=== PATIENT | male | born 1940 | race Caucasian/White ===

== ENCOUNTER 2020-12-04 07:39 | Outpatient (CLI) | payer MEDICARE, OTHER, SELFPAY ==
--- NOTE | 2020-12-04 08:00 | USCV_ITS ---
Penny Jose Age: 80 Gender: M : 1940 Exam Date: 12/04/2020 08:01 Ordering Phys: Abdullahi Saldana MD ([email or web address]) Technologist: Sixto Sky Exam Location: [facility] [place] Indication: MURMUR BP: 120 / 70 HR: 57 Rhythm: Sinus Technical Quality: Fair MEASUREMENTS (Male / Female) Normal Values 2D ECHO LV Diastolic Diameter PLAX 3.9 cm 4.2 - 5.9 / 3.9 - 5.3 cm LV Systolic Diameter PLAX 3.0 cm IVS Diastolic Thickness 1.5 cm 0.6 - 1.0 / 0.6 - 0.9 cm IVS Systolic Thickness 1.6 cm LVPW Diastolic Thickness 1.4 cm 0.6 - 1.0 / 0.6 - 0.9 cm LVPW Systolic Thickness 1.8 cm LVOT Diameter 2.2 cm LV Ejection Fraction 2D Teich 33.8 % LV Ejection Fraction MOD 2C 67.6 % LV Ejection Fraction 2C AL 67.3 % LA Diameter 4.0 cm LA Width 4.8 cm LA Height 4.8 cm RA Width 3.9 cm RA Height 5.9 cm Aorta at Sinotubular Diameter 4.0 cm M-MODE LV Diastolic Diameter MM 6.4 cm 4.2 - 5.9 / 3.9 - 5.3 cm LV Systolic Diameter MM 3.6 cm LV Ejection Fraction MM Teich 74.1 % IVS Diastolic Thickness MM 1.4 cm 0.6 - 1.0 / 0.6 - 0.9 cm IVS Systolic Thickness MM 2.0 cm LVPW Diastolic Thickness MM 1.4 cm 0.6 - 1.0 / 0.6 - 0.9 cm LVPW Systolic Thickness MM 2.4 cm RV Diastolic Diameter MM 1.8 cm MV E Point Septal Separation 0.8 cm DOPPLER AV Peak Velocity 124.0 cm/s LVOT Peak Velocity 95.7 cm/s AV Area Cont Eq vti 2.7 cm squared AV Area Cont Eq pk 3.0 cm squared MV Area PHT 5.0 cm squared Mitral E to A Ratio 1.6 MV E' Velocity 59.0 cm/s Mitral E to MV E' Ratio 11.7 Mitral E to LV E' Lateral Ratio 15.0 Mitral E to LV E' Septal Ratio 9.5 TR Peak Velocity 299.7 cm/s TR Peak Gradient 35.9 mmHg TV Peak E Velocity 113.0 cm/s Right Atrial Pressure 3.0 mmHg Pulmonary Artery Systolic Pressu 38.9 mmHg PV Peak Velocity 73.0 cm/s FINDINGS Left Ventricle Normal left ventricular size and systolic function, EF 55 %. Mild to moderate concentric left ventricular hypertrophy.no regional wall motion abnormalities. Grade III/IV diastolic dysfunction (restrictive filling pattern), severely elevated filling pressures. Right Ventricle The right ventricle is normal in size and function. Right Atrium The right atrium is normal in size. Left Atrium Mildly increased left atrial size. Mitral Valve Thickened mitral valve. Moderate mitral annular calcification. Mild mitral valve regurgitation. Aortic Valve Thickened aortic valve. Mild to moderate aortic valve regurgitation. Tricuspid Valve Mild tricuspid valve regurgitation. Pulmonic Valve Mild pulmonary valve regurgitation. Pericardium Normal pericardium without effusion. Aorta Normal ascending aorta dimension. CONCLUSIONS Normal left ventricular size and systolic function, EF 55 % (visual). Mild to moderate concentric left ventricular hypertrophy.no regional wall motion abnormalities. Grade III/IV diastolic dysfunction (restrictive filling pattern), severely elevated filling pressures. Thickened mitral valve. Moderate mitral annular calcification. Mild mitral valve regurgitation. Thickened aortic valve. Mild to moderate aortic valve regurgitation. Mildly increased left atrial size. Mild tricuspid valve regurgitation. Estimated pulmonary artery peak systolic pressure of 39 mmHg There is no pericardial effusion. There are no intracardiac masses. Compared to the study from 09/21/2018, there is improvement in the LV ejection fraction from 40 - 45% to 55%. Dr Abdullahi Saldana MD FAC (Electronically Signed) Final Date: 05 December 2020 06:40 S
== END 2020-12-04 07:40 | disposition home or self-care (01) ==
LOC: US 07:41
PROVIDERS: PCP Family Medicine; Visit Provider Internal Medicine Cardiovascular Disease
DX: R07.89 Other chest pain (principal); I08.3 Combined rheumatic disorders of mitral, aortic and tricuspid valves
CPT/HCPCS: 93306

== ENCOUNTER → 2021-10-07 11:24 | Outpatient (BNVA) | payer MEDICARE, BC, SELFPAY | PROVIDERS: PCP Family Medicine; Visit Provider Internal Medicine Cardiovascular Disease | DX: I48.0 Paroxysmal atrial fibrillation (principal); Z79.01 Long term (current) use of anticoagulants; Z95.0 Presence of cardiac pacemaker; I10 Essential (primary) hypertension; I05.1 Rheumatic mitral insufficiency; G47.33 Obstructive sleep apnea (adult) (pediatric); Z99.89 Dependence on other enabling machines and devices; R42 Dizziness and giddiness; Z87.891 Personal history of nicotine dependence | CPT/HCPCS: 99214 ==

== ENCOUNTER → 2022-01-23 09:50 | Outpatient (BNVA) | payer MEDICARE, BC, SELFPAY | PROVIDERS: PCP Family Medicine; Visit Provider Internal Medicine Cardiovascular Disease | DX: Z45.010 Encounter for checking and testing of cardiac pacemaker pulse generator [battery] (principal) | CPT/HCPCS: 93280 ==

== ENCOUNTER → 2022-04-07 11:08 | Outpatient (BNVA) | payer MEDICARE, BC, SELFPAY | PROVIDERS: PCP Family Medicine; Visit Provider Internal Medicine Cardiovascular Disease | DX: R06.02 Shortness of breath (principal); I48.0 Paroxysmal atrial fibrillation; I05.1 Rheumatic mitral insufficiency; G47.33 Obstructive sleep apnea (adult) (pediatric); I10 Essential (primary) hypertension; Z95.0 Presence of cardiac pacemaker; Z87.891 Personal history of nicotine dependence; Z79.01 Long term (current) use of anticoagulants | CPT/HCPCS: 36415; 80048; 83880; 99214 ==

== ENCOUNTER 2022-04-22 09:12 | Outpatient (CLI) | payer MEDICARE, BC, SELFPAY ==
[2022-04-22 10:01] LABS: Anion Gap 12.4 (5-19); Blood Urea Nitrogen 15 mg/dL (8-23); Calcium 9.1 mg/dL (8.5-10.5); Carbon Dioxide 25 mmol/L (22-29); Chloride 105 mmol/L (98-107); Glucose 94 mg/dL (65-115); NT Pro B Type Natriuretic Pept 594 pg/mL (0-450); Osmolality Calculated 287 mOsm/kg (285-295); Potassium 4.4 mmol/L (3.5-5.1); Sodium 138 mmol/L (136-145)
== END 2022-04-22 09:13 | disposition home or self-care (01) ==
LOC: LAB 09:17
PROVIDERS: PCP Family Medicine; Visit Provider Internal Medicine Cardiovascular Disease
DX: R06.02 Shortness of breath (principal); R79.89 Other specified abnormal findings of blood chemistry; R73.03 Prediabetes
CPT/HCPCS: 80048; 83880

== ENCOUNTER → 2022-11-02 13:51 | Outpatient (BNVA) | payer MEDICARE, BC, SELFPAY | PROVIDERS: PCP Family Medicine; Visit Provider Nurse Practitioner Family | DX: I48.0 Paroxysmal atrial fibrillation (principal); R06.02 Shortness of breath; I34.0 Nonrheumatic mitral (valve) insufficiency; Z95.0 Presence of cardiac pacemaker; I10 Essential (primary) hypertension; Z79.01 Long term (current) use of anticoagulants; Z87.891 Personal history of nicotine dependence | CPT/HCPCS: 99214 ==

== ENCOUNTER 2022-11-18 07:21 | Outpatient (CLI) | payer MEDICARE, BC, SELFPAY ==
--- NOTE | 2022-11-18 07:15 | USCV_ITS ---
Jose Francis Age: 82 Gender: M : 1940 Exam Date: 11/18/2022 07:43 Ordering Phys: Radha Osei Technologist: Yash Oliva Exam Location: [facility] [place] Indication: dyspnea with very little exertion BP: 128 / 64 HR: Rhythm: Sinus Technical Quality: Adequate MEASUREMENTS (Male / Female) Normal Values 2D ECHO LVOT Diameter 2.1 cm LV Ejection Fraction MOD 2C 55.6 % LV Ejection Fraction 2C AL 56.5 % LA Diameter 4.6 cm LA Width 3.6 cm LA Height 5.0 cm RA Width 3.4 cm RA Height 5.0 cm Aorta at Sinotubular Diameter 3.4 cm IVC Diameter 1.9 cm M-MODE Aortic Annulus Diameter 3.8 cm LA Ao Ratio MM 1.2 MV E Point Septal Separation 0.7 cm DOPPLER AV Peak Velocity 244.0 cm/s LVOT Peak Velocity 111.0 cm/s AV Area Cont Eq vti 1.5 cm squared AV Area Cont Eq pk 1.7 cm squared MV Peak Velocity 173.0 cm/s MV Area PHT 4.9 cm squared Mitral E to A Ratio 2.6 MV E' Velocity 62.0 cm/s Mitral E to MV E' Ratio 12.8 Mitral E to LV E' Lateral Ratio 11.5 Mitral E to LV E' Septal Ratio 14.6 TR Peak Velocity 305.5 cm/s TR Peak Gradient 37.3 mmHg TR Mean Velocity 225.4 cm/s TR Mean Gradient 22.0 mmHg TR Velocity Time Integral 93.5 cm Right Atrial Pressure 3.0 mmHg Pulmonary Artery Systolic Pressu 40.3 mmHg PV Peak Velocity 85.7 cm/s RV Acceleration Time 0.1 s RV Ejection Time 0.3 s RV AcT/ET 0.2 FINDINGS Left Ventricle Left ventricle is normal in size. LV systolic function is normal with EF of 55 to 60%. No regional wall motion abnormalities are seen. Right Ventricle Normal in size and function Right Atrium Normal in size Left Atrium Normal in size Mitral Valve Structurally normal mitral valve.Mild to moderate mitral regurgitation Aortic Valve Aortic valve is thickened. Mild aortic stenosis with aortic valve area 1.46 cm squared and mean gradient across aortic valve of 14 mmHg. Mild aortic regurgitation. Tricuspid Valve Mild tricuspid regurgitation. RVSP is 40 to 45 mmHg. This is consistent with mild pulmonary hypertension. Pulmonic Valve Not well visualized. Mild pulmonic regurgitation. 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 IVC Appears to be normal CONCLUSIONS LV systolic function is normal with EF 55 to 60%. 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 Compared to prior echocardiogram from 2020, ascending aortic size has increased significantly. Ramírez Fournier MD (Electronically Signed) Final Date: 20 November 2022 17:49 S
== END 2022-11-18 07:22 | disposition home or self-care (01) ==
LOC: RAD 07:26
PROVIDERS: PCP Family Medicine; Visit Provider Nurse Practitioner Family
DX: I34.0 Nonrheumatic mitral (valve) insufficiency (principal); I07.1 Rheumatic tricuspid insufficiency; I37.1 Nonrheumatic pulmonary valve insufficiency; I35.0 Nonrheumatic aortic (valve) stenosis
CPT/HCPCS: 93306

== ENCOUNTER → 2022-12-09 16:50 | Outpatient (BNVA) | payer OTHER, SELFPAY | PROVIDERS: PCP Family Medicine; Visit Provider Internal Medicine Pulmonary Disease | DX: Z95.0 Presence of cardiac pacemaker (principal); R06.02 Shortness of breath | CPT/HCPCS: 80053; 82785; 85025; 86003; 99204 ==

== ENCOUNTER 2022-12-24 08:50 | Outpatient (CLI) | payer MEDICARE, BC, SELFPAY ==
--- NOTE | 2022-12-24 10:30 | CT_ITS ---
WS: [id number] CTA THORACIC TECHNIQUE: Contrast enhanced CTA of the thoracic aorta with coronal and sagittal reformatted images a nd maximum intensity projection (MIP) images. CLINICAL INFORMATION: aortic dialation increase COMPARISON: None. DLP: 966.[address] scans at [facility] use at least one of these dose optimization techniques: automated e xposure control; mA and/or kV adjustment per patient size (includes targeted exams where dose is matc hed to clinical indication); or iterative reconstruction. FINDINGS: Ascending thoracic aortic aneurysm measuring 4.6 cm at the level of the pulmonary trunk. Maximum dime nsion at the sinuses of Valsalva measures 4.1 cm. Maximum dimension at the sinotubular junction measu res 3.4 cm. Normal caliber descending thoracic aorta. Coronary calcification. Small pericardial effusion. Proxima l main pulmonary arteries are normal. No mediastinal or hilar lymphadenopathy. Lungs are well aerated. No acute pulmonary infiltrates. Slig ht bibasilar atelectasis. Mild thoracic kyphosis. Schmorl's nodes in the thoracic spine. Chronic biconcave compression of the T 12 vertebral body. Small esophageal hiatal hernia. Celiac and SMA are patent in the upper abdomen. Pancreatic calcificat ions likely due to chronic pancreatitis. IMPRESSION: 1. Ascending thoracic aortic aneurysm measuring 4.6 cm at the level of the pulmonary trunk. 2. Maximum dimension at the sinuses of Valsalva measures 4.1 cm. 3. Maximum dimension at the sinotubular junction measures 3.4 cm. 4. Aortic and coronary calcification. 5. Slightly prominent lymph node in the left axilla measuring 10 mm nonspecific. Recommend clinical correlation. This can be followed up with ultrasound if indicated.
[2022-12-24] MEDS: iohexol 350 mg/mL 500 mL Btl (per mL) IV (10:49)
== END 2022-12-24 08:51 | disposition home or self-care (01) ==
PROVIDERS: PCP Family Medicine; Visit Provider Internal Medicine Cardiovascular Disease
DX: I71.21 Aneurysm of the ascending aorta, without rupture (principal); I70.0 Atherosclerosis of aorta; I25.10 Atherosclerotic heart disease of native coronary artery without angina pectoris
CPT/HCPCS: 71275; 94010; 94726; 94729

== ENCOUNTER 2023-01-11 17:24 | Inpatient (IN) | payer OTHER, SELFPAY ==
[2023-01-11] VITALS (10 sets, daily range): BP systolic 106–131; BP diastolic 60–78; PULSE 67–74; RESP 18–20; TEMP 36.4–37; O2SAT 95–100; BMI 31.8
--- NOTE | 2023-01-11 18:39 | ED_ITS ---
HPI - GI Bleed General: Chief complaint: GI Bleed Stated complaint: [facility] sent, [facility] Time Seen by Provider: 01/11/23 18:21 Source: patient Mode of arrival: ambulatory Limitations: no limitations History of Present Illness: 82-year-old male states he has been having some blood in his stool over the last 5 to 6 days. He states that he has had some darker stools he denies any pain he states he had some slight weakness. He is on Eliquis for A-fib he [facility] and [facility] 7[facility]2 his blood pressure here is normal. He denies any vomiting. He had no diarrhea. Associated symptoms: Denies abdominal pain, chills, fever(s), headache(s), claudette sea, rash or vomiting Review of Systems Const: Denies: fever(s), chills, body aches or change in appetite ENMT: Denies: throat pain or dental pain Card: Denies: chest pain Resp: Denies: dyspnea GI: Reports: hematochezia; Denies: abdominal pain, nausea, vomiting or diarrhea : Denies: dysuria Musc: Denies: neck pain or back pain Skin/Breast: Denies: rash Neuro: Denies: headache(s) PFSH ED PFSH: Medical History Anxiety Atrial fibrillation History of pacemaker Hypertension Mitral regurgitation ABRAM (obstructive sleep apnea) Osteoporosis Surgical History H/O hemorrhoidectomy History of hernia surgery Hx of tonsillectomy Family History Brother CAD (coronary artery disease) CHF (congestive heart failure) Cancer Sister Lung disease Denies family history of Diabetes Clotting disorder Dementia Hyperlipidemia Chronic kidney disease (CKD) Suicide Anesthesia complication Bleeding disorder Hypertension Stroke Social History Smoking and tobacco status: former smoker Alcohol intake: never Substance/Drug Use: never Household members: none Marital status: Physical Exam Const: COMMON NORMALS: patient oriented x3 HENMT: COMMON NORMALS: normocephalic and atraumatic HEAD & SCALP: normocephalic and atraumatic Eye: COMMON NORMALS: Equal, round and reactive pupils present and EOMs intact bilaterally PUPIL: Yes Equal, round and reactive pupils present Neck/C-Spine: COMMON NORMALS: full ROM and supple Chest: COMMONS NORMALS: normal inspection of the chest and normal palpation of entire chest wall Resp: COMMON NORMALS: normal respiratory effort, No retractions, No use of accessory muscles and clear to auscultation bilaterally AUSCULTATION: clear to auscultation bilaterally Cardio: COMMON NORMALS: regular rate, regular rhythm and No murmurs present (Cardio) RATE: regular rate RHYTHM: regular rhythm GI: COMMON NORMALS: Normal to inspection, nondistended, normoactive bowel tam nds present, Soft to palpation, non-tender and no masses PALPATION: Yes Soft to palpation OTHER: maroon blood on rectal exam Extremity: COMMON NORMALS: normal to inspection and full ROM Neuro: COMMON NORMALS: patient oriented x3, moves all extremities and no focal motor deficits Psych: COMMON NORMALS: mental status grossly normal, Normal thought process present and cooperative THOUGHT PROCESS: Normal thought process present Skin: COMMON NORMALS: no rashes or lesions noted and no wounds GENERAL SKIN EXAM: no rashes or lesions noted Course Vital Signs: Vital signs: Vital Signs Temperature 97.5 F L 01/11/23 17:54 Pulse Rate 71 01/11/23 18:40 Respiratory Rate 18 01/11/23 18:40 Blood Pressure 131/78 01/11/23 18:40 Pulse Oximetry 98 01/11/23 18:40 Oxygen Delivery Me thod Room Air 01/11/23 18:40 MDM - GI Bleed Medical Decision Making Patient presents here with GI bleed. His rectal exam here showed maroon blood no signs of black tarry blood no signs of an upper GI bleed here. His vital signs here been stable he is anemic we will transfuse him 2 units we will give him Protonix I spoke to the hospitalist along with his surgeon and will admit at this time. He has been stable while in the ER. Medical Records I reviewed the patient's medical records. Lab Data I reviewed the patient's lab results. 01/11/23 18:41 01/11/23 18:41 Laboratory Results WBC 7.11 10^3/uL (3.29-11.43) 01/11/23 18:41 RBC 2.21 10^6/uL (3.85-5.65) L 01/11/23 18:41 Hgb 7.10 g/dL (11.27-16.99) L 01/11/23 18:41 Hct 22.6 % (37-53) L 01/11/23 18:41 MCV 102.3 fl (82-101) H 01/11/23 18:41 MCH 32.1 pg (27-33) 01/11/23 18:41 MCHC 31.4 g/dL (30-55) 01/11/23 18:41 RDW 16.3 % (12.1-15.1) H 01/11/23 18:41 Plt Count 153 10^3/cmm (157-399) L 01/11/23 18:41 MPV 9.9 fL (7.4-10.4) 01/11/23 18:41 Neut % (Auto) 53.9 % 01/11/23 18:41 Lymph % (Auto) 38.5 % 01/11/23 18:41 Rhea % (Auto) 6.8 % 01/11/23 18:41 Eos % (Auto) 0.1 % 01/11/23 18:41 Baso % (Auto) 0.1 % 01/11/23 18:41 Neut # (Auto) 3.83 10^3/uL (1.8-7.7) 01/11/23 18:41 Lymph # (Auto) 2.7 10^3/uL (0.8-4.8) 01/11/23 18:41 Rhea # (Auto) 0.5 10^3/uL (0.2-0.9) 01/11/23 18:41 Eos # (Auto) 0.0 10^3/uL (0.0-0.8) 01/11/23 18:41 Baso # (Auto) 0.0 10^3/uL (0.0-0.1) 01/11/23 18: Nucleated RBC % (auto) 0.3 % 01/11/23 18: Nucleated RBCs # 0.0 /100WBC 01/11/23 18:41 PT 16.70 SECONDS (12.1-14.9) H 01/11/23 18:41 INR 1.31 (0.8-1.2) H 01/11/23 18:41 Sodium 138 mmol/L (136-145) 01/11/23 18:41 Potassium 4.5 mmol/L (3.5-5.1) 01/11/23 18:41 Chloride 103 mmol/L (98-107) 01/11/23 18:41 Carbon Dioxide 23 mmol/L (22-29) 01/11/23 18:41 Anion Gap 16.5 (5-19) 01/11/23 18:41 BUN 26 mg/dL (8-23) H 01/11/23 18:41 Creatinine 1.2 mg/dL (0.7-1.2) 01/11/23 18:41 GFR Calculation Not Reportable 01/11/23 18:41 Glucose 111 mg/dL (65-115) 01/11/23 18:41 Calculated Osmolality 291 mOsm/kg (285-295) 01/11/23 18:41 Calcium 8.5 mg/dL (8.5-10.5) 01/11/23 18:41 Total Bilirubin 0.4 mg/dL (0.15-1.2) 01/11/23 18:41 AST 28 U/L (0-40) 01/11/23 18:41 ALT 23 U/L (0-41) 01/11/23 18:41 Alkaline Phosphatase 53 U/L (40-130) 01/11/23 18:41 Total Protein 6.2 g/dL (6.6-8.7) L 01/11/23 18:41 Albumin 3.7 g/dL (3.5-5.2) 01/11/23 18:41 Globulin 2.5 g/dL (1.3-4.6) 01/11/23 18:41 Critical Care Time Critical Care Time: Critical Care Time: Yes Total Critical Care Time: 35 Attestation: The high probability of a clinically significant, sudden or life threatening d eterioration of the patient's gi system(s) required my full and direct attention, intervention and personal management. The critical care time is as shown. This time is in addition to time spent performing any reported procedures but includes the following: [x] Data and vital sign review and interpretation [x] Patient assessment, examination and intervention [x] Documentation [x] Medication orders and management Discharge Plan Discharge Patient Disposition: Admitted As Inpatient Clinical Impression: GI bleed, Anemia, Atrial fibrillation Condition: Stable Prescriptions: No Action ascorbate calcium (vitamin C) 500 mg tablet 1 gm PO DAILY cholecalciferol (vitamin D3) 25 mcg (1,000 unit) capsule 25 mcg PO DAILY isosorbide mononitrate 30 mg tablet extended release 24 hr 30 mg PO QAM omega-3 fatty acids [Fish Oil Concentrate] 1,000 mg capsule 1,000 mg PO BID metoprolol succinate [Toprol XL] 50 mg tablet extended release 24 hr 50 mg PO BID Eliquis 5 mg tablet 5 mg PO BID amiodarone 200 mg tablet 100 mg PO BID tamsulosin 0.4 mg capsule 0.4 mg PO DAILY rosuvastatin [Crestor] 40 mg tablet 40 mg PO DAILY Complete Multivitamin Tablet 1 tab PO DAILY levothyroxine [Synthroid] 75 mcg tablet 75 mcg PO DAILY lidocaine HCl 10 mg/mL (1 %) solution 0.2 ml Tendon Sheath Inj. ONCE Qty: 1 0RF bupivacaine HCl 0.5 % (5 mg/mL) solution 0.2 ml Tendon Sheath Inj. ONCE Qty: 1 0RF betamethasone acet,sod phos [Celestone Soluspan] 6 mg/mL suspension 0.6 mg Tendon Sheath Inj. ONCE Qty: 0.1 0RF loratadine 10 mg tablet 10 mg PO DAILY albuterol sulfate [Ventolin HFA] 90 mcg/actuation HFA aerosol inhaler 1 inh inhalation QID PRN (Reason: shortness of breath or wheezing) Qty: 8.5 4RF furosemide 20 mg tablet 20 mg PO DAILY Qty: 90 1RF potassium chloride 8 mEq tablet extended release 8 meq PO DAILY Qty: 90 1RF Rx Instructions: Take with Furosemide daily Referrals: Richardson Pineda MD [Primary Care Provider] - Patient Instructions: Opioid Safety, Pain Management Coding Level of Care Code ED Quality Facilitator for Rom Posada
[2023-01-11 18:53] LABS: Basophils % 0.1 %; Eosinophils % 0.1 %; Hematocrit 22.6 % (37-53); Lymphocytes # 2.7 10^3/uL (0.8-4.8); Lymphocytes % 38.5 %; Mean Corpuscular HGB Conc 31.4 g/dL (30-55); Mean Corpuscular Hemoglobin 32.1 pg (27-33); Mean Corpuscular Volume 102.3 fl (82-101); Mean Platelet Volume 9.9 fL (7.4-10.4); Monocytes # 0.5 10^3/uL (0.2-0.9); Monocytes % 6.8 %; Neutrophils # 3.83 10^3/uL (1.8-7.7); Neutrophils % 53.9 %; Nucleated Red Blood Cells % 0.3 %; Platelet Count 153 10^3/cmm (157-399); Red Blood Count 2.21 10^6/uL (3.85-5.65); Red Cell Distribution Width 16.3 % (12.1-15.1); White Blood Count 7.11 10^3/uL (3.29-11.43)
[2023-01-11 19:15] LABS: INR 1.31 (0.8-1.2)
[2023-01-11 19:20] LABS: Alanine Aminotransferase 23 U/L (0-41); Albumin Level 3.7 g/dL (3.5-5.2); Alkaline Phosphatase 53 U/L (40-130); Anion Gap 16.5 (5-19); Aspartate Amino Transferase 28 U/L (0-40); Blood Urea Nitrogen 26 mg/dL (8-23); Calcium 8.5 mg/dL (8.5-10.5); Carbon Dioxide 23 mmol/L (22-29); Chloride 103 mmol/L (98-107); Creatinine Clr Calc Pharmacy 56.0957; Globulin 2.5 g/dL (1.3-4.6); Glucose 111 mg/dL (65-115); Osmolality Calculated 291 mOsm/kg (285-295); Potassium 4.5 mmol/L (3.5-5.1); Sodium 138 mmol/L (136-145); Total Bilirubin 0.4 mg/dL (0.15-1.2); Total Protein 6.2 g/dL (6.6-8.7)
[2023-01-11] MEDS: pantoprazole 40 mg SDV 80 MG IVP (20:07)
--- NOTE | 2023-01-11 20:49 | PM.HP ---
Providers/Chief Complaint Admitting Physician: Hilton Aaron DO Primary Care Provider: Richardson Pineda MD Chief Complaint: va sent, cbc History of Present Illness Jose Francis is a 82 year old male states that he has been feeling short of breath over the last couple weeks. He noticed black stool in the past week. He went to the [facility]. He had lot lab work drawn and he was notified today that his hemoglobin was 7 and asked to go to the emergency room. Patient also describes losing 12 pounds in the past couple weeks. He states he has no appetite, which is new for him. Of note the patient will report that he has been short of breath and has not been feeling well ever since he had COVID and the vaccinations approximately a year and a half ago. Patient denies chest pain fevers or chills. Denies syncope, headaches. Review of Systems Const: Denies: fever(s) or chills Eyes: Denies: change in vision ENMT: Denies: throat pain or nasal congestion Card: Denies: chest pain or palpitations Resp: Reports: dyspnea; Denies: productive cough GI: Reports: melena; Denies: abdominal pain, nausea, vomiting or change in stool character : Denies: difficulty urinating or dysuria Musc: Denies: back pain or extremity pain Skin/Breast: Denies: rash or lesions Neuro: Denies: headache(s) or dizziness Psych: Denies: anxiety or depression Anurag/Lymph: Denies: easy bruising or easy bleeding Medications/Allergies Home Medications Medication Instructions Recorded Confirmed Last Taken Type apixaban 5 mg tablet (Eliquis) 5 mg PO BID 05/31/19 12/09/22 Unknown History isosorbide mononitrate 30 mg 30 mg PO QAM 05/31/19 12/09/22 Unknown History tablet,extended release 24 hr metoprolol succinate 50 mg 50 mg PO BID 05/31/19 12/09/22 Unknown History tablet,extended release 24 hr (Toprol XL) omega-3 fatty acids 1,000 mg 1,000 mg PO BID 05/31/19 12/09/22 Unknown History capsule (Fish Oil Concentrate) amiodarone 200 mg tablet 100 mg PO BID 11/07/19 12/09/22 Unknown History ascorbate calcium (vitamin C) 500 1 gm PO DAILY 11/07/19 12/09/22 Unknown History mg tablet cholecalciferol (vitamin D3) 25 25 mcg PO DAILY 11/07/19 12/09/22 Unknown History mcg (1,000 unit) capsule levothyroxine 75 mcg tablet 75 mcg PO DAILY 05/02/20 12/09/22 Unknown History (Synthroid) multivitamin,[id number] 1 tab PO DAILY 05/02/20 12/09/22 Unknown History (Complete Multivitamin tablet) rosuvastatin 40 mg tablet (Crestor) 40 mg PO DAILY 05/02/20 12/09/22 Unknown History tamsulosin 0.4 mg capsule 0.4 mg PO DAILY 05/02/20 12/09/22 Unknown History loratadine 10 mg tablet 10 mg PO DAILY 10/07/21 12/09/22 Unknown History furosemide 20 mg tablet 20 mg PO DAILY #90 tabs 05/12/22 12/09/22 Unknown Rx potassium chloride 8 mEq 8 meq PO DAILY #90 tabs 05/12/22 12/09/22 Unknown Rx tablet,extended release albuterol sulfate 90 mcg/actuation 1 inh inhalation QID PRN shortness 12/09/22 12/09/22 Unknown Rx aerosol inhaler (Ventolin HFA) of breath or wheezing #8.5 grams Allergies Allergy/AdvReac Type Severity Reaction Status Date / Time metformin AdvReac Severe nausea Verified 01/11/23 17:59 PFSH Acute PFSH: Medical History Anxiety Atrial fibrillation History of pacemaker Hypertension Mitral regurgitation ABRAM (obstructive sleep apnea) Osteoporosis Surgical History H/O hemorrhoidectomy History of hernia surgery Hx of tonsillectomy Family History Brother CAD (coronary artery disease) CHF (congestive heart failure) Cancer Sister Lung disease Denies family history of Diabetes Clotting disorder Dementia Hyperlipidemia Chronic kidney disease (CKD) Suicide Anesthesia complication Bleeding disorder Hypertension Stroke Social History Smoking and tobacco status: former smoker Alcohol intake: never Substance/Drug Use: never Household members: none Marital status: Vitals/I&O/Wt Last Vital Signs Temp 97.5 F L 01/11/23 17:54 Pulse 74 01/11/23 20:47 Resp 18 01/11/23 20:47 BP 114/67 01/11/23 20:47 Pulse Ox 98 01/11/23 20:47 O2 Del Method Room Air 01/11/23 18:40 Weight last 48 hrs Weight 103.419 kg Physical Exam Narrative: Patient is a 82-year-old white male, appears pale, no acute distress at time of examination Neuro: Alert and oriented to person place time and situation. He is nonfocal HEENT: Head is normocephalic atraumatic pupils equal round and reactive to light and accommodation extraocular muscles are intact there is no scleral icterus mucous membranes are moist and pink neck is supple no JVD carotid bruits or lymphadenopathy Chest: Rises symmetrically with inspiration. No tenderness to palpation. Cardiac: Regular rate and rhythm without loud murmur Respiratory: Normal respirations good aeration no wheezes rales or rhonchi . Abdomen is obese ventral hernia is present. Nontender nondistended normal active bowel sounds Back: No scoliosis or kyphosis. No CVA tenderness Extremities for present no clubbing cyanosis or edema. Skin. Warm and dry. There are scattered bruises on arms and legs. Data 01/11/23 18:41 01/11/23 18:41 A&P Assessment and plan (1) GI bleed: Hold apixaban. PPI twice daily. ER physician consulted surgery for endoscopy. (2) Anemia: Patient was ordered 2 units packed red blood cells by ED physician. (3) SOB (shortness of breath): Likely secondary to anemia (4) Atrial fibrillation: Will need to hold anticoagulation at this time. (5) ABRAM (obstructive sleep apnea): CPAP at night Attestations Medical Necessity Statement*: Patient is admitted due to severe anemia with GI bleed. He requires transfusion and consultation with surgeon for panendoscopy. Coding Level of Care Code Acute Code for [facility] Diagnoses GI bleed K92.2 Anemia D64.9 SOB (shortness of breath) R06.02 Atrial fibrillation I48.91 ABRAM (obstructive sleep apnea) G47.33
[2023-01-11] MEDS: pantoprazole 40 mg SDV IVP (22:06)
[2023-01-12] VITALS (17 sets, daily range): BP systolic 94–132; BP diastolic 48–80; PULSE 64–72; RESP 16–73; TEMP 36.4–37; O2SAT 97–100
[2023-01-12 05:35] LABS: Hematocrit 24.9 % (37-53)
--- NOTE | 2023-01-12 07:09 | PM.CONSULT ---
Providers/Reason For Consult Consulting Physician/Specialty*: General surgery Reason for Consult*: GI bleeding Attending Physician: Hilton Aaron DO Primary Care Provider: Richardson Pineda MD History of Present Illness History of Present Illness Jose Francis is a 82 year old male who was referred to our emergency department after anemia was noted on labs done [place]. Per patient report about 1 week ago he noted his subsequent episodes of black tarry stools, he decided to seek care for these and went to the [place] yesterday. Hemoglobin was noted to be 7.1, which is decreased from his baseline of 11. He denies bright red blood per rectum, he denies any abdominal pain or other symptoms. Of note patient takes apixaban for atrial fibrillation. Review of Systems Narrative: A 10 point review of system was done and is negative otherwise noted in HPI. Also reports hearing loss requiring hearing aid. Medications/Allergies Home Medications Medication Instructions Recorded Confirmed Last Taken Type apixaban 5 mg tablet (Eliquis) 5 mg PO BID 05/31/19 12/09/22 Unknown History isosorbide mononitrate 30 mg 30 mg PO QAM 05/31/19 12/09/22 Unknown History tablet,extended release 24 hr metoprolol succinate 50 mg 50 mg PO BID 05/31/19 12/09/22 Unknown History tablet,extended release 24 hr (Toprol XL) omega-3 fatty acids 1,000 mg 1,000 mg PO BID 05/31/19 12/09/22 Unknown History capsule (Fish Oil Concentrate) amiodarone 200 mg tablet 100 mg PO BID 11/07/19 12/09/22 Unknown History ascorbate calcium (vitamin C) 500 1 gm PO DAILY 11/07/19 12/09/22 Unknown History mg tablet cholecalciferol (vitamin D3) 25 25 mcg PO DAILY 11/07/19 12/09/22 Unknown History mcg (1,000 unit) capsule levothyroxine 75 mcg tablet 75 mcg PO DAILY 05/02/20 12/09/22 Unknown History (Synthroid) multivitamin,[id number] 1 tab PO DAILY 05/02/20 12/09/22 Unknown History (Complete Multivitamin tablet) rosuvastatin 40 mg tablet (Crestor) 40 mg PO DAILY 05/02/20 12/09/22 Unknown History tamsulosin 0.4 mg capsule 0.4 mg PO DAILY 05/02/20 12/09/22 Unknown History loratadine 10 mg tablet 10 mg PO DAILY 10/07/21 12/09/22 Unknown History furosemide 20 mg tablet 20 mg PO DAILY #90 tabs 05/12/22 12/09/22 Unknown Rx potassium chloride 8 mEq 8 meq PO DAILY #90 tabs 05/12/22 12/09/22 Unknown Rx tablet,extended release albuterol sulfate 90 mcg/actuation 1 inh inhalation QID PRN shortness 12/09/22 12/09/22 Unknown Rx aerosol inhaler (Ventolin HFA) of breath or wheezing #8.5 grams Allergies Allergy/AdvReac Type Severity Reaction Status Date / Time metformin AdvReac Severe nausea Verified 01/11/23 17:59 Current Medications Generic Name Dose Route Start Last Admin Trade Name Freq PRN Reason Stop Dose Admin Pantoprazole Sodium 40 mg 01/11/23 21:15 01/11/23 22:06 Pantoprazole 40 Mg Sdv IVP 40 mg Q12H IVIS Administration PFSH Acute PFSH: Medical History Anxiety Atrial fibrillation History of pacemaker Hypertension Mitral regurgitation ABRAM (obstructive sleep apnea) Osteoporosis Surgical History H/O hemorrhoidectomy History of hernia surgery Hx of tonsillectomy Family History Brother CAD (coronary artery disease) CHF (congestive heart failure) Cancer Sister Lung disease Denies family history of Diabetes Clotting disorder Dementia Hyperlipidemia Chronic kidney disease (CKD) Suicide Anesthesia complication Bleeding disorder Hypertension Stroke Social History Smoking and tobacco status: former smoker Alcohol intake: never Substance/Drug Use: never Household members: none Marital status: Vitals/I&O/Wt Last Vital Signs Temp 98.6 F 01/12/23 05:00 Pulse 65 01/12/23 05:00 Resp 18 01/12/23 05:00 BP 125/77 01/12/23 05:00 Pulse Ox 100 01/12/23 05:00 O2 Del Method Room Air 01/12/23 01:21 O2 Flow Rate 2 01/12/23 01:21 01/11/23 01/12/23 01/12/23 22:59 06:59 14:59 Intake Total 0 / 0 620 / 620 Balance 0 / 0 620 / 620 Weight last 48 hrs Weight 228 lb Physical Exam Narrative: General : Patient is well developed , no acute distress, oriented x3 Head : Normal cephalic, a-traumatic. Nose : Mucous membranes are without erythema. Lungs : Equal chest rise bilaterally, no use of accessory muscles, trachea is midline. CV : Rate and rhythm are normal. Abdomen : Soft, ND, NT, no g/r/m Rectal exam: There is a small amount of bloody residue in the anal margin, no red blood, no active bleeding noted, no masses palpated normal sphincter tone. Extremities : No edema. Upper extremities are normal bilaterally. Back : non-tender to palpation, no CVA tenderness. Data 01/12/23 05:27 01/11/23 18:41 A&P Assessment and plan (1) GI bleed: (2) Anemia: Plan Is a 82-year-old male who presents to our hospital with symptoms concerning for upper GI bleeding. Patient is currently stable, his response to transfusion was suboptimal, he received 2 units of blood his hemoglobin went from 7.1-7.6. Vital signs at the bedside are pretty unremarkable with a heart rate of 65 patient does not have any symptoms concerning for hemodynamic instability. Patient has been started on high-dose PPI and apixaban has been held. At this point my concern is for anticoagulation source of bleeding rather than lower GI source of bleeding due to her symptomatology. The plan to proceed with upper endoscopy today for diagnosis and possible bleeding control as needed. In case of blood cultures during upper endoscopy, the next step will be to provide proper bowel prep to proceed with lower GI endoscopy either tomorrow or . In the interim patient should continue trending the hemoglobin, and all current management meant as given by hospitalist team. Coding Level of Care Code 39884 Diagnoses GI bleed K92.2 Anemia D64.9
--- NOTE | 2023-01-12 08:15 | PC.PHAR ---
[facility]X SENT TO [facility] AT 7:30 AM FOR MEDICATION LIST
[2023-01-12] MEDS: sodium chloride 0.9% 1,000 ML 30 ML IV ×2 (08:58→12:03)
--- NOTE | 2023-01-12 09:33 | PC.CHAP ---
Pastoral Care Encounter/Spiritual Assessment Type of Contact [] Declined regulatory compliance coordinator visit [] Patient/Family/Request visit [] Outpatient visit [] Follow-up visit [] Physician referral [] Code/Alert [] Routine visit [] Staff referral [] Actively dying [] Patient sleeping [] Family support [] [] Out of room [] Palliative care [] [x] Receiving care in room [] Pre-surgical visit [] Trauma [] Long length of stay [] ICU visit [] Other: Relational/Emotional Strength [] Patient feels connected with others/family/visitors/staff [] Distress [] Loneliness/isolation [] Abandonment Spirituality of Patient [] Person of Leanna [] Attends Sabianist of their Leanna [] Believes in Prayer [] Reads Bible or Orthodoxy materials [] There are Spiritual issues to be addressed [place] [employer] Interventions [] Prayer [] Active listening [] Non-anxious presence [] Spiritual/emotional support [] Crisis/trauma care [] Spiritual counseling [] Bereavement support [] Provided bereavement packet [] Provided Bible/devotional materials [] Provided toy/stuffed animal, coloring book to patient or family member [] Provided Communion [] Anointing/[place] [] Salvation [] Completed spiritual assessment [] Other: Impact on Illness or Injury [] Angry [] Fearful [] Anxious [] Often cries [] Exhaustion [] Unable to work [] Unable to attend latter-day [] Unable to walk/stand [] Unable to read [] Unable to drive [] Unable to eat/drink [] Unable to sleep [] Unable to be with family [] Patient intubated [] Other: Summary Time spent with patient
[2023-01-12] MEDS: pantoprazole 40 mg SDV IVP ×2 (10:08→20:44)
--- NOTE | 2023-01-12 11:55 | PM.PN ---
Subjective Subjective: Patient reports shorntess of breath is about the same. Denies chest pain, abdominal pain, fevers or chills. Denies prior GI bleeding. States he has been on apixaban for around 5 years and was on warfarin prior to this. Denies nausea or emesis. Planning on EGD today. Medications: Reviewed: Yes Vitals/I&O/Wt Last Vital Signs Temp 98.5 F 01/12/23 07:25 Pulse 70 01/12/23 07:25 Resp 18 01/12/23 07:25 BP 128/76 01/12/23 07:25 Pulse Ox 100 01/12/23 07:25 O2 Del Method Nasal Cannula 01/12/23 07:25 O2 Flow Rate 2 01/12/23 08:00 01/11/23 01/12/23 01/12/23 22:59 06:59 14:59 Intake Total 0 / 0 620 / 620 Balance 0 / 0 620 / 620 Weight last 48 hrs Weight 103.419 kg Physical Exam Narrative: General: Patient is awake and alert. Pale mucous membranes. Pleasant. Head: Normocephalic. Atraumatic. EOM intact. Neck: No JVD. Cardiovascular: RRR. No gallops. No murmurs. Lungs: Clear to auscultation, no use of accessory muscles, no crackles or wheezes. Skin: No jaundice. No rashes. Abdomen: Normal bowel sounds, abdomen soft and nontender. Extremities: No cyanosis or clubbing. Musculoskeletal: No swollen or erythematous joints. Neurological: Moves all 4 extremities. No myoclonus. Data 01/12/23 05:27 01/11/23 18:41 A&P Assessment and plan (1) GI bleed: Acute GI bleed associated with melena Hold anticoagulation IV fluids General surgery consulted, appreciate recommendations Telemetry monitoring Continue IV PPI Trend hemoglobin (2) Anemia: Acute blood loss anemia from GI bleed Holding anticoagulation Further management as above (3) SOB (shortness of breath): Shortness of breath secondary to symptomatic anemia Transfusing as above (4) ABRAM (obstructive sleep apnea): CPAP while sleeping (5) Atrial fibrillation: Holding anticoagulation due to acute GI bleed Continue rate control medications Plan DVT prophylaxis: SCD CODE STATUS: Full code Attestations Medical Necessity Statement*: Patient requires ongoing hospitalization for acute GI bleed management including IV fluids, telemetry monitoring, serial labs, transfusions, and endoscopy evaluation. Coding Level of Care Code Acute Code for Chg Fwd Diagnoses GI bleed K92.2 Anemia D64.9 SOB (shortness of breath) R06.02 ABRAM (obstructive sleep apnea) G47.33 Atrial fibrillation I48.91
--- NOTE | 2023-01-12 12:00 | P.ANESASSM_ITS ---
Pre-Anesthetic Assessment Height/Weight: Height 1.8 m Weight 103.419 kg Temp Pulse Resp BP Pulse Ox O2 Del Method O2 Flow Rate 98.5 F 70 18 128/76 100 Nasal Cannula 2 01/12/23 07:25 01/12/23 07:25 01/12/23 07:25 01/12/23 07:25 01/12/23 07:25 01/12/23 07:25 01/12/23 08:00 Preop Diagnosis: UGI bleeding Operation Date: 01/12/23 12:00 Proposed Procedures p EGD(Not Applicable) - Adriano Terrell MD Familial anesthetic complications: none Was Beta Micheal taken within 24 hours: Yes Was Clonidine taken within 24 hours: N/A Last Intake: 23:00 Social No alcohol and No tobacco Exam alert, oriented x 3, clear to auscultation bilaterally and regular rate & rhythm Airway Submandibular: within normal limits Cervical ROM: within normal limits Mallampati: Class II Dentition: full Pulmonary Cough, Exertional Dyspnea and Sleep Apnea (CPAP) CV/HEM Atrial Fibrillation, Anemia and Hypertension GI bleed with 2 units PRBS last night None reported Hepatic None reported GI Gastroesophageal Reflux Disease Metabolic Thyroid Disease [facility] [place] Lower Back Pain and Osteoarthritis/[facility] None reported Anesthetic Plan ASA status: 3 Anesthesia: MAC Risk of > 500 ml blood loss (7ml/kg in children): No Medications/Allergies Home Medications Medication Instructions Recorded Confirmed Last Taken Type apixaban 5 mg tablet (Eliquis) 5 mg PO BID 05/31/19 01/12/23 Unknown History isosorbide mononitrate 30 mg 30 mg PO QAM 05/31/19 01/12/23 Unknown History tablet,extended release 24 hr amiodarone 200 mg tablet 100 mg PO BID 11/07/19 01/12/23 Unknown History ascorbate calcium (vitamin C) 500 1 gm PO DAILY 11/07/19 01/12/23 Unknown History mg tablet cholecalciferol (vitamin D3) 25 25 mcg PO DAILY 11/07/19 01/12/23 Unknown History mcg (1,000 unit) capsule levothyroxine 75 mcg tablet 75 mcg PO DAILY 05/02/20 01/12/23 Unknown History (Synthroid) rosuvastatin 40 mg tablet (Crestor) 40 mg PO DAILY 05/02/20 01/12/23 Unknown History tamsulosin 0.4 mg capsule 0.4 mg PO DAILY 05/02/20 01/12/23 Unknown History loratadine 10 mg tablet 10 mg PO DAILY 10/07/21 01/12/23 Unknown History furosemide 20 mg tablet 20 mg PO DAILY #90 tabs 05/12/22 01/12/23 Unknown Rx albuterol sulfate 90 mcg/actuation 1 inh inhalation QID PRN shortness 12/09/22 01/12/23 Unknown Rx aerosol inhaler (Ventolin HFA) of breath or wheezing #8.5 grams allopurinol 100 mg tablet 100 mg PO DAILY 01/12/23 01/12/23 Unknown History fluticasone propionate 50 1 spray intranasal DAILY 01/12/23 01/12/23 Unknown History mcg/actuation nasal spray,suspension metoprolol tartrate 100 mg tablet 50 mg PO BID 01/12/23 01/12/23 Unknown History qiyhfpgs-hgujpvur-owgzf acid 400 1 tab PO DAILY 01/12/23 01/12/23 Unknown History mcg-vit K 20 mcg-lycop 300 mcg tablet omega 4-cup-xka-fish oil 1,000 mg 1 cap PO DAILY 01/12/23 01/12/23 Unknown History (120 mg-180 mg) capsule (Fish Oil) potassium chloride 20 mEq 10 meq PO DAILY 01/12/23 01/12/23 Unknown History tablet,extended release(part/cryst) tramadol 50 mg tablet 50 mg PO Q6H PRN Pain 01/12/23 01/12/23 Unknown History Allergies Allergy/AdvReac Type Severity Reaction Status Date / Time metformin AdvReac Severe nausea Verified 01/12/23 09:53 Current Medications Generic Name Dose Route Start Last Admin Trade Name Freq PRN Reason Stop Dose Admin Sodium Chloride 1,000 mls @ 30 mls/hr 01/12/23 07:08 01/12/23 08:58 Sodium Chloride 0.9% IV 01/13/23 07:07 30 mls/hr .Q24H ONE Administration Pantoprazole Sodium 40 mg 01/11/23 21:15 01/12/23 10:08 Pantoprazole 40 Mg Sdv IVP 40 mg Q12H IVIS Administration PFSH Anesthesia Medical History Anxiety Atrial fibrillation History of pacemaker Hypertension Mitral regurgitation ABRAM (obstructive sleep apnea) Osteoporosis Surgical History H/O hemorrhoidectomy History of hernia surgery Hx of tonsillectomy Family History Brother CAD (coronary artery disease) CHF (congestive heart failure) Cancer Sister Lung disease Denies family history of Diabetes Clotting disorder Dementia Hyperlipidemia Chronic kidney disease (CKD) Suicide Anesthesia complication Bleeding disorder Hypertension Stroke Social History Smoking and tobacco status: former smoker Alcohol intake: never Substance/Drug Use: never Household members: none Marital status: Data Anesthesia 01/12/23 05:27 01/11/23 18:41 Short CBC 01/11/23 01/12/23 Range/Units 18:41 05:27 WBC 7.11 (3.29-11.43) 10^3/uL Hgb 7.10 L 7.90 L (11.27-16.99) g/dL Hct 22.6 L 24.9 L (37-53) % MCV 102.3 H (82-101) fl Plt Count 153 L (157-399) 10^3/cmm Neut % (Auto) 53.9 % Neut # (Auto) 3.83 (1.8-7.7) 10^3/uL BMP 01/11/23 18:41 Sodium 138 Potassium 4.5 Chloride 103 Carbon Dioxide 23 BUN 26 H Creatinine 1.2 Glucose 111 Calcium 8.5 Liver Function 01/11/23 Range/Units 18:41 Total Bilirubin 0.4 (0.15-1.2) mg/dL AST 28 (0-40) U/L ALT 23 (0-41) U/L Alkaline Phosphatase 53 (40-130) U/L Albumin 3.7 (3.5-5.2) g/dL Blood Bank 01/11/23 20:22 Blood Type A Positive Rho(D) Type Positive Antibody Screen Negative Coags 01/11/23 18:41 PT 16.70 H INR 1.31 H Cardiac Studies: Echocardiogram 11/18/22 Echocardiogram Ultrasound 12/04/20
[2023-01-12] MEDS: EPINEPHrine 1 mg/mL INJ XX (12:35)
--- NOTE | 2023-01-12 12:58 | PM.MISC ---
Miscellaneous Note Purpose of Documentation: Patient update Note: This 82-year-old male who we performed an upper endoscopy for evaluation of GI bleeding. Patient had a small ulceration in the second portion of the duodenum with minimal oozing, epinephrine was injected with good results. Patient may be high risk for rebleed due to history of anticoagulation intake. The following are my recommendations. ? Hold anticoagulation, consider risk versus benefit before restarting therapy ? In case of recurrent bleeding, consider CT of the abdomen and possible IR embolization of bleeding source. ? Patient should be on twice daily PPI and Carafate ? In case of bleeding stopping next step will be to repeat endoscopy in about 4 to 6 weeks to ensure healing of the ulcer. ? Upon discharge patient she will go on twice a day omeprazole and Carafate at home.
--- NOTE | 2023-01-12 13:04 | ANE.PACU2 ---
Inpatient post-anesthesia follow up: Airway intact: Yes Vital signs: Temperature 97.6 F Pulse Rate 68 Respiratory Rate 16 Blood Pressure 103/55 Pulse Oximetry 97 Oxygen Delivery Me thod Nasal Cannula Oxygen Flow Rate 4 Fraction of Inspir ed Oxygen Hydration adequate: Yes Nausea and vomiting: No Pain level: 1 Mental status: Baseline
--- NOTE | 2023-01-12 17:40 | PC.NURSE ---
This nurse withheld 1800 dose of 50mg metoprolol due to a HR of 64. Dr. Burnette notified and approved of non-administration.
[2023-01-12] MEDS: sucralfate 1 gm/10 mL Oral Liq UDC PO ×2 (17:43→20:44)
[2023-01-12] MEDS: amiodarone 200 mg Tablet 100 MG PO (17:43)
[2023-01-13] VITALS (15 sets, daily range): BP systolic 85–133; BP diastolic 52–75; PULSE 62–73; RESP 15–22; TEMP 36.4–37; O2SAT 93–100
[2023-01-13] MEDS: isosorbide mononitrate ER 30 mg Tablet PO (06:26)
[2023-01-13] MEDS: sucralfate 1 gm/10 mL Oral Liq UDC PO ×4 (06:26→20:57)
[2023-01-13 09:24] LABS: Basophils % 0.2 %; Eosinophils % 0.5 %; Hematocrit 22.4 % (37-53); Lymphocytes # 2.3 10^3/uL (0.8-4.8); Lymphocytes % 37.9 %; Mean Corpuscular HGB Conc 31.7 g/dL (30-55); Mean Corpuscular Volume 100.9 fl (82-101); Monocytes # 0.4 10^3/uL (0.2-0.9); Monocytes % 7.3 %; Neutrophils % 53.4 %; Nucleated Red Blood Cells % 0.3 %; Platelet Count 129 10^3/cmm (157-399); Red Blood Count 2.22 10^6/uL (3.85-5.65); Red Cell Distribution Width 17.8 % (12.1-15.1); White Blood Count 5.99 10^3/uL (3.29-11.43)
[2023-01-13 09:52] LABS: Albumin Level 2.9 g/dL (3.5-5.2); Blood Urea Nitrogen 23 mg/dL (8-23); Calcium 7.8 mg/dL (8.5-10.5); Carbon Dioxide 22 mmol/L (22-29); Chloride 109 mmol/L (98-107); Creatinine Clr Calc Pharmacy 67.3148; Glucose 189 mg/dL (65-115); Phosphorus 2.6 mg/dL (2.5-4.5); Sodium 139 mmol/L (136-145)
[2023-01-13] MEDS: levothyroxine 75 mcg Tablet PO (10:00)
[2023-01-13] MEDS: amiodarone 200 mg Tablet 100 MG PO ×2 (10:00→17:39)
[2023-01-13] MEDS: atorvastatin 40 mg Tablet 80 MG PO (10:00)
[2023-01-13] MEDS: metoprolol tartrate 50 mg Tablet PO ×2 (10:00→17:39)
[2023-01-13] MEDS: allopurinol 100 mg Tablet PO (10:01)
[2023-01-13] MEDS: loratadine 10 mg Tablet PO (10:01)
[2023-01-13] MEDS: tamsulosin 0.4 mg Capsule PO (10:01)
[2023-01-13] MEDS: pantoprazole 40 mg SDV IVP ×2 (10:03→20:57)
--- NOTE | 2023-01-13 11:11 | PM.PN ---
Subjective Subjective: Patient denies bowel movement overnight. Endorses significant fatigue and states he seems to be sleeping a lot. Inquires if that is related to current condition. Discussed common symptoms of anemia. He reports appetite is OK. Tolerating CLD, agreeable to advancing to FLD. Denies fevers, nausea, chest pain or abdominal pains. Medications: Reviewed: Yes Vitals/I&O/Wt Last Vital Signs Temp 97.9 F 01/13/23 08:00 Pulse 73 01/13/23 08:57 Resp 18 01/13/23 08:57 BP 101/67 01/13/23 08:00 Pulse Ox 95 01/13/23 08:57 O2 Del Method Room Air 01/13/23 08:57 O2 Flow Rate 2 01/12/23 13:10 01/12/23 01/13/23 01/13/23 22:59 06:59 14:59 Intake Total 720 / 1312.5 480 / 480 Output Total 600 / 600 850 / 1450 Balance 120 / 712.5 -850 / -137.5 480 / 480 Weight last 48 hrs Weight 103.419 kg Physical Exam Narrative: General: Patient is awake and alert. Pale mucous membranes. Pleasant. Lying in bed. Head: Normocephalic. Atraumatic. EOM intact. Neck: No JVD. Cardiovascular: RRR. No gallops. No murmurs. Lungs: Clear to auscultation, no use of accessory muscles, no crackles or wheezes. Skin: No jaundice. No rashes. Abdomen: Normal bowel sounds, abdomen soft and nontender. Extremities: No cyanosis or clubbing. Musculoskeletal: No swollen or erythematous joints. Neurological: Moves all 4 extremities. No myoclonus. Data 01/13/23 09:17 01/13/23 09:17 A&P Assessment and plan (1) GI bleed: Acute GI bleed associated with melena Hold anticoagulation Stop IVF, encourage oral intake General surgery consulted, appreciate recommendations Telemetry monitoring Continue IV PPI Continue Carafate Advance from CLD to FLD Monitor closely for rebleeding (2) Anemia: Acute blood loss anemia from GI bleed Holding anticoagulation Trending hemoglobin AM HGB 7.1, will transfuse additional pRBC (3) SOB (shortness of breath): Shortness of breath secondary to symptomatic anemia Transfusing as above (4) ABRAM (obstructive sleep apnea): CPAP while sleeping (5) Atrial fibrillation: Holding anticoagulation due to acute GI bleed Continue rate control medications if BP and HR permits Plan DVT prophylaxis: SCD CODE STATUS: Full code Attestations Medical Necessity Statement*: Patient requires ongoing hospitalization for transfusion, serial labs, IV PPI, and supportive care Coding Level of Care Code Acute Code for Chg Fwd Diagnoses GI bleed K92.2 Anemia D64.9 SOB (shortness of breath) R06.02 ABRAM (obstructive sleep apnea) G47.33 Atrial fibrillation I48.91
[2023-01-13 19:10] LABS: Hematocrit 25.2 % (37-53)
[2023-01-14] VITALS: BP 103/58; PULSE 64; RESP 18; TEMP 36.4; O2SAT 93
[2023-01-14 04:47] VITALS: BP 96/57; PULSE 71; RESP 18; TEMP 36.4; O2SAT 93
[2023-01-14 05:07] LABS: Basophils % 0.3 %; Eosinophils % 0.3 %; Hematocrit 26.8 % (37-53); Lymphocytes # 2.2 10^3/uL (0.8-4.8); Lymphocytes % 34.3 %; Mean Corpuscular HGB Conc 31.7 g/dL (30-55); Mean Corpuscular Hemoglobin 31.6 pg (27-33); Mean Corpuscular Volume 99.6 fl (82-101); Mean Platelet Volume 9.8 fL (7.4-10.4); Monocytes # 0.4 10^3/uL (0.2-0.9); Monocytes % 6.1 %; Neutrophils % 58.1 %; Nucleated Red Blood Cells % 0.3 %; Platelet Count 140 10^3/cmm (157-399); Red Blood Count 2.69 10^6/uL (3.85-5.65); Red Cell Distribution Width 17.9 % (12.1-15.1); White Blood Count 6.38 10^3/uL (3.29-11.43)
[2023-01-14 05:35] LABS: Albumin Level 3.2 g/dL (3.5-5.2); Anion Gap 13.2 (5-19); Blood Urea Nitrogen 21 mg/dL (8-23); Calcium 8.3 mg/dL (8.5-10.5); Carbon Dioxide 24 mmol/L (22-29); Chloride 107 mmol/L (98-107); Glucose 108 mg/dL (65-115); Phosphorus 2.4 mg/dL (2.5-4.5); Potassium 4.2 mmol/L (3.5-5.1); Sodium 140 mmol/L (136-145)
[2023-01-14] MEDS: sucralfate 1 gm/10 mL Oral Liq UDC PO ×2 (06:03→11:41)
[2023-01-14 08:00] VITALS: BP 115/71; PULSE 80; RESP 18; TEMP 36.5; O2SAT 95
--- NOTE | 2023-01-14 08:53 | PC.SOCIAL ---
IMM Update IMM updated with patient. Copy Pg 2 provided. Verbalized an understanding. Initialled, dated, timed, and placed in chart.
[2023-01-14] MEDS: tamsulosin 0.4 mg Capsule PO (09:37)
[2023-01-14] MEDS: atorvastatin 40 mg Tablet 80 MG PO (09:37)
[2023-01-14] MEDS: amiodarone 200 mg Tablet 100 MG PO (09:37)
[2023-01-14] MEDS: loratadine 10 mg Tablet PO (09:38)
[2023-01-14] MEDS: metoprolol tartrate 50 mg Tablet PO (09:38)
[2023-01-14] MEDS: levothyroxine 75 mcg Tablet PO (09:38)
[2023-01-14] MEDS: allopurinol 100 mg Tablet PO (09:38)
[2023-01-14] MEDS: pantoprazole DR 40 mg Tablet PO (11:41)
[2023-01-14 11:57] VITALS: BP 106/97; PULSE 73; RESP 18; TEMP 36.8; O2SAT 91
--- NOTE | 2023-01-14 14:58 | PM.DCS ---
Discharge Providers Date of Admission: 01/11/23 19:29 Date of Discharge: January 14, 2023 Attending Provider at Admission: Hilton Aaron DO Attending Provider at Discharge: Tre Burnette MD Consults: General Surgery Primary Care Provider: Richardson Pineda MD Diagnoses at Discharge Discharge Diagnosis (1) GI bleed: Status: Acute (2) Anemia: Status: Acute (3) SOB (shortness of breath): Status: Acute (4) ABRAM (obstructive sleep apnea): Status: Chronic (5) Atrial fibrillation: Status: Acute Reason for Visit Reason for Visit: va sent, cbc Hospital Course Hospital Course Jose Francis is an 82-year-old male with a past medical history significant for anxiety, hypertension, obstructive sleep apnea, and chronic atrial fibrillation status post pacemaker on apixaban who presented with shortness of breath, found to have acute blood loss anemia secondary to acute upper GI bleed. Patient was transfused 2 packed red blood cells with minimal improvement in anemia. He was treated with IV PPI. Apixaban was held. General surgery was consulted and followed. He underwent EGD which revealed superficial acute benign-appearing ulcer in the second part of duodenum with active oozing treated with epinephrine injection. Postprocedure, patient was transfused an additional packed red blood cell. Hemoglobin remained stable. He was continue on IV PPI treatment. He was advanced from liquid to soft mechanical diet without evidence of rebleeding. Return precautions were discussed at length. Patient is treated with twice daily dosing of PPI as well as Carafate. Patient instructed to hold his apixaban for 2 weeks which he is on for chronic atrial fibrillation stroke prophylaxis. We discussed the pros and cons of holding it and he is in agreement with proceeding to hold it for 2 weeks. He is to follow-up with general surgery in clinic for consideration of repeat EGD. He is also to follow-up with his primary care provider which patient stated would order repeat labs to monitor hemoglobin and electrolytes. Patient was discharged to home in stable condition. Physical Exam Narrative: General: Patient is awake and alert.? Pleasant. Conversational. Head:? Normocephalic. Atraumatic. EOM intact. Neck: No JVD. Cardiovascular: RRR. No gallops. No murmurs. Lungs: Clear to auscultation, no use of accessory muscles, no crackles or wheezes. Skin: No jaundice. No rashes. Abdomen: Normal bowel sounds, abdomen soft and nontender. Extremities: No cyanosis or clubbing. Musculoskeletal: No swollen or erythematous joints. Neurological: Moves all 4 extremities. No myoclonus. Discharge Data Studies Completed and Pending Laboratory Results WBC 6.38 10^3/uL (3.29-11.43) 01/14/23 04:48 RBC 2.69 10^6/uL (3.85-5.65) L 01/14/23 04:48 Hgb 8.50 g/dL (11.27-16.99) L 01/14/23 04:48 Hct 26.8 % (37-53) L 01/14/23 04:48 MCV 99.6 fl (82-101) 01/14/23 04:48 MCH 31.6 pg (27-33) 01/14/23 04:48 MCHC 31.7 g/dL (30-55) 01/14/23 04:48 RDW 17.9 % (12.1-15.1) H 01/14/23 04:48 Plt Count 140 10^3/cmm (157-399) L 01/14/23 04:48 MPV 9.8 fL (7.4-10.4) 01/14/23 04:48 Neut % (Auto) 58.1 % 01/14/23 04:48 Lymph % (Auto) 34.3 % 01/14/23 04:48 [place] % (Auto) 6.1 % 01/14/23 04:48 Eos % (Auto) 0.3 % 01/14/23 04:48 Baso % (Auto) 0.3 % 01/14/23 04:48 Neut # (Auto) 3.70 10^3/uL (1.8-7.7) 01/14/23 04:48 Lymph # (Auto) 2.2 10^3/uL (0.8-4.8) 01/14/23 04:48 [place] # (Auto) 0.4 10^3/uL (0.2-0.9) 01/14/23 04:48 Eos # (Auto) 0.0 10^3/uL (0.0-0.8) 01/14/23 04:48 Baso # (Auto) 0.0 10^3/uL (0.0-0.1) 01/14/23 04:48 Nucleated RBC % (auto) 0.3 % 01/14/23 04:48 Nucleated RBCs # 0.0 /100WBC 01/14/23 04:48 PT 16.70 SECONDS (12.1-14.9) H 01/11/23 18:41 INR 1.31 (0.8-1.2) H 01/11/23 18:41 Sodium 140 mmol/L (136-145) 01/14/23 04:48 Potassium 4.2 mmol/L (3.5-5.1) 01/14/23 04:48 Chloride 107 mmol/L (98-107) 01/14/23 04:48 Carbon Dioxide 24 mmol/L (22-29) 01/14/23 04:48 Anion Gap 13.2 (5-19) 01/14/23 04:48 BUN 21 mg/dL (8-23) 01/14/23 04:48 Creatinine 1.1 mg/dL (0.7-1.2) 01/14/23 04:48 GFR Calculation Not Reportable 01/14/23 04:48 Glucose 108 mg/dL (65-115) 01/14/23 04:48 Calculated Osmolality 291 mOsm/kg (285-295) 01/11/23 18:41 Calcium 8.3 mg/dL (8.5-10.5) L 01/14/23 04:48 Phosphorus 2.4 mg/dL (2.5-4.5) L 01/14/23 04:48 Total Bilirubin 0.4 mg/dL (0.15-1.2) 01/11/23 18:41 AST 28 U/L (0-40) 01/11/23 18:41 ALT 23 U/L (0-41) 01/11/23 18:41 Alkaline Phosphatase 53 U/L (40-130) 01/11/23 18:41 Total Protein 6.2 g/dL (6.6-8.7) L 01/11/23 18:41 Albumin 3.2 g/dL (3.5-5.2) L 01/14/23 04:48 Globulin 2.5 g/dL (1.3-4.6) 01/11/23 18:41 Blood Type A Positive 01/11/23 20:22 Rho(D) Type Positive 01/11/23 20:22 Antibody Screen Negative 01/11/23 20:22 Crossmatch See Detail 01/11/23 20:22 Vitals Last Vital Signs Temp 98.2 F 01/14/23 11:57 Pulse 73 01/14/23 11:57 Resp 18 01/14/23 11:57 BP 106/97 01/14/23 11:57 Pulse Ox 91 01/14/23 11:57 O2 Del Method Room Air 01/14/23 11:57 O2 Flow Rate 2 01/12/23 13:10 Discharge Plan Discharge Patient Disposition: Home Condition: Stable Prescriptions: New sucralfate 1 gram tablet 1 g PO .ACHS 28 Days Qty: 120 1RF pantoprazole 40 mg tablet,delayed release (DR/EC) 40 mg PO BID 28 Days Qty: 56 1RF Continued ascorbate calcium (vitamin C) 500 mg tablet 1 gm PO DAILY cholecalciferol (vitamin D3) 25 mcg (1,000 unit) capsule 25 mcg PO DAILY isosorbide mononitrate 30 mg tablet extended release 24 hr 30 mg PO QAM amiodarone 200 mg tablet 100 mg PO BID tamsulosin 0.4 mg capsule 0.4 mg PO DAILY rosuvastatin [Crestor] 40 mg tablet 40 mg PO DAILY levothyroxine [Synthroid] 75 mcg tablet 75 mcg PO DAILY loratadine 10 mg tablet 10 mg PO DAILY albuterol sulfate [Ventolin HFA] 90 mcg/actuation HFA aerosol inhaler 1 inh inhalation QID PRN (Reason: shortness of breath or wheezing) Qty: 8.5 4RF furosemide 20 mg tablet 20 mg PO DAILY Qty: 90 1RF metoprolol tartrate 100 mg Tablet 50 mg PO BID allopurinol 100 mg Tablet 100 mg PO DAILY tramadol 50 mg tablet 50 mg PO Q6H PRN (Reason: Pain) potassium chloride 20 mEq Tablet,Er Particles/Crystals 10 meq PO DAILY fluticasone propionate 50 mcg/actuation [place],Suspension 1 spray INTRANASAL DAILY Rx Instructions: administer into each nostril Fish Oil 1,000 mg (120 mg-180 mg) Capsule 1 cap PO DAILY wdgktcey-arv-[id number]-vit K-lycop 400-20-300 mcg Tablet 1 tab PO DAILY Held Eliquis 5 mg tablet 5 mg PO BID Hold Instructions: Resume on 01/26/23. Hold until 01/26/23. Discharge Orders: Discharge Order (Routine); Ordered 01/14/23 Ordered By: Tre Burnette Referrals: Adriano Terrell MD [Physician] - 2 weeks (Ulcer follow, eval for repeat EGD MESSAGE SENT TO CLINIC 01/14 @ 2082 We have notified your physician's clinic of the need for a follow-up appointment to be scheduled. If you have not heard from them within the next 2 business days, please call them directly. You may also reach out to our subcontracts manager at [phone] and she can assist you.) Richardson Pineda MD [Primary Care Provider] - 01/21/23 11:10 am Discharge Diet: Advance as tolerated and GI Soft Discharge Activity: Resume usual activity and Increase activity as tolerated Patient Instructions: Sucralfate (By mouth), Pantoprazole (By mouth), Gastrointestinal Bleeding (GEN), GI Discharge Instructions, Opioid Safety, Pain Management Activity Restrictions/Additional Instructions: 1. Increase activity as tolerated. 2. Continue soft foods for an additional week before transitioning back to usual diet. 3. Monitor bowel movements, note that black and tarry bowel movements can be signs of rebleeding. 4. Follow up with PCP. You will likely benefit from additional iron treatment in the near future. You were not prescribed iron today as it can cause your stools to be black and we want you to monitor for that in the coming days. Discharge Attestations Time Spent in Discharge Care*: greater than 30 min Quality Metrics Clinical Quality Measures [ No reported AMI, CVA or VTE this stay] Coding Level of Care Code Acute Code for Chg Fwd Diagnoses GI bleed K92.2 Anemia D64.9 SOB (shortness of breath) R06.02 ABRAM (obstructive sleep apnea) G47.33 Atrial fibrillation I48.91
[2023-01-14 16:30] VITALS: BP 106/97; PULSE 73; RESP 18; TEMP 36.8; O2SAT 91
== END 2023-01-14 16:30 | disposition home or self-care (01) | DRG 378 ==
LOC: ER 20:04 → MEDSURG 20:07
PROVIDERS: Surgery; Admitting Provider Internal Medicine; Emergency Provider Emergency Medicine; PCP Family Medicine; Visit Provider Internal Medicine
PROC: 0DJ08ZZ Inspection of Upper Intestinal Tract, Via Natural or Artificial Opening Endoscopic (ICD-10-PCS; CPT 43235; principal; 2023-01-12 12:00)
DX: K26.0 Acute duodenal ulcer with hemorrhage (principal); D62 Acute posthemorrhagic anemia; I48.20 Chronic atrial fibrillation, unspecified; G47.33 Obstructive sleep apnea (adult) (pediatric); Z95.0 Presence of cardiac pacemaker; Z79.01 Long term (current) use of anticoagulants; I10 Essential (primary) hypertension; Z87.891 Personal history of nicotine dependence; K29.50 Unspecified chronic gastritis without bleeding
CPT/HCPCS: 36415; 36430; 80053; 80069; 85014; 85018; 85025; 85610; 86850; 86900; 86920; 94660; 96374; 99285; C9113; J0171; J2704; J7030; P9016; P9040

== ENCOUNTER → 2023-01-25 09:05 | Outpatient (BNVA) | payer OTHER, SELFPAY | PROVIDERS: PCP Family Medicine; Visit Provider Internal Medicine Pulmonary Disease | DX: R06.02 Shortness of breath (principal); Z95.0 Presence of cardiac pacemaker; G47.33 Obstructive sleep apnea (adult) (pediatric); Z87.19 Personal history of other diseases of the digestive system; D64.9 Anemia, unspecified; Z87.891 Personal history of nicotine dependence | CPT/HCPCS: 99214 ==

== ENCOUNTER → 2023-02-01 08:05 | Outpatient (BNVA) | payer OTHER, SELFPAY | PROVIDERS: PCP Family Medicine; Visit Provider Surgery | DX: Z87.19 Personal history of other diseases of the digestive system (principal) | CPT/HCPCS: 99214 ==

== ENCOUNTER → 2023-02-04 15:27 | Outpatient (BNVA) | payer MEDICARE, BC, SELFPAY | PROVIDERS: PCP Family Medicine; Visit Provider Internal Medicine Cardiovascular Disease | DX: R06.02 Shortness of breath (principal); R07.9 Chest pain, unspecified; Z95.0 Presence of cardiac pacemaker; I25.118 Atherosclerotic heart disease of native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; I10 Essential (primary) hypertension; I50.1 Left ventricular failure, unspecified; E78.5 Hyperlipidemia, unspecified; G47.33 Obstructive sleep apnea (adult) (pediatric); I48.91 Unspecified atrial fibrillation; I25.10 Atherosclerotic heart disease of native coronary artery without angina pectoris; I05.1 Rheumatic mitral insufficiency; Z87.891 Personal history of nicotine dependence | CPT/HCPCS: 36415; 80048; 83880; 93005; 99214 ==

== ENCOUNTER 2023-04-22 18:44 | Emergency (ER) | payer MEDICARE, BC, SELFPAY ==
[2023-04-22] VITALS (7 sets, daily range): BP systolic 127–149; BP diastolic 77–93; PULSE 74–88; RESP 16–27; TEMP 37.2; O2SAT 92–98; BMI 31.4
--- NOTE | 2023-04-22 18:55 | ECG_ITS ---
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 Measurements Intervals [place] Rate: 82 P: 245 NV: 79 QRS: -58 QRSD: 137 T: 144 QT: 443 QTc: 518 Interpretive Statements A sensed, V paced rhythm ABNORMAL RHYTHM ECG Compared to ECG 02/04/2023 15:34:23 Atrial-paced complex(es) or rhythm no longer present Electronically Signed On 04-23-2023 16:00:20 RN ON SITE by Abdullahi Saldana M.D. [email or web address], [email or web address]/store/[id number]
--- NOTE | 2023-04-22 18:55 | XRR_ITS ---
PROCEDURE INFORMATION: Exam: XR Chest Exam date and time: 04/22/2023 8:16 PM Age: 82 years old Clinical indication: Other: Weakness/fall TECHNIQUE: Imaging protocol: Radiologic exam of the chest. Views: 1 view. COMPARISON: CT angio chest [id number] 12/24/2022 10:41 AM FINDINGS: Tubes, catheters and devices: Left-sided pacemaker. Lungs: Unremarkable. No consolidation. Pleural spaces: Unremarkable. No pleural effusion. No pneumothorax. Heart/Mediastinum: Cardiomegaly. Bones/joints: Unremarkable. XR/XR chest 1V portable [id number] IMPRESSION: 1. Negative for acute abnormality in the chest 2. Cardiomegaly. 3. Left-sided pacemaker.
--- NOTE | 2023-04-22 18:57 | CTR_ITS ---
PROCEDURE INFORMATION: Exam: CT Head Without Contrast Exam date and time: 04/22/2023 8:29 PM Age: 82 years old Clinical indication: Injury or trauma; Fall; Blunt trauma (contusions or hematomas); Additional info: Fall a few days ago, syncope, weakness, on blood thinner TECHNIQUE: Imaging protocol: Computed tomography of the head without contrast. Radiation optimization: All CT scans at this facility use at least one of these dose optimization techniques: automated exposure control; mA and/or kV adjustment per patient size (includes targeted exams where dose is matched to clinical indication); or iterative reconstruction. REPORTING DATA: Count of CT and Cardiac NM exams in prior 12 months: This patient has received [address] and 0 known cardiac nuclear medicine studies in the 12 months prior to the current study. COMPARISON: No relevant prior studies available. RADIATION DOSE METRICS: Total DLP (mGy-cm): 1149.98 FINDINGS: Brain: Moderate diffuse white matter disease likely reflecting chronic microvascular ischemic changes. Bilateral punctate benign basal ganglia calcifications. Cerebral ventricles: Mild prominence of the ventricular system diffusely may reflect a degree of chronic communicating hydrocephalus. Paranasal sinuses: Visualized sinuses are unremarkable. No fluid levels. Mastoid air cells: Visualized mastoid air cells are well aerated. Bones/joints: Unremarkable. No acute fracture. Soft tissues: Unremarkable. CT/CT head wo con* [id number] IMPRESSION: 1. Negative for intracranial hemorrhage or mass effect. 2. Moderate diffuse white matter disease likely reflecting chronic microvascular ischemic changes. 3. Bilateral punctate benign basal ganglia calcifications. 4. Mild prominence of the ventricular system diffusely may reflect a degree of chronic communicating hydrocephalus.
[2023-04-22 19:04] LABS: Basophils % 0.1 %; Hematocrit 36.9 % (37-53); Lymphocytes # 1.6 10^3/uL (0.8-4.8); Lymphocytes % 20.1 %; Mean Corpuscular Hemoglobin 27.3 pg (27-33); Mean Corpuscular Volume 85.4 fl (82-101); Monocytes % 12.1 %; Neutrophils # 5.44 10^3/uL (1.8-7.7); Neutrophils % 67.3 %; Nucleated Red Blood Cells % 0 %; Platelet Count 169 10^3/cmm (157-399); Red Blood Count 4.32 10^6/uL (3.85-5.65); Red Cell Distribution Width 20.9 % (12.1-15.1); White Blood Count 8.09 10^3/uL (3.29-11.43)
[2023-04-22 19:21] LABS: INR 1.06 (0.8-1.2)
[2023-04-22 19:35] LABS: Alanine Aminotransferase 21 U/L (0-41); Albumin Level 3.6 g/dL (3.5-5.2); Alkaline Phosphatase 58 U/L (40-130); Aspartate Amino Transferase 25 U/L (0-40); Blood Urea Nitrogen 12 mg/dL (8-23); Calcium 8.8 mg/dL (8.5-10.5); Carbon Dioxide 21 mmol/L (22-29); Chloride 98 mmol/L (98-107); Globulin 3.3 g/dL (1.3-4.6); Glucose 109 mg/dL (65-115); Magnesium 1.9 mg/dL (1.7-2.3); NT Pro B Type Natriuretic Pept 1915 pg/mL (0-450); Osmolality Calculated 276 mOsm/kg (285-295); Sodium 133 mmol/L (136-145); Thyroid Stimulating Hormone 1.43 uIU/mL (0.27-4.20); Total Bilirubin 0.9 mg/dL (0.15-1.2); Total Protein 6.9 g/dL (6.6-8.7)
[2023-04-22 19:45] LABS: Anion Gap 18.1 (5-19); Potassium 4.1 mmol/L (3.5-5.1)
[2023-04-22 19:48] LABS: Add Urine Microscopic? YES; Bilirubin Urine Neg (Negative); Blood Urine Neg (Negative); Glucose Urine UA Norm (Normal); Ketones Urine 1+ (Negative); Leukocyte Esterase Urine Negative (Negative); Nitrate Urine Negative (Negative); Protein Urine 1+ (Negative); Urine Appearance Clear (CLEAR); Urine Color Yellow (Yellow); Urobilinogen Urine 1 mg/dL (Negative); pH Urine 7 (5-7)
[2023-04-22 19:52] LABS: Add Urine Culture? No
--- NOTE | 2023-04-22 20:06 | ED_ITS ---
HPI - Weakness 2 General: Chief complaint: Weakness Stated complaint: weakness Time Seen by Provider: 04/22/23 18:45 History of Present Illness: Patient presents to the ER by EMS with complaints of multiple falls. Patient has fallen about 5 times in the last week. Patient reports dizziness and generalized weakness over the last week. About a week ago he had a med change with his blood pressure medicine. Initially he did hit his head on Wednesday when he fell. Patient is on Eliquis. Patient was not seen or worked up for the that fall. It is unknown specifically what blood pressure med change was made. Patient does have a history of atrial fibrillation and is on amiodarone and Eliquis. Review of Systems 2 General: Reports: 10 or more systems reviewed and unremarkable except in HPI and below PFSH ED 2 PFSH: Medical History Atherosclerotic heart disease of [place]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 Anemia GI bleed Hypertension Atrial fibrillation Mitral regurgitation ABRAM (obstructive sleep apnea) Osteoporosis Anxiety History of pacemaker Surgical History Hx of tonsillectomy H/O hemorrhoidectomy History of hernia surgery Family History Brother CAD (coronary artery disease) CHF (congestive heart failure) Cancer Sister Lung disease Other Atherosclerotic heart disease of [place]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 Denies family history of Diabetes Clotting disorder Dementia Hyperlipidemia Chronic kidney disease (CKD) Suicide Anesthesia complication Bleeding disorder Hypertension Stroke Social History Smoking and tobacco/nicotine status: former use of tobacco/nicotine Alcohol intake: never Substance/Drug Use: never Household members: none Marital status: Physical Exam 2 Const: COMMON NORMALS: no acute distress, average body habitus, patient oriented x3, no limitations, healthy appearing, alert and well nourished HENMT: COMMON NORMALS: normocephalic, atraumatic, hearing grossly normal bilaterally, external ears normal, Normal external nose present, moist oral mucous membranes and oropharynx normal HEAD & SCALP: normocephalic and atraumatic NOSE: Normal external nose present EXTERNAL EAR: Yes external ears normal Eye: COMMON NORMALS: Equal, round and reactive pupils present, EOMs intact bilaterally, conjunctivae normal and no scleral icterus CONJUNCTIVA: Yes conjunctivae normal PUPIL: Yes Equal, round and reactive pupils present O THER: Healing bruising around bilateral eyes. Neck/C-Spine: COMMON NORMALS: full ROM, no lymphadenopathy, supple, no meningeal signs, no JVD and Thyroid normal THYROID: Thyroid normal Chest: COMMONS NORMALS: normal inspection of the chest and normal palpation of entire chest wall Resp: COMMON NORMALS: normal respiratory effort, No retractions, No use of accessory muscles and clear to auscultation bilaterally AUSCULTATION: clear to auscultation bilaterally Cardio: COMMON NORMALS: no JVD, regular rate, regular rhythm, S1 normal heart sound present, S2 normal heart sound present, No gallops present (Cardio), No clicks present (Cardio), No murmurs present (Cardio) and No rub (Cardio) R ATE: regular rate RHYTHM: regular rhythm HEART SOUNDS: S1 normal heart sound present and S2 normal heart sound present GI: COMMON NORMALS: Normal to inspection, nondistended, normoactive bowel sounds present, Soft to palpation, non-tender, No hepatosplenomegaly present and no masses PALPATION: Yes Soft to palpation and Yes No hepatosplenomegaly present Neuro: COMMON NORMALS: patient oriented x3 SENSORIUM/ORIENTATION: Yes alert MENINGEAL SIGNS: Yes no meningeal signs Course 2 Vital Signs: Vital signs: Vital Signs Temperature 98.9 F 04/22/23 18:47 Pulse Rate 77 04/22/23 22:23 Respiratory Rate 18 04/22/23 22:23 Blood Pressure 127/77 04/22/23 22:23 Pulse Oximetry 97 04/22/23 22:23 Oxygen Delivery Me thod Room Air 04/22/23 22:23 Oxygen Flow Rate 2 04/22/23 21:20 MDM - Weakness Medical Decision Making Patient presents to the ER with complaints of weakness fall multiple times over the last week or so since his blood pressure medicine no change. Lab work was unremarkable as well as chest x-ray and head CT. Patient will be discharged home to follow-up with his PCP to consider adjusting blood pressure medicine once again as this may be the culprit of his weakness and falls. Differential Diagnosis Unlikely acute myocardial infarction, anemia, hypoglycemia, hypothyroidism, rhabdomyolysis, sepsis or dehydration Medical Records I reviewed the patient's medical records. Lab Data I reviewed the patient's lab results. 04/22/23 18:22 04/22/23 18:22 Radiology Impressions Chest X-Ray 04/22/23 18:55 IMPRESSION: 1. Negative for acute abnormality in the chest 2. Cardiomegaly. 3. Left-sided pacemaker. Head CT 04/22/23 18:57 IMPRESSION: 1. Negative for intracranial hemorrhage or mass effect. 2. Moderate diffuse white matter disease likely reflecting chronic microvascular ischemic changes. 3. Bilateral punctate benign basal ganglia calcifications. 4. Mild prominence of the ventricular system diffusely may reflect a degree of chronic communicating hydrocephalus. Laboratory Results WBC 8.09 10^3/uL (3.29-11.43) 04/22/23 18:22 RBC 4.32 10^6/uL (3.85-5.65) 04/22/23 18: Hgb 11.80 g/dL (11.27-16.99) 04/22/23 18: Hct 36.9 % (37-53) L 04/22/23 18: MCV 85.4 fl (82-101) 04/22/23 18:22 MCH 27.3 pg (27-33) 04/22/23 18: MCHC 32.0 g/dL (30-55) 04/22/23 18: RDW 20.9 % (12.1-15.1) H 04/22/23 18:22 Plt Count 169 10^3/cmm (157-399) 04/22/23 18: MPV 10.0 fL (7.4-10.4) 04/22/23 18:22 Neut % (Auto) 67.3 % 04/22/23 18:22 Lymph % (Auto) 20.1 % 04/22/23 18:22 [place] % (Auto) 12.1 % 04/22/23 18:22 Eos % (Auto) 0.0 % 04/22/23 18: Baso % (Auto) 0.1 % 04/22/23 18: Neut # (Auto) 5.44 10^3/uL (1.8-7.7) 04/22/23 18:22 Lymph # (Auto) 1.6 10^3/uL (0.8-4.8) 04/22/23 18:22 [place] # (Auto) 1.0 10^3/uL (0.2-0.9) H 04/22/23 18:22 Eos # (Auto) 0.0 10^3/uL (0.0-0.8) 04/22/23 18:22 Baso # (Auto) 0.0 10^3/uL (0.0-0.1) 04/22/23 18:22 Nucleated RBC % (auto) 0 % 04/22/23 18:22 Nucleated RBCs # 0.0 /100WBC 04/22/23 18:22 PT 14.20 SECONDS (12.1-14.9) 04/22/23 18:22 INR 1.06 (0.8-1.2) 04/22/23 18:22 Sodium 133 mmol/L (136-145) L 04/22/23 18:22 Potassium 4.1 mmol/L (3.5-5.1) 04/22/23 18:22 Chloride 98 mmol/L (98-107) 04/22/23 18:22 Carbon Dioxide 21 mmol/L (22-29) L 04/22/23 18:22 Anion Gap 18.1 (5-19) 04/22/23 18:22 BUN 12 mg/dL (8-23) 04/22/23 18:22 Creatinine 1.1 mg/dL (0.7-1.2) 04/22/23 18:22 GFR Calculation Not Reportable 04/22/23 18:22 Glucose 109 mg/dL (65-115) 04/22/23 18:22 Calculated Osmolality 276 mOsm/kg (285-295) L 04/22/23 18:22 Calcium 8.8 mg/dL (8.5-10.5) 04/22/23 18:22 Magnesium 1.9 mg/dL (1.7-2.3) 04/22/23 18:22 Total Bilirubin 0.9 mg/dL (0.15-1.2) 04/22/23 18:22 AST 25 U/L (0-40) 04/22/23 18:22 ALT 21 U/L (0-41) 04/22/23 18:22 Alkaline Phosphatase 58 U/L (40-130) 04/22/23 18:22 NT-Pro-B Natriuret Pep 1915 pg/mL (0-450) H 04/22/23 18:22 Total Protein 6.9 g/dL (6.6-8.7) 04/22/23 18:22 Albumin 3.6 g/dL (3.5-5.2) 04/22/23 18:22 Globulin 3.3 g/dL (1.3-4.6) 04/22/23 18:22 TSH 1.43 uIU/mL (0.27-4.20) 04/22/23 18:22 Urine Color Yellow (Yellow) 04/22/23 19:10 Urine Appearance Clear (CLEAR) 04/22/23 19:10 Urine pH 7 (5-7) 04/22/23 19:10 Ur Specific [place] 1.010 (1.005-1.030) 04/22/23 19:10 Urine Protein 1+ (Negative) H 04/22/23 19:10 Urine Glucose (UA) Norm (Normal) 04/22/23 19:10 Urine Ketones 1+ (Negative) H 04/22/23 19:10 Urine Blood Neg (Negative) 04/22/23 19:10 Urine Nitrate Negative (Negative) 04/22/23 19:10 Urine Bilirubin Neg (Negative) 04/22/23 19:10 Urine Urobilinogen 1 mg/dL (Negative) H 04/22/23 19:10 Ur Leukocyte Esterase Negative (Negative) 04/22/23 19:10 Urine RBC None /hpf (0-2) 04/22/23 19:10 Urine WBC None /hpf (0-5) 04/22/23 19:10 Ur Squamous Epith Cells None /hpf (0-5) 04/22/23 19:10 Amorphous Sediment Not Reportable 04/22/23 19:10 Urine Bacteria None /hpf (NONE) 04/22/23 19:10 Urine Mucus None /hpf 04/22/23 19:10 All radiology interpretation(s) finalized by discharge EKG Data EKG 1: I personally reviewed and interpreted this EKG as follows: EKG interpretation date: 04/22/23 EKG interpretation time: 19:05 Prior EKG tracings: not available for review Interpretation: EKG showed ventricular rate 82 beats a minute, DE interval 79, QRS duration 137, QTc of 481, electronic ventricular pacemaker Discharge Plan Discharge Patient Disposition: Home Clinical Impression: Generalized weakness, Multiple falls Condition: Stable Prescriptions: No Action ascorbate calcium (vitamin C) 500 mg tablet 1 gm PO DAILY cholecalciferol (vitamin D3) 25 mcg (1,000 unit) capsule 25 mcg PO DAILY isosorbide mononitrate 30 mg tablet extended release 24 hr 30 mg PO QAM Eliquis 5 mg tablet 5 mg PO BID Hold Instructions: Resume on 01/26/23. Hold until 01/26/23. amiodarone 200 mg tablet 100 mg PO BID tamsulosin 0.4 mg capsule 0.4 mg PO DAILY rosuvastatin [Crestor] 40 mg tablet 40 mg PO DAILY levothyroxine [Synthroid] 75 mcg tablet 75 mcg PO DAILY loratadine 10 mg tablet 10 mg PO DAILY albuterol sulfate [Ventolin HFA] 90 mcg/actuation HFA aerosol inhaler 1 inh inhalation QID PRN (Reason: shortness of breath or wheezing) Qty: 8.5 4RF fluticasone propion-salmeterol [Advair Diskus] 250-50 mcg/dose blister with device 1 inh inhalation BID Qty: 60 0RF furosemide 40 mg tablet 40 mg PO DAILY Qty: 90 3RF potassium chloride 20 mEq tablet,ER particles/crystals 20 meq PO DAILY Qty: 90 3RF metoprolol tartrate 100 mg Tablet 50 mg PO BID allopurinol 100 mg Tablet 100 mg PO DAILY tramadol 50 mg tablet 50 mg PO Q6H PRN (Reason: Pain) fluticasone propionate 50 mcg/actuation [place],Suspension 1 spray INTRANASAL DAILY Rx Instructions: administer into each nostril Fish Oil 1,000 mg (120 mg-180 mg) Capsule 1 cap PO DAILY lqavbpqn-nzo-blssh-vit K-lycop 400-20-300 mcg Tablet 1 tab PO DAILY sucralfate 1 gram tablet 1 g PO .ACHS 28 Days Qty: 120 1RF pantoprazole 40 mg tablet,delayed release (DR/EC) 40 mg PO BID 28 Days Qty: 56 1RF Discharge Orders: Discharge ED (Routine); Ordered 04/22/23 Ordered By: Oscar Herrera Referrals: Richardson Pineda MD [Primary Care Provider] - 1 week Patient Instructions: Weakness (Generalized) Activity Restrictions/Additional Instructions: Please follow back up with your family practice physician in the next 7 to 10 days and talk about your blood pressure medicine change that was recently changed as this may be the reason you have been generally weak and fallen multiple times. Coding Level of Care Code ED Die Storage Clerk for Rom Posada
== END 2023-04-22 23:10 | disposition home or self-care (01) ==
PROVIDERS: Emergency Provider Emergency Medicine; PCP Family Medicine
DX: R53.1 Weakness (principal); R29.6 Repeated falls; Z79.01 Long term (current) use of anticoagulants; Z95.0 Presence of cardiac pacemaker; Z87.891 Personal history of nicotine dependence; I25.10 Atherosclerotic heart disease of native coronary artery without angina pectoris; I11.9 Hypertensive heart disease without heart failure
CPT/HCPCS: 70450; 71045; 80053; 81001; 83735; 83880; 84443; 85025; 85610; 93005; 99285

== ENCOUNTER 2023-04-25 08:54 | Inpatient (IN) | payer OTHER, SELFPAY ==
[2023-04-25] VITALS (10 sets, daily range): BP systolic 100–138; BP diastolic 59–83; PULSE 68–86; RESP 16–32; TEMP 36.7–37.1; O2SAT 92–96; BMI 30.7
--- NOTE | 2023-04-25 09:01 | ECG_ITS ---
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 Measurements Intervals [place] Rate: 85 P: 67 CO: 208 QRS: -52 QRSD: 139 T: 137 QT: 426 QTc: 508 Interpretive Statements ELECTRONIC VENTRICULAR PACEMAKER ABNORMAL RHYTHM ECG INTERPRETATION BASED ON A DEFAULT AGE OF 40 YEARS Compared to ECG 04/22/2023 19:05:11 No significant changes Electronically Signed On 04-26-2023 15:52:42 MANAGER RISK by Blane Kong M.D. [email or web address].[email or web address]/store/[id number] f
--- NOTE | 2023-04-25 09:02 | XRR_ITS ---
PROCEDURE INFORMATION: Exam: XR Chest Exam date and time: 04/25/2023 9:14 AM Age: 82 years old Clinical indication: Dyspnea; Prior surgery; Surgery date: 6+ months; Surgery type: Pacemaker; Additional info: Dyspnea/cough TECHNIQUE: Imaging protocol: Radiologic exam of the chest. Views: 1 view. Total images: 342 COMPARISON: CR (CHEST, ) 04/22/2023 8:16 PM FINDINGS: Tubes, catheters and devices: A pacemaker device is present, its leads in appropriate position. Lungs: No acute focal pulmonary opacities are detected. Pleural spaces: Unremarkable. No pleural effusion. No pneumothorax. Heart/Mediastinum: Heart is enlarged but stable when compared to the prior exam. Bones/joints: Osseous structures are unchanged from the prior exam. XR/XR chest 1V portable [id number] IMPRESSION: 1. Heart is enlarged but stable when compared to the prior exam. 2. No acute focal pulmonary opacities are detected.
--- NOTE | 2023-04-25 09:08 | ED_ITS ---
HPI - Weakness 2 General: Chief complaint: Weakness Stated complaint: WEAKNESS Time Seen by Provider: 04/25/23 09:01 Source: patient Mode of arrival: EMS History of Present Illness: 82-year-old male presents emergency room complaining of generalized weakness falls inability to care for himself he fell a couple days ago seen in the emergency room CT and labs are unremarkable he was discharged home he has not been able to get up or get around he gets lightheaded dizzy and feels like he is going to fall again. He denies chest pain or shortness of breath no fever sweats chills. He is on Eliquis and his Eliquis was put on hold after the most recent fall. MD Complaint: generalized weakness Associated symptoms: Reports easy bruising; Denies chest pain, chills, confusion, melena, decreased appetite, diaphoresis, dysuria, fever(s), headache(s), myalgias, nausea, rash, short of breath, syncope or vomiting Review of Systems 2 Const: Denies: fever(s), chills or diaphoresis Card: Denies: chest pain or syncope Resp: Denies: dyspnea GI: Denies: abdominal pain, nausea, vomiting or melena : Denies: dysuria, urinary frequency or urinary urgency Musc: Denies: neck pain or back pain Skin/Breast: Denies: rash Neuro: Denies: headache(s) or confusion Anurag/Lymph: Reports: easy bruising PFSH ED 2 PFSH: Medical History Atherosclerotic heart disease of [place]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 Anemia GI bleed Hypertension Atrial fibrillation Mitral regurgitation ABRAM (obstructive sleep apnea) Osteoporosis Anxiety History of pacemaker Surgical History Hx of tonsillectomy H/O hemorrhoidectomy History of hernia surgery Family History Brother CAD (coronary artery disease) CHF (congestive heart failure) Cancer Sister Lung disease Other Atherosclerotic heart disease of [place]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 Denies family history of Diabetes Clotting disorder Dementia Hyperlipidemia Chronic kidney disease (CKD) Suicide Anesthesia complication Bleeding disorder Hypertension Stroke Social History (Reviewed 04/25/23 @ 09:08 by MANAS Nolen Smoking and tobacco/nicotine status: former use of tobacco/nicotine Alcohol intake: never Substance/Drug Use: never Household members: none Marital status: Physical Exam 2 Const: GENERAL APPEARANCE: cooperative and comfortable O RIENTATION/CONSCIOUSNESS: Yes awake, Yes oriented to person, Yes oriented to place and Yes oriented to time HENMT: COMMON NORMALS: normocephalic, atraumatic and hearing grossly normal bilaterally HEAD & SCALP: normocephalic and atraumatic Resp: COMMON NORMALS: normal respiratory effort, No retractions, No use of accessory muscles and clear to auscultation bilaterally AUSCULTATION: clear to auscultation bilaterally Cardio: COMMON NORMALS: regular rate, regular rhythm and No murmurs present (Cardio) RATE: regular rate RHYTHM: regular rhythm GI: COMMON NORMALS: Soft to palpation and No hepatosplenomegaly present A USCULTATION: Yes normoactive bowel sounds PALPATION: Yes Soft to palpation, No Tenderness to palpation present (GI), No Guarding due to palpation present (GI) and Yes No hepatosplenomegaly present Extremity: COMMON NORMALS: normal to inspection, capillary refill normal, no clubbing, cyanosis or edema, no calf tenderness and no pedal edema Neuro: SENSORIUM/ORIENTATION: Yes oriented to person, Yes oriented to place and Yes oriented to time Skin: COMMON NORMALS: no rashes or lesions noted GENERAL SKIN EXAM: no rashes or lesions noted Course 2 Vital Signs: Vital signs: Vital Signs Temperature 98.4 F 04/25/23 08:57 Pulse Rate 69 04/25/23 11:01 Respiratory Rate 31 H 04/25/23 11:01 Blood Pressure 138/81 04/25/23 11:01 Pulse Oximetry 93 04/25/23 11:01 Oxygen Delivery Me thod Room Air 04/25/23 11:01 MDM - Weakness Medical Decision Making Generalized weakness falls. Patient has orthostasis to the point he could not even stand at the bedside along the first check of blood pressure he became so weak. He was assisted back to bed. He is given fluids still is unable to stand we will admit for orthostasis falls generalized weakness patient is expressing interest in a higher level of care being admitted to the residential. Medical Records I reviewed the patient's medical records. Lab Data I reviewed the patient's lab results. 04/25/23 09:09 04/25/23 09:09 Radiology Impressions Chest X-Ray 04/25/23 09:02 IMPRESSION: 1. Heart is enlarged but stable when compared to the prior exam. 2. No acute focal pulmonary opacities are detected. Cervical Spine X-Ray 04/25/23 09:40 IMPRESSION: First 4 cervical vertebrae are adequately visualized and appear unremarkable. C5 to T1 partially obscured due to shoulders in overlying soft tissues on lateral views. No gross pathology detected. CT would be helpful to further evaluate. Laboratory Results WBC 7.45 10^3/uL (3.29-11.43) 04/25/23 09:09 RBC 4.44 10^6/uL (3.85-5.65) 04/25/23 09:09 Hgb 12.00 g/dL (11.27-16.99) 04/25/23 09:09 Hct 38.4 % (37-53) 04/25/23 09:09 MCV 86.5 fl (82-101) 04/25/23 09:09 MCH 27.0 pg (27-33) 04/25/23 09:09 MCHC 31.3 g/dL (30-55) 04/25/23 09:09 RDW 20.6 % (12.1-15.1) H 04/25/23 09:09 Plt Count 203 10^3/cmm (157-399) 04/25/23 09:09 MPV 9.2 fL (7.4-10.4) 04/25/23 09:09 Neut % (Auto) 72.3 % 04/25/23 09:09 Lymph % (Auto) 17.9 % 04/25/23 09:09 Jerome % (Auto) 9.4 % 04/25/23 09:09 Eos % (Auto) 0.0 % 04/25/23 09:09 Baso % (Auto) 0.1 % 04/25/23 09:09 Neut # (Auto) 5.39 10^3/uL (1.8-7.7) 04/25/23 09:09 Lymph # (Auto) 1.3 10^3/uL (0.8-4.8) 04/25/23 09:09 Jerome # (Auto) 0.7 10^3/uL (0.2-0.9) 04/25/23 09:09 Eos # (Auto) 0.0 10^3/uL (0.0-0.8) 04/25/23 09:09 Baso # (Auto) 0.0 10^3/uL (0.0-0.1) 04/25/23 09:09 Nucleated RBC % (auto) 0 % 04/25/23 09:09 Nucleated RBCs # 0.0 /100WBC 04/25/23 09:09 Sodium 130 mmol/L (136-145) L 04/25/23 09:09 Potassium 3.9 mmol/L (3.5-5.1) 04/25/23 09:09 Chloride 94 mmol/L (98-107) L 04/25/23 09:09 Carbon Dioxide 23 mmol/L (22-29) 04/25/23 09:09 Anion Gap 16.9 (5-19) 04/25/23 09:09 BUN 16 mg/dL (8-23) 04/25/23 09:09 Creatinine 1.1 mg/dL (0.7-1.2) 04/25/23 09:09 GFR Calculation Not Reportable 04/25/23 09:09 Glucose 115 mg/dL (65-115) 04/25/23 09:09 Calculated Osmolality 272 mOsm/kg (285-295) L 04/25/23 09:09 Calcium 8.9 mg/dL (8.5-10.5) 04/25/23 09:09 Total Bilirubin 0.8 mg/dL (0.15-1.2) 04/25/23 09:09 AST 39 U/L (0-40) 04/25/23 09:09 ALT 28 U/L (0-41) 04/25/23 09:09 Alkaline Phosphatase 69 U/L (40-130) 04/25/23 09:09 Troponin T Baseline 31 ng/L (0-15) H 04/25/23 09:09 Total Protein 6.4 g/dL (6.6-8.7) L 04/25/23 09:09 Albumin 3.5 g/dL (3.5-5.2) 04/25/23 09:09 Globulin 2.9 g/dL (1.3-4.6) 04/25/23 09:09 Urine Color Yellow (Yellow) 04/25/23 10:34 Urine Appearance Clear (CLEAR) 04/25/23 10:34 Urine pH 5 (5-7) 04/25/23 10:34 Ur Specific [place] 1.020 (1.005-1.030) 04/25/23 10:34 Urine Protein 1+ (Negative) H 04/25/23 10:34 Urine Glucose (UA) Norm (Normal) 04/25/23 10:34 Urine Ketones 1+ (Negative) H 04/25/23 10:34 Urine Blood Neg (Negative) 04/25/23 10:34 Urine Nitrate Negative (Negative) 04/25/23 10:34 Urine Bilirubin Neg (Negative) 04/25/23 10:34 Urine Urobilinogen 1 mg/dL (Negative) H 04/25/23 10:34 Ur Leukocyte Esterase Negative (Negative) 04/25/23 10:34 Urine RBC None /hpf (0-2) 04/25/23 10:34 Urine WBC Rare /hpf (0-5) 04/25/23 10:34 Ur Squamous Epith Cells None /hpf (0-5) 04/25/23 10:34 Amorphous Sediment 1+ /hpf 04/25/23 10:34 Urine Bacteria None /hpf (NONE) 04/25/23 10:34 All radiology interpretation(s) finalized by discharge Discharge Plan Discharge Patient Disposition: Placed in Observation Clinical Impression: Orthostasis, Generalized weakness, Falls frequently Coding Level of Care Code ED Electronic Tester for Rom Posada
[2023-04-25 09:17] LABS: Basophils % 0.1 %; Hematocrit 38.4 % (37-53); Lymphocytes # 1.3 10^3/uL (0.8-4.8); Lymphocytes % 17.9 %; Mean Corpuscular HGB Conc 31.3 g/dL (30-55); Mean Corpuscular Volume 86.5 fl (82-101); Mean Platelet Volume 9.2 fL (7.4-10.4); Monocytes # 0.7 10^3/uL (0.2-0.9); Monocytes % 9.4 %; Neutrophils # 5.39 10^3/uL (1.8-7.7); Neutrophils % 72.3 %; Nucleated Red Blood Cells % 0 %; Platelet Count 203 10^3/cmm (157-399); Red Blood Count 4.44 10^6/uL (3.85-5.65); Red Cell Distribution Width 20.6 % (12.1-15.1); White Blood Count 7.45 10^3/uL (3.29-11.43)
[2023-04-25 09:35] LABS: Troponin(5th) Baseline 31 ng/L (0-15)
--- NOTE | 2023-04-25 09:40 | XRR_ITS ---
PROCEDURE INFORMATION: Exam: XR Cervical Spine Exam date and time: 04/25/2023 9:55 AM Age: 82 years old Clinical indication: Injury or trauma; Fall; Blunt trauma TECHNIQUE: Imaging protocol: Radiologic exam of the cervical spine. Views: 2 or 3 views. Total images: 1 COMPARISON: CR (CHEST, ) 04/25/2023 9:14 AM FINDINGS: Bones/joints: Facet joint degenerative changes are present. First 4 cervical vertebrae are adequately visualized and appear unremarkable. C5 to T1 partially obscured due to shoulders in overlying soft tissues on lateral views. No gross pathology detected. CT would be helpful to further evaluate. Soft tissues: See Bones/joints finding. Other findings: Hearing aid noted on the right. XR/XR cervical spine 3V* [id number] IMPRESSION: First 4 cervical vertebrae are adequately visualized and appear unremarkable. C5 to T1 partially obscured due to shoulders in overlying soft tissues on lateral views. No gross pathology detected. CT would be helpful to further evaluate.
[2023-04-25 09:47] LABS: Alanine Aminotransferase 28 U/L (0-41); Albumin Level 3.5 g/dL (3.5-5.2); Alkaline Phosphatase 69 U/L (40-130); Anion Gap 16.9 (5-19); Aspartate Amino Transferase 39 U/L (0-40); Blood Urea Nitrogen 16 mg/dL (8-23); Calcium 8.9 mg/dL (8.5-10.5); Carbon Dioxide 23 mmol/L (22-29); Chloride 94 mmol/L (98-107); Globulin 2.9 g/dL (1.3-4.6); Glucose 115 mg/dL (65-115); Osmolality Calculated 272 mOsm/kg (285-295); Potassium 3.9 mmol/L (3.5-5.1); Sodium 130 mmol/L (136-145); Total Bilirubin 0.8 mg/dL (0.15-1.2); Total Protein 6.4 g/dL (6.6-8.7)
--- NOTE | 2023-04-25 10:20 | PC.NURSE ---
this nurse attempted orthostatic vitals on pt, pt unable to tolerate standing position for blood pressure. ED physician notified. verbal orders to bolus 1L of normal saline and to perform straight cath for urine sample.
--- NOTE | 2023-04-25 10:37 | CTR_ITS ---
PROCEDURE INFORMATION: Exam: CT Cervical Spine Without Contrast Exam date and time: 04/25/2023 10:48 AM Age: 82 years old Clinical indication: Injury or trauma; Fall; Blunt trauma TECHNIQUE: Imaging protocol: Computed tomography of the cervical spine without contrast. Total images: 514 Radiation optimization: All CT scans at this facility use at least one of these dose optimization techniques: automated exposure control; mA and/or kV adjustment per patient size (includes targeted exams where dose is matched to clinical indication); or iterative reconstruction. REPORTING DATA: Count of CT and Cardiac NM exams in prior 12 months: This patient has received 2 known CTs and 0 known cardiac nuclear medicine studies in the 12 months prior to the current study. COMPARISON: CR (NECK, ) 04/25/2023 9:55 AM RADIATION DOSE METRICS: Total DLP (mGy-cm): 529.77 FINDINGS: Bones/joints: Prominent atlantodental degenerative changes. Facet joint degenerative changes are present. C5-7 degenerative disc disease with disc space narrowing and osteophyte formation. C3-C4 Degenerative spondylolisthesis (grade 1) is seen with disc space height loss and degenerative changes in the facet joints. C7 spinous process fracture with corticated margin suggesting remote injury. Lungs: Lung apices are normal. Vasculature: Calcified atherosclerotic plaque is noted at the carotid bifurcations bilaterally. Soft tissues: Unremarkable. CT/CT cervical spin wo con* [id number] IMPRESSION: 1. No acute cervical spine pathology. 2. C7 spinous process fracture with corticated margin suggesting remote injury.
[2023-04-25] MEDS: sodium chloride 0.9% 1,000 ML 999 ML IV (10:41)
[2023-04-25 10:58] LABS: Add Urine Microscopic? YES; Amorphous Sediment Urine 1+ /hpf; Bilirubin Urine Neg (Negative); Blood Urine Neg (Negative); Glucose Urine UA Norm (Normal); Ketones Urine 1+ (Negative); Leukocyte Esterase Urine Negative (Negative); Nitrate Urine Negative (Negative); Protein Urine 1+ (Negative); Urine Appearance Clear (CLEAR); Urine Color Yellow (Yellow); Urobilinogen Urine 1 mg/dL (Negative); WBC Urine RARE /hpf (0-5); pH Urine 5 (5-7)
--- NOTE | 2023-04-25 11:08 | ECG_ITS ---
[facility] Test Date: 2023-04-25 Pat Name: Jose Francis Department: Room: Gender: Male Referral Manager: : 1940 Requested By: Shakir Blackmon Order Number: [id number] Jasmyn MD: Blane Kong M.D. Measurements Intervals [place] Rate: 72 P: 129 AR: 213 QRS: -55 QRSD: 143 T: 123 QT: 449 QTc: 495 Interpretive Statements ELECTRONIC ATRIAL PACEMAKER ELECTRONIC VENTRICULAR PACEMAKER ABNORMAL RHYTHM ECG Compared to ECG 04/25/2023 09:05:01 No significant changes Electronically Signed On 04-26-2023 15:57:22 CLINICAL PROJECT LEADER by Blane Kong M.D. [email or web address]
--- NOTE | 2023-04-25 11:29 | PC.PHAR ---
pt states to the best of his knowledge, he is not back on Eliquis 5 mg. pt presented med list via phone and verified otc vitamins and supplements. Unable to verify due to [facility] on weekends.
[2023-04-25 11:33] LABS: Troponin 5 2HR 31.78 ng/L (0-15); Troponin 5 2HR Delta 0.78 ABS# (0-10)
--- NOTE | 2023-04-25 12:38 | XRR_ITS ---
PROCEDURE INFORMATION: Exam: XR Right Foot Exam date and time: 04/25/2023 12:46 PM Age: 82 years old Clinical indication: Right; Patient HX: RT foot pain; Ulcer TECHNIQUE: Imaging protocol: Radiologic exam of the right foot. Views: 1 or 2 views. COMPARISON: No relevant prior studies available. FINDINGS: Bones/joints: Mild hallux valgus. No acute fracture. No visible periosteal reaction or bony erosive change. There are hammertoe deformities. Soft tissues: There appears to be swelling along the plantar surface. Vasculature: There is vascular calcification. XR/XR foot RT 2V [id number] IMPRESSION: No bony erosive changes or findings to suggest. Consider follow-up imaging as clinically appropriate.
--- NOTE | 2023-04-25 12:38 | XRR_ITS ---
PROCEDURE INFORMATION: Exam: XR Right Shoulder Exam date and time: 04/25/2023 12:52 PM Age: 82 years old Clinical indication: Patient HX: Bilateral shoulder pain; No known injury TECHNIQUE: Imaging protocol: Radiologic exam of the right shoulder. Views: 2 or more views. COMPARISON: CT cervical spin wo con* [id number] 04/25/2023 10:48 AM FINDINGS: Bones/joints: There is no evidence of acute fracture. No dislocation. No significant joint space loss glenohumeral joint. Minimal osteophyte formation and joint space loss acromioclavicular joint. Soft tissues: Normal. XR/XR shoulder RT min 2V* [id number] IMPRESSION: No evidence of fracture or dislocation.
--- NOTE | 2023-04-25 12:38 | CTR_ITS ---
PROCEDURE INFORMATION: Exam: CT Thoracic Spine Without Contrast Exam date and time: 04/25/2023 1:14 PM Age: 82 years old Clinical indication: Injury or trauma; Fall; Blunt trauma (contusions or hematomas) TECHNIQUE: Imaging protocol: Computed tomography of the thoracic spine without contrast. Radiation optimization: All CT scans at this facility use at least one of these dose optimization techniques: automated exposure control; mA and/or kV adjustment per patient size (includes targeted exams where dose is matched to clinical indication); or iterative reconstruction. REPORTING DATA: Count of CT and Cardiac NM exams in prior 12 months: This patient has received 2 known CTs and 0 known cardiac nuclear medicine studies in the 12 months prior to the current study. COMPARISON: 1. CT lumbar spine wo con* [id number] 04/25/2023 1:[address] angio chest [id number] 12/24/2022 10:41 AM RADIATION DOSE METRICS: Total DLP (mGy-cm): 1211.4 FINDINGS: Tubes, catheters and devices: There is left-sided pacer present. Bones/joints: Bones are demineralized. There is coarsened trabecular pattern superior and inferior endplate compression with vertebral height loss T12 unchanged from comparison study. There is bony demineralization. There is no acute thoracic spine fracture. There is old nonunited C7 spinous process fracture. Soft tissues: Unremarkable. Vasculature: There is atherosclerotic change. There are coronary artery calcification. Pleural spaces: There is posterior nonspecific pleural thickening. Intraperitoneal space: Abdominal findings are discussed on abdominal CT. CT/CT thoracic spin wo con* [id number] IMPRESSION: No acute fracture. Other findings as discussed.
--- NOTE | 2023-04-25 12:38 | CTR_ITS ---
PROCEDURE INFORMATION: Exam: CT Lumbar Spine Without Contrast Exam date and time: 04/25/2023 1:14 PM Age: 82 years old Clinical indication: Injury or trauma; Fall; Blunt trauma (contusions or hematomas) TECHNIQUE: Imaging protocol: Computed tomography of the lumbar spine without contrast. Total images: 626 Radiation optimization: All CT scans at this facility use at least one of these dose optimization techniques: automated exposure control; mA and/or kV adjustment per patient size (includes targeted exams where dose is matched to clinical indication); or iterative reconstruction. REPORTING DATA: Count of CT and Cardiac NM exams in prior 12 months: This patient has received 2 known CTs and 0 known cardiac nuclear medicine studies in the 12 months prior to the current study. COMPARISON: CT lumbar spine wo con* [id number] 09/11/2016 1:49 PM RADIATION DOSE METRICS: Total DLP (mGy-cm): 785.8 FINDINGS: Bones/joints: Multilevel degenerative disc disease is noted with vacuum phenomenon. Osteophytes are noted extending from the vertebrae. No acute spinal pathology is detected. Right transverse process fractures at L1 and L2. Vertebral body heights are maintained. No evidence of spondylolysis nor spondylolisthesis. T12 demonstrates prominent trabecular pattern as seen with vertebral hemangiomas and is partially visualized but unchanged from prior exam from 2017. L4-L5 Facet joint degenerative changes are present. Pancreas: Calcifications and atrophy of the pancreas are consistent with chronic pancreatitis. No evidence of acute pancreatitis. Vasculature: Moderate atherosclerotic disease is evident. Soft tissues: Unremarkable. CT/CT lumbar spine wo con* [id number] IMPRESSION: Right transverse process fractures at L1 and L2.
--- NOTE | 2023-04-25 12:38 | XRR_ITS ---
PROCEDURE INFORMATION: Exam: XR Left Shoulder Exam date and time: 04/25/2023 1:01 PM Age: 82 years old Clinical indication: Patient HX: Bilateral shoulder pain; No known injury TECHNIQUE: Imaging protocol: Radiologic exam of the left shoulder. Views: 2 or more views. COMPARISON: CT cervical spin wo con* [id number] 04/25/2023 10:48 AM FINDINGS: Tubes, catheters and devices: Pacemaker is present. Bones/joints: There is no evidence of acute fracture. No dislocation. No joint space loss or osteophyte formation. Soft tissues: Normal. XR/XR shoulder LT min 2V* [id number] IMPRESSION: No evidence of fracture or dislocation.
--- NOTE | 2023-04-25 12:52 | P.HP_ITS ---
Providers/Chief Complaint 2 Admitting Physician: Min Ugalde MD Primary Care Provider: Richardson Pineda MD Chief Complaint: WEAKNESS History of Present Illness Jose Francis is a 82 year old male with a past medical history of GI bleed, history of anemia, history of atrial fibrillation remains on Eliquis, history of obstructive sleep apnea, hypothyroidism, who presents to [facility] due to lightheadedness, dizziness, presyncopal, syncopal symptoms, falls, generalized weakness. Currently patient alert to person, to place, to time, his responses are quite delayed at times he looks at his son for answers but can get most of his questions appropriately. Patient tells me that he lives at home with his son, about a year ago he was quite active, playing golf, but when he got COVID unfortunately, since then he has had a gradual decline, he has been increasingly short of breath. He was walking normally with a walker, but about 2 weeks ago, his primary care provision had him on quite a few blood pressure medications and he suffered orthostatic hypotension, felt lightheaded and dizzy, and had falls, about 2 weeks ago. There was titration of his blood pressure medications, but he continued to have episodes of lightheadedness and dizziness, recurrent falls. Since then he has had a decline, such that that he cannot walk anymore, he tells me that he is back hurts throughout, both his shoulders hurt, denies any hip pain, does report pain in his right foot. He does need that that is why he cannot ambulate is his right foot hurts him, his back hurts him. Denies any neck pain although he has a C7 fracture, possibly associate with his fall about 2 weeks ago he denies any neck pain. Denies any paresthesias, no loss of sensation, no urinary continence no bowel incontinence no saddle perianal anesthesia. He is continue to take the blood thinner, he has raccoon sign, he tells me that he has had this for the last 2 weeks since his fall about 2 weeks ago, denies any nasal drainage, no ear drainage. Denies any light headedness currently, no dizziness currently, reports generalized weakness. When asked him if he really passed out he is unsure, he just became really lightheaded dizzy and that is all he can remember. Denies any chest pain no palpitations no cardiovascular history. No history of strokes. No history of carotid artery disease Review of Systems 2 Const: Denies: fever(s) Eyes: Denies: change in vision Card: Denies: chest pain Resp: Denies: dyspnea GI: Denies: abdominal pain : Denies: flank pain Musc: Reports: back pain, extremity pain and muscle weakness; Denies: neck pain Neuro: Reports: weakness in extremities, difficulty walking, frequent falls and dizziness; Denies: headache(s), numbness in extremities, lack of coordination, difficulty communicating thoughts, seizure-like activity or involuntary movements Medications/Allergies Home Medications Medication Instructions Recorded Confirmed Last Taken Type apixaban 5 mg tablet (Eliquis) 5 mg PO BID See pharmacy comments 05/31/19 04/25/23 Unknown History isosorbide mononitrate 30 mg 30 mg PO QAM 05/31/19 04/25/23 04/25/23 History tablet,extended release 24 hr amiodarone 200 mg tablet 100 mg PO BID 11/07/19 04/25/23 04/25/23 History ascorbate calcium (vitamin C) 500 1 gm PO DAILY 11/07/19 04/25/23 04/25/23 History mg tablet cholecalciferol (vitamin D3) 25 25 mcg PO DAILY 11/07/19 04/25/23 04/25/23 History mcg (1,000 unit) capsule levothyroxine 75 mcg tablet 75 mcg PO DAILY 05/02/20 04/25/23 04/25/23 History (Synthroid) rosuvastatin 40 mg tablet (Crestor) 40 mg PO DAILY 05/02/20 04/25/23 04/25/23 History loratadine 10 mg tablet 10 mg PO DAILY 10/07/21 04/25/23 04/25/23 History sdsycljc-cnhvkwun-aurja acid 400 1 tab PO DAILY 01/12/23 04/25/23 04/25/23 History mcg-vit K 20 mcg-lycop 300 mcg tablet omega 1-ehs-ign-fish oil 1,000 mg 1 cap PO DAILY 01/12/23 04/25/23 04/25/23 History (120 mg-180 mg) capsule (Fish Oil) tramadol 50 mg tablet 50 mg PO Q6H PRN Pain 01/12/23 04/25/23 Unknown History fluticasone 250 mcg-salmeterol 50 1 inh inhalation BID #60 ea 01/25/23 04/25/23 04/25/23 Rx mcg/dose blistr powdr for inhalation (Advair Diskus) metoprolol tartrate 25 mg tablet 25 mg PO BID 04/25/23 04/25/23 04/25/23 History sucralfate 1 gram tablet See Rx Instructions .Route .COMPLEX 04/25/23 04/25/23 Unknown History Allergies Allergy/AdvReac Type Severity Reaction Status Date / Time No Known Allergies Allergy Verified 04/22/23 20:03 PFSH Acute 2 PFSH: Medical History Atherosclerotic heart disease of [place]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 Anemia GI bleed Hypertension Atrial fibrillation Mitral regurgitation ABRAM (obstructive sleep apnea) Osteoporosis Anxiety History of pacemaker Surgical History Hx of tonsillectomy H/O hemorrhoidectomy History of hernia surgery Family History Brother CAD (coronary artery disease) CHF (congestive heart failure) Cancer Sister Lung disease Other Atherosclerotic heart disease of [place]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 Denies family history of Diabetes Clotting disorder Dementia Hyperlipidemia Chronic kidney disease (CKD) Suicide Anesthesia complication Bleeding disorder Hypertension Stroke Social History Smoking and tobacco/nicotine status: former use of tobacco/nicotine Alcohol intake: never Substance/Drug Use: never Household members: none Marital status: Vitals/I&O/Wt Last Vital Signs Temp 98.4 F 04/25/23 08:57 Pulse 72 04/25/23 12:13 Resp 25 H 04/25/23 12:13 BP 138/81 04/25/23 11:01 Pulse Ox 93 04/25/23 12:13 O2 Del Method Room Air 04/25/23 12:13 Weight last 48 hrs Weight 99.79 kg Physical Exam 2 Const: COMMON NORMALS: no acute distress and patient oriented x3 Eye: COMMON NORMALS: Equal, round and reactive pupils present and EOMs intact bilaterally Neck/C-Spine: COMMON NORMALS: full ROM CERVICAL SPINE: Yes cervical ROM normal, No pain with cervical ROM, No Cervical spine tenderness, Yes Paracervical muscle tenderness and No Paracervical spasm Lymph: LYMPHATIC: no lymphadenopathy noted Resp: COMMON NORMALS: normal respiratory effort, No retractions, No use of accessory muscles and clear to auscultation bilaterally AUSCULTATION: clear to auscultation bilaterally Cardio: COMMON NORMALS: regular rate, regular rhythm, S1 normal heart sound present and S2 normal heart sound present RATE: regular rate RHYTHM: r egular rhythm HEART SOUNDS: S1 normal heart sound present and S2 normal heart sound present GI: COMMON NORMALS: Normal to inspection, nondistended, normoactive bowel sounds present, Soft to palpation and non-tender Back/Pelvis: COMMON NORMALS: no CVA tenderness Extremity: COMMON NORMALS: no pedal edema Neuro: COMMON NORMALS: patient oriented x3, CN's II-XII intact bilaterally, moves all extremities and no focal motor deficits Psych: COMMON NORMALS: mental status grossly normal Skin: NARRATIVE SKIN EXAM: Diffuse right foot tenderness Data 04/25/23 09:09 04/25/23 09:09 A&P Assessment and plan (1) Falls frequently: (2) Generalized weakness: (3) Orthostasis: (4) Multiple falls: (5) Generalized weakness: (6) Syncope: (7) Atherosclerotic heart disease of [place]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: (8) Dyslipidemia: (9) ABRAM (obstructive sleep apnea): (10) Atrial fibrillation: (11) H/O: GI bleed: (12) Presence of permanent cardiac pacemaker: (13) Hypertension: Qualifiers: Hypertension type: essential hypertension Qualified Code(s): I10 - Essential (primary) hypertension (14) Mitral regurgitation: Qualifiers: Cardiac valve disease etiology: rheumatic Qualified Code(s): 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 Has complaints of diffuse back pain will do CT lumbar spine, thoracic spine, ? Has complaint of bilateral shoulder pain will do x-rays, ? Right foot pain, will do x-ray ? She is on Eliquis, has recurrent falls, will order CT facial bones given his raccoon sign on examination, and will do CT of his head, Orthostatic hypotension -IV fluids, ? Will check orthostats Syncope ? Serial EKGs, serial troponins, telemetry monitoring, -Cardiac echo comprehensive -?carotid artery ultrasound Atrial fibrillation, ? Continue Eliquis, ? Continue amiodarone PT OT Neurochecks, aspiration precautions L close for DVT prophylaxis Attestations 2 Medical Necessity Statement*: Patient requires hospitalization, syncope, falls, fractures, C7 fracture, orthostatic hypotension, inpatient, greater than 2 midnights Diagnoses Falls frequently R29.6 Generalized weakness R53.1 Orthostasis I95.1 Syncope R55 Atherosclerotic heart disease of [place]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 I25.118 Dyslipidemia E78.5 ABRAM (obstructive sleep apnea) G47.33 Paroxysmal atrial fibrillation I48.91 H/O: GI bleed Z87.19 Presence of permanent cardiac pacemaker Z95.0 Essential hypertension I10 Hypertension type: essential hypertension 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
--- NOTE | 2023-04-25 12:56 | CTR_ITS ---
PROCEDURE INFORMATION: Exam: CT Head Without Contrast Exam date and time: 04/25/2023 1:08 PM Age: 82 years old Clinical indication: Injury or trauma; Fall; Blunt trauma (contusions or hematomas) TECHNIQUE: Imaging protocol: Computed tomography of the head without contrast. Radiation optimization: All CT scans at this facility use at least one of these dose optimization techniques: automated exposure control; mA and/or kV adjustment per patient size (includes targeted exams where dose is matched to clinical indication); or iterative reconstruction. REPORTING DATA: Count of CT and Cardiac NM exams in prior 12 months: This patient has received 2 known CTs and 0 known cardiac nuclear medicine studies in the 12 months prior to the current study. COMPARISON: CT head wo con* [id number] 04/22/2023 8:29 PM RADIATION DOSE METRICS: Total DLP (mGy-cm): 997.4 FINDINGS: Brain: There is no acute intracranial hemorrhage. There is lucency in the cerebral white matter, likely microvascular disease although non-specific. No evidence of mass. There is no mass effect or midline shift. Muse white differentiation is intact. There are no extra-axial fluid collections. Cerebral ventricles: The ventricles and sulci are enlarged, consistent with volume loss / atrophy. No hydrocephalus. Paranasal sinuses: There is mild mucosal thickening in paranasal sinuses. Mastoid air cells: No significant mastoid effusion. Orbital cavities: There have been bilateral intraocular lens replacements likely related to cataract surgery. Bones/joints: No acute fracture. Soft tissues: Unremarkable as visualized. Vasculature: There is vascular calcification. CT/CT head wo con* [id number] IMPRESSION: 1. No evidence of acute intracranial abnormality. No evidence of acute infarction, hemorrhage, or mass. 2. Atrophy and microvascular disease.
--- NOTE | 2023-04-25 12:56 | CTR_ITS ---
PROCEDURE INFORMATION: Exam: CT Maxillofacial Without Contrast Exam date and time: 04/25/2023 1:08 PM Age: 82 years old Clinical indication: Injury or trauma; Fall; Blunt trauma (contusions or hematomas); Nose and orbit/periorbital; Bilateral TECHNIQUE: Imaging protocol: Computed tomography of the face without contrast. Radiation optimization: All CT scans at this facility use at least one of these dose optimization techniques: automated exposure control; mA and/or kV adjustment per patient size (includes targeted exams where dose is matched to clinical indication); or iterative reconstruction. REPORTING DATA: Count of CT and Cardiac NM exams in prior 12 months: This patient has received 2 known CTs and 0 known cardiac nuclear medicine studies in the 12 months prior to the current study. COMPARISON: CT head wo con* [id number] 04/25/2023 1:08 PM RADIATION DOSE METRICS: Total DLP (mGy-cm): 676.4 FINDINGS: Orbital cavities: There have been bilateral intraocular lens replacements likely related to cataract surgery. No exophthalmos. No evidence of orbital mass. Bones/joints: No acute fracture. Degenerative changes are noted in cervical spine. Paranasal sinuses: Small right frontal osteoma. Very small retention cyst or polyp in right sphenoid sinus. Mild mucosal thickening paranasal sinuses. Soft tissues: Unremarkable. Vasculature: Mild calcification at carotid bifurcations. CT/CT facial bones wo con* [id number] IMPRESSION: No evidence fracture. Other findings as discussed.
[2023-04-25 13:09] LABS: Lactic Sepsis W/Reflex 1.5 mmol/L (0.5-2.2)
[2023-04-25 13:23] LABS: NT Pro B Type Natriuretic Pept 931 pg/mL (0-450); Procalcitonin 0.17 ng/mL (0-0.5)
--- NOTE | 2023-04-25 13:42 | XRR_ITS ---
PROCEDURE INFORMATION: Exam: XR Bilateral Hips Exam date and time: 04/25/2023 9:18 PM Age: 82 years old Clinical indication: Injury or trauma; Patient HX: Bilateral hip pain post fall TECHNIQUE: Imaging protocol: Radiologic exam of the bilateral hips. Views: 2 views of hips with pelvis when performed. COMPARISON: CT lumbar spine wo con* [id number] 04/25/2023 1:14 PM FINDINGS: Bones/joints: There are degenerative changes across the hip joints including moderate narrowing of the joint spaces, subchondral cystic changes, and marginal osteophyte formations. No visualized acute fracture. Soft tissues: There are benign-appearing soft tissue calcifications. XR/XR hip BI 2V wo/w pel [id number] IMPRESSION: There are degenerative changes across the hip joints. No visualized acute fracture.
--- NOTE | 2023-04-25 13:42 | USR_ITS ---
PROCEDURE INFORMATION: Exam: US Duplex Bilateral Extracranial Arteries; Complete; Carotid Arteries Exam date and time: 04/25/2023 4:31 PM Age: 82 years old Clinical indication: Syncope and collapse TECHNIQUE: Imaging protocol: Real-time duplex ultrasound scan of the bilateral extracranial arteries combining lynn scale, color Doppler and spectral waveform analysis with image documentation. Complete exam. Exam focused on the carotid arteries. COMPARISON: CT head wo con* [id number] 04/25/2023 1:08 PM FINDINGS: Right common carotid artery: Unremarkable. No occlusion or stenosis. Waveforms are normal. Right internal carotid artery: Unremarkable. No occlusion or stenosis. Waveforms are normal. Right ICA/CCA ratio: Within normal limits. Right external carotid artery: No stenosis in the origin. Right vertebral artery: Unremarkable. Antegrade flow. Left common carotid artery: Unremarkable. No occlusion or stenosis. Waveforms are normal. Left internal carotid artery: Unremarkable. No occlusion or stenosis. Waveforms are normal. Left ICA/CCA ratio: Within normal limits. Left external carotid artery: No stenosis in the origin. Left vertebral artery: Unremarkable. Antegrade flow. US/CV carotid duplex BI* [id number] IMPRESSION: No carotid arterial stenosis. REFERENCES: SRU CRITERIA. The degree of internal carotid artery stenosis is based on criteria defined by the Society of Radiologists in Ultrasound (SRU). Normal is no stenosis. Mild is less than 50% stenosis. Moderate is 50-69% stenosis. Severe is greater than 69% stenosis to near occlusion. Near occlusion is a markedly narrowed lumen. Total occlusion is no detectable patent lumen.
[2023-04-25] MEDS: sodium chloride 0.9% 1,000 ML 75 ML IV (14:16)
[2023-04-25 14:17] LABS: Estmated Average Glucose 131; Hemoglobin A1C 6.2 % (4.0-6.0)
[2023-04-25 14:29] LABS: Chol HDL Ratio 2.94 mg/dL (1.0-5.00); Cholesterol 150 mg/dL (0-200); HDL Cholesterol 51 mg/dL (60-100); LDL Cholesterol Calculated 82 mg/dL (50-129); LDL HDL Ratio 1.61 RATIO (0.00-3.22); Thyroid Stimulating Hormone 1.75 uIU/mL (0.27-4.20); Triglycerides 83 mg/dL (0-150); Vitamin B12 790 pg/mL (232-1245)
[2023-04-25 14:54] LABS: Folate Level > 20.0 ng/mL (4.5-32.2)
[2023-04-25] MEDS: pantoprazole 40 mg SDV IVP (15:33)
[2023-04-25 16:22] LABS: Troponin 5 6HR 27.36 ng/L (0-15)
[2023-04-25 16:23] LABS: Troponin 5 6HR Delta -3.64 ng/L (0-12)
[2023-04-25] MEDS: amiodarone 200 mg Tablet 100 MG PO (17:31)
[2023-04-25] MEDS: metoprolol tartrate 25 mg Tablet PO (17:31)
[2023-04-25] MEDS: apixaban 5 mg Tablet PO (17:31)
[2023-04-26] VITALS: BP 137/78; PULSE 65; RESP 18; TEMP 37.1; O2SAT 92
[2023-04-26 03:37] VITALS: BP 147/78; PULSE 66; RESP 18; TEMP 37; O2SAT 93
[2023-04-26 04:54] LABS: Basophils % 0.3 %; Eosinophils % 0.1 %; Hematocrit 33.5 % (37-53); Lymphocytes # 1.7 10^3/uL (0.8-4.8); Lymphocytes % 25.7 %; Mean Corpuscular HGB Conc 31.3 g/dL (30-55); Mean Corpuscular Hemoglobin 26.6 pg (27-33); Mean Corpuscular Volume 84.8 fl (82-101); Mean Platelet Volume 9.1 fL (7.4-10.4); Monocytes # 0.7 10^3/uL (0.2-0.9); Monocytes % 10.6 %; Neutrophils # 4.21 10^3/uL (1.8-7.7); Nucleated Red Blood Cells % 0 %; Platelet Count 185 10^3/cmm (157-399); Red Blood Count 3.95 10^6/uL (3.85-5.65); Red Cell Distribution Width 20.5 % (12.1-15.1); White Blood Count 6.69 10^3/uL (3.29-11.43)
[2023-04-26] MEDS: sodium chloride 0.9% 1,000 ML 75 ML IV ×2 (04:56→18:05)
[2023-04-26] MEDS: isosorbide mononitrate ER 30 mg Tablet PO (05:00)
[2023-04-26 05:14] LABS: Alanine Aminotransferase 44 U/L (0-41); Albumin Level 2.9 g/dL (3.5-5.2); Alkaline Phosphatase 66 U/L (40-130); Anion Gap 15.6 (5-19); Aspartate Amino Transferase 63 U/L (0-40); Blood Urea Nitrogen 17 mg/dL (8-23); Calcium 8.5 mg/dL (8.5-10.5); Carbon Dioxide 21 mmol/L (22-29); Chloride 100 mmol/L (98-107); Creatinine Clr Calc Pharmacy 61.6122; Globulin 3.3 g/dL (1.3-4.6); Glucose 108 mg/dL (65-115); Magnesium 1.9 mg/dL (1.7-2.3); Osmolality Calculated 278 mOsm/kg (285-295); Phosphorus 2.5 mg/dL (2.5-4.5); Potassium 3.6 mmol/L (3.5-5.1); Sodium 133 mmol/L (136-145); Total Bilirubin 0.7 mg/dL (0.15-1.2); Total Protein 6.2 g/dL (6.6-8.7)
[2023-04-26 05:54] VITALS: BMI 31.8
--- NOTE | 2023-04-26 06:00 | USCV_ITS ---
Jose Francis Age: 82 Gender: M : 1940 Exam Date: 04/26/2023 08:38 Ordering Phys: Min Ugalde MD Technologist: Sixto Sky Exam Location: [facility] [place] Indication: chest pain BP: 134 / 72 HR: 85 Rhythm: Sinus Technical Quality: Adequate MEASUREMENTS (Male / Female) Normal Values 2D ECHO LV Diastolic Diameter PLAX 4.4 cm 4.2 - 5.9 / 3.9 - 5.3 cm LV Systolic Diameter PLAX 3.2 cm IVS Diastolic Thickness 1.8 cm 0.6 - 1.0 / 0.6 - 0.9 cm IVS Systolic Thickness 2.1 cm LVPW Diastolic Thickness 1.6 cm 0.6 - 1.0 / 0.6 - 0.9 cm LVPW Systolic Thickness 1.9 cm LVOT Diameter 2.1 cm LV Ejection Fraction 2D Teich 52.4 % LV Ejection Fraction MOD 2C 60.4 % LV Ejection Fraction 2C AL 59.9 % LA Diameter 4.7 cm IVC Diameter 1.5 cm M-MODE Aortic Annulus Diameter 3.9 cm LA Ao Ratio MM 1.2 DOPPLER AV Peak Velocity 242.0 cm/s LVOT Peak Velocity 119.0 cm/s AV Area Cont Eq vti 2.0 cm squared AV Area Cont Eq pk 1.6 cm squared MV Area PHT 3.3 cm squared Mitral E to A Ratio 1.4 MV E' Velocity 117.0 cm/s TR Peak Velocity 145.0 cm/s TR Peak Gradient 8.4 mmHg TV Peak E Velocity 104.0 cm/s Right Atrial Pressure 3.0 mmHg Pulmonary Artery Systolic Pressu 11.4 mmHg RV Acceleration Time 0.1 s FINDINGS Left Ventricle Left ventricle is normal size. LV systolic function is normal with EF 55 to 60%. No significant regional wall motion abnormality seen. Right Ventricle Normal in size and function Right Atrium Normal in size Left Atrium Normal in size Mitral Valve Mild mitral annular calcification. Mild mitral regurgitation. Aortic Valve Aortic valve is thickened. Mild aortic stenosis with aortic valve area 1.7 cm squared and mean gradient of 12 mmHg. Mild aortic regurgitation Tricuspid Valve Mild tricuspid regurgitation. Insufficient TR jet to evaluate RVSP. Pulmonic Valve Mild pulmonic regurgitation. Pericardium Normal Aorta Not well visualized but grossly normal IVC Appears to be normal CONCLUSIONS LV systolic function is normal with EF 55 to 60%. Mild mitral regurgitation Mild aortic stenosis Mild aortic regurgitation Mild tricuspid regurgitation Mild pulmonic regurgitation Compared to prior echocardiogram from 11/2022, no significant changes are noted. Ramírez Fournier MD (Electronically Signed) Final Date: 26 April 2023 09:46 S
[2023-04-26 07:03] VITALS: BP 153/80; PULSE 71; RESP 18; TEMP 36.8; O2SAT 94
[2023-04-26] MEDS: apixaban 5 mg Tablet PO ×2 (08:26→18:06)
[2023-04-26] MEDS: metoprolol tartrate 25 mg Tablet PO ×2 (08:26→18:06)
[2023-04-26] MEDS: cholecalciferol (vitamin D3) 1,000 unit Tablet 1000 UNIT PO (08:26)
[2023-04-26] MEDS: levothyroxine 75 mcg Tablet PO (08:26)
[2023-04-26] MEDS: amiodarone 200 mg Tablet 100 MG PO ×2 (08:26→18:06)
[2023-04-26] MEDS: atorvastatin 40 mg Tablet 80 MG PO (08:26)
[2023-04-26] MEDS: TRAMadol 50 mg Tablet PO (08:32)
[2023-04-26 12:00] VITALS: BP 122/74; PULSE 82; RESP 18; TEMP 36.4; O2SAT 94
[2023-04-26] MEDS: pantoprazole 40 mg SDV IVP (14:14)
[2023-04-26 16:00] VITALS: BP 166/91; PULSE 70; RESP 18; TEMP 36.8; O2SAT 95
[2023-04-26 20:00] VITALS: BP 142/83; PULSE 74; RESP 18; TEMP 36.8; O2SAT 94
--- NOTE | 2023-04-26 22:28 | P.PN_ITS ---
Subjective 2 Subjective: The patient was seen lying flat in bed. His complaints were aches and pains from his falls. He endorses back pain, He denies dizziness, lightheadedness, headaches, CP, palpitations, SOB, nausea, vomiting, abdominal pain, fever, chills. Vitals/I&O/Wt Last Vital Signs Temp 98.2 F 04/26/23 20:00 Pulse 74 04/26/23 20:00 Resp 18 04/26/23 20:00 BP 142/83 04/26/23 20:00 Pulse Ox 94 04/26/23 20:00 O2 Del Method Room Air 04/26/23 20:00 04/26/23 04/26/23 04/26/23 06:59 14:59 22:59 Intake Total 840 / 840 1226.25 / 2066.25 Output Total 300 / 600 200 / 200 350 / 550 Balance -300 / 1640 640 / 640 876.25 / 1516.25 Weight last 48 hrs Weight 103.782 kg Weight 104.893 kg Weight 99.79 kg Physical Exam 2 Const: GENERAL APPEARANCE: cooperative and comfortable O RIENTATION/CONSCIOUSNESS: Yes awake, Yes oriented to person, Yes oriented to place and Yes oriented to time HENMT: COMMON NORMALS: normocephalic and external ears normal HEAD & SCALP: normocephalic and raccoon eyes (Improved) EXTERNAL EAR: Yes external ears normal MOUTH: Normal oral and palatal mucosa present THROAT: posterior oropharynx normal Eye: COMMON NORMALS: Equal, round and reactive pupils present PUPIL: Yes Equal, round and reactive pupils present EOM: No EOM abnormal OTHER: erythematous eyes with dried yellow drainage around both eyes. Neck/C-Spine: COMMON NORMALS: Thyroid normal GENERAL: Yes normal visual inspection and Yes trachea midline THYROID: Thyroid normal CAROTIDS: Yes bruit Lymph: LYMPHATIC: No lymphadenopathy Resp: OTHER: CTAB anteriorly,. No wheezes rales or rhonchi appreciated.. Cardio: COMMON NORMALS: regular rate, regular rhythm, S1 normal heart sound present and S2 normal heart sound present RATE: regular rate RHYTHM: r egular rhythm HEART SOUNDS: S1 normal heart sound present, S2 normal heart sound present, no click, no gallops, no murmurs and no rubs PERIPHERAL PULSES: radial pulses present and popliteal pulses present GI: COMMON NORMALS: Soft to palpation AUSCULTATION: Yes normoactive bowel sounds and Yes Hyperactive bowel sounds present PALPATION: Yes Soft to palpation, No Tenderness to palpation present (GI), No Guarding due to palpation present (GI) and No Rigid due to palpation Extremity: GENERAL: No clubbing, No cyanosis and No edema Neuro: SENSORIUM/ORIENTATION: Yes oriented to person, Yes oriented to place and Yes oriented to time CRANIAL NERVES: Yes CN normal except as noted S ENSORY EXAM: Yes sensory level loss detected MOTOR EXAM: Normal motor muscle tone present throughout Psych: COMMON NORMALS: Normal thought process present and speech normal A PPEARANCE: Yes grossly normal and Yes unkempt ATTITUDE: Yes calm and Yes engaged ACTIVITY/MOTOR BEHAVIOR: Yes appropriate eye contact SPEECH: Yes normal speech MOOD & AFFECT: Yes euthymic mood THOUGHT PROCESS: Normal thought process present THOUGHT CONTENT: Yes Normal thought content present ATTENTION/CONCENTRATION: Yes attention grossly intact Skin: COMMON NORMALS: no rashes or lesions noted GENERAL SKIN EXAM: no rashes or lesions noted Data 04/27/23 04:30 04/27/23 04:30 A&P Assessment and plan (1) Orthostasis: (2) Generalized weakness: (3) Falls frequently: Plan Mr. Francis is an 82yo man, a [facility] , w/ a hx of GI bleed in 12/2022 secondary to chronic gastritis with superficial duodenal ulcer,chronic Afib on Eliquis, ABRMA on CPAP, and Hypothyroidism, who presented to the [facility] ED on 04/25/2023 for dizziness, lightheadedness, falls, [id number], syncope, and generalized weakness. Per Chart review, the patient was seen in the ED 3 days earlier, 04/22/2023 for dizziness and generalized weakness and multiple falls. Per chart review, the patient's health has been in gradual decline since he had COVID in & 06/2021. Per H&P and ED notes, the patient started having these symptoms of dizziness, generalized weakness and falls after his BP meds were titrated by his PCP 1-2 weeks earler. In the ED, his CXR showed Cardiomegaly, but no acute focal pulmonary opacities. His CT C-spine showed a C7 spinous process fracture w/ a corticated margine suggestive of a remote injury. His UA was negative for a UTI and proteins. His TSH was wnl, as was his folic acid and B12. Hi On admission, CT head, CT face, CT C, T&L spine, shoulder Xray and Pelvic XR and foot Xrays were ordered. His shoulder x-ray showed no acute fractures. The CT head was negative for any acute intracranial abnormality. The CT face was negative for any fractures. His CT T-spine show no acute fractures, but CT L- spine shows R. transverse process fractures at L1 and L2. XR of the bilateral hips showed no acute fracture. Carotid Doppler US was done that showed no carotid artery stenosis. Per the admitting hospitalist's discussion w/ Ortho, Ortho recommended medical management. A TTE was done that showed an EF of 55- 60%, mild aortic stenosis mild aortic regurg, mild mitral & tricuspic regurg, as well as mild pulmonic regurg. #Multiple Falls #R. L1 & L2 transverse process fractures: - Conservative management per Ortho. - PT/OT #Orthostatic hypotension: Continue IVF. Check Orthostatics #PPM due to symptomatic bradycardia: Will look into interrogating the patient's PPM #Transaminitis: Unclear reason for elevated transaminases. Monitor #HTN: On Imdur and Metop tartrate BID #HLD: On Atorvastatin 80mg daily po. LDL of 82. #GERD: On PPI IV #chronic intermittent Afib: On his home Amiodarone and Eliquis #Hyponatremia: Likely due to hypovolemia from poor po intake. #Pre-diabetes/ Glucose intolerance: A1c of 6.2. BG monitoring. #ABRAM on CPAP: Resume home CPAP #Hypothyroidism: Resume home meds. DVT ppx: On Eliquis. Attestations 2 Medical Necessity Statement*: Needs continued admission for syncope work up. Coding Level of Care Code 02824 Diagnoses Orthostasis I95.1 Generalized weakness R53.1 Falls frequently R29.6 Time Spent (min) 61 Comment Deep dive chart review and work up on this patient's medical conditions and diagnoses.
[2023-04-27] VITALS (8 sets, daily range): BP systolic 118–164; BP diastolic 80–90; PULSE 65–83; RESP 18–20; TEMP 36.6–36.9; O2SAT 92–96
[2023-04-27 05:13] LABS: Eosinophils % 0.3 %; Hematocrit 36.6 % (37-53); Lymphocytes # 1.6 10^3/uL (0.8-4.8); Lymphocytes % 23.3 %; Mean Corpuscular HGB Conc 31.1 g/dL (30-55); Mean Corpuscular Hemoglobin 26.7 pg (27-33); Mean Corpuscular Volume 85.7 fl (82-101); Mean Platelet Volume 9.5 fL (7.4-10.4); Monocytes # 0.5 10^3/uL (0.2-0.9); Monocytes % 7.9 %; Neutrophils # 4.67 10^3/uL (1.8-7.7); Neutrophils % 67.9 %; Nucleated Red Blood Cells % 0 %; Platelet Count 238 10^3/cmm (157-399); Red Blood Count 4.27 10^6/uL (3.85-5.65); Red Cell Distribution Width 20.7 % (12.1-15.1); White Blood Count 6.87 10^3/uL (3.29-11.43)
[2023-04-27 05:41] LABS: Alanine Aminotransferase 63 U/L (0-41); Albumin Level 3.1 g/dL (3.5-5.2); Alkaline Phosphatase 93 U/L (40-130); Anion Gap 18.3 (5-19); Aspartate Amino Transferase 92 U/L (0-40); Blood Urea Nitrogen 15 mg/dL (8-23); Calcium 9.1 mg/dL (8.5-10.5); Carbon Dioxide 23 mmol/L (22-29); Chloride 104 mmol/L (98-107); Globulin 3.5 g/dL (1.3-4.6); Glucose 106 mg/dL (65-115); Magnesium 2.1 mg/dL (1.7-2.3); Osmolality Calculated 293 mOsm/kg (285-295); Phosphorus 2.7 mg/dL (2.5-4.5); Potassium 4.3 mmol/L (3.5-5.1); Sodium 141 mmol/L (136-145); Total Bilirubin 0.6 mg/dL (0.15-1.2); Total Protein 6.6 g/dL (6.6-8.7)
[2023-04-27] MEDS: isosorbide mononitrate ER 30 mg Tablet PO (05:55)
[2023-04-27] MEDS: sodium chloride 0.9% 1,000 ML 75 ML IV (05:56)
[2023-04-27] MEDS: metoprolol tartrate 25 mg Tablet PO ×2 (08:39→16:39)
[2023-04-27] MEDS: atorvastatin 40 mg Tablet 80 MG PO (08:39)
[2023-04-27] MEDS: citalopram 20 mg Tablet 60 MG PO (08:40)
[2023-04-27] MEDS: amiodarone 200 mg Tablet 100 MG PO ×2 (08:40→16:38)
[2023-04-27] MEDS: levothyroxine 75 mcg Tablet PO (08:40)
[2023-04-27] MEDS: TRAMadol 50 mg Tablet PO (08:40)
[2023-04-27] MEDS: cholecalciferol (vitamin D3) 1,000 unit Tablet 1000 UNIT PO (08:40)
[2023-04-27] MEDS: apixaban 5 mg Tablet PO ×2 (08:40→16:39)
[2023-04-27] MEDS: bisacodyl 5 mg Tablet 10 MG PO (08:55)
[2023-04-27] MEDS: magnesium hydroxide 30 mL UDC PO (08:55)
--- NOTE | 2023-04-27 09:08 | PC.CHAP ---
Pastoral Care Encounter/Spiritual Assessment Type of Contact [] Declined melter assistant visit [] Patient/Family/Request visit [] Outpatient visit [] Follow-up visit [] Physician referral [] Code/Alert [] Routine visit [] Staff referral [] Actively dying [x] Patient sleeping [] Family support [] [] Out of room [] Palliative care [] [] Receiving care in room [] Pre-surgical visit [] Trauma [] Long length of stay [] ICU visit [] Other: Relational/Emotional Strength [] Patient feels connected with others/family/visitors/staff [] Distress [] Loneliness/isolation [] Abandonment Spirituality of Patient [] Person of Leanna [] Attends Zoroastrian of their Leanna [] Believes in Prayer [] Reads Bible or Hindu materials [] There are Spiritual issues to be addressed Emotional Support Teacher Interventions [] Prayer [] Active listening [] Non-anxious presence [] Spiritual/emotional support [] Crisis/trauma care [] Spiritual counseling [] Bereavement support [] Provided bereavement packet [] Provided Bible/devotional materials [] Provided toy/stuffed animal, coloring book to patient or family member [] Provided Communion [] Anointing/[place] [] Salvation [] Completed spiritual assessment [] Other: Impact on Illness or Injury [] Angry [] Fearful [] Anxious [] Often cries [] Exhaustion [] Unable to work [] Unable to attend zoroastrianism [] Unable to walk/stand [] Unable to read [] Unable to drive [] Unable to eat/drink [] Unable to sleep [] Unable to be with family [] Patient intubated [] Other: Summary Time spent with patient
[2023-04-27 14:43] LABS: SARS Covid-2 Antigen Negative (Negative)
[2023-04-27] MEDS: pantoprazole 40 mg SDV IVP (15:27)
--- NOTE | 2023-04-27 21:22 | XRR_ITS ---
PROCEDURE INFORMATION: Exam: XR Chest Exam date and time: 04/27/2023 10:36 PM Age: 82 years old Clinical indication: Wheezing; Prior surgery; Surgery date: 6+ months; Surgery type: Pacer; Additional info: New wheezing TECHNIQUE: Imaging protocol: Radiologic exam of the chest. Views: 1 view. COMPARISON: CR (CHEST, ) 04/25/2023 9:14 AM FINDINGS: Lungs: Unremarkable. No consolidation. Pleural spaces: Unremarkable. No pleural effusion. No pneumothorax. Heart/Mediastinum: Cardiomegaly. Bones/joints: Unremarkable. Soft tissues: Left chest ICD position is unchanged. XR/XR chest 1V portable [id number] IMPRESSION: Negative for acute pulmonary disease.
[2023-04-27] MEDS: methylPREDNISolone sod succ 125 mg/2 mL INJ 60 MG IVP (21:56)
--- NOTE | 2023-04-27 21:59 | PC.NURSE ---
This nurse went to assess patient and administer evening medications. Pt found to be breathing at a rate of 22/min, pursed lip, with accessory muscle use. Wheezes auscultated in all lobes bilaterally. Pt has a wet, unproductive cough intermittently. This nurse notified Dr German of change in patient status and received orders for duoneb treatment, solumedrol 60mg IVP once, and chest xray.
[2023-04-27] MEDS: ipratropium-albuterol 3 mL Neb INHALATION (22:15)
--- NOTE | 2023-04-27 22:29 | W.PM.EVENTAC ---
Event Note Event Note: Patient was short of breath he was experiencing wheezing I gave him DuoNeb x 1, IV Solu-Medrol 60 mg, requested chest x-ray, Self interpretation of chest x-ray, right middle lobe pneumonia. Pneumonia levofloxacin p.o. regimen Currently patient is afebrile
[2023-04-27] MEDS: levoFLOXacin 750 mg Tablet PO (23:14)
--- NOTE | 2023-04-27 23:40 | P.PN_ITS ---
Subjective 2 Subjective: I was informed by the nurse that the patient was dyspneic, and was wheezing. Overnight physician ordered a CXR, DuoNeb x 1, IV Solu-Medrol, which improved his symptoms. Given the [facility] physician's concern for a RML pneumonia, Levofloxacin was initiated. When the patient was seen, he no longer had any concerns. He denies shortness of breath, chest pain, palpitations, dizziness, fever, chills, GI or symptoms. Vitals/I&O/Wt Last Vital Signs Temp 98.3 F 04/27/23 19:57 Pulse 73 04/27/23 22:15 Resp 20 H 04/27/23 22:15 BP 147/85 04/27/23 19:57 Pulse Ox 96 04/27/23 22:15 O2 Del Method Room Air 04/27/23 22:15 04/27/23 04/27/23 04/28/23 14:59 22:59 06:59 Intake Total 480 / 480 480 / 960 Output Total 700 / 700 600 / 1300 Balance -220 / -220 -120 / -340 Weight last 48 hrs Weight 102.54 kg Weight 103.782 kg Physical Exam 2 Const: GENERAL APPEARANCE: cooperative and comfortable O RIENTATION/CONSCIOUSNESS: Yes awake, Yes oriented to person, Yes oriented to place and Yes oriented to time HENMT: COMMON NORMALS: normocephalic and external ears normal HEAD & SCALP: normocephalic and raccoon eyes (Improved) EXTERNAL EAR: Yes external ears normal MOUTH: Normal oral and palatal mucosa present THROAT: posterior oropharynx normal Eye: COMMON NORMALS: Equal, round and reactive pupils present PUPIL: Yes Equal, round and reactive pupils present EOM: No EOM abnormal OTHER: erythematous eyes with dried yellow drainage around both eyes. Neck/C-Spine: COMMON NORMALS: Thyroid normal GENERAL: Yes normal visual inspection and Yes trachea midline THYROID: Thyroid normal CAROTIDS: Yes bruit Lymph: LYMPHATIC: No lymphadenopathy Resp: OTHER: Crackles and expiratory wheezes in the R. lower lung lobe. Cardio: COMMON NORMALS: regular rate, regular rhythm, S1 normal heart sound present and S2 normal heart sound present RATE: regular rate RHYTHM: r egular rhythm HEART SOUNDS: S1 normal heart sound present, S2 normal heart sound present, no click, no gallops, no murmurs and no rubs PERIPHERAL PULSES: radial pulses present and popliteal pulses present GI: COMMON NORMALS: Soft to palpation AUSCULTATION: Yes normoactive bowel sounds and Yes Hyperactive bowel sounds present PALPATION: Yes Soft to palpation, No Tenderness to palpation present (GI), No Guarding due to palpation present (GI) and No Rigid due to palpation Extremity: GENERAL: No clubbing, No cyanosis and No edema Neuro: SENSORIUM/ORIENTATION: Yes oriented to person, Yes oriented to place and Yes oriented to time CRANIAL NERVES: Yes CN normal except as noted S ENSORY EXAM: Yes sensory level loss detected MOTOR EXAM: Normal motor muscle tone present throughout Psych: COMMON NORMALS: Normal thought process present and speech normal A PPEARANCE: Yes grossly normal and Yes unkempt ATTITUDE: Yes calm and Yes engaged ACTIVITY/MOTOR BEHAVIOR: Yes appropriate eye contact SPEECH: Yes normal speech MOOD & AFFECT: Yes euthymic mood THOUGHT PROCESS: Normal thought process present THOUGHT CONTENT: Yes Normal thought content present ATTENTION/CONCENTRATION: Yes attention grossly intact Skin: COMMON NORMALS: no rashes or lesions noted GENERAL SKIN EXAM: no rashes or lesions noted Data 04/28/23 04:00 04/28/23 04:00 A&P Assessment and plan (1) Orthostasis: (2) Generalized weakness: (3) Falls frequently: Plan Mr. Francis is an 82yo man, a [place] , w/ a hx of GI bleed in 12/2022 secondary to chronic gastritis with superficial duodenal ulcer,chronic Afib on Eliquis, ABRAM on CPAP, and Hypothyroidism, who presented to the [facility]'s ED on 04/25/2023 for dizziness, lightheadedness, falls, [id number], syncope, and generalized weakness. Per Chart review, the patient was seen in the ED 3 days earlier, 04/22/2023 for dizziness and generalized weakness and multiple falls. Per chart review, the patient's health has been in gradual decline since he had COVID in & 06/2021. Per H&P and ED notes, the patient started having these symptoms of dizziness, generalized weakness and falls after his BP meds were titrated by his PCP 1-2 weeks earler. In the ED, his CXR showed Cardiomegaly, but no acute focal pulmonary opacities. His CT C-spine showed a C7 spinous process fracture w/ a corticated margine suggestive of a remote injury. His UA was negative for a UTI and proteins. His TSH was wnl, as was his folic acid and B12. Hi On admission, CT head, CT face, CT C, T&L spine, shoulder Xray and Pelvic XR and foot Xrays were ordered. His shoulder x-ray showed no acute fractures. The CT head was negative for any acute intracranial abnormality. The CT face was negative for any fractures. His CT T-spine show no acute fractures, but CT L- spine shows R. transverse process fractures at L1 and L2. XR of the bilateral hips showed no acute fracture. Carotid Doppler US was done that showed no carotid artery stenosis. Per the admitting hospitalist's discussion w/ Ortho, Ortho recommended medical management. A TTE was done that showed an EF of 55- 60%, mild aortic stenosis mild aortic regurg, mild mitral & tricuspic regurg, as well as mild pulmonic regurg. #Multiple Falls #R. L1 & L2 transverse process fractures: - Per previous hospitalist discussion w/ Ortho, conservative management. Will need to discuss with Ortho about the true meaning of conservative management - PT/OT #Orthostatic hypotension: Held continuous IVF. Continue to Check Orthostatics #PPM due to symptomatic bradycardia: Will look into interrogating the patient's PPM #Transaminitis: Unclear reason for elevated transaminases. Monitor #HTN: On Imdur and Metop tartrate BID #HLD: On Atorvastatin 80mg daily po. LDL of 82. #GERD: On PPI IV #chronic intermittent Afib: On his home Amiodarone and Eliquis #Hyponatremia: Likely due to hypovolemia from poor po intake. #Pre-diabetes/ Glucose intolerance: A1c of 6.2. BG monitoring. #ABRAM on CPAP: Resume home CPAP #Hypothyroidism: Resume home meds. DVT ppx: On Eliquis. Attestations 2 Medical Necessity Statement*: Remains hospitalized due to possible new onset right sided pneumonia. Coding Level of Care Code 50235 Diagnoses Orthostasis I95.1 Generalized weakness R53.1 Falls frequently R29.6
[2023-04-28] VITALS (8 sets, daily range): BP systolic 128–165; BP diastolic 72–90; PULSE 64–104; RESP 16–22; TEMP 36.4–36.8; O2SAT 92–97; BMI 31.4
[2023-04-28 01:01] LABS: Glucose Point of Care 114 mg/dL (70-110)
[2023-04-28 04:40] LABS: Basophils % 0.1 %; Hematocrit 36.6 % (37-53); Lymphocytes # 1.2 10^3/uL (0.8-4.8); Lymphocytes % 15.5 %; Mean Corpuscular HGB Conc 31.7 g/dL (30-55); Mean Corpuscular Hemoglobin 26.5 pg (27-33); Mean Corpuscular Volume 83.8 fl (82-101); Mean Platelet Volume 9.6 fL (7.4-10.4); Monocytes # 0.1 10^3/uL (0.2-0.9); Monocytes % 1.4 %; Neutrophils # 6.44 10^3/uL (1.8-7.7); Neutrophils % 82.6 %; Nucleated Red Blood Cells % 0 %; Platelet Count 290 10^3/cmm (157-399); Red Blood Count 4.37 10^6/uL (3.85-5.65); Red Cell Distribution Width 20.6 % (12.1-15.1)
[2023-04-28 05:05] LABS: Alanine Aminotransferase 51 U/L (0-41); Albumin Level 3.1 g/dL (3.5-5.2); Alkaline Phosphatase 87 U/L (40-130); Anion Gap 16.8 (5-19); Aspartate Amino Transferase 57 U/L (0-40); Blood Urea Nitrogen 13 mg/dL (8-23); Calcium 9.3 mg/dL (8.5-10.5); Carbon Dioxide 23 mmol/L (22-29); Chloride 102 mmol/L (98-107); Globulin 3.5 g/dL (1.3-4.6); Glucose 150 mg/dL (65-115); Magnesium 2.1 mg/dL (1.7-2.3); Osmolality Calculated 289 mOsm/kg (285-295); Phosphorus 3.4 mg/dL (2.5-4.5); Potassium 3.8 mmol/L (3.5-5.1); Sodium 138 mmol/L (136-145); Total Bilirubin 0.6 mg/dL (0.15-1.2); Total Protein 6.6 g/dL (6.6-8.7)
[2023-04-28] MEDS: isosorbide mononitrate ER 30 mg Tablet PO (05:57)
[2023-04-28] MEDS: cholecalciferol (vitamin D3) 1,000 unit Tablet 1000 UNIT PO (08:45)
[2023-04-28] MEDS: metoprolol tartrate 25 mg Tablet PO ×2 (08:45→17:26)
[2023-04-28] MEDS: levothyroxine 75 mcg Tablet PO (08:45)
[2023-04-28] MEDS: amiodarone 200 mg Tablet 100 MG PO ×2 (08:45→17:26)
[2023-04-28] MEDS: citalopram 20 mg Tablet 60 MG PO (08:45)
[2023-04-28] MEDS: apixaban 5 mg Tablet PO ×2 (08:45→17:26)
--- NOTE | 2023-04-28 12:51 | PC.OT ---
OT TREATMENT ATTEMPTED THIS A.M. PATIENT IN BED SNORING; WILL ATTEMPT AGAIN AT A LATER TIME.
[2023-04-28] MEDS: pantoprazole 40 mg SDV IVP (13:37)
[2023-04-28] MEDS: albuterol 2.5 mg/3 mL Neb INHALATION (14:29)
--- NOTE | 2023-04-28 16:01 | PC.SOCIAL ---
IMM updated, signed and dated and copy given to patient
--- NOTE | 2023-04-28 16:25 | CTR_ITS ---
PROCEDURE INFORMATION: Exam: CTA Chest With Contrast Exam date and time: 04/28/2023 6:20 PM Age: 82 years old Clinical indication: Dyspnea and shortness of breath; Prior surgery; Surgery date: 6+ months; Surgery type: Pacer; Additional info: Acute dyspnea, wheezing, right lower lung crackles. TECHNIQUE: Imaging protocol: Computed tomographic angiography of the chest with contrast. Exam focused on the arteries. 3D rendering (Not supervised by radiologist): MIP and/or 3D reconstructed images were created by the technologist. Radiation optimization: All CT scans at this facility use at least one of these dose optimization techniques: automated exposure control; mA and/or kV adjustment per patient size (includes targeted exams where dose is matched to clinical indication); or iterative reconstruction. Contrast material: OMNI 350; Contrast volume: 80 ml; Contrast route: INTRAVENOUS (IV); REPORTING DATA: Count of CT and Cardiac NM exams in prior 12 months: This patient has received 7 known CTs and 0 known cardiac nuclear medicine studies in the 12 months prior to the current study. COMPARISON: CT angio chest [id number] 12/24/2022 10:41 AM RADIATION DOSE METRICS: Total DLP (mGy-cm): 522.24 FINDINGS: Tubes, catheters and devices: There is a left subclavian pacemaker lead in position. Pulmonary arteries: No pulmonary emboli. Aorta: There is dilatation of the ascending aorta measuring 46.4 mm. No aortic dissection. Lungs: There is motion artifact noted. No consolidation. No masses. Pleural spaces: No pneumothorax. There are small bilateral pleural effusions. Heart: There is cardiomegaly with evidence of left ventricular hypertrophy. There is a small pericardial effusion. Diffuse atherosclerotic disease. Lymph nodes: No enlarged lymph nodes. Bones/joints: No acute fracture. There is a chronic compression fracture of the lower thoracic vertebrae. There is severe degenerative disease of the spine. Soft tissues: Unremarkable. CT/CT angio chest PE protcl [id number] IMPRESSION: 1. Small pericardial effusion. Cardiomegaly with evidence of right ventricular hypertrophy. 2. Ascending aorta dilatation (46.4 mm) 3. Small bilateral pleural effusions 4. No pulmonary emboli.
--- NOTE | 2023-04-28 16:38 | P.PN_ITS ---
Subjective 2 Subjective: Today, the patient developed acute onset shortness of breath. Review of the CXR w/ the Radiologist suggested that there might be a pathology on the CXR. Given concern for a PE given the acute nature of the patient's dyspnea, a CTA chest was ordered. It showed small bilateral pleural effusions and small bilateral pericardial effusions, but no PE. He tells me that he started having dizzy spells the 1st week of Mar. He states that he would just be walking along and then he would just collapse. The patient tells me that he fell 2 times prior to 04/10/2023 because his BP medication dosage was too high. After the medication dosage was lowered, he felt ok until ~04/10 when he fell while going to bathroom w/o his walker or any walking again. He fell and since then has had b/l purulent drainage out of his eye. TOday he tells me that he is dyspneic, wheezing, and coughing. He denies fever, chiils, dizziness, light headedness, CP, palpitations, abdominal pain, nausea, vomiting. He had a BM 3 times today. He denies sxs. He tells me that he has a CPAP for ABRAM and he uses it everynight and it helps him feel less dyspnea. He also tells me that he has Afib. Vitals/I&O/Wt Last Vital Signs Temp 97.7 F 04/28/23 16:03 Pulse 70 04/28/23 16:03 Resp 17 04/28/23 16:03 BP 128/75 04/28/23 16:03 Pulse Ox 92 04/28/23 16:03 O2 Del Method Room Air 04/28/23 16:03 04/28/23 04/28/23 04/28/23 06:59 14:59 22:59 Intake Total 950 / 1910 1160 / 1160 Output Total 1175 / 2775 600 / 600 Balance -225 / -865 560 / 560 Weight last 48 hrs Weight 102.376 kg Weight 102.54 kg Physical Exam 2 Const: GENERAL APPEARANCE: cooperative and comfortable O RIENTATION/CONSCIOUSNESS: Yes awake, Yes oriented to person, Yes oriented to place and Yes oriented to time HENMT: COMMON NORMALS: normocephalic and external ears normal HEAD & SCALP: normocephalic and raccoon eyes (Improved) EXTERNAL EAR: Yes external ears normal MOUTH: Normal oral and palatal mucosa present THROAT: posterior oropharynx normal Eye: COMMON NORMALS: Equal, round and reactive pupils present PUPIL: Yes Equal, round and reactive pupils present EOM: No EOM abnormal OTHER: erythematous eyes with dried purulent drainage around both eyes. Neck/C-Spine: COMMON NORMALS: Thyroid normal GENERAL: Yes normal visual inspection and Yes trachea midline THYROID: Thyroid normal CAROTIDS: Yes bruit Lymph: LYMPHATIC: No lymphadenopathy Resp: OTHER: Crackles in the b/l lower lung lobes. He also has expiratory wheezes throughout the b/l lung robert. Cardio: HEART SOUNDS: no click, no gallops, no murmurs and no rubs P ERIPHERAL PULSES: radial pulses present and popliteal pulses present GI: COMMON NORMALS: Soft to palpation AUSCULTATION: Yes normoactive bowel sounds and Yes Hyperactive bowel sounds present PALPATION: Yes Soft to palpation, No Tenderness to palpation present (GI), No Guarding due to palpation present (GI) and No Rigid due to palpation Extremity: GENERAL: No clubbing, No cyanosis and No edema Neuro: SENSORIUM/ORIENTATION: Yes oriented to person, Yes oriented to place and Yes oriented to time CRANIAL NERVES: Yes CN normal except as noted S ENSORY EXAM: Yes sensory level loss detected MOTOR EXAM: Normal motor muscle tone present throughout Psych: COMMON NORMALS: Normal thought process present and speech normal A PPEARANCE: Yes grossly normal and Yes unkempt ATTITUDE: Yes calm and Yes engaged ACTIVITY/MOTOR BEHAVIOR: Yes appropriate eye contact SPEECH: Yes normal speech MOOD & AFFECT: Yes euthymic mood THOUGHT PROCESS: Normal thought process present THOUGHT CONTENT: Yes Normal thought content present ATTENTION/CONCENTRATION: Yes attention grossly intact Skin: COMMON NORMALS: no rashes or lesions noted GENERAL SKIN EXAM: no rashes or lesions noted Data 04/28/23 04:00 04/28/23 04:00 A&P Assessment and plan (1) Orthostasis: (2) Generalized weakness: (3) Falls frequently: Plan Mr. Francis is an 82yo man, a [place] , w/ a hx of GI bleed in 12/2022 secondary to chronic gastritis with superficial duodenal ulcer,chronic Afib on Eliquis, ABRAM on CPAP, and Hypothyroidism, who presented to the [facility] ED on 04/25/2023 for dizziness, lightheadedness, falls, [id number], syncope, and generalized weakness. Per Chart review, the patient was seen in the ED 3 days earlier, 04/22/2023 for dizziness and generalized weakness and multiple falls. Per chart review, the patient's health has been in gradual decline since he had COVID in & 06/2021. Per H&P and ED notes, the patient started having these symptoms of dizziness, generalized weakness and falls after his BP meds were titrated by his PCP 1-2 weeks earler. In the ED, his CXR showed Cardiomegaly, but no acute focal pulmonary opacities. His CT C-spine showed a C7 spinous process fracture w/ a corticated margine suggestive of a remote injury. His UA was negative for a UTI and proteins. His TSH was wnl, as was his folic acid and B12. Hi On admission, CT head, CT face, CT C, T&L spine, shoulder Xray and Pelvic XR and foot Xrays were ordered. His shoulder x-ray showed no acute fractures. The CT head was negative for any acute intracranial abnormality. The CT face was negative for any fractures. His CT T-spine show no acute fractures, but CT L- spine shows R. transverse process fractures at L1 and L2. XR of the bilateral hips showed no acute fracture. Carotid Doppler US was done that showed no carotid artery stenosis. Per the admitting hospitalist's discussion w/ Ortho, Ortho recommended medical management. A TTE was done that showed an EF of 55- 60%, mild aortic stenosis mild aortic regurg, mild mitral & tricuspic regurg, as well as mild pulmonic regurg. #Acute COPD exacerbation: Continue Levofloxacin, Solumedrol, and duonebs. #Vol overload: - CT chest done to evaluate acute onset dyspnea and equivocal CXR showed small b/l pleural effusions and a small pericardial effusion. It was negative for PE. - Ordered Lasix 40mg IVP x 1 plus acetazolamide. Monitor UOP #ABRAM on CPAP: Compliant at home. Ordered it in house. #b/l bacterial conjunctivitis: Start Cipro eye drops in b/l eyes, QID, for 6 days. #Multiple Falls #R. L1 & L2 transverse process fractures: - Per previous hospitalist discussion w/ Ortho, conservative management. Will need to discuss with Ortho about the true meaning of conservative management - PT/OT #Orthostatic hypotension: Held continuous IVF -d/c'. Continue to Check Orthostatics #PPM due to symptomatic bradycardia: Will look into interrogating the patient's PPM #Transaminitis: Unclear reason for elevated transaminases. Monitor #HTN: On Imdur and Metop tartrate BID #HLD: On Atorvastatin 80mg daily po. LDL of 82. Held Atorvastatin in the context Transaminitis. #GERD: On PPI IV #chronic intermittent Afib: On his home Amiodarone and Eliquis #Hyponatremia: Likely due to hypovolemia from poor po intake. #Pre-diabetes/ Glucose intolerance: A1c of 6.2. BG monitoring. #Hypothyroidism: Resume home meds. #Anxiety/Depression: On Citalopram DVT ppx: On Eliquis. Attestations 2 Medical Necessity Statement*: Patient is in acute COPD exacerbation, with signs of volume overload. Coding Level of Care Code Acute Code for Chg Fwd Diagnoses Orthostasis I95.1 Generalized weakness R53.1 Falls frequently R29.6
[2023-04-28] MEDS: iohexol 350 mg/mL 500 mL Btl (per mL) IV (18:32)
[2023-04-28 20:28] LABS: NT Pro B Type Natriuretic Pept 2438 pg/mL (0-450)
[2023-04-28] MEDS: levoFLOXacin 750 mg Tablet PO (21:03)
[2023-04-29] VITALS (13 sets, daily range): BP systolic 116–155; BP diastolic 69–86; PULSE 63–80; RESP 16–24; TEMP 36.4–36.7; O2SAT 92–97
[2023-04-29] MEDS: methylPREDNISolone sod succ 125 mg/2 mL INJ 80 MG IVP (00:15)
[2023-04-29] MEDS: FUROsemide 10 mg/mL SDV 10mL 40 MG IVP (00:15)
[2023-04-29] MEDS: albumin 25 G/100 ML BAG 60 G IV (00:15)
[2023-04-29] MEDS: ipratropium-albuterol 3 mL Neb INHALATION ×5 (00:18→15:46)
[2023-04-29 06:04] LABS: NT Pro B Type Natriuretic Pept 2747 pg/mL (0-450)
[2023-04-29] MEDS: isosorbide mononitrate ER 30 mg Tablet PO (06:42)
[2023-04-29] MEDS: levothyroxine 75 mcg Tablet PO (08:41)
[2023-04-29] MEDS: metoprolol tartrate 25 mg Tablet PO ×2 (08:41→17:14)
[2023-04-29] MEDS: amiodarone 200 mg Tablet 100 MG PO ×2 (08:41→17:14)
[2023-04-29] MEDS: cholecalciferol (vitamin D3) 1,000 unit Tablet 1000 UNIT PO (08:42)
[2023-04-29] MEDS: citalopram 20 mg Tablet 60 MG PO (08:42)
[2023-04-29] MEDS: apixaban 5 mg Tablet PO ×2 (08:42→17:14)
[2023-04-29] MEDS: ciprofloxacin 0.3% Op Soln 2.5 mL Btl 1 DROP EYE-BOTH ×4 (08:42→20:57)
[2023-04-29] MEDS: pantoprazole 40 mg SDV IVP (14:43)
[2023-04-29 15:27] LABS: Basophils % 0.1 %; Hematocrit 37.6 % (37-53); Lymphocytes # 1.6 10^3/uL (0.8-4.8); Lymphocytes % 15.5 %; Mean Corpuscular HGB Conc 32.2 g/dL (30-55); Mean Corpuscular Hemoglobin 26.8 pg (27-33); Mean Corpuscular Volume 83.2 fl (82-101); Mean Platelet Volume 9.5 fL (7.4-10.4); Monocytes # 0.5 10^3/uL (0.2-0.9); Monocytes % 5.3 %; Neutrophils # 7.95 10^3/uL (1.8-7.7); Neutrophils % 78.1 %; Nucleated Red Blood Cells % 0 %; Platelet Count 346 10^3/cmm (157-399); Red Blood Count 4.52 10^6/uL (3.85-5.65); Red Cell Distribution Width 21.1 % (12.1-15.1); White Blood Count 10.18 10^3/uL (3.29-11.43)
[2023-04-29 15:41] LABS: Alanine Aminotransferase 61 U/L (0-41); Albumin Level 3.4 g/dL (3.5-5.2); Alkaline Phosphatase 75 U/L (40-130); Anion Gap 19.6 (5-19); Aspartate Amino Transferase 79 U/L (0-40); Blood Urea Nitrogen 28 mg/dL (8-23); Calcium 9.4 mg/dL (8.5-10.5); Carbon Dioxide 23 mmol/L (22-29); Chloride 101 mmol/L (98-107); Globulin 3.2 g/dL (1.3-4.6); Glucose 166 mg/dL (65-115); Magnesium 2.1 mg/dL (1.7-2.3); Osmolality Calculated 299 mOsm/kg (285-295); Phosphorus 3.4 mg/dL (2.5-4.5); Potassium 3.6 mmol/L (3.5-5.1); Sodium 140 mmol/L (136-145); Total Bilirubin 0.5 mg/dL (0.15-1.2); Total Protein 6.6 g/dL (6.6-8.7)
--- NOTE | 2023-04-29 15:45 | P.PN_ITS ---
Subjective 2 Subjective: The patient had a urine output of approximately 2 L overnight. Today he continues to complain of dyspnea. He states that the CPAP helped him tremendously overnight, because he has worn a CPAP for 15 years. He states that he has baseline dyspnea, the shortness of breath that he feels today is still worse than his usual baseline shortness of breath. He denies CP, palpitations, fever, chills, dizziness, lightheadedness, abdominal pain, nausea, vomiting. He states that he would like something to help him have a bowel movement. Vitals/I&O/Wt Last Vital Signs Temp 98.1 F 04/29/23 11:30 Pulse 66 04/29/23 12:00 Resp 16 04/29/23 12:00 BP 118/69 04/29/23 11:30 Pulse Ox 94 04/29/23 12:00 O2 Del Method Room Air 04/29/23 12:00 O2 Flow Rate 2 04/29/23 04:03 04/29/23 04/29/23 04/29/23 06:59 14:59 22:59 Intake Total 100 / 1740 480 / 480 1000 / 1480 Output Total 1800 / 2600 550 / 550 Balance -1700 / -860 -70 / -70 1000 / 930 Weight last 48 hrs Weight 100.783 kg Weight 102.376 kg Physical Exam 2 Const: GENERAL APPEARANCE: cooperative and comfortable O RIENTATION/CONSCIOUSNESS: Yes awake, Yes oriented to person, Yes oriented to place and Yes oriented to time HENMT: COMMON NORMALS: normocephalic and external ears normal HEAD & SCALP: normocephalic and raccoon eyes (Improved) EXTERNAL EAR: Yes external ears normal MOUTH: Normal oral and palatal mucosa present THROAT: posterior oropharynx normal Eye: COMMON NORMALS: Equal, round and reactive pupils present PUPIL: Yes Equal, round and reactive pupils present EOM: No EOM abnormal OTHER: erythematous eyes with dried purulent drainage around both eyes. Neck/C-Spine: COMMON NORMALS: Thyroid normal GENERAL: Yes normal visual inspection and Yes trachea midline THYROID: Thyroid normal CAROTIDS: Yes bruit Lymph: LYMPHATIC: No lymphadenopathy Resp: OTHER: Crackles in the b/l lower lung lobes. He no longer has expiratory wheezes throughout the b/l lung robert. Cardio: COMMON NORMALS: regular rate, regular rhythm, S1 normal heart sound present and S2 normal heart sound present RATE: regular rate RHYTHM: r egular rhythm HEART SOUNDS: S1 normal heart sound present, S2 normal heart sound present, no click, no gallops, no murmurs and no rubs PERIPHERAL PULSES: radial pulses present and popliteal pulses present GI: COMMON NORMALS: Soft to palpation AUSCULTATION: Yes normoactive bowel sounds and Yes Hyperactive bowel sounds present PALPATION: Yes Soft to palpation, No Tenderness to palpation present (GI), No Guarding due to palpation present (GI) and No Rigid due to palpation Extremity: GENERAL: No clubbing, No cyanosis and No edema Neuro: SENSORIUM/ORIENTATION: Yes oriented to person, Yes oriented to place and Yes oriented to time CRANIAL NERVES: Yes CN normal except as noted S ENSORY EXAM: Yes sensory level loss detected MOTOR EXAM: Normal motor muscle tone present throughout Psych: COMMON NORMALS: Normal thought process present and speech normal A PPEARANCE: Yes grossly normal and Yes unkempt ATTITUDE: Yes calm and Yes engaged ACTIVITY/MOTOR BEHAVIOR: Yes appropriate eye contact SPEECH: Yes normal speech MOOD & AFFECT: Yes euthymic mood THOUGHT PROCESS: Normal thought process present THOUGHT CONTENT: Yes Normal thought content present ATTENTION/CONCENTRATION: Yes attention grossly intact Skin: COMMON NORMALS: no rashes or lesions noted GENERAL SKIN EXAM: no rashes or lesions noted Data 04/29/23 15:10 04/29/23 15:10 A&P Assessment and plan (1) Orthostasis: (2) Generalized weakness: (3) Falls frequently: Plan Mr. Francis is an 82yo man, a [facility] , w/ a hx of GI bleed in 12/2022 secondary to chronic gastritis with superficial duodenal ulcer,chronic Afib on Eliquis, ABRAM on CPAP, and Hypothyroidism, who presented to the [facility]'s ED on 04/25/2023 for dizziness, lightheadedness, falls, [id number], syncope, and generalized weakness. Per Chart review, the patient was seen in the ED 3 days earlier, 04/22/2023 for dizziness and generalized weakness and multiple falls. Per chart review, the patient's health has been in gradual decline since he had COVID in & 06/2021. Per H&P and ED notes, the patient started having these symptoms of dizziness, generalized weakness and falls after his BP meds were titrated by his PCP 1-2 weeks earler. In the ED, his CXR showed Cardiomegaly, but no acute focal pulmonary opacities. His CT C-spine showed a C7 spinous process fracture w/ a corticated margine suggestive of a remote injury. His UA was negative for a UTI and proteins. His TSH was wnl, as was his folic acid and B12. Hi On admission, CT head, CT face, CT C, T&L spine, shoulder Xray and Pelvic XR and foot Xrays were ordered. His shoulder x-ray showed no acute fractures. The CT head was negative for any acute intracranial abnormality. The CT face was negative for any fractures. His CT T-spine show no acute fractures, but CT L- spine shows R. transverse process fractures at L1 and L2. XR of the bilateral hips showed no acute fracture. Carotid Doppler US was done that showed no carotid artery stenosis. Per the admitting hospitalist's discussion w/ Ortho, Ortho recommended medical management. A TTE was done that showed an EF of 55- 60%, mild aortic stenosis mild aortic regurg, mild mitral & tricuspic regurg, as well as mild pulmonic regurg. #Acute COPD exacerbation: Continue Levofloxacin, Solumedrol, and duonebs. #Vol overload: - CT chest done to evaluate acute onset dyspnea and equivocal CXR showed small b/l pleural effusions and a small pericardial effusion. It was negative for PE. - Ordered Lasix 40mg IVP x 1 plus acetazolamide. Monitor UOP #ANGELITA: due to one time dose of Lasix given for dyspnea. verdiuresis. Will monitor #ABRAM on CPAP: Compliant at home. Ordered it in house. #b/l bacterial conjunctivitis: Start Cipro eye drops in b/l eyes, QID, for 6 days. #Multiple Falls #R. L1 & L2 transverse process fractures: - Per previous hospitalist discussion w/ Ortho, conservative management. Will need to discuss with Ortho about the true meaning of conservative management - PT/OT #Orthostatic hypotension: Held continuous IVF -d/c'. Continue to Check Orthostatics #PPM due to symptomatic bradycardia: Will look into interrogating the patient's PPM #Transaminitis: Unclear reason for elevated transaminases. Ordered a RUQ US and an Acute hepatitis panel. #HTN: On Imdur and Metop tartrate BID #HLD: On Atorvastatin 80mg daily po. LDL of 82. Held Atorvastatin in the context Transaminitis. #GERD: On PPI IV #chronic intermittent Afib: On his home Amiodarone and Eliquis #Hyponatremia: Likely due to hypovolemia from poor po intake. #Pre-diabetes/ Glucose intolerance: A1c of 6.2. BG monitoring. #Hypothyroidism: Resume home meds. #Anxiety/Depression: On Citalopram DVT ppx: On Eliquis. Attestations 2 Medical Necessity Statement*: Patient remains hospitalized because he is still in Acute COPD exacerbation. Coding Level of Care Code 10564 Diagnoses Orthostasis I95.1 Generalized weakness R53.1 Falls frequently R29.6
[2023-04-29] MEDS: methylPREDNISolone sod succ 40 mg/mL INJ IVP (15:51)
--- NOTE | 2023-04-29 16:02 | USR_ITS ---
PROCEDURE INFORMATION: Exam: US Abdomen; Limited Exam date and time: 04/29/2023 4:22 PM Age: 82 years old Clinical indication: Abnormal findings; Abnormal lab test; Elevated liver enzymes; Additional info: Transaminitis TECHNIQUE: Imaging protocol: Real time ultrasound of the abdomen with image documentation. Limited exam focused on the region of clinical interest. COMPARISON: CT angio chest PE protcl [id number] 04/28/2023 6:20 PM FINDINGS: US/US abdomen limited [id number] IMPRESSION: No acute findings.
[2023-04-29] MEDS: magnesium hydroxide 30 mL UDC PO (17:14)
[2023-04-29] MEDS: bisacodyl 5 mg Tablet 10 MG PO (17:14)
[2023-04-29] MEDS: loratadine 10 mg Tablet PO (17:14)
[2023-04-29] MEDS: sucralfate 1 gm Tablet PO ×2 (17:14→20:57)
[2023-04-29] MEDS: levoFLOXacin 750 mg Tablet PO (20:57)
[2023-04-30] VITALS (8 sets, daily range): BP systolic 135–138; BP diastolic 80–88; PULSE 74–88; RESP 16–20; TEMP 36.4–36.7; O2SAT 92–96; BMI 30.4
[2023-04-30] MEDS: ipratropium-albuterol 3 mL Neb INHALATION ×2 (01:45→13:27)
[2023-04-30] MEDS: isosorbide mononitrate ER 30 mg Tablet PO (05:23)
[2023-04-30 05:58] LABS: Basophils % 0.1 %; Hematocrit 40.4 % (37-53); Lymphocytes % 16.7 %; Mean Corpuscular HGB Conc 31.7 g/dL (30-55); Mean Corpuscular Hemoglobin 26.5 pg (27-33); Mean Corpuscular Volume 83.6 fl (82-101); Mean Platelet Volume 9.6 fL (7.4-10.4); Monocytes # 0.7 10^3/uL (0.2-0.9); Monocytes % 5.5 %; Neutrophils # 9.13 10^3/uL (1.8-7.7); Nucleated Red Blood Cells % 0 %; Platelet Count 376 10^3/cmm (157-399); Red Blood Count 4.83 10^6/uL (3.85-5.65); Red Cell Distribution Width 21.2 % (12.1-15.1); White Blood Count 11.85 10^3/uL (3.29-11.43)
[2023-04-30 06:25] LABS: Alanine Aminotransferase 63 U/L (0-41); Albumin Level 3.5 g/dL (3.5-5.2); Alkaline Phosphatase 79 U/L (40-130); Anion Gap 16.5 (5-19); Aspartate Amino Transferase 63 U/L (0-40); Blood Urea Nitrogen 27 mg/dL (8-23); Calcium 9.6 mg/dL (8.5-10.5); Carbon Dioxide 25 mmol/L (22-29); Chloride 100 mmol/L (98-107); Globulin 3.4 g/dL (1.3-4.6); Glucose 154 mg/dL (65-115); Magnesium 2.3 mg/dL (1.7-2.3); Osmolality Calculated 294 mOsm/kg (285-295); Phosphorus 3.7 mg/dL (2.5-4.5); Potassium 3.5 mmol/L (3.5-5.1); Sodium 138 mmol/L (136-145); Total Bilirubin 0.5 mg/dL (0.15-1.2); Total Protein 6.9 g/dL (6.6-8.7)
[2023-04-30 06:32] LABS: Hepatitis A Antibody IgM Non-Reactive (Nonreactive); Hepatitis B Core IgM Non-Reactive (Nonreactive); Hepatitis B Surface Antigen Non-Reactive (Nonreactive); Hepatitis C Virus Antibody Non-Reactive (Nonreactive)
[2023-04-30] MEDS: cholecalciferol (vitamin D3) 1,000 unit Tablet 1000 UNIT PO (09:35)
[2023-04-30] MEDS: citalopram 20 mg Tablet 60 MG PO (09:35)
[2023-04-30] MEDS: amiodarone 200 mg Tablet 100 MG PO (09:35)
[2023-04-30] MEDS: sucralfate 1 gm Tablet PO ×2 (09:35→12:34)
[2023-04-30] MEDS: loratadine 10 mg Tablet PO (09:35)
[2023-04-30] MEDS: levothyroxine 75 mcg Tablet PO (09:36)
[2023-04-30] MEDS: apixaban 5 mg Tablet PO (09:36)
[2023-04-30] MEDS: methylPREDNISolone sod succ 125 mg/2 mL INJ 60 MG IVP (09:36)
[2023-04-30] MEDS: ciprofloxacin 0.3% Op Soln 2.5 mL Btl 1 DROP EYE-BOTH ×2 (09:37→12:34)
[2023-04-30] MEDS: metoprolol tartrate 25 mg Tablet PO (09:37)
[2023-04-30] MEDS: pantoprazole 40 mg SDV IVP (12:34)
--- NOTE | 2023-04-30 13:35 | P.DS_ITS ---
Discharge Providers Date of Admission: 04/25/23 11:17 Date of Discharge: April 30, 2023 Attending Provider at Admission: Min Ugalde MD Attending Provider at Discharge: Leslie Gill MD Primary Care Provider: Richardson Pineda MD Diagnoses at Discharge Discharge Diagnosis (1) Orthostasis: Status: Resolved (2) Generalized weakness: Status: Resolved (3) Falls frequently: Status: Resolved Reason for Visit Reason for Visit: WEAKNESS Hospital Course Hospital Course Mr. Francis is an 82yo man, a [place] , w/ a hx of GI bleed in 12/2022 secondary to chronic gastritis with superficial duodenal ulcer,chronic Afib on Eliquis, ABRAM on CPAP, and Hypothyroidism, who presented to the [facility]'s ED on 04/25/2023 for dizziness, lightheadedness, falls, [id number], syncope, and generalized weakness. Per Chart review, the patient was seen in the ED 3 days earlier, 04/22/2023 for dizziness and generalized weakness and multiple falls. Per chart review, the patient's health has been in gradual decline since he had COVID in & 06/2021. Per H&P and ED notes, the patient started having these symptoms of dizziness, generalized weakness and falls after his BP meds were titrated by his PCP 1-2 weeks earler. In the ED, his CXR showed Cardiomegaly, but no acute focal pulmonary opacities. His CT C-spine showed a C7 spinous process fracture w/ a corticated margine suggestive of a remote injury. His UA was negative for a UTI and proteins. His TSH was wnl, as was his folic acid and B12. Hi On admission, CT head, CT face, CT C, T&L spine, shoulder Xray and Pelvic XR and foot Xrays were ordered. His shoulder x-ray showed no acute fractures. The CT head was negative for any acute intracranial abnormality. The CT face was neg ative for any fractures. His CT T-spine show no acute fractures, but CT L-spine shows R. transverse process fractures at L1 and L2. XR of the bilateral hips showed no acute fracture. Carotid Doppler US was done that showed no carotid artery stenosis. Per the admitting hospitalist's discussion w/ Ortho, Ortho recommended medical management. A TTE was done that showed an EF of 55-60%, mild aortic stenosis mild aortic regurg, mild mitral & tricuspic regurg, as well as mild pulmonic regurg. On admission, he was started on continuous IVF. He developed dyspnea, and was treated w/ duonebs, steroids and started on Levofloxacin for COPD exacerbation and a possible R. LL pneumonia. A CXR was obtained that although it showed no acute abnormalities, there was concern for a RML/RLL pneumonia on CXR. Given concern for a pneumonia and the acute onset dyspnea w/ expiratory wheezes, a CTA chest was ordered. It showed no PE or pneumonia, but it did show small b/l pleural effusions and pericardial effusions, so he was given Lasix 40mg IVP x 1. He developed an ANGELITA that started to resolve by discharge. He had transaminitis while hospitalized. He had a RUQ US that was was negative and an acute hepatitis panel was done that was negative. While hospitalized, he was diagnosed with bilateral conjunctivitis which he endorsed, while he was at home. He was started on Cipro eye drops, on which he was discharged. He was discharged on 04/30/2023 to a SNF to complete a 5 day course of Levofloxacin and Prednisone for Acute COPD exacerbation. Per discussion w/ Ortho, the patient's L1 &L2 transverse process fracture is in a location, where surgery cannot be done; thus, the patient's main option was rehab. #Acute COPD exacerbation #ANGELITA: Improving at the time of discharge. #ABRAM on CPAP: Compliant at home. #b/l bacterial conjunctivitis: Start Cipro eye drops in b/l eyes, QID, for 6 days. #Multiple Falls #R. L1 & L2 transverse process fractures: - Per previous hospitalist discussion w/ Ortho, conservative management #Orthostatic hypotension #PPM due to symptomatic bradycardia #Transaminitis: Unclear reason for elevated transaminases #HTN: On Imdur and Metop tartrate BID #HLD: LDL of 82. #GERD #chronic intermittent Afib: On his home Amiodarone and Eliquis #Hyponatremia: Likely due to hypovolemia from poor po intake. #Pre-diabetes/ Glucose intolerance: A1c of 6.2. BG monitoring. #Hypothyroidism: Resume home meds. #Anxiety/Depression: On Citalopram Physical Exam Const: GENERAL APPEARANCE: cooperative and comfortable ORIENTATION/CONSCIOUSNESS: Yes awake, Yes oriented to person, Yes oriented to place and Yes oriented to time HENMT: COMMON NORMALS: normocephalic and external ears normal HEAD & SCALP: normocephalic and raccoon eyes (Improved) EXTERNAL EAR: Yes external ears normal MOUTH: Normal oral and palatal mucosa present THROAT: posterior oropharynx normal Eye: COMMON NORMALS: Equal, round and reactive pupils present PUPIL: Yes Equal, round and reactive pupils present EOM: No EOM abnormal OTHER: erythematous eyes with dried purulent drainage around both eyes. Neck/C-Spine: COMMON NORMALS: Thyroid normal GENERAL: Yes normal visual inspection and Yes trachea midline THYROID: Thyroid normal CAROTIDS: Yes bruit Lymph: LYMPHATIC: No lymphadenopathy Resp: OTHER: Crackles in the b/l lower lung lobes. He no longer has expiratory wheezes throughout the b/l lung robert. Cardio: COMMON NORMALS: regular rate, regular rhythm, S1 normal heart sound present and S2 normal heart sound present RATE: regular rate RHYTHM: regular rhythm HEART SOUNDS: S1 normal heart sound present, S2 normal heart sound present, no click, no gallops, no murmurs and no rubs PERIPHERAL PULSES: radial pulses present and popliteal pulses present GI: COMMON NORMALS: Soft to palpation AUSCULTATION: Yes normoactive bowel sounds and Yes Hyperactive bowel sounds present PALPATION: Yes Soft to palpation, No Tenderness to palpation present (GI), No Guarding due to palpation present (GI) and No Rigid due to palpation Extremity: GENERAL: No clubbing, No cyanosis and No edema Neuro: SENSORIUM/ORIENTATION: Yes oriented to person, Yes oriented to place and Yes oriented to time CRANIAL NERVES: Yes CN normal except as noted SENSORY EXAM: Yes sensory level loss detected MOTOR EXAM: Normal motor muscle tone present throughout Psych: COMMON NORMALS: Normal thought process present and speech normal APPEARANCE: Yes grossly normal and Yes unkempt ATTITUDE: Yes calm and Yes engaged ACTIVITY/MOTOR BEHAVIOR: Yes appropriate eye contact SPEECH: Yes normal speech MOOD & AFFECT: Yes euthymic mood THOUGHT PROCESS: Normal thought process present THOUGHT CONTENT: Yes Normal thought content present ATTENTION/CONCENTRATION: Yes attention grossly intact Skin: COMMON NORMALS: no rashes or lesions noted GENERAL SKIN EXAM: no rashes or lesions noted Discharge Data Studies Completed and Pending Completed Studies During Hospitalization Category Date Time Status CT angio chest PE protcl [id number] Routine Cat Scan 04/28/23 16:[address] cervical spin wo con* [id number] Stat Cat Scan 04/25/23 10:[address] facial bones wo con* [id number] Routine Cat Scan 04/25/23 12:[address] head wo con* [id number] Routine Cat Scan 04/25/23 12:[address] lumbar spine wo con* 30232 Routine Cat Scan 04/25/23 12:[address] thoracic spin wo con* [id number] Routine Cat Scan 04/25/23 12:38 Completed CXRP [XR chest 1V portable [id number]] Stat Exams 04/27/23 21:22 Completed XR cervical spine 3V* [id number] Stat Exams 04/25/23 09:40 Completed XR chest 1V portable [id number] Stat Exams 04/25/23 09:02 Completed XR foot RT 2V 12094 Routine Exams 04/25/23 12:38 Completed XR hip BI 2V wo/w pel [id number] Routine Exams 04/25/23 13:42 Completed XR shoulder LT min 2V* [id number] Routine Exams 04/25/23 12:38 Completed XR shoulder RT min 2V* [id number] Routine Exams 04/25/23 12:38 Completed CV carotid duplex BI* [id number] Routine Ultrasound 04/25/23 13:42 Completed CV. echo complete* [id number] Routine Ultrasound 04/26/23 06:00 Completed US abdomen limited [id number] Routine Ultrasound 04/29/23 16:02 Completed Pending at discharge Category Date Time Status CMP [Comprehensive Metabolic Panel] AM LABS Lab 05/01/23 04:00 Ordered CMP [Comprehensive Metabolic Panel] AM LABS Lab 05/02/23 04:00 Ordered Complete Blood Count w/Auto AM LABS Lab 05/01/23 04:00 Ordered Complete Blood Count w/Auto AM LABS Lab 05/02/23 04:00 Ordered Magnesium AM LABS Lab 05/01/23 04:00 Ordered Phosphorus AM LABS Lab 05/01/23 04:00 Ordered Sputum Culture and Gram Stain Routine Lab 04/28/23 23:10 Uncollected Radiology Impressions Cervical Spine X-Ray 04/25/23 09:40 IMPRESSION: First 4 cervical vertebrae are adequately visualized and appear unremarkable. C5 to T1 partially obscured due to shoulders in overlying soft tissues on lateral views. No gross pathology detected. CT would be helpful to further evaluate. Cervical Spine CT 04/25/23 10:37 IMPRESSION: 1. No acute cervical spine pathology. 2. C7 spinous process fracture with corticated margin suggesting remote injury. ADDENDUM: 04/25/23 1123 THIS REPORT CONTAINS FINDINGS THAT MAY BE CRITICAL TO PATIENT CARE. The findings were verbally communicated via telephone conference at 11:22 AM [employer] LINE UP PERSON on 04/25/2023 with [employer] SINCLAIR. The findings were acknowledged and understood. Foot X-Ray 04/25/23 12:38 IMPRESSION: No bony erosive changes or findings to suggest. Consider follow-up imaging as clinically appropriate. Lumbar Spine CT 04/25/23 12:38 IMPRESSION: Right transverse process fractures at L1 and L2. Shoulder X-Ray 04/25/23 12:38 IMPRESSION: No evidence of fracture or dislocation. Thoracic Spine CT 04/25/23 12:38 IMPRESSION: No acute fracture. Other findings as discussed. Face CT 04/25/23 12:56 IMPRESSION: No evidence fracture. Other findings as discussed. Head CT 04/25/23 12:56 IMPRESSION: 1. No evidence of acute intracranial abnormality. No evidence of acute infarction, hemorrhage, or mass. 2. Atrophy and microvascular disease. Carotid Doppler Study 04/25/23 13:42 IMPRESSION: No carotid arterial stenosis. REFERENCES: SRU CRITERIA. The degree of internal carotid artery stenosis is based on criteria defined by the Society of Radiologists in Ultrasound (SRU). Normal is no stenosis. Mild is less than 50% stenosis. Moderate is 50-69% stenosis. Severe is greater than 69% stenosis to near occlusion. Near occlusion is a markedly narrowed lumen. Total occlusion is no detectable patent lumen. Hip/Pelvis X-Ray 04/25/23 13:42 IMPRESSION: There are degenerative changes across the hip joints. No visualized acute fracture. Chest X-Ray 04/27/23 21:22 IMPRESSION: Negative for acute pulmonary disease. Chest CTA 04/28/23 16:25 IMPRESSION: 1. Small pericardial effusion. Cardiomegaly with evidence of right ventricular hypertrophy. 2. Ascending aorta dilatation (46.4 mm) 3. Small bilateral pleural effusions 4. No pulmonary emboli. ADDENDUM: 04/28/23 1904 THIS REPORT CONTAINS FINDINGS THAT MAY BE CRITICAL TO PATIENT CARE. The findings were verbally communicated via telephone conference with Dr. Gill at 7:00 PM [employer] LINE UP PERSON on 04/28/2023. The findings were acknowledged and understood. Abdomen Ultrasound 04/29/23 16:02 IMPRESSION: No acute findings. Laboratory Results WBC 11.85 10^3/uL (3.29-11.43) H 04/30/23 05:50 RBC 4.83 10^6/uL (3.85-5.65) 04/30/23 05:50 Hgb 12.80 g/dL (11.27-16.99) 04/30/23 05:50 Hct 40.4 % (37-53) 04/30/23 05:50 MCV 83.6 fl (82-101) 04/30/23 05:50 MCH 26.5 pg (27-33) L 04/30/23 05:50 MCHC 31.7 g/dL (30-55) 04/30/23 05:50 RDW 21.2 % (12.1-15.1) H 04/30/23 05:50 Plt Count 376 10^3/cmm (157-399) 04/30/23 05:50 MPV 9.6 fL (7.4-10.4) 04/30/23 05:50 Neut % (Auto) 77.0 % 04/30/23 05:50 Lymph % (Auto) 16.7 % 04/30/23 05:50 [place] % (Auto) 5.5 % 04/30/23 05:50 Eos % (Auto) 0.0 % 04/30/23 05:50 Baso % (Auto) 0.1 % 04/30/23 05:50 Neut # (Auto) 9.13 10^3/uL (1.8-7.7) H 04/30/23 05:50 Lymph # (Auto) 2.0 10^3/uL (0.8-4.8) 04/30/23 05:50 [place] # (Auto) 0.7 10^3/uL (0.2-0.9) 04/30/23 05:50 Eos # (Auto) 0.0 10^3/uL (0.0-0.8) 04/30/23 05:50 Baso # (Auto) 0.0 10^3/uL (0.0-0.1) 04/30/23 05:50 Nucleated RBC % (auto) 0 % 04/30/23 05:50 Nucleated RBCs # 0.0 /100WBC 04/30/23 05:50 PT 15.60 SECONDS (12.1-14.9) H 04/25/23 09:09 INR 1.20 (0.8-1.2) 04/25/23 09:09 Sodium 138 mmol/L (136-145) 04/30/23 05:50 Potassium 3.5 mmol/L (3.5-5.1) 04/30/23 05:50 Chloride 100 mmol/L (98-107) 04/30/23 05:50 Carbon Dioxide 25 mmol/L (22-29) 04/30/23 05:50 Anion Gap 16.5 (5-19) 04/30/23 05:50 BUN 27 mg/dL (8-23) H 04/30/23 05:50 Creatinine 1.2 mg/dL (0.7-1.2) 04/30/23 05:50 GFR Calculation Not Reportable 04/30/23 05:50 Glucose 154 mg/dL (65-115) H 04/30/23 05:50 POC Glucose 114 mg/dL (70-110) H 04/28/23 00:57 Estimat Average Glucose 131 04/25/23 09:09 Hemoglobin A1c 6.2 % (4.0-6.0) H 04/25/23 09:09 Calculated Osmolality 294 mOsm/kg (285-295) 04/30/23 05:50 Lactic Acid 1.5 mmol/L (0.5-2.2) 04/25/23 09:09 Calcium 9.6 mg/dL (8.5-10.5) 04/30/23 05:50 Phosphorus 3.7 mg/dL (2.5-4.5) 04/30/23 05:50 Magnesium 2.3 mg/dL (1.7-2.3) 04/30/23 05:50 Total Bilirubin 0.5 mg/dL (0.15-1.2) 04/30/23 05:50 AST 63 U/L (0-40) H 04/30/23 05:50 ALT 63 U/L (0-41) H 04/30/23 05:50 Alkaline Phosphatase 79 U/L (40-130) 04/30/23 05:50 Troponin T Baseline 31 ng/L (0-15) H 04/25/23 09:09 Troponin T 120 Minute 31.78 ng/L (0-15) H 04/25/23 11:02 Delta Troponin T 0.78 ABS# (0-10) 04/25/23 11:02 Troponin T Hi Sens 6Hr 27.36 ng/L (0-15) H 04/25/23 15:18 Troponin T Hi Sens 6Hr Delta -3.64 ng/L (0-12) L 04/25/23 15:18 NT-Pro-B Natriuret Pep 2747 pg/mL (0-450) H 04/29/23 05:06 Total Protein 6.9 g/dL (6.6-8.7) 04/30/23 05:50 Albumin 3.5 g/dL (3.5-5.2) 04/30/23 05:50 Globulin 3.4 g/dL (1.3-4.6) 04/30/23 05:50 Triglycerides 83 mg/dL (0-150) 04/25/23 09:09 Cholesterol 150 mg/dL (0-200) 04/25/23 09:09 LDL Cholesterol, Calc 82 mg/dL (50-129) 04/25/23 09:09 HDL Cholesterol 51 mg/dL (60-100) L 04/25/23 09:09 LDL/HDL Ratio 1.61 RATIO (0.00-3.22) 04/25/23 09:09 Cholesterol/HDL Ratio 2.94 mg/dL (1.0-5.00) 04/25/23 09:09 Vitamin B12 790 pg/mL (232-1245) 04/25/23 09:09 Folate > 20.0 ng/mL (4.5-32.2) 04/25/23 09:09 Procalcitonin 0.17 ng/mL (0-0.5) 04/25/23 09:09 TSH 1.75 uIU/mL (0.27-4.20) 04/25/23 09:09 Urine Color Yellow (Yellow) 04/25/23 10:34 Urine Appearance Clear (CLEAR) 04/25/23 10:34 Urine pH 5 (5-7) 04/25/23 10:34 Ur Specific [place] 1.020 (1.005-1.030) 04/25/23 10:34 Urine Protein 1+ (Negative) H 04/25/23 10:34 Urine Glucose (UA) Norm (Normal) 04/25/23 10:34 Urine Ketones 1+ (Negative) H 04/25/23 10:34 Urine Blood Neg (Negative) 04/25/23 10:34 Urine Nitrate Negative (Negative) 04/25/23 10:34 Urine Bilirubin Neg (Negative) 04/25/23 10:34 Urine Urobilinogen 1 mg/dL (Negative) H 04/25/23 10:34 Ur Leukocyte Esterase Negative (Negative) 04/25/23 10:34 Urine RBC None /hpf (0-2) 04/25/23 10:34 Urine WBC Rare /hpf (0-5) 04/25/23 10:34 Ur Squamous Epith Cells None /hpf (0-5) 04/25/23 10:34 Amorphous Sediment 1+ /hpf 04/25/23 10:34 Urine Bacteria None /hpf (NONE) 04/25/23 10:34 Hepatitis A IgM Ab Non-reactive (Nonreactive) 04/30/23 05:50 Hep Bs Antigen Non-reactive (Nonreactive) 04/30/23 05:50 Hep B Core IgM Ab Non-reactive (Nonreactive) 04/30/23 05:50 Hepatitis C Antibody Non-reactive (Nonreactive) 04/30/23 05:50 SARS-CoV-2 Ag (Rapid) Negative (Negative) 04/27/23 12:10 Vitals Last Vital Signs Temp 98.1 F 04/30/23 11:33 Pulse 74 04/30/23 13:30 Resp 16 04/30/23 13:30 BP 135/87 04/30/23 11:33 Pulse Ox 93 04/30/23 13:30 O2 Del Method Room Air 04/30/23 13:30 O2 Flow Rate 2 04/29/23 22:03 Discharge Plan Discharge Patient Disposition: Home Condition: Stable Prescriptions: New levofloxacin 750 mg Tablet 750 mg PO BEDTIME Qty: 2 0RF Continued ascorbate calcium (vitamin C) 500 mg tablet 1 gm PO DAILY cholecalciferol (vitamin D3) 25 mcg (1,000 unit) capsule 25 mcg PO DAILY isosorbide mononitrate 30 mg tablet extended release 24 hr 30 mg PO QAM Eliquis 5 mg tablet 5 mg PO BID Hold Instructions: Resume on 01/26/23. Hold until 01/26/23. amiodarone 200 mg tablet 100 mg PO BID rosuvastatin [Crestor] 40 mg tablet 40 mg PO DAILY levothyroxine [Synthroid] 75 mcg tablet 75 mcg PO DAILY loratadine 10 mg tablet 10 mg PO DAILY fluticasone propion-salmeterol [Advair Diskus] 250-50 mcg/dose blister with device 1 inh inhalation BID Qty: 60 0RF tramadol 50 mg tablet 50 mg PO Q6H PRN (Reason: Pain) omega 6-yso-cum-fish oil [Fish Oil] 1,000 mg (120 mg-180 mg) Capsule 1 cap PO DAILY atswzmkj-ido-onlft-vit K-lycop 400-20-300 mcg Tablet 1 tab PO DAILY metoprolol tartrate 25 mg tablet 25 mg PO BID sucralfate 1 gram tablet See Rx Instructions .ROUTE .COMPLEX Rx Instructions: 1 g orally before meals and bedtime Celexa 40 mg Tablet 60 mg PO DAILY Discharge Orders: Discharge Order (Routine); Ordered 04/30/23 Ordered By: Leslie Gill Referrals: Richardson Pineda MD [Primary Care Provider] - Patient Instructions: Opioid Safety Discharge Attestations Time Spent in Discharge Care*: greater than 30 min Quality Metrics Clinical Quality Measures [ No reported AMI, CVA or VTE this stay] Coding Level of Care Code Acute Code for Chg Fwd Diagnoses Orthostasis I95.1 Generalized weakness R53.1 Falls frequently R29.6
== END 2023-04-30 14:46 | disposition skilled nursing facility (03) | DRG 312 ==
LOC: ER 11:29 → MEDSURG 13:18
PROVIDERS: Admitting Provider Family Medicine; Emergency Provider Family Medicine; PCP Family Medicine; Visit Provider Internal Medicine
DX: I95.1 Orthostatic hypotension (principal); S32.019A Unspecified fracture of first lumbar vertebra, initial encounter for closed fracture; S32.029A Unspecified fracture of second lumbar vertebra, initial encounter for closed fracture; I48.20 Chronic atrial fibrillation, unspecified; I31.39 Other pericardial effusion (noninflammatory); J90 Pleural effusion, not elsewhere classified; E87.1 Hypo-osmolality and hyponatremia; J44.1 Chronic obstructive pulmonary disease with (acute) exacerbation; W18.30XA Fall on same level, unspecified, initial encounter; S12.600D Unspecified displaced fracture of seventh cervical vertebra, subsequent encounter for fracture with routine healing; W19.XXXD Unspecified fall, subsequent encounter; Z79.01 Long term (current) use of anticoagulants; G47.33 Obstructive sleep apnea (adult) (pediatric); E03.9 Hypothyroidism, unspecified; Z86.16 Personal history of COVID-19; M25.512 Pain in left shoulder; M25.511 Pain in right shoulder; M25.571 Pain in right ankle and joints of right foot; I25.10 Atherosclerotic heart disease of native coronary artery without angina pectoris; I10 Essential (primary) hypertension; M81.0 Age-related osteoporosis without current pathological fracture; F41.9 Anxiety disorder, unspecified; Z95.0 Presence of cardiac pacemaker; Z87.891 Personal history of nicotine dependence; E78.5 Hyperlipidemia, unspecified; Z11.52 Encounter for screening for COVID-19; I51.7 Cardiomegaly; F32.A Depression, unspecified; H10.9 Unspecified conjunctivitis; R73.03 Prediabetes; E74.39 Other disorders of intestinal carbohydrate absorption; E86.1 Hypovolemia
CPT/HCPCS: 36415; 36416; 70450; 70486; 71045; 71275; 72040; 72125; 72128; 72131; 73030; 73521; 73620; 76705; 80053; 80061; 80074; 81001; 82607; 82746; 82962; 83036; 83605; 83735; 83880; 84100; 84145; 84443; 84484; 85025; 85610; 87426; 93005; 93306; 93880; 94640; 94660; 94664; 97116; 97161; 97167; 97530; 97535; 99285; C9113; J1940; J2920; J2930; J7030; J7613; P9046; Q9967

== ENCOUNTER 2023-05-11 18:15 | Emergency (ER) | payer OTHER, SELFPAY ==
[2023-05-11 18:18] VITALS: BP 105/72; PULSE 98; RESP 18; TEMP 37.2; O2SAT 94; BMI 25.1
--- NOTE | 2023-05-11 18:22 | ED_ITS ---
HPI - Abdominal Pain 2 General: Chief Complaint: Abdominal Pain Stated Complaint: Abd pain Time Seen by Provider: 05/11/23 18:17 History of Present Illness: 82-year-old male presents [facility] emergency department room via EMS from a local longterm with complaint of left quadrant pain/left hip pain within the past few days. Patient denies any recent fall, no head injury, no numbness or tingling to lower extremities. Denies any back pain at this time. According to the EMS they got a call that patient was complaining of lower abdominal pain but upon present emergency room patient denies any pain at this time pulmonary complaint of left knee pain. Patient has any dysuria, hematuria, flank pain, fever or chills. She was not evaluated about a week ago for constipation and was treated in the emergency room. Associated Symptoms: Denies belching, bloating, change in bowel habits, chills, coffee ground emesis, constipation, GI cramping, diarrhea, excessive flatus, fever(s), heartburn, hematemesis, fecal incontinence, nausea and vomiting Review of Systems 2 General: Reports: 10 or more systems reviewed and unremarkable except in HPI and below Const: Denies: fever(s), chills, body aches or change in appetite Eyes: Denies: change in vision, blurry vision, photophobia, eye discomfort, eye redness or yellow eyes Resp: Denies: dyspnea, productive cough, non-productive cough, wheezing, stridor, pain on inspiration or change in phlegm color GI: Denies: abdominal pain, nausea, vomiting, hematemesis, coffee ground emesis, dysphagia, heartburn, early satiety, diarrhea, constipation, bloating, GI cramping, belching, excessive flatus, fecal incontinence, change in bowel habits, pain on defecation or rectal pain Musc: Reports: extremity pain (Left hip pain); Denies: neck pain, back pain, extremity swelling, joint redness, joint warmth, joint stiffness, limited range of motion, muscle weakness, decrease in muscle mass, loss of height or deformity Neuro: Denies: headache(s), numbness in extremities, weakness in extremities, sensory changes, lack of coordination, difficulty walking, confusion, behavioral changes, Slurred speech present, difficulty communicating thoughts or seizure- like activity PFSH ED 2 PFSH: Medical History Atherosclerotic heart disease of [place]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 Anemia GI bleed Hypertension Atrial fibrillation Mitral regurgitation ABRAM (obstructive sleep apnea) Osteoporosis Anxiety History of pacemaker Surgical History Hx of tonsillectomy H/O hemorrhoidectomy History of hernia surgery Family History Brother CAD (coronary artery disease) CHF (congestive heart failure) Cancer Sister Lung disease Other Atherosclerotic heart disease of [place]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 Denies family history of Diabetes Clotting disorder Dementia Hyperlipidemia Chronic kidney disease (CKD) Suicide Anesthesia complication Bleeding disorder Hypertension Stroke Social History Smoking and tobacco/nicotine status: former use of tobacco/nicotine Alcohol intake: never Substance/Drug Use: never Household members: none Marital status: Physical Exam 2 Const: COMMON NORMALS: no acute distress, average body habitus, patient oriented x3, no limitations, healthy appearing, alert and well nourished Eye: COMMON NORMALS: Equal, round and reactive pupils present, EOMs intact bilaterally, conjunctivae normal, no scleral icterus, no papilledema, normal visual robert by confrontation and fundi normal bilaterally CONJUNCTIVA: Yes conjunctivae normal PUPIL: Yes Equal, round and reactive pupils present D IRECT OPHTHALMOSCOPY: Yes no papilledema and Yes fundi normal bilaterally Neck/C-Spine: COMMON NORMALS: no JVD Chest: COMMONS NORMALS: normal inspection of the chest, normal palpation of entire chest wall, normal inspection of the breasts and normal palpation of the breasts Breast/axilla inspection: Yes normal inspection of the breasts B REAST/AXILLA PALPATION: Yes normal palpation of the breasts Resp: COMMON NORMALS: normal respiratory effort Cardio: COMMON NORMALS: no JVD, regular rate, regular rhythm, S1 normal heart sound present, S2 normal heart sound present, No gallops present (Cardio), No clicks present (Cardio), No murmurs present (Cardio), No rub (Cardio) and Peripheral pulses 2+ throughout RATE: regular rate RHYTHM: regular rhythm HEART SOUNDS: S1 normal heart sound present and S2 normal heart sound present PERIPHERAL PULSES: Peripheral pulses 2+ throughout : COMMON NORMALS: Yes no CVA tenderness BLADDER/KIDNEY EXAM: Yes no CVA tenderness Back/Pelvis: COMMON NORMALS: no CVA tenderness, thoracic and lumbar spine normal to inspection, no thoracic nor lumbar tenderness, thoraco-lumbar ROM normal and straight leg raise negative bilaterally Extremity: COMMON NORMALS: normal to inspection, full ROM, capillary refill normal, no joint enlargement, no clubbing, cyanosis or edema, no calf tenderness and no pedal edema Neuro: COMMON NORMALS: patient oriented x3 SENSORIUM/ORIENTATION: Yes alert Skin: COMMON NORMALS: no rashes or lesions noted, no wounds, turgor normal, no jaundice, no petechiae and no mottling GENERAL SKIN EXAM: no rashes or lesions noted and turgor normal Course 2 ED course: Discussed patient with the surgeon on-callAnd recommendedOutpatient follow-up Consultations: Consultation #1: Spoke with Dr. birch... As per the CT findings and recommended outpatient follow-up with him. Patient was provided Vital Signs: Vital signs: Vital Signs Temperature 99.0 F 05/11/23 20:51 Pulse Rate 88 05/11/23 20:51 Respiratory Rate 16 05/11/23 20:51 Blood Pressure 118/71 05/11/23 20:51 Pulse Oximetry 92 05/11/23 20:51 Oxygen Delivery Me thod Room Air 05/11/23 20:45 MDM - Abdominal Pain Medical Decision Making Patient made comfortable emergency room had extensive workup with CBC, CMP, CT scan of the abdomen. Lipase and a UA. I discussed the CT finding with general surgeon on-call. Close follow-up as an outpatient recommended by the surgeon. Discussed the plan with the son Differential Diagnosis Likely abdominal pain, acute appendicitis, calculus of kidney, constipation, diverticulitis, endometriosis, gastroenteritis, pancreatitis and small bowel obstruction Lab Data 05/11/23 18:43 05/11/23 18:43 Labs/Radiology: Radiology Impressions Abdomen/Pelvis CT 05/11/23 18:23 IMPRESSION: 1. No acute findings to explain left lower quadrant pain. 2. Evidence of appendiceal mucocele. Recommend surgical evaluation. 3. Nodular urinary bladder wall may be on the basis of multiple diverticula, possibly trabeculation in the setting of chronic outlet obstruction given prostatomegaly. 4. Additional chronic and incidental findings as above, to include atherosclerosis, colonic diverticulosis, and chronic pancreatitis. Laboratory Results WBC 12.91 10^3/uL (3.29-11.43) H 05/11/23 18:43 RBC 5.05 10^6/uL (3.85-5.65) 05/11/23 18:43 Hgb 13.40 g/dL (11.27-16.99) 05/11/23 18:43 Hct 42.6 % (37-53) 05/11/23 18:43 MCV 84.4 fl (82-101) 05/11/23 18:43 MCH 26.5 pg (27-33) L 05/11/23 18:43 MCHC 31.5 g/dL (30-55) 05/11/23 18:43 RDW 22.6 % (12.1-15.1) H 05/11/23 18:43 Plt Count 244 10^3/cmm (157-399) 05/11/23 18:43 MPV 9.3 fL (7.4-10.4) 05/11/23 18:43 Neut % (Auto) 75.7 % 05/11/23 18:43 Lymph % (Auto) 14.5 % 05/11/23 18:43 [place] % (Auto) 8.6 % 05/11/23 18:43 Eos % (Auto) 0.1 % 05/11/23 18:43 Baso % (Auto) 0.2 % 05/11/23 18:43 Neut # (Auto) 9.78 10^3/uL (1.8-7.7) H 05/11/23 18:43 Lymph # (Auto) 1.9 10^3/uL (0.8-4.8) 05/11/23 18:43 [place] # (Auto) 1.1 10^3/uL (0.2-0.9) H 05/11/23 18:43 Eos # (Auto) 0.0 10^3/uL (0.0-0.8) 05/11/23 18:43 Baso # (Auto) 0.0 10^3/uL (0.0-0.1) 05/11/23 18:43 Nucleated RBC % (auto) 0 % 05/11/23 18:43 Nucleated RBCs # 0.0 /100WBC 05/11/23 18:43 Sodium 134 mmol/L (136-145) L 05/11/23 18:43 Potassium 4.6 mmol/L (3.5-5.1) 05/11/23 18:43 Chloride 95 mmol/L (98-107) L 05/11/23 18:43 Carbon Dioxide 26 mmol/L (22-29) 05/11/23 18:43 Anion Gap 17.6 (5-19) 05/11/23 18:43 BUN 16 mg/dL (8-23) 05/11/23 18:43 Creatinine 1.1 mg/dL (0.7-1.2) 05/11/23 18:43 GFR Calculation Not Reportable 05/11/23 18:43 Glucose 134 mg/dL (65-115) H 05/11/23 18:43 Calculated Osmolality 281 mOsm/kg (285-295) L 05/11/23 18:43 Calcium 9.2 mg/dL (8.5-10.5) 05/11/23 18:43 Total Bilirubin 1.0 mg/dL (0.15-1.2) 05/11/23 18:43 AST 41 U/L (0-40) H 05/11/23 18:43 ALT 41 U/L (0-41) 05/11/23 18:43 Alkaline Phosphatase 91 U/L (40-130) 05/11/23 18:43 Total Protein 7.1 g/dL (6.6-8.7) 05/11/23 18:43 Albumin 3.4 g/dL (3.5-5.2) L 05/11/23 18:43 Globulin 3.7 g/dL (1.3-4.6) 05/11/23 18:43 Lipase 11 U/L (13-60) L 05/11/23 18:43 Urine Color Dark yellow (Yellow) 05/11/23 19:30 Urine Appearance Sl hazy (CLEAR) A 05/11/23 19:30 Urine pH 5 (5-7) 05/11/23 19:30 Ur Specific [place] 1.020 (1.005-1.030) 05/11/23 19:30 Urine Protein 1+ (Negative) H 05/11/23 19:30 Urine Glucose (UA) Norm (Normal) 05/11/23 19:30 Urine Ketones Negative (Negative) 05/11/23 19:30 Urine Blood Neg (Negative) 05/11/23 19:30 Urine Nitrate Negative (Negative) 05/11/23 19:30 Urine Bilirubin Neg (Negative) 05/11/23 19:30 Urine Urobilinogen 4 mg/dL (Negative) H 05/11/23 19:30 Ur Leukocyte Esterase Negative (Negative) 05/11/23 19:30 Urine RBC None /hpf (0-2) 05/11/23 19:30 Urine WBC 0-4 /hpf (0-5) H 05/11/23 19:30 Ur Squamous Epith Cells 0-4 /hpf (0-5) H 05/11/23 19:30 Amorphous Sediment Trace /hpf 05/11/23 19:30 Urine Bacteria 1+ /hpf (NONE) H 05/11/23 19:30 Urine Mucus 1+ /hpf 05/11/23 19:30 All radiology interpretation(s) finalized by discharge Discharge Plan Discharge Patient Disposition: Home Clinical Impression: Appendicular mucocele Abdominal pain Qualifiers: Abdominal location: unspecified location Qualified Code(s): R10.9 - Unspecified abdominal pain Condition: Stable Prescriptions: No Action ascorbate calcium (vitamin C) 500 mg tablet 1 gm PO DAILY cholecalciferol (vitamin D3) 25 mcg (1,000 unit) capsule 25 mcg PO DAILY isosorbide mononitrate 30 mg tablet extended release 24 hr 30 mg PO QAM Eliquis 5 mg tablet 5 mg PO BID Hold Instructions: Resume on 01/26/23. Hold until 01/26/23. amiodarone 200 mg tablet 100 mg PO BID rosuvastatin [Crestor] 40 mg tablet 40 mg PO DAILY levothyroxine [Synthroid] 75 mcg tablet 75 mcg PO DAILY loratadine 10 mg tablet 10 mg PO DAILY fluticasone propion-salmeterol [Advair Diskus] 250-50 mcg/dose blister with device 1 inh inhalation BID Qty: 60 0RF tramadol 50 mg tablet 50 mg PO Q6H PRN (Reason: Pain) omega 0-ijv-uyg-fish oil [Fish Oil] 1,000 mg (120 mg-180 mg) Capsule 1 cap PO DAILY ybllemqj-ybb-obiio-vit K-lycop 400-20-300 mcg Tablet 1 tab PO DAILY metoprolol tartrate 25 mg tablet 25 mg PO BID sucralfate 1 gram tablet See Rx Instructions .ROUTE .COMPLEX Rx Instructions: 1 g orally before meals and bedtime Celexa 40 mg Tablet 60 mg PO DAILY levofloxacin 750 mg Tablet 750 mg PO BEDTIME Qty: 2 0RF Discharge Orders: Discharge ED (Routine); Ordered 05/11/23 Ordered By: Savannah Valdes Referrals: Adriano Birch MD [Physician] - 4-7 days Richardson Pineda MD [Primary Care Provider] - Discharge Diet: Advance as tolerated Discharge Activity: Resume usual activity Patient Instructions: Abdominal Pain (ED), Opioid Safety, Pain Management Coding Level of Care Code ED Location Director for Rom Posada
--- NOTE | 2023-05-11 18:23 | CTR_ITS ---
PROCEDURE INFORMATION: Exam: CT Abdomen And Pelvis Without Contrast Exam date and time: 05/11/2023 6:52 PM Age: 82 years old Clinical indication: Abdominal pain; Localized; Lower; Additional info: Left lower abd pain TECHNIQUE: Imaging protocol: Computed tomography of the abdomen and pelvis without contrast. Radiation optimization: All CT scans at this facility use at least one of these dose optimization techniques: automated exposure control; mA and/or kV adjustment per patient size (includes targeted exams where dose is matched to clinical indication); or iterative reconstruction. REPORTING DATA: Count of CT and Cardiac NM exams in prior 12 months: This patient has received 8 known CTs and 0 known cardiac nuclear medicine studies in the 12 months prior to the current study. COMPARISON: 1. CT lumbar spine wo con* [id number] 04/25/2023 1:14 PM 2. US abdomen limited [id number] 04/29/2023 4:[address] angio chest PE protcl [id number] 04/28/2023 6:20 PM RADIATION DOSE METRICS: Total DLP (mGy-cm): 947 FINDINGS: Tubes, catheters and devices: Partially visualized cardiac leads. Lungs: Mild dependent atelectasis. Coronary arteries: Coronary artery calcification. Liver: Normal without focal lesions. Gallbladder and bile ducts: Normal. No calcified stones. No ductal dilation. Pancreas: Diffuse pancreatic atrophy and calcifications. Spleen: Normal. Adrenal glands: Normal. No mass. Kidneys and ureters: Mild symmetric perirenal fat stranding is likely age related. Otherwise unremarkable. Stomach and bowel: No obstruction. Colonic diverticulosis without findings of diverticulitis. Appendix: No normal appendix visualized. There is a blind-ending elongated hypodense structure arising from the cecum near the ileocecal valve with rounded portion at the cecum measuring 2.8 cm and thickened tail measuring 1.7 cm in diameter, axial images 53-58 of series 3, sagittal image 58 of series 6. There is thin peripheral calcification at the rounded interface with the cecum. No appearance of wall thickening or adjacent inflammatory change. Intraperitoneal space: No free air or significant fluid collection. Mild presacral fat stranding. Vasculature: Ascending aorta dilatation as seen on recent comparison chest CT. Moderate systemic atherosclerotic calcification without abdominal aortic aneurysm. Lymph nodes: Unremarkable. No enlarged lymph nodes. Urinary bladder: Underdistended urinary bladder with diffuse marginal nodularity. Reproductive: Enlarged prostate measures 4.7 cm in transverse dimension. Bones/joints: Redemonstrated right L1 and L2 transverse process fractures. Degenerative changes along the imaged axial and proximal appendicular skeletal system. Stable appearance of T12 vertebra with compressed vertebral body and coarsened trabecular pattern. Soft tissues: Small fat containing umbilical and right inguinal hernias. CT/CT abdomen pelvis wo con [id number] IMPRESSION: 1. No acute findings to explain left lower quadrant pain. 2. Evidence of appendiceal mucocele. Recommend surgical evaluation. 3. Nodular urinary bladder wall may be on the basis of multiple diverticula, possibly trabeculation in the setting of chronic outlet obstruction given prostatomegaly. 4. Additional chronic and incidental findings as above, to include atherosclerosis, colonic diverticulosis, and chronic pancreatitis.
[2023-05-11] MEDS: ketorolac 30 mg/mL INJ 15 MG IVP (18:44)
[2023-05-11 18:51] VITALS: BP 143/90; PULSE 95; O2SAT 95
[2023-05-11 18:56] LABS: Basophils % 0.2 %; Eosinophils % 0.1 %; Hematocrit 42.6 % (37-53); Lymphocytes # 1.9 10^3/uL (0.8-4.8); Lymphocytes % 14.5 %; Mean Corpuscular HGB Conc 31.5 g/dL (30-55); Mean Corpuscular Hemoglobin 26.5 pg (27-33); Mean Corpuscular Volume 84.4 fl (82-101); Mean Platelet Volume 9.3 fL (7.4-10.4); Monocytes # 1.1 10^3/uL (0.2-0.9); Monocytes % 8.6 %; Neutrophils # 9.78 10^3/uL (1.8-7.7); Neutrophils % 75.7 %; Nucleated Red Blood Cells % 0 %; Platelet Count 244 10^3/cmm (157-399); Red Blood Count 5.05 10^6/uL (3.85-5.65); Red Cell Distribution Width 22.6 % (12.1-15.1); White Blood Count 12.91 10^3/uL (3.29-11.43)
[2023-05-11 19:15] LABS: Alanine Aminotransferase 41 U/L (0-41); Albumin Level 3.4 g/dL (3.5-5.2); Alkaline Phosphatase 91 U/L (40-130); Anion Gap 17.6 (5-19); Aspartate Amino Transferase 41 U/L (0-40); Blood Urea Nitrogen 16 mg/dL (8-23); Calcium 9.2 mg/dL (8.5-10.5); Carbon Dioxide 26 mmol/L (22-29); Chloride 95 mmol/L (98-107); Creatinine Clr Calc Pharmacy 55.0375; Globulin 3.7 g/dL (1.3-4.6); Glucose 134 mg/dL (65-115); Lipase 11 U/L (13-60); Osmolality Calculated 281 mOsm/kg (285-295); Potassium 4.6 mmol/L (3.5-5.1); Sodium 134 mmol/L (136-145); Total Protein 7.1 g/dL (6.6-8.7)
[2023-05-11 19:43] LABS: Urine Appearance SL Hazy (CLEAR); Urine Color Dark Yellow (Yellow); pH Urine 5 (5-7)
[2023-05-11 19:44] LABS: Add Urine Microscopic? YES; Amorphous Sediment Urine TRACE /hpf; Bacteria Urine 1+ /hpf; Bilirubin Urine Neg (Negative); Blood Urine Neg (Negative); Glucose Urine UA Norm (Normal); Ketones Urine Negative (Negative); Leukocyte Esterase Urine Negative (Negative); Mucus Urine 1+ /hpf; Nitrate Urine Negative (Negative); Protein Urine 1+ (Negative); Squamous Epithelial Cell Urine 0-4 /hpf (0-5); Urobilinogen Urine 4 mg/dL (Negative); WBC Urine 0-4 /hpf (0-5)
[2023-05-11 19:45] LABS: Add Urine Culture? No
[2023-05-11 20:45] VITALS: BP 118/71; PULSE 88; RESP 16; O2SAT 92
[2023-05-11 20:51] VITALS: BP 118/71; PULSE 88; RESP 16; TEMP 37.2; O2SAT 92
== END 2023-05-11 22:15 | disposition home or self-care (01) ==
PROVIDERS: Emergency Provider Family Medicine; PCP Family Medicine
DX: K38.8 Other specified diseases of appendix (principal); R10.9 Unspecified abdominal pain; Z79.01 Long term (current) use of anticoagulants; Z87.891 Personal history of nicotine dependence; I25.10 Atherosclerotic heart disease of native coronary artery without angina pectoris; I10 Essential (primary) hypertension; Z95.0 Presence of cardiac pacemaker
CPT/HCPCS: 74176; 80053; 81001; 83690; 85025; 96374; 99285; J1885

== ENCOUNTER 2023-09-02 17:01 | Emergency (ER) | payer OTHER, SELFPAY ==
[2023-09-02 17:02] VITALS: BP 159/93; PULSE 110; RESP 15; TEMP 36.7; O2SAT 97
--- NOTE | 2023-09-02 17:06 | XRR_ITS ---
PROCEDURE INFORMATION: Exam: XR Chest Exam date and time: 09/02/2023 5:20 PM Age: 83 years old Clinical indication: Shortness of breath; Additional info: SOB TECHNIQUE: Imaging protocol: Radiologic exam of the chest. Views: 1 view. COMPARISON: CT angio chest PE protcl [id number] 04/28/2023 6:20 PM FINDINGS: Tubes, catheters and devices: Left chest ICD is present with unremarkable radiographic position. Lungs: Unremarkable. No consolidation. Pleural spaces: Unremarkable. No pleural effusion. No pneumothorax. Heart/Mediastinum: Mild to moderate cardiomegaly. Bones/joints: Unremarkable. XR/XR chest 1V portable [id number] IMPRESSION: Negative for acute chest pathology.
--- NOTE | 2023-09-02 17:30 | ED_ITS ---
HPI - SOB/Dyspnea 2 General: Chief Complaint: Upper Respiratory Infection Stated Complaint: sob Time Seen by Provider: 09/02/23 17:30 History of Present Illness: HPI Narrative: 83-year-old male patient comes in today for complaints of weakness and increased shortness of breath over the last few weeks. Patient appears nontoxic. Patient does have a chronic medical history of atrial fibs and valvular heart disease. Patient does have a pacemaker. Patient had a fall in April where he had several vertebral fractures. Patient reports no fever or nausea or vomiting. Patient appears chronically ill but not toxic. No edema is noted. Review of Systems 2 General: Reports: 10 or more systems reviewed and unremarkable except in HPI and below PFSH ED 2 PFSH: Medical History Atherosclerotic heart disease of [place]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 Anemia GI bleed Hypertension Atrial fibrillation Mitral regurgitation ABRAM (obstructive sleep apnea) Osteoporosis Anxiety History of pacemaker Surgical History Hx of tonsillectomy H/O hemorrhoidectomy History of hernia surgery Family History Brother CAD (coronary artery disease) CHF (congestive heart failure) Cancer Sister Lung disease Other Atherosclerotic heart disease of [place]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 Denies family history of Diabetes Clotting disorder Dementia Hyperlipidemia Chronic kidney disease (CKD) Suicide Anesthesia complication Bleeding disorder Hypertension Stroke Social History Smoking and tobacco/nicotine status: former use of tobacco/nicotine Alcohol intake: never Substance/Drug Use: never Household members: none Marital status: Physical Exam 2 Const: COMMON NORMALS: alert HENMT: COMMON NORMALS: normocephalic HEAD & SCALP: normocephalic Neck/C-Spine: COMMON NORMALS: full ROM Resp: COMMON NORMALS: normal respiratory effort and clear to auscultation bilaterally AUSCULTATION: clear to auscultation bilaterally Cardio: COMMON NORMALS: regular rate RATE: regular rate GI: COMMON NORMALS: Soft to palpation AUSCULTATION: Yes normoactive bowel sounds PALPATION: Yes Soft to palpation Extremity: COMMON NORMALS: no pedal edema Neuro: SENSORIUM/ORIENTATION: Yes alert Skin: COMMON NORMALS: turgor normal NARRATIVE SKIN EXAM: Bruising bilateral upper extremities GENERAL SKIN EXAM: turgor normal Course 2 Vital Signs: Vital signs: Vital Signs Temperature 98.0 F 09/02/23 17:02 Pulse Rate 94 09/02/23 18:07 Respiratory Rate 20 H 09/02/23 18:07 Blood Pressure 130/90 09/02/23 18:07 Pulse Oximetry 94 09/02/23 19:21 Oxygen Delivery Me thod Room Air 09/02/23 19:21 MDM - SOB/Dyspnea Medical Decision Making Patient presents today with complaints of some increased shortness of breath with exertion and weakness over the last week. Patient appears nontoxic. Patient appears in no acute distress. Lungs have decreased sounds in the bases. No increased edema is noted in the lower extremities. Patient has chronic back pain secondary to vertebral fractures and a fall in April. Differential diagnosis includes CHF, pneumonia, electrolyte disturbance. CBC, CMP were unremarkable. BNP appears at baseline. Chest x-ray was normal. No signs of acute illness are noted at this time. Reviewed exam with patient with recommendations for treatment and follow-up or return to the ER for worsening symptoms. Patient and family both reported understanding and agreed to plan. Lab Data 09/02/23 19:03 09/02/23 19:03 Labs/Radiology: Laboratory Results WBC 4.56 10^3/uL (3.29-11.43) 09/02/23 19:03 RBC 4.49 10^6/uL (3.85-5.65) 09/02/23 19:03 Hgb 11.80 g/dL (11.27-16.99) 09/02/23 19:03 Hct 38.6 % (37-53) 09/02/23 19:03 MCV 86.0 fl (82-101) 09/02/23 19:03 MCH 26.3 pg (27-33) L 09/02/23 19:03 MCHC 30.6 g/dL (30-55) 09/02/23 19:03 RDW 18.2 % (12.1-15.1) H 09/02/23 19:03 Plt Count 189 10^3/cmm (157-399) 09/02/23 19:03 MPV 9.2 fL (7.4-10.4) 09/02/23 19:03 Neut % (Auto) 50.9 % 09/02/23 19:03 Lymph % (Auto) 34.9 % 09/02/23 19:03 [place] % (Auto) 10.7 % 09/02/23 19:03 Eos % (Auto) 2.9 % 09/02/23 19:03 Baso % (Auto) 0.2 % 09/02/23 19:03 Neut # (Auto) 2.32 10^3/uL (1.8-7.7) 09/02/23 19:03 Lymph # (Auto) 1.6 10^3/uL (0.8-4.8) 09/02/23 19:03 [place] # (Auto) 0.5 10^3/uL (0.2-0.9) 09/02/23 19:03 Eos # (Auto) 0.1 10^3/uL (0.0-0.8) 09/02/23 19:03 Baso # (Auto) 0.0 10^3/uL (0.0-0.1) 09/02/23 19:03 Nucleated RBC % (auto) 0 % 09/02/23 19:03 Nucleated RBCs # 0.0 /100WBC 09/02/23 19:03 Sodium 139 mmol/L (136-145) 09/02/23 19:03 Potassium 3.9 mmol/L (3.5-5.1) 09/02/23 19:03 Chloride 105 mmol/L (98-107) 09/02/23 19:03 Carbon Dioxide 26 mmol/L (22-29) 09/02/23 19:03 Anion Gap 11.9 (5-19) 09/02/23 19:03 BUN 14 mg/dL (8-23) 09/02/23 19:03 Creatinine 1.0 mg/dL (0.7-1.2) 09/02/23 19:03 GFR Calculation Not Reportable 09/02/23 19:03 Glucose 107 mg/dL (65-115) 09/02/23 19:03 Calculated Osmolality 289 mOsm/kg (285-295) 09/02/23 19:03 Calcium 9.2 mg/dL (8.5-10.5) 09/02/23 19:03 Total Bilirubin 0.4 mg/dL (0.15-1.2) 09/02/23 19:03 AST 26 U/L (0-40) 09/02/23 19:03 ALT 15 U/L (0-41) 09/02/23 19:03 Alkaline Phosphatase 97 U/L (40-130) 09/02/23 19:03 NT-Pro-B Natriuret Pep 478 pg/mL (0-450) H 09/02/23 19:03 Total Protein 6.8 g/dL (6.6-8.7) 09/02/23 19:03 Albumin 3.7 g/dL (3.5-5.2) 09/02/23 19:03 Globulin 3.1 g/dL (1.3-4.6) 09/02/23 19:03 Influenza Type A Ag negative (Negative) 09/02/23 18:10 Influenza Type B Ag negative (Negative) 09/02/23 18:10 SARS-CoV-2 Ag (Rapid) negative (Negative) 09/02/23 18:10 XR interpretation done by ED provider, pending radiology final review Discharge Plan Discharge Patient Disposition: Home Clinical Impression: Weakness, KNIGHT (dyspnea on exertion) Condition: Stable Prescriptions: No Action ascorbate calcium (vitamin C) 500 mg tablet 1 gm PO DAILY cholecalciferol (vitamin D3) 25 mcg (1,000 unit) capsule 25 mcg PO DAILY isosorbide mononitrate 30 mg tablet extended release 24 hr 30 mg PO QAM Eliquis 5 mg tablet 5 mg PO BID Hold Instructions: Resume on 01/26/23. Hold until 01/26/23. amiodarone 200 mg tablet 100 mg PO BID rosuvastatin [Crestor] 40 mg tablet 40 mg PO DAILY levothyroxine [Synthroid] 75 mcg tablet 75 mcg PO DAILY loratadine 10 mg tablet 10 mg PO DAILY fluticasone propion-salmeterol [Advair Diskus] 250-50 mcg/dose blister with device 1 inh inhalation BID Qty: 60 0RF tramadol 50 mg tablet 50 mg PO Q6H PRN (Reason: Pain) omega 0-gqf-zab-fish oil [Fish Oil] 1,000 mg (120 mg-180 mg) Capsule 1 cap PO DAILY pnxfybwz-afw-lqazn-vit K-lycop 400-20-300 mcg Tablet 1 tab PO DAILY metoprolol tartrate 25 mg tablet 25 mg PO BID sucralfate 1 gram tablet See Rx Instructions .ROUTE .COMPLEX Rx Instructions: 1 g orally before meals and bedtime Celexa 40 mg Tablet 60 mg PO DAILY levofloxacin 750 mg Tablet 750 mg PO BEDTIME Qty: 2 0RF Discharge Orders: Discharge ED (Routine); Ordered 09/02/23 Ordered By: Martell Shelton Referrals: Richardson Pineda MD [Primary Care Provider] - Discharge Diet: Usual diet Discharge Activity: Increase activity as tolerated Patient Instructions: Weakness (ED) Activity Restrictions/Additional Instructions: Continue with routine care as directed. Activity as tolerated. Follow-up with primary care in 1 week for recheck. Return to ED for new concerns or worsening symptoms. Coding Level of Care Code ED Desizing Machine Back Tender for Rom Posada
[2023-09-02 18:07] VITALS: BP 130/90; PULSE 94; RESP 20; O2SAT 91
[2023-09-02 18:35] LABS: SARS Covid-2 Antigen negative (Negative)
[2023-09-02 18:36] LABS: Influenza A by IFA negative (Negative); Influenza B by IFA negative (Negative)
[2023-09-02 19:10] LABS: Basophils % 0.2 %; Eosinophils # 0.1 10^3/uL (0.0-0.8); Eosinophils % 2.9 %; Hematocrit 38.6 % (37-53); Lymphocytes # 1.6 10^3/uL (0.8-4.8); Lymphocytes % 34.9 %; Mean Corpuscular HGB Conc 30.6 g/dL (30-55); Mean Corpuscular Hemoglobin 26.3 pg (27-33); Mean Platelet Volume 9.2 fL (7.4-10.4); Monocytes # 0.5 10^3/uL (0.2-0.9); Monocytes % 10.7 %; Neutrophils # 2.32 10^3/uL (1.8-7.7); Neutrophils % 50.9 %; Nucleated Red Blood Cells % 0 %; Platelet Count 189 10^3/cmm (157-399); Red Blood Count 4.49 10^6/uL (3.85-5.65); Red Cell Distribution Width 18.2 % (12.1-15.1); White Blood Count 4.56 10^3/uL (3.29-11.43)
[2023-09-02 19:21] VITALS: O2SAT 94
[2023-09-02 19:41] LABS: Alanine Aminotransferase 15 U/L (0-41); Albumin Level 3.7 g/dL (3.5-5.2); Alkaline Phosphatase 97 U/L (40-130); Anion Gap 11.9 (5-19); Aspartate Amino Transferase 26 U/L (0-40); Blood Urea Nitrogen 14 mg/dL (8-23); Calcium 9.2 mg/dL (8.5-10.5); Carbon Dioxide 26 mmol/L (22-29); Chloride 105 mmol/L (98-107); Creatinine Clr Calc Pharmacy 63.6179; Globulin 3.1 g/dL (1.3-4.6); Glucose 107 mg/dL (65-115); NT Pro B Type Natriuretic Pept 478 pg/mL (0-450); Osmolality Calculated 289 mOsm/kg (285-295); Potassium 3.9 mmol/L (3.5-5.1); Sodium 139 mmol/L (136-145); Total Bilirubin 0.4 mg/dL (0.15-1.2); Total Protein 6.8 g/dL (6.6-8.7)
[2023-09-02 19:59] VITALS: BP 129/97; PULSE 98; O2SAT 95
== END 2023-09-02 20:01 | disposition home or self-care (01) ==
PROVIDERS: Emergency Medicine; Emergency Provider Nurse Practitioner Family; PCP Family Medicine
DX: R53.1 Weakness (principal); R06.00 Dyspnea, unspecified; Z79.01 Long term (current) use of anticoagulants; Z11.52 Encounter for screening for COVID-19; Z87.891 Personal history of nicotine dependence; I25.118 Atherosclerotic heart disease of native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; I10 Essential (primary) hypertension; Z95.0 Presence of cardiac pacemaker
CPT/HCPCS: 71045; 80053; 83880; 85025; 87426; 87804; 99284

== ENCOUNTER 2023-09-06 12:08 | Emergency (ER) | payer OTHER, SELFPAY ==
[2023-09-06 12:11] VITALS: BP 126/78; PULSE 100; RESP 18; TEMP 36.8; O2SAT 93; BMI 30.1
--- NOTE | 2023-09-06 12:11 | ECG_ITS ---
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 Measurements Intervals [place] Rate: 100 P: -9 MO: 285 QRS: 95 QRSD: 126 T: -59 QT: 360 QTc: 466 Interpretive Statements SINUS TACHYCARDIA WITH FIRST DEGREE AV BLOCK BORDERLINE RIGHT AXIS DEVIATION [QRS AXIS > 90] POSSIBLE RIGHT VENTRICULAR CONDUCTION DELAY [RSR (QR) IN V1/V2] ST DEVIATION AND MODERATE T-WAVE ABNORMALITY, CONSIDER LATERAL ISCHEMIA [-0.1+ mV T-WAVE IN I/aVL/V5/V6] ST DEVIATION AND MODERATE T-WAVE ABNORMALITY, CONSIDER INFERIOR ISCHEMIA [-0.1+ mV T-WAVE IN II/aVF] Compared to ECG 04/25/2023 11:08:58 First degree AV block now present T-wave abnormality now present Possible ischemia now present Atrial-paced complex(es) or rhythm no longer present Electronically Signed On 09-06-2023 15:04:24 CDT by Blane Kong M.D. [id number]
--- NOTE | 2023-09-06 12:41 | XRR_ITS ---
PROCEDURE INFORMATION: Exam: XR Chest Exam date and time: 09/06/2023 12:46 PM Age: 83 years old Clinical indication: Cough and dyspnea; Prior surgery; Surgery date: 6+ months; Surgery type: Pacemaker; Additional info: Dyspnea/cough TECHNIQUE: Imaging protocol: Radiologic exam of the chest. Views: 1 view. COMPARISON: CR XR chest 1V portable [id number] 09/02/2023 5:20 PM FINDINGS: Tubes, catheters and devices: Dual lead cardiac pacemaker with left chest generator. Lungs: Unremarkable. No consolidation. Pleural spaces: Unremarkable. No pleural effusion. No pneumothorax. Heart/Mediastinum: Stable cardiomegaly. Vasculature: Aortic atherosclerotic calcification. Diaphragm: Stable elevation of the right hemidiaphragm. Bones/joints: Unremarkable. XR/XR chest 1V portable [id number] IMPRESSION: No acute findings.
--- NOTE | 2023-09-06 12:45 | W.ED.WEAKNES ---
HPI - Weakness General: Chief complaint: Weakness Stated complaint: weakness Time Seen by Provider: 09/06/23 12:11 Source: patient History of Present Illness: 83-year-old male who presents emergency room with complaints of shortness of breath this been an ongoing issue for him for some time he was seen recently with same complaint. 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 He also has a history of congestive heart failure. No recent medication changes. No chest pain or discomfort. He states with minimal activity even getting up and walking around within the home or within the room he gets very short of breath and has difficult time completing tasks MD Complaint: generalized weakness (And shortness of breath) Onset (ago): week(s) Location: generalized Relieving factors: none Exacerbating factors: none Associated symptoms: Denies chest pain, chills, confusion, melena, decreased appetite, diaphoresis, dysuria, easy bruising, fever(s), headache(s), myalgias, nausea, rash, short of breath, syncope or vomiting Review of Systems Const: Denies: fever(s), chills or diaphoresis Card: Denies: chest pain or syncope Resp: Denies: dyspnea GI: Denies: abdominal pain, nausea, vomiting or melena : Denies: dysuria, urinary frequency or urinary urgency Musc: Denies: neck pain or back pain Skin/Breast: Denies: rash Neuro: Denies: headache(s) or confusion Anurag/Lymph: Denies: easy bruising PFSH ED PFSH: Medical History C7 cervical fracture Dyslipidemia H/O: GI bleed Presence of permanent cardiac pacemaker Atherosclerotic heart disease of [place]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 Anemia GI bleed Hypertension Atrial fibrillation Mitral regurgitation ABRAM (obstructive sleep apnea) Osteoporosis Anxiety History of pacemaker Surgical History Hx of tonsillectomy H/O hemorrhoidectomy History of hernia surgery Family History Brother CAD (coronary artery disease) Congestive heart failure (CHF) Cancer Sister Lung disease Other Atherosclerotic heart disease of [place]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 Denies family history of Diabetes Clotting disorder Dementia Hyperlipidemia Chronic kidney disease (CKD) Suicide Anesthesia complication Bleeding disorder Hypertension Stroke Social History Smoking and tobacco/nicotine status: former use of tobacco/nicotine Alcohol intake: never Substance/Drug Use: never Household members: none Marital status: Physical Exam Const: GENERAL APPEARANCE: cooperative and comfortable ORIENTATION/CONSCIOUSNESS: Yes awake, Yes oriented to person, Yes oriented to place and Yes oriented to time HENMT: COMMON NORMALS: normocephalic, atraumatic and hearing grossly normal bilaterally HEAD & SCALP: normocephalic and atraumatic Resp: COMMON NORMALS: normal respiratory effort, No retractions and No use of accessory muscles AUSCULTATION: diminished lung sounds Cardio: COMMON NORMALS: regular rate, regular rhythm and No murmurs present (Cardio) RATE: regular rate RHYTHM: regular rhythm GI: COMMON NORMALS: Soft to palpation and No hepatosplenomegaly present AUSCULTATION: Yes normoactive bowel sounds PALPATION: Yes Soft to palpation, No Tenderness to palpation present (GI), No Guarding due to palpation present (GI) and Yes No hepatosplenomegaly present Extremity: COMMON NORMALS: normal to inspection, capillary refill normal, no clubbing, cyanosis or edema, no calf tenderness and no pedal edema Neuro: SENSORIUM/ORIENTATION: Yes oriented to person, Yes oriented to place and Yes oriented to time Skin: COMMON NORMALS: no rashes or lesions noted GENERAL SKIN EXAM: no rashes or lesions noted Course Vital Signs: Vital signs: Vital Signs Temperature 98.3 F 09/06/23 12:11 Pulse Rate 83 09/06/23 15:20 Respiratory Rate 18 09/06/23 15:20 Blood Pressure 148/81 09/06/23 15:20 Pulse Oximetry 96 09/06/23 15:20 Oxygen Delivery Me thod Room Air 09/06/23 15:04 Oxygen Flow Rate 3 09/06/23 14:41 MDM - Weakness Medical Decision Making D-dimer low, cardiac enzymes trended negative. EKG does not show any acute changes. Chest x-ray shows no decompensated heart failure. Patient is not having any chest pain or discomfort. However with even minimal effort he desats significantly. He recovers immediately. He is not having any wheezing or rhonchi. Will start him on oxygen 3 L/min. In talking to him this has been going on for quite some time he is just oxygen dependent he also should have an outpatient echocardiogram we will set that up through case management. Medical Records I reviewed the patient's medical records. Lab Data I reviewed the patient's lab results. 09/06/23 12:58 09/06/23 12:58 Radiology Impressions Chest X-Ray 09/06/23 12:41 IMPRESSION: No acute findings. Laboratory Results WBC 5.16 10^3/uL (3.29-11.43) 09/06/23 12:58 RBC 4.67 10^6/uL (3.85-5.65) 09/06/23 12:58 Hgb 12.50 g/dL (11.27-16.99) 09/06/23 12:58 Hct 40.6 % (37-53) 09/06/23 12:58 MCV 86.9 fl (82-101) 09/06/23 12:58 MCH 26.8 pg (27-33) L 09/06/23 12:58 MCHC 30.8 g/dL (30-55) 09/06/23 12:58 RDW 18.1 % (12.1-15.1) H 09/06/23 12:58 Plt Count 177 10^3/cmm (157-399) 09/06/23 12:58 MPV 9.7 fL (7.4-10.4) 09/06/23 12:58 Neut % (Auto) 67.0 % 09/06/23 12:58 Lymph % (Auto) 22.3 % 09/06/23 12:58 [place] % (Auto) 9.5 % 09/06/23 12:58 Eos % (Auto) 0.8 % 09/06/23 12:58 Baso % (Auto) 0.2 % 09/06/23 12:58 Neut # (Auto) 3.46 10^3/uL (1.8-7.7) 09/06/23 12:58 Lymph # (Auto) 1.2 10^3/uL (0.8-4.8) 09/06/23 12:58 [place] # (Auto) 0.5 10^3/uL (0.2-0.9) 09/06/23 12:58 Eos # (Auto) 0.0 10^3/uL (0.0-0.8) 09/06/23 12:58 Baso # (Auto) 0.0 10^3/uL (0.0-0.1) 09/06/23 12:58 Nucleated RBC % (auto) 0 % 09/06/23 12:58 Nucleated RBCs # 0.0 /100WBC 09/06/23 12:58 Sodium 139 mmol/L (136-145) 09/06/23 12:58 Potassium 4.1 mmol/L (3.5-5.1) 09/06/23 12:58 Chloride 105 mmol/L (98-107) 09/06/23 12:58 Carbon Dioxide 24 mmol/L (22-29) 09/06/23 12:58 Anion Gap 14.1 (5-19) 09/06/23 12:58 BUN 14 mg/dL (8-23) 09/06/23 12:58 Creatinine 1.0 mg/dL (0.7-1.2) 09/06/23 12:58 GFR Calculation Not Reportable 09/06/23 12:58 Glucose 118 mg/dL (65-115) H 09/06/23 12:58 Calculated Osmolality 290 mOsm/kg (285-295) 09/06/23 12:58 Calcium 9.4 mg/dL (8.5-10.5) 09/06/23 12:58 Magnesium 1.9 mg/dL (1.7-2.3) 09/06/23 12:58 Total Bilirubin 0.5 mg/dL (0.15-1.2) 09/06/23 12:58 AST 25 U/L (0-40) 09/06/23 12:58 ALT 17 U/L (0-41) 09/06/23 12:58 Alkaline Phosphatase 95 U/L (40-130) 09/06/23 12:58 Troponin T Baseline 28 ng/L (0-15) H 09/06/23 12:58 Troponin T 120 Minute 26.06 ng/L (0-15) H 09/06/23 15:28 Delta Troponin T -1.94 ABS# (0-10) L 09/06/23 15:28 NT-Pro-B Natriuret Pep 725 pg/mL (0-450) H 09/06/23 12:58 Total Protein 6.7 g/dL (6.6-8.7) 09/06/23 12:58 Albumin 3.5 g/dL (3.5-5.2) 09/06/23 12:58 Globulin 3.2 g/dL (1.3-4.6) 09/06/23 12:58 Urine Color Yellow (Yellow) 09/06/23 13:00 Urine Appearance Clear (CLEAR) 09/06/23 13:00 Urine pH 7 (5-7) 09/06/23 13:00 Ur Specific [place] 1.010 (1.005-1.030) 09/06/23 13:00 Urine Protein Trace (Negative) 09/06/23 13:00 Urine Glucose (UA) Norm (Normal) 09/06/23 13:00 Urine Ketones 1+ (Negative) H 09/06/23 13:00 Urine Blood Neg (Negative) 09/06/23 13:00 Urine Nitrate Negative (Negative) 09/06/23 13:00 Urine Bilirubin Neg (Negative) 09/06/23 13:00 Urine Urobilinogen 1 mg/dL (Negative) H 09/06/23 13:00 Ur Leukocyte Esterase Negative (Negative) 09/06/23 13:00 Urine RBC None /hpf (0-2) 09/06/23 13:00 Urine WBC 0-4 /hpf (0-5) H 09/06/23 13:00 Ur Squamous Epith Cells 0-4 /hpf (0-5) H 09/06/23 13:00 Amorphous Sediment Trace /hpf 09/06/23 13:00 Urine Bacteria Trace /hpf (NONE) 09/06/23 13:00 All radiology interpretation(s) finalized by discharge Discharge Plan Discharge Patient Disposition: Home Clinical Impression: CHF (congestive heart failure), Hx of coronary artery disease Condition: Stable Prescriptions: No Action ascorbate calcium (vitamin C) 500 mg tablet 1 gm PO DAILY cholecalciferol (vitamin D3) 25 mcg (1,000 unit) capsule 25 mcg PO DAILY isosorbide mononitrate 30 mg tablet extended release 24 hr 30 mg PO QAM Eliquis 5 mg tablet 5 mg PO BID Hold Instructions: Resume on 01/26/23. Hold until 01/26/23. amiodarone 200 mg tablet 100 mg PO BID rosuvastatin [Crestor] 40 mg tablet 40 mg PO DAILY levothyroxine [Synthroid] 75 mcg tablet 75 mcg PO DAILY loratadine 10 mg tablet 10 mg PO DAILY fluticasone propion-salmeterol [Advair Diskus] 250-50 mcg/dose blister with device 1 inh inhalation BID Qty: 60 0RF tramadol 50 mg tablet 50 mg PO Q6H PRN (Reason: Pain) omega 2-avx-nde-fish oil [Fish Oil] 1,000 mg (120 mg-180 mg) Capsule 1 cap PO DAILY gbfpizfp-ttj-hjakl-vit K-lycop 400-20-300 mcg Tablet 1 tab PO DAILY metoprolol tartrate 25 mg tablet 25 mg PO BID sucralfate 1 gram tablet See Rx Instructions .ROUTE .COMPLEX Rx Instructions: 1 g orally before meals and bedtime Celexa 40 mg Tablet 60 mg PO DAILY levofloxacin 750 mg Tablet 750 mg PO BEDTIME Qty: 2 0RF Discharge Orders: Discharge ED (Routine); Ordered 09/06/23 Ordered By: Shakir Lira Other Ambulatory Orders: DME: Oxygen (Order) Location: None Selected Ordered By: Shakir Lira Referrals: Richardson Pineda MD [Primary Care Provider] - Discharge Diet: Usual diet Discharge Activity: Limit activity as instructed Patient Instructions: Opioid Safety, Pain Management Activity Restrictions/Additional Instructions: Thank you for choosing [facility] for your healthcare needs today. Please realize this is an emergency room and that we are providing you with a medical screening exam and this may not be complete and all inclusive of all the testing and or work up that you may need to determine your ailment or severity of your illness. It is very important that you follow up as instructed or that you return to the Emergency Department should you have concerns or if your condition changes or worsens in any way. You were seen today for complaints shortness of breath which is an ongoing issue. Chest x-ray and CT of your chest did not show any significant abnormalities Home oxygen evaluation showed that while at rest your oxygen is normal but with any activity your oxygen dropped significantly when you required 3 L by nasal cannula. Will discharge home with 3 L by nasal cannula continuous oxygen and have you follow-up with primary care doctor within the next week. Coding Level of Care Code ED Rehabilitator for Rom Posada
[2023-09-06 13:06] LABS: Basophils % 0.2 %; Eosinophils % 0.8 %; Hematocrit 40.6 % (37-53); Lymphocytes # 1.2 10^3/uL (0.8-4.8); Lymphocytes % 22.3 %; Mean Corpuscular HGB Conc 30.8 g/dL (30-55); Mean Corpuscular Hemoglobin 26.8 pg (27-33); Mean Corpuscular Volume 86.9 fl (82-101); Mean Platelet Volume 9.7 fL (7.4-10.4); Monocytes # 0.5 10^3/uL (0.2-0.9); Monocytes % 9.5 %; Neutrophils # 3.46 10^3/uL (1.8-7.7); Nucleated Red Blood Cells % 0 %; Platelet Count 177 10^3/cmm (157-399); Red Blood Count 4.67 10^6/uL (3.85-5.65); Red Cell Distribution Width 18.1 % (12.1-15.1); White Blood Count 5.16 10^3/uL (3.29-11.43)
--- NOTE | 2023-09-06 13:06 | CT_ITS ---
WS: [id number] CT CHEST ANGIOGRAPHY WITH REFORMATS HISTORY: dyspnea on exertion TECHNIQUE: Contiguous axial images are obtained through the chest during arterial injection of intrav enous contrast. Images are reconstructed to evaluate the pulmonary arteries. MIP imaging also reviewe d. All CT scans at [facility] use at least one of these dose optimization techniques: automat ed exposure control; mA and/or kV adjustment per patient size (includes targeted exams where dose is matched to clinical indication); or iterative reconstruction. CONTRAST: Omnipaque 350; 100 mL IV. DLP: 422.51 mGy.cm COMPARISON: 04/28/2023 Good opacification of the pulmonary arteries. The central and proximal pulmonary arteries are well-op acified. No filling defects. Beyond the segmental branches the opacification becomes limited. Pulmona ry artery is mildly dilated. Ectatic thoracic aorta. No aneurysm. Decreased lung volumes due to poor inspiration. Dependent changes. No mass or pneumonia. No pericardi al or pleural effusions. Heart is enlarged. There is a small pericardial effusion. No adenopathy. LEFT subclavian dual-lead cardiac pacer. Heavy calcification within the pancreas. As before on 2022. The pancreas is not completely included. Findings of chronic pancreatitis. Prior T12 compressio n fracture. IMPRESSION: 1. No pulmonary embolism. 2. Moderately enlarged heart with a small pericardial effusion. 3. No adenopathy. 4. Low lung volumes due to poor inspiration. No pneumonia.
[2023-09-06 13:13] VITALS: BP 126/78; PULSE 92; RESP 18; O2SAT 96
[2023-09-06 13:21] LABS: Alanine Aminotransferase 17 U/L (0-41); Albumin Level 3.5 g/dL (3.5-5.2); Alkaline Phosphatase 95 U/L (40-130); Anion Gap 14.1 (5-19); Aspartate Amino Transferase 25 U/L (0-40); Blood Urea Nitrogen 14 mg/dL (8-23); Calcium 9.4 mg/dL (8.5-10.5); Carbon Dioxide 24 mmol/L (22-29); Chloride 105 mmol/L (98-107); Creatinine Clr Calc Pharmacy 64.4496; Globulin 3.2 g/dL (1.3-4.6); Glucose 118 mg/dL (65-115); Magnesium 1.9 mg/dL (1.7-2.3); Osmolality Calculated 290 mOsm/kg (285-295); Potassium 4.1 mmol/L (3.5-5.1); Sodium 139 mmol/L (136-145); Total Bilirubin 0.5 mg/dL (0.15-1.2); Total Protein 6.7 g/dL (6.6-8.7)
[2023-09-06 13:37] LABS: Bilirubin Urine Neg (Negative); Blood Urine Neg (Negative); Glucose Urine UA Norm (Normal); Ketones Urine 1+ (Negative); Leukocyte Esterase Urine Negative (Negative); Nitrate Urine Negative (Negative); Protein Urine Trace (Negative); Urine Appearance Clear (CLEAR); Urine Color Yellow (Yellow); Urobilinogen Urine 1 mg/dL (Negative); pH Urine 7 (5-7)
[2023-09-06 13:38] LABS: Add Urine Culture? No; Add Urine Microscopic? YES; Amorphous Sediment Urine TRACE /hpf; Bacteria Urine TRACE /hpf; Squamous Epithelial Cell Urine 0-4 /hpf (0-5); WBC Urine 0-4 /hpf (0-5)
[2023-09-06 13:40] VITALS: PULSE 94; RESP 18; O2SAT 94
[2023-09-06 13:49] LABS: NT Pro B Type Natriuretic Pept 725 pg/mL (0-450)
[2023-09-06] MEDS: iohexol 350 mg/mL 500 mL Btl (per mL) IV (13:49)
[2023-09-06 14:41] VITALS: O2SAT 85; O2SAT 91; O2SAT 93
[2023-09-06 15:04] VITALS: BP 131/93; PULSE 82; RESP 18; O2SAT 98
[2023-09-06 15:20] VITALS: BP 148/81; PULSE 83; RESP 18; O2SAT 96
[2023-09-06 15:35] LABS: Troponin(5th) Baseline 28 ng/L (0-15)
[2023-09-06 16:55] LABS: Troponin 5 1HR 26.06 ng/L (0-15)
[2023-09-06 16:59] LABS: Troponin 5 1HR Delta -1.94 ABS# (0-10)
--- NOTE | 2023-09-07 07:40 | DCPLANNER ---
Message sent to Cardiology for follow up
== END 2023-09-06 17:45 | disposition home or self-care (01) ==
PROVIDERS: Emergency Provider Family Medicine; PCP Family Medicine
DX: I11.0 Hypertensive heart disease with heart failure (principal); I50.9 Heart failure, unspecified; I25.10 Atherosclerotic heart disease of native coronary artery without angina pectoris; Z79.01 Long term (current) use of anticoagulants; Z87.891 Personal history of nicotine dependence; E78.5 Hyperlipidemia, unspecified; Z95.0 Presence of cardiac pacemaker
CPT/HCPCS: 36415; 71045; 71275; 80053; 81001; 83735; 83880; 84484; 85025; 93005; 99285; Q9967

== ENCOUNTER → 2023-09-20 11:11 | Outpatient (BNVA) | payer OTHER, SELFPAY | PROVIDERS: PCP Family Medicine; Visit Provider Internal Medicine Cardiovascular Disease | DX: I11.0 Hypertensive heart disease with heart failure (principal); I50.32 Chronic diastolic (congestive) heart failure; I48.0 Paroxysmal atrial fibrillation; E78.5 Hyperlipidemia, unspecified; G47.33 Obstructive sleep apnea (adult) (pediatric); Z87.891 Personal history of nicotine dependence; Z95.0 Presence of cardiac pacemaker; Z79.01 Long term (current) use of anticoagulants | CPT/HCPCS: 99214 ==

== ENCOUNTER 2023-10-06 11:35 | Emergency (ER) | payer OTHER, MEDICARE, SELFPAY ==
[2023-10-06] VITALS (9 sets, daily range): BP systolic 123–137; BP diastolic 81–102; PULSE 109; TEMP 36.7; O2SAT 92–95
--- NOTE | 2023-10-06 12:28 | XRR_ITS ---
PROCEDURE INFORMATION: Exam: XR Chest Exam date and time: 10/06/2023 12:38 PM Age: 83 years old Clinical indication: Other: Emesis TECHNIQUE: Imaging protocol: Radiologic exam of the chest. Views: 1 view. COMPARISON: Chest x-ray September 06, 2023 at 12:46 p.m. FINDINGS: Tubes, catheters and devices: Unchanged left pacemaker projecting in satisfactory position. Lungs: Low lung volumes are lower than before. Small amount of new atelectasis and/or pneumonitis in the lung bases. Otherwise, unremarkable. Pleural spaces: Unremarkable. No pleural effusion. No pneumothorax. Heart/Mediastinum: Unremarkable. No cardiomegaly. Diaphragm: Unchanged moderate elevation of the right hemidiaphragm. Bones/joints: Unchanged mild scoliosis with multilevel spondylosis. XR/XR chest 1V portable [id number] IMPRESSION: 1. New atelectasis and/or pneumonitis in the lung bases. 2. Low lung volumes are lower than previously.
--- NOTE | 2023-10-06 12:29 | ED_ITS ---
HPI - Nausea/Vomiting/Diarrhea 2 General: Chief complaint: Nausea/Vomiting/Diarrhea Stated complaint: N/V Time Seen by Provider: 10/06/23 11:51 Source: patient Mode of arrival: ambulatory Limitations: no limitations History of Present Illness: This patient states he has been having intermittent episodes of nausea followed by vomiting since yesterday morning. He states that he ate breakfast yesterday morning and then shortly thereafter started these episodes where he did vomit. He states that he is progressed to the point where he does not tolerate drinking fluids at this time it causes him to have recurrent vomiting. He states there is no associated abdominal pain. He states that there is no cough or other stimulus for vomiting. He states that he slept well through the night and woke up and felt okay and then sip of coffee followed by some water and he started having retching again. He denies any diarrhea states he had a normal bowel movement yesterday afternoon. He denies any known bad food exposure. He denies any recent exposure to infectious disease. He has chronic atrial fibrillation but no known coronary disease is required treatment in the past. He takes apixaban for stroke risk reduction because of his atrial fibrillation as well as Lasix for some fluid retention. Review of his medications reveal he is also takes a statin as well as isosorbide. He denies alcohol use. He denies peptic ulcer disease. He has had no abdominal surgeries. No recent travel or recent antibiotic use. Associated nausea: Yes Associated abdominal pain: No Associated symtoms: Reports no associated symptoms and nausea; Denies chest pain, dysuria, headache(s) or syncope Review of Systems 2 Const: Denies: fever(s) or chills ENMT: Denies: throat pain, odynophagia, nasal discharge or nasal congestion Card: Denies: chest pain, syncope, pre-syncope, dyspnea on exertion or orthopnea Resp: Denies: productive cough, non-productive cough or wheezing GI: Reports: nausea and vomiting; Denies: abdominal pain, hematemesis, coffee ground emesis, hematochezia or melena : Denies: flank pain, difficulty urinating or dysuria Musc: Denies: neck pain, back pain, extremity pain or extremity swelling Skin/Breast: Denies: rash Neuro: Denies: headache(s) Anurag/Lymph: Reports: easy bruising; Denies: easy bleeding PFSH ED 2 PFSH: Medical History Dyslipidemia Presence of permanent cardiac pacemaker ABRAM (obstructive sleep apnea) C7 cervical fracture H/O: GI bleed 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 Anemia GI bleed Hypertension Atrial fibrillation Mitral regurgitation Osteoporosis Anxiety History of pacemaker Surgical History Hx of tonsillectomy H/O hemorrhoidectomy History of hernia surgery Family History Brother CAD (coronary artery disease) Congestive heart failure (CHF) Cancer Sister Lung disease Other 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 Const: COMMON NORMALS: no acute distress, average body habitus and patient oriented x3 HENMT: COMMON NORMALS: normocephalic, Normal nasal mucous membranes and turbinates present, moist oral mucous membranes and oropharynx normal HEAD & SCALP: normocephalic FACE & SINUS: normal facial exam NOSE: Normal nasal mucous membranes and turbinates present Eye: COMMON NORMALS: Equal, round and reactive pupils present, EOMs intact bilaterally and conjunctivae normal CONJUNCTIVA: Yes conjunctivae normal P UPIL: Yes Equal, round and reactive pupils present Neck/C-Spine: COMMON NORMALS: full ROM, no lymphadenopathy and no JVD Chest: COMMONS NORMALS: normal inspection of the chest Resp: COMMON NORMALS: normal respiratory effort, No retractions, No use of accessory muscles and clear to auscultation bilaterally AUSCULTATION: clear to auscultation bilaterally Cardio: COMMON NORMALS: no JVD, No murmurs present (Cardio) and Peripheral pulses 2+ throughout RHYTHM: abnormal rhythm regularly irregular P ERIPHERAL PULSES: Peripheral pulses 2+ throughout GI: COMMON NORMALS: Normal to inspection, nondistended, normoactive bowel sounds present, Soft to palpation, non-tender and no masses PALPATION: Yes Soft to palpation : COMMON NORMALS: Yes no CVA tenderness BLADDER/KIDNEY EXAM: Yes no CVA tenderness Back/Pelvis: COMMON NORMALS: no CVA tenderness, thoracic and lumbar spine normal to inspection, no thoracic nor lumbar tenderness and thoraco-lumbar ROM normal Extremity: COMMON NORMALS: normal to inspection, full ROM, capillary refill normal and no calf tenderness Neuro: COMMON NORMALS: patient oriented x3, moves all extremities, no focal motor deficits and no sensory deficits noted Psych: COMMON NORMALS: mental status grossly normal Skin: COMMON NORMALS: no rashes or lesions noted, no wounds and turgor normal GENERAL SKIN EXAM: no rashes or lesions noted and turgor normal Course 2 Reevaluation(s): Reevaluation #1: Patient has received IV fluids. He states he has not had any emesis since arriving to the emergency department. Was given a trial of oral fluids and he drank orange juice without difficulty. We discussed current findings lack of any indication of serious illness. He has family is now with him and they wonder if he may have contracted something from one of them as the other 1 has been around others who have had similar symptoms over the last few days. He has not personally had any symptoms but he certainly could have been a carrier. He has no respiratory symptoms his chest is clear no fever or leukocytosis assessed suggest pulmonary infection. This is in contradistinction to chest x-ray comments on radiograph reading by radiology. I did review the films and did not feel that there is overwhelming evidence of pulmonary infection is more lordotic film and I think this is more likely atelectasis. This point the patient is stable without any evidence of ongoing emergency medical condition without emesis etc. He is tolerating fluids and suitable to be discharged with close follow-up. Time: 15:21 Vital Signs: Vital signs: Vital Signs Temperature 98.1 F 10/06/23 11:37 Pulse Rate 109 H 10/06/23 11:37 Blood Pressure 128/81 10/06/23 13:30 Pulse Oximetry 95 10/06/23 14:30 Oxygen Delivery Me thod Room Air 10/06/23 11:37 MDM - Nausea/Vomiting/Diarrhea Medical Decision Making This patient presented to the emergency department complaints of upset stomach since yesterday with several episodes of vomiting. The symptoms abated and he slept well through the night and awoke and when he had some coffee and some flavored water it upset his stomach and he vomited again. There was no associated abdominal pain. He did not have any bloody emesis. He has not had any bloody stools or black tarry stools. He had no concomitant chest pain shortness of breath etc. Clinical examination is reassuring. Workup was initiated to ensure and and narrow the differential. Initial EKGs were reassuring without ischemic changes. Chest x-ray showed atelectasis versus infiltrate the former being the most likely etiology given the fact that he had no leukocytosis fever or significant cough respiratory distress symptoms etc. Initial troponin was elevated over the URL but a serial troponin was unchanged or falling and repeat EKG showed no dynamic changes mitigating against occult ACS as a likely contributing factor. Patient received IV hydration while in the emergency department continued monitoring and recurrent evaluations. He improved subjectively and also was able to tolerate fluids. He had no emesis while in the emergency department. I family member provided additional information that he had been around other sick people and wonders if that might be the etiology as they had similar symptoms. He he was clinically stable at this time and suitable to be discharged with return precautions discussed with both he and family. They voiced understanding. Lab Data I reviewed the patient's lab results. 10/06/23 11:22 10/06/23 11:22 Radiology Impressions Chest X-Ray 10/06/23 12:28 IMPRESSION: 1. New atelectasis and/or pneumonitis in the lung bases. 2. Low lung volumes are lower than previously. Laboratory Results WBC 6.14 10^3/uL (3.29-11.43) 10/06/23 11: RBC 4.96 10^6/uL (3.85-5.65) 10/06/23 11:22 Hgb 13.50 g/dL (11.27-16.99) 10/06/23 11:22 Hct 43.3 % (37-53) 10/06/23 11: MCV 87.3 fl (82-101) 10/06/23 11:22 MCH 27.2 pg (27-33) 10/06/23 11: MCHC 31.2 g/dL (30-55) 10/06/23 11:22 RDW 19.5 % (12.1-15.1) H 10/06/23 11:22 Plt Count 184 10^3/cmm (157-399) 10/06/23 11:22 MPV 10.3 fL (7.4-10.4) 10/06/23 11:22 Neut % (Auto) 69.2 % 10/06/23 11:22 Lymph % (Auto) 21.8 % 10/06/23 11:22 [place] % (Auto) 8.1 % 10/06/23 11:22 Eos % (Auto) 0.2 % 10/06/23 11:22 Baso % (Auto) 0.2 % 10/06/23 11: Neut # (Auto) 4.25 10^3/uL (1.8-7.7) 10/06/23 11: Lymph # (Auto) 1.3 10^3/uL (0.8-4.8) 10/06/23 11:22 [place] # (Auto) 0.5 10^3/uL (0.2-0.9) 10/06/23 11:22 Eos # (Auto) 0.0 10^3/uL (0.0-0.8) 10/06/23 11:22 Baso # (Auto) 0.0 10^3/uL (0.0-0.1) 10/06/23 11:22 Nucleated RBC % (auto) 0 % 10/06/23 11: Nucleated RBCs # 0.0 /100WBC 10/06/23 11:22 Sodium 138 mmol/L (136-145) 10/06/23 11:22 Potassium 4.3 mmol/L (3.5-5.1) 10/06/23 11:22 Chloride 100 mmol/L (98-107) 10/06/23 11:22 Carbon Dioxide 23 mmol/L (22-29) 10/06/23 11:22 Anion Gap 19.3 (5-19) H 10/06/23 11:22 BUN 15 mg/dL (8-23) 10/06/23 11:22 Creatinine 1.0 mg/dL (0.7-1.2) 10/06/23 11:22 GFR Calculation Not Reportable 10/06/23 11:22 Glucose 100 mg/dL (65-115) 10/06/23 11:22 Calculated Osmolality 287 mOsm/kg (285-295) 10/06/23 11:22 Calcium 9.3 mg/dL (8.5-10.5) 10/06/23 11:22 Total Bilirubin 0.7 mg/dL (0.15-1.2) 10/06/23 11:22 AST 28 U/L (0-40) 10/06/23 11:22 ALT 19 U/L (0-41) 10/06/23 11:22 Alkaline Phosphatase 89 U/L (40-130) 10/06/23 11:22 Troponin T Baseline 36 ng/L (0-15) H 10/06/23 11:22 Troponin T 120 Minute 31.44 ng/L (0-15) H 10/06/23 13:09 Delta Troponin T -4.56 ABS# (0-10) L 10/06/23 13:09 Total Protein 7.0 g/dL (6.6-8.7) 10/06/23 11:22 Albumin 4.2 g/dL (3.5-5.2) 10/06/23 11:22 Globulin 2.8 g/dL (1.3-4.6) 10/06/23 11: Lipase 12 U/L (13-60) L 10/06/23 11:22 All radiology interpretation(s) finalized by discharge EKG Data EKG 1: I personally reviewed and interpreted this EKG as follows: Interpretation: Contemporaneous review of EKG reveals a ventricular rate of 102 bpm. Consistent with what appears to be sinus tachycardia with frequent premature complexes although this does actually favors atrial fibrillation. He has a right bundle branch block pattern noted as well. He is normal QRS duration, corrected QT interval. Rightward axis consistent with his right bundle branch axis. Discharge Plan Discharge Patient Disposition: Home Clinical Impression: Nausea & vomiting Qualifiers: Vomiting type: unspecified Qualified Code(s): R11.2 - Nausea with vomiting, unspecified Condition: Stable Prescriptions: New ondansetron 4 mg tablet,disintegrating 4 mg PO Q8H PRN (Reason: nausea and vomiting) Qty: 14 0RF No Action ascorbate calcium (vitamin C) 500 mg tablet 500 mg PO DAILY cholecalciferol (vitamin D3) 25 mcg (1,000 unit) capsule 25 mcg PO DAILY amiodarone 200 mg tablet 100 mg PO BID loratadine 10 mg tablet 10 mg PO DAILY fluticasone propion-salmeterol [Advair Diskus] 250-50 mcg/dose blister with device 1 inh inhalation BID Qty: 60 0RF furosemide [Lasix] 20 mg tablet 20 mg PO DAILY Qty: 30 5RF Guaifenesin DM 10-100 mg/5 mL Syrup 10 ml PO QID PRN (Reason: Congestion) Milk of Magnesia 400 mg/5 mL Suspension 10 ml PO DAILY PRN (Reason: Constipation) lidocaine 5 % Adhesive Patch,Medicated See Rx Instructions .ROUTE .COMPLEX Rx Instructions: APPLY 1 patch topically, leave on most painful area for up to 12 hrs, THEN REMOVE PATCH FOR 12 HOURS fluoxetine 10 mg capsule 10 mg PO QAM Miralax 17 gram/dose Powder 17 g PO DAILY PRN (Reason: Constipation) albuterol sulfate 90 mcg/actuation HFA aerosol inhaler 1 - 2 puff INHALATION Q4H PRN (Reason: Shortness Of Breath) bisacodyl 5 mg Tablet 10 mg PO DAILY PRN (Reason: Constipation) diclofenac sodium 1 % Gel See Rx Instructions .ROUTE .COMPLEX Rx Instructions: APPLY 4 GRAMS TO AFFECTED AREA(S) 4 TIMES DAILY FOR PAIN. DO NOT EXCEED MORE THAN 16 GRAMS DAILY TO ANY LOWER EXTREMITY JOINT. NOT MORE THAN 8 GRAMS DAILY TO ANY UPPER EXTREMITY JOINT. MAX 32 GRAMS DAILY OVER ALL JOINTS. potassium chloride 20 mEq Tablet Extended Release 10 meq PO DAILY isosorbide mononitrate 30 mg Tablet Extended Release 24 Hr 30 mg PO QAM levothyroxine 25 mcg Tablet 25 mcg PO DAILY rosuvastatin 40 mg Tablet 40 mg PO QPM Eliquis 5 mg Tablet 5 mg PO BID tramadol 50 mg tablet 50 mg PO Q6H PRN (Reason: Pain) Discharge Orders: Discharge ED (Routine); Ordered 10/06/23 Ordered By: Kamar Cheng Referrals: Richardson Pineda MD [Primary Care Provider] - Discharge Diet: Advance as tolerated Discharge Activity: Increase activity as tolerated Patient Instructions: Opioid Safety, Pain Management Activity Restrictions/Additional Instructions: As we discussed we did not find any indication that there was a serious condition related to your vomiting today. Provided prescription to use for nausea and vomiting if you need it. We did advise slowly advancing her diet back to normal with starting with bland foods soups etc. Avoid milk products etc. until you are feeling back to normal. If you develop persistent symptoms, new symptoms or worsening symptoms or any other concerns such as fever inability to tolerate food or fluids chest pain shortness of breath etc. return to the emergency department for reevaluation. Coding Level of Care Code ED Rock Splitter for Rom Posada
--- NOTE | 2023-10-06 12:33 | ECG_ITS ---
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 Measurements Intervals [place] Rate: 102 P: 15 NC: 179 QRS: 129 QRSD: 147 T: -39 QT: 403 QTc: 527 Interpretive Statements SINUS TACHYCARDIA WITH FREQUENT SUPRAVENTRICULAR PREMATURE COMPLEXES RIGHT AXIS DEVIATION [QRS AXIS > 100] RIGHT BUNDLE BRANCH BLOCK [120+ ms QRS DURATION, UPRIGHT V1, 40+ ms S IN I/aVL/V4/V5/V6] ST DEPRESSION, CONSIDER SUBENDOCARDIAL INJURY [0.1+ mV ST DEPRESSION] Compared to ECG 09/06/2023 12:11:44 Right bundle-branch block now present ST (T wave) deviation now present First degree AV block no longer present T-wave abnormality no longer present Possible ischemia no longer present Electronically Signed On 10-06-2023 18:12:39 CDT by Abdullahi Saldana M.D. [id number]
[2023-10-06 12:39] LABS: Basophils % 0.2 %; Eosinophils % 0.2 %; Hematocrit 43.3 % (37-53); Lymphocytes # 1.3 10^3/uL (0.8-4.8); Lymphocytes % 21.8 %; Mean Corpuscular HGB Conc 31.2 g/dL (30-55); Mean Corpuscular Hemoglobin 27.2 pg (27-33); Mean Corpuscular Volume 87.3 fl (82-101); Mean Platelet Volume 10.3 fL (7.4-10.4); Monocytes # 0.5 10^3/uL (0.2-0.9); Monocytes % 8.1 %; Neutrophils # 4.25 10^3/uL (1.8-7.7); Neutrophils % 69.2 %; Nucleated Red Blood Cells % 0 %; Platelet Count 184 10^3/cmm (157-399); Red Blood Count 4.96 10^6/uL (3.85-5.65); Red Cell Distribution Width 19.5 % (12.1-15.1); White Blood Count 6.14 10^3/uL (3.29-11.43)
[2023-10-06 12:46] LABS: Alanine Aminotransferase 19 U/L (0-41); Albumin Level 4.2 g/dL (3.5-5.2); Alkaline Phosphatase 89 U/L (40-130); Anion Gap 19.3 (5-19); Aspartate Amino Transferase 28 U/L (0-40); Blood Urea Nitrogen 15 mg/dL (8-23); Calcium 9.3 mg/dL (8.5-10.5); Carbon Dioxide 23 mmol/L (22-29); Chloride 100 mmol/L (98-107); Creatinine Clr Calc Pharmacy 62.2319; Globulin 2.8 g/dL (1.3-4.6); Glucose 100 mg/dL (65-115); Lipase 12 U/L (13-60); Osmolality Calculated 287 mOsm/kg (285-295); Potassium 4.3 mmol/L (3.5-5.1); Sodium 138 mmol/L (136-145); Total Bilirubin 0.7 mg/dL (0.15-1.2); Troponin(5th) Baseline 36 ng/L (0-15)
[2023-10-06 13:33] LABS: Troponin 5 2HR 31.44 ng/L (0-15)
[2023-10-06 13:34] LABS: Troponin 5 2HR Delta -4.56 ABS# (0-10)
--- NOTE | 2023-10-06 14:29 | ECG_ITS ---
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 Measurements Intervals [place] Rate: 105 P: 175 ND: 120 QRS: 140 QRSD: 128 T: -57 QT: 399 QTc: 528 Interpretive Statements SINUS TACHYCARDIA RIGHT AXIS DEVIATION [QRS AXIS > 100] RIGHT BUNDLE BRANCH BLOCK [120+ ms QRS DURATION, UPRIGHT V1, 40+ ms S IN I/aVL/V4/V5/V6] MODERATE T-WAVE ABNORMALITY, CONSIDER INFERIOR ISCHEMIA [-0.1+ mV T-WAVE IN II/aVF] Compared to ECG 10/06/2023 12:33:39 T-wave abnormality now present Possible ischemia now present ST (T wave) deviation no longer present Electronically Signed On 10-07-2023 0:12:33 CDT by Abdullahi Saldana M.D. [id number]
--- NOTE | 2023-10-06 14:49 | PC.PHAR ---
Addendum entered by Valencia Menchaca 10/06/23 14:55: ALL FOUR OF THESE MEDS ARE ON PT DISCHARGE PKT LIST FROM AUGUST. Addendum entered by Valencia Menchaca 10/06/23 14:53: [facility] NOT [facility] ELIQUIS 5MG CURRENT MEDICATION. Original Note: [facility] SHOWS 3 MEDICATIONS DC'D. ISOSORBIDE MONITRATE 30 MG EVERY MORNING, LEVOTHYROXINE 75MCG DAILY, AND ROSUVASTATIN 40MG DAILY.
== END 2023-10-06 15:54 | disposition home or self-care (01) ==
PROVIDERS: Emergency Provider Emergency Medicine; PCP Family Medicine
DX: R11.2 Nausea with vomiting, unspecified (principal); Z79.01 Long term (current) use of anticoagulants
CPT/HCPCS: 36415; 71045; 80053; 83690; 84484; 85025; 93005; 99285

== ENCOUNTER 2023-12-22 08:10 | Emergency (ER) | payer OTHER, MEDICARE, SELFPAY ==
[2023-12-22 08:13] VITALS: BP 108/76; PULSE 98; RESP 16; TEMP 36.8; O2SAT 91; BMI 29.2
--- NOTE | 2023-12-22 08:17 | XR_ITS ---
WS: [id number] XR chest 1V portable [id number] REASON FOR EXAM: Shortness of breath FINDINGS: The chest is unchanged compared to 10/06/2023. Cardiac device over the left chest with trans left subclavian vein leads to the right atrium and righ t ventricle. Significant tortuosity and ectasia of the thoracic aorta. Moderate cardiomegaly. Significant elevation of the left hemidiaphragm Calcified granulomas disease in both hemithoraces. No acute pulmonary parenchymal or pleural abnormality is identified. Moderate degenerative spondylosi s in the thoracic spine. XR/XR chest 1V portable [id number] IMPRESSION: Stable chest without acute abnormality as above.
--- NOTE | 2023-12-22 08:18 | ECG_ITS ---
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 Measurements Intervals [place] Rate: 88 P: 0 IA: 0 QRS: 116 QRSD: 125 T: -18 QT: 412 QTc: 499 Interpretive Statements ATRIAL FIBRILLATION RIGHT AXIS DEVIATION [QRS AXIS > 100] RIGHT BUNDLE BRANCH BLOCK [120+ ms QRS DURATION, UPRIGHT V1, 40+ ms S IN I/aVL/V4/V5/V6] MODERATE T-WAVE ABNORMALITY, CONSIDER LATERAL ISCHEMIA [-0.1+ mV T-WAVE IN I/aVL/V5/V6] Compared to ECG 10/06/2023 14:33:38 Sinus tachycardia no longer present T-wave abnormality still present Possible ischemia still present Electronically Signed On 12-22-2023 10:28:18 CDT by Ramírez Fournier M.D. [id number]
[2023-12-22 08:20] VITALS: BP 108/76; O2SAT 92
[2023-12-22 08:28] LABS: Basophils % 0.2 %; Eosinophils # 0.1 10^3/uL (0.0-0.8); Eosinophils % 1.3 %; Hematocrit 43.9 % (37-53); Lymphocytes # 1.8 10^3/uL (0.8-4.8); Lymphocytes % 29.8 %; Mean Corpuscular HGB Conc 32.1 g/dL (30-55); Mean Corpuscular Hemoglobin 29.2 pg (27-33); Mean Corpuscular Volume 90.9 fl (82-101); Mean Platelet Volume 9.8 fL (7.4-10.4); Monocytes # 0.5 10^3/uL (0.2-0.9); Monocytes % 8.2 %; Neutrophils # 3.64 10^3/uL (1.8-7.7); Neutrophils % 59.8 %; Nucleated Red Blood Cells % 0 %; Platelet Count 164 10^3/cmm (157-399); Red Blood Count 4.83 10^6/uL (3.85-5.65); Red Cell Distribution Width 16.1 % (12.1-15.1); White Blood Count 6.08 10^3/uL (3.29-11.43)
[2023-12-22 08:41] LABS: Troponin(5th) Baseline 33 ng/L (0-15)
--- NOTE | 2023-12-22 08:43 | PC.PHAR ---
PT IS [facility] MED L[facility] 12/22/23 8:43AM
[2023-12-22 08:49] LABS: Alanine Aminotransferase 20 U/L (0-41); Albumin Level 3.8 g/dL (3.5-5.2); Alkaline Phosphatase 69 U/L (40-130); Anion Gap 20.5 (5-19); Aspartate Amino Transferase 27 U/L (0-40); Blood Urea Nitrogen 16 mg/dL (8-23); Calcium 9.1 mg/dL (8.5-10.5); Carbon Dioxide 23 mmol/L (22-29); Chloride 101 mmol/L (98-107); Creatinine Clr Calc Pharmacy 57.8344; Globulin 2.8 g/dL (1.3-4.6); Glucose 112 mg/dL (65-115); Lipase 22 U/L (13-60); NT Pro B Type Natriuretic Pept 701 pg/mL (0-450); Osmolality Calculated 292 mOsm/kg (285-295); Potassium 4.5 mmol/L (3.5-5.1); Sodium 140 mmol/L (136-145); Total Bilirubin 0.5 mg/dL (0.15-1.2); Total Protein 6.6 g/dL (6.6-8.7)
--- NOTE | 2023-12-22 08:50 | ED_ITS ---
HPI - Weakness 2 General: Chief complaint: Weakness Stated complaint: WEAKNESS Time Seen by Provider: 12/22/23 08:17 History of Present Illness: 83-year-old man with history of hyperten peyton, atrial fibrillation with a pacemaker and on Eliquis, obstructive sleep apnea and anxiety who presents the emergency room with weakness and shortness of breath for the last couple of days. He does report his been being treated for vertigo but does not seem to be having symptoms of that today. He says he short of breath when he exerts himself. No cough. No fevers. No chest pain. No abdominal pain. No nausea or vomiting. He does report a decreased appetite and some malaise. No altered mental status. No focal motor deficits. Review of Systems 2 Narrative: Constitutional symptoms: Negative except as documented in HPI. Skin symptoms: Negative except as documented in HPI. Eye symptoms: Negative except as documented in HPI. ENMT symptoms: Negative except as documented in HPI. Respiratory symptoms: Negative except as documented in HPI. Cardiovascular symptoms: Negative except as documented in HPI. Gastrointestinal symptoms: Negative except as documented in HPI. Genitourinary symptoms: Negative except as documented in HPI. Musculoskeletal symptoms: Negative except as documented in HPI. Neurologic symptoms: Negative except as documented in HPI. Psychiatric symptoms: Negative except as documented in HPI. Endocrine symptoms: Negative except as documented in HPI. PFSH ED 2 PFSH: Medical History Dyslipidemia Presence of permanent cardiac pacemaker ABRAM (obstructive sleep apnea) C7 cervical fracture H/O: GI bleed Atherosclerotic heart disease of [place]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 Anemia GI bleed Hypertension Atrial fibrillation Mitral regurgitation Osteoporosis Anxiety History of pacemaker Surgical History Hx of tonsillectomy H/O hemorrhoidectomy History of hernia surgery Family History Brother CAD (coronary artery disease) Congestive heart failure (CHF) Cancer Sister Lung disease Other Atherosclerotic heart disease of [place]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 Denies family history of Diabetes Clotting disorder Dementia Hyperlipidemia Chronic kidney disease (CKD) Suicide Anesthesia complication Bleeding disorder Hypertension Stroke Social History Smoking and tobacco/nicotine status: former use of tobacco/nicotine Alcohol intake: never Substance/Drug Use: never Household members: none Marital status: Physical Exam 2 Narrative: EXAM NARRATIVE: General: Alert, no acute distress. Skin: Warm, dry. Head: Normocephalic, atraumatic. Neck: Supple, trachea midline. Eye: Extraocular movements are intact. Ears, nose, mouth and throat: Tacky oral mucosa Cardiovascular: Regular, Normal peripheral perfusion. Respiratory: Lungs are clear to auscultation, respirations are non-labored, breath sounds are equal, Symmetrical chest wall expansion. Gastrointestinal: Soft, Nontender, Non distended Musculoskeletal: Normal ROM, no deformity. Neurological: Alert and oriented, No focal neurological deficit observed. Psychiatric: Cooperative, appropriate mood & affect. Course 2 Vital Signs: Vital signs: Vital Signs Temperature 98.3 F 12/22/23 08:13 Pulse Rate 91 12/22/23 10:26 Respiratory Rate 16 12/22/23 08:13 Blood Pressure 110/84 12/22/23 10:26 Pulse Oximetry 95 12/22/23 10:26 Oxygen Delivery Me thod Room Air 12/22/23 10:26 MDM - Weakness Medical Decision Making Medical decision making: Differential diagnosis for patient presenting with generalized weakness including but not limited to and based on the above HPI, review of systems and physical exam: Sepsis. Dehydration. Renal failure. Electrolyte abnormalities. Anemia. Congestive heart failure. Hypotension. Coronary syndrome. Hepatitis. Cirrhosis. Infections such as pneumonia, urinary tract infection, [place] illness, Cellulitis, Viral infections including influenza and Covid-19. Workup: labwork and lab/exam driven imaging ordered to evaluate, rule in and rule out above pathologies. EKG: Time 8:25 AM. Rate 88. Atrial fibrillation with controlled rate, No ST-T changes, no ectopy, This was reviewed and interpreted by myself the ER physician at 8:30 AM Repeat EKG: Time 10:06 AM. Rate 94. Atrial fibrillation with controlled rate, No ST-T changes, no ectopy, This was reviewed and interpreted by myself the ER physician at 10:10 AM. Chest x-ray: No acute process. Mild cardiomegaly. Pacemaker in place on the left chest wall. No infiltrate. No pneumothorax. This was reviewed and interpreted by myself the ER physician. Lab Review: Laboratory results were reviewed and interpreted by myself the emergency room physician. No leukocytosis. Hemoglobin normal at 14. Platelets a little low at 164. BUN and creatinine are 16 and 1.1. This is near his baseline. No hyponatremia. No hyperkalemia. Liver enzymes are normal. Urinalysis clear for infection. Initial lactic acid was slightly elevated at 3.6. Initial troponin is 33 which is at or near his baseline. I reviewed the patient's medical record. Reexamination: Urine does appear a bit concentrated and blood pressures are little soft. I think he may be dehydrated. Some tacky oral mucosa. 500 mL bolus given. No increased work of breathing here. No altered mental status. No focal motor deficits. Patient has remained stable throughout his stay. Assessment and plan: Dehydration Weakness Atrial fibrillation Chronic anticoagulation with Eliquis ?Normal saline bolus in the emergency room. ? Rate is controlled patient is anticoagulated. Also has a pacemaker. - Discharged home - Discussed findings and plan with patient. Answered any questions. - All laboratory values were reviewed and interpreted personally by myself, the ER physician - All imaging was reviewed and interpreted personally by myself, the ER physician. - Evaluation and treatment of this problem were appropriate in the emergency setting Lab Data 12/22/23 08:00 12/22/23 08:00 Radiology Impressions Chest X-Ray 12/22/23 08:17 IMPRESSION: Stable chest without acute abnormality as above. Laboratory Results WBC 6.08 10^3/uL (3.29-11.43) 12/22/23 08:00 RBC 4.83 10^6/uL (3.85-5.65) 12/22/23 08:00 Hgb 14.10 g/dL (11.27-16.99) 12/22/23 08:00 Hct 43.9 % (37-53) 12/22/23 08:00 MCV 90.9 fl (82-101) 12/22/23 08:00 MCH 29.2 pg (27-33) 12/22/23 08:00 MCHC 32.1 g/dL (30-55) 12/22/23 08:00 RDW 16.1 % (12.1-15.1) H 12/22/23 08:00 Plt Count 164 10^3/cmm (157-399) 12/22/23 08:00 MPV 9.8 fL (7.4-10.4) 12/22/23 08:00 Neut % (Auto) 59.8 % 12/22/23 08:00 Lymph % (Auto) 29.8 % 12/22/23 08:00 [place] % (Auto) 8.2 % 12/22/23 08:00 Eos % (Auto) 1.3 % 12/22/23 08:00 Baso % (Auto) 0.2 % 12/22/23 08:00 Neut # (Auto) 3.64 10^3/uL (1.8-7.7) 12/22/23 08:00 Lymph # (Auto) 1.8 10^3/uL (0.8-4.8) 12/22/23 08:00 [place] # (Auto) 0.5 10^3/uL (0.2-0.9) 12/22/23 08:00 Eos # (Auto) 0.1 10^3/uL (0.0-0.8) 12/22/23 08:00 Baso # (Auto) 0.0 10^3/uL (0.0-0.1) 12/22/23 08:00 Nucleated RBC % (auto) 0 % 12/22/23 08:00 Nucleated RBCs # 0.0 /100WBC 12/22/23 08:00 Sodium 140 mmol/L (136-145) 12/22/23 08:00 Potassium 4.5 mmol/L (3.5-5.1) 12/22/23 08:00 Chloride 101 mmol/L (98-107) 12/22/23 08:00 Carbon Dioxide 23 mmol/L (22-29) 12/22/23 08:00 Anion Gap 20.5 (5-19) H 12/22/23 08:00 BUN 16 mg/dL (8-23) 12/22/23 08:00 Creatinine 1.1 mg/dL (0.7-1.2) 12/22/23 08:00 GFR Calculation Not Reportable 12/22/23 08:00 Glucose 112 mg/dL (65-115) 12/22/23 08:00 Calculated Osmolality 292 mOsm/kg (285-295) 12/22/23 08:00 Lactic Acid 3.6 mmol/L (0.5-2.2) H 12/22/23 08:36 Calcium 9.1 mg/dL (8.5-10.5) 12/22/23 08:00 Total Bilirubin 0.5 mg/dL (0.15-1.2) 12/22/23 08:00 AST 27 U/L (0-40) 12/22/23 08:00 ALT 20 U/L (0-41) 12/22/23 08:00 Alkaline Phosphatase 69 U/L (40-130) 12/22/23 08:00 Troponin T Baseline 33 ng/L (0-15) H 12/22/23 08:00 Troponin T 120 Minute 32.66 ng/L (0-15) H 12/22/23 09:52 Delta Troponin T -0.34 ABS# (0-10) L 12/22/23 09:52 C-Reactive Protein 3.0 mg/L (0.0-4.9) 12/22/23 08:00 NT-Pro-B Natriuret Pep 701 pg/mL (0-450) H 12/22/23 08:00 Total Protein 6.6 g/dL (6.6-8.7) 12/22/23 08:00 Albumin 3.8 g/dL (3.5-5.2) 12/22/23 08:00 Globulin 2.8 g/dL (1.3-4.6) 12/22/23 08:00 Lipase 22 U/L (13-60) 12/22/23 08:00 Urine Color Dark yellow (Yellow) A 12/22/23 09:20 Urine Appearance Cloudy (CLEAR) A 12/22/23 09:20 Urine pH 5.5 (5-7) 12/22/23 09:20 Ur Specific [place] 1.024 (1.005-1.030) 12/22/23 09:20 Urine Protein 1+ (Negative) A 12/22/23 09:20 Urine Glucose (UA) Negative (Normal) 12/22/23 09:20 Urine Ketones Trace (Negative) 12/22/23 09:20 Urine Blood Negative (Negative) 12/22/23 09:20 Urine Nitrate Negative (Negative) 12/22/23 09:20 Urine Bilirubin Negative (Negative) 12/22/23 09:20 Urine Urobilinogen 1.0 mg/dL (Negative) 12/22/23 09:20 Ur Leukocyte Esterase Negative (Negative) 12/22/23 09:20 Urine RBC 0-2 /hpf (0-2) 12/22/23 09:20 Urine WBC 0-5 /hpf (0-5) 12/22/23 09:20 Ur Squamous Epith Cells 11-20 /hpf (0-5) 12/22/23 09:20 Amorphous Sediment Not Reportable 12/22/23 09:20 Urine Bacteria None seen /hpf (NONE) 12/22/23 09:20 Hyaline Casts 11.16 /lpf 12/22/23 09:20 Influenza Type A Ag negative (Negative) 12/22/23 08:26 Influenza Type B Ag negative (Negative) 12/22/23 08:26 SARS-CoV-2 Ag (Rapid) negative (Negative) 12/22/23 08:26 All radiology interpretation(s) finalized by discharge Discharge Plan Discharge Patient Disposition: Home Clinical Impression: Dehydration, Generalized weakness, Exertional dyspnea Condition: Stable Prescriptions: No Action ascorbate calcium (vitamin C) 500 mg tablet 500 mg PO DAILY cholecalciferol (vitamin D3) 25 mcg (1,000 unit) capsule 25 mcg PO DAILY amiodarone 200 mg tablet 100 mg PO BID loratadine 10 mg tablet 10 mg PO DAILY dextromethorphan-guaifenesin [Guaifenesin DM] 10-100 mg/5 mL Syrup 10 ml PO QID PRN (Reason: Congestion) magnesium hydroxide [Milk of Magnesia] 400 mg/5 mL Suspension 10 ml PO DAILY lidocaine 5 % Adhesive Patch,Medicated See Rx Instructions .ROUTE .COMPLEX Rx Instructions: APPLY 1 patch topically, leave on most painful area for up to 12 hrs, THEN REMOVE PATCH FOR 12 HOURS fluoxetine 10 mg capsule 10 mg PO QAM polyethylene glycol 3350 [Miralax] 17 gram/dose Powder 17 g PO DAILY PRN (Reason: Constipation) albuterol sulfate 90 mcg/actuation HFA aerosol inhaler 1 - 2 puff INHALATION Q4H PRN (Reason: Shortness Of Breath) bisacodyl 5 mg Tablet 10 mg PO DAILY PRN (Reason: Constipation) diclofenac sodium 1 % Gel See Rx Instructions .ROUTE .COMPLEX Rx Instructions: APPLY 4 GRAMS TO AFFECTED AREA(S) 4 TIMES DAILY FOR PAIN. DO NOT EXCEED MORE THAN 16 GRAMS DAILY TO ANY LOWER EXTREMITY JOINT. NOT MORE THAN 8 GRAMS DAILY TO ANY UPPER EXTREMITY JOINT. MAX 32 GRAMS DAILY OVER ALL JOINTS. potassium chloride 20 mEq Tablet Extended Release 10 meq PO DAILY isosorbide mononitrate 30 mg Tablet Extended Release 24 Hr 30 mg PO QAM rosuvastatin 40 mg Tablet 40 mg PO QPM Eliquis 5 mg Tablet 5 mg PO BID ondansetron 4 mg tablet,disintegrating 4 mg PO Q8H PRN (Reason: nausea and vomiting) Qty: 14 0RF multivitamin Tablet 1 tab PO QAM Senokot 8.6 mg Tablet 8.6 mg PO DAILY PRN (Reason: Constipation) levothyroxine 75 mcg Tablet 75 mcg PO QAM tamsulosin 0.4 mg Capsule 0.4 mg PO QPM Advair Diskus 100-50 mcg/dose Blister With Device 1 inh INHALATION BID Lasix 20 mg tablet 20 mg PO QAM tramadol 50 mg tablet 50 mg PO Q6H PRN (Reason: Pain) Discharge Orders: Discharge ED (Routine); Ordered 12/22/23 Ordered By: Nora Infante Referrals: Maggi Aguilar MD [Primary Care Provider] - 1-3 days Discharge Diet: Usual diet Discharge Activity: Increase activity as tolerated Patient Instructions: Dyspnea (ED) Activity Restrictions/Additional Instructions: Thank you for choosing [facility] for your healthcare needs today. Please realize this is an emergency room and that we are providing you with a medical screening exam and this may not be complete and all inclusive of all the testing and or work up that you may need to determine your ailment or severity of your illness. You have been screened and evaluated and felt safe for discharge. Health conditions do change or evolve sometimes and as such it is important that you follow up with your Primary Doctor to be re checked, 3-5 days is a general good time frame for follow up. You are always welcome to return to the ED for re assessment if your symptoms are worsening or you have new concerns Coding Level of Care Code ED Director Personal for Rom Posada
[2023-12-22 08:52] LABS: SARS Covid-2 Antigen negative (Negative)
[2023-12-22 09:15] LABS: Lactic Sepsis W/Reflex 3.6 mmol/L (0.5-2.2)
[2023-12-22 09:21] LABS: Influenza A by IFA negative (Negative); Influenza B by IFA negative (Negative)
[2023-12-22 09:22] VITALS: BP 100/71; O2SAT 93
[2023-12-22 09:41] LABS: Bilirubin Urine Negative (Negative); Blood Urine Negative (Negative); Glucose Urine UA Negative (Normal); Ketones Urine Trace (Negative); Leukocyte Esterase Urine Negative (Negative); Nitrate Urine Negative (Negative); Protein Urine 1+ (Negative); Specific Gravity, Urine 1.024 (1.005-1.030); Urine Appearance Cloudy (CLEAR); Urine Color Dark Yellow (Yellow); pH Urine 5.5 (5-7)
[2023-12-22 09:43] LABS: Bacteria Urine None Seen /hpf; Hyaline Casts Urine 11.16 /lpf; RBC Urine 0-2 /hpf (0-2); WBC Urine 0-5 /hpf (0-5)
[2023-12-22 10:17] LABS: Troponin 5 2HR 32.66 ng/L (0-15)
--- NOTE | 2023-12-22 10:18 | ECG_ITS ---
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 Measurements Intervals [place] Rate: 94 P: 0 LA: 0 QRS: 126 QRSD: 132 T: -38 QT: 411 QTc: 515 Interpretive Statements ATRIAL FIBRILLATION INTRAVENTRICULAR CONDUCTION DELAY [130+ ms QRS DURATION] POSSIBLE RIGHT VENTRICULAR HYPERTROPHY [SOME/ALL OF: PROMINENT R IN V1, LATE TRANSITION, RAD, ARA, SSS] Compared to ECG 12/22/2023 08:25:03 Intraventricular conduction delay now present Right-axis deviation no longer present Right bundle-branch block no longer present T-wave abnormality no longer present Possible ischemia no longer present Electronically Signed On 12-22-2023 10:30:02 CDT by Ramírez Fournier M.D. [id number]
[2023-12-22 10:19] LABS: Troponin 5 2HR Delta -0.34 ABS# (0-10)
[2023-12-22 10:26] VITALS: BP 110/84; PULSE 91; O2SAT 95
[2023-12-22 10:32] LABS: Reflex Lactate Order REFLEX LACTIC ORDERD
[2023-12-22] MEDS: sodium chloride 0.9% 500 ML 999 ML IV (10:46)
== END 2023-12-22 11:28 | disposition home or self-care (01) ==
PROVIDERS: Emergency Provider Emergency Medicine; PCP Family Medicine
DX: R53.1 Weakness (principal); E86.0 Dehydration; R06.00 Dyspnea, unspecified; Z79.01 Long term (current) use of anticoagulants; Z11.52 Encounter for screening for COVID-19; Z87.891 Personal history of nicotine dependence; E78.5 Hyperlipidemia, unspecified; Z95.0 Presence of cardiac pacemaker; I25.10 Atherosclerotic heart disease of native coronary artery without angina pectoris; I10 Essential (primary) hypertension
CPT/HCPCS: 36415; 71045; 80053; 81001; 83605; 83690; 83880; 84484; 85025; 86140; 87040; 87426; 87804; 93005; 96360; 99285; J7040

== ENCOUNTER → 2023-12-30 08:49 | Outpatient (BNVA) | payer OTHER, MEDICARE, SELFPAY | PROVIDERS: PCP Family Medicine; Visit Provider Nurse Practitioner Family | DX: Z95.0 Presence of cardiac pacemaker (principal); I25.10 Atherosclerotic heart disease of native coronary artery without angina pectoris; I11.0 Hypertensive heart disease with heart failure; I50.32 Chronic diastolic (congestive) heart failure; I48.0 Paroxysmal atrial fibrillation | CPT/HCPCS: 99214 ==

== ENCOUNTER 2024-01-03 07:23 | Outpatient (CLI) | payer OTHER, SELFPAY ==
[2024-01-03] VITALS (9 sets, daily range): BP systolic 116–145; BP diastolic 77–97; PULSE 71–86; RESP 15–20; TEMP 36.6; O2SAT 93–98; BMI 31.3
[2024-01-03 07:57] LABS: Basophils % 0.4 %; Eosinophils # 0.1 10^3/uL (0.0-0.8); Eosinophils % 1.9 %; Hematocrit 40.5 % (37-53); Lymphocytes # 2.1 10^3/uL (0.8-4.8); Lymphocytes % 39.6 %; Mean Corpuscular HGB Conc 32.1 g/dL (30-55); Mean Corpuscular Hemoglobin 29.8 pg (27-33); Mean Corpuscular Volume 92.9 fl (82-101); Mean Platelet Volume 10.2 fL (7.4-10.4); Monocytes # 0.5 10^3/uL (0.2-0.9); Monocytes % 9.1 %; Neutrophils # 2.56 10^3/uL (1.8-7.7); Neutrophils % 48.4 %; Nucleated Red Blood Cells % 0 %; Platelet Count 152 10^3/cmm (157-399); Red Blood Count 4.36 10^6/uL (3.85-5.65); Red Cell Distribution Width 16.1 % (12.1-15.1); White Blood Count 5.28 10^3/uL (3.29-11.43)
[2024-01-03 08:11] LABS: Anion Gap 17.9 (5-19); Blood Urea Nitrogen 18 mg/dL (8-23); Calcium 8.7 mg/dL (8.5-10.5); Carbon Dioxide 24 mmol/L (22-29); Chloride 105 mmol/L (98-107); Glucose 104 mg/dL (65-115); Osmolality Calculated 298 mOsm/kg (285-295); Potassium 3.9 mmol/L (3.5-5.1); Sodium 143 mmol/L (136-145)
--- NOTE | 2024-01-03 08:18 | PC.NURSE ---
Unable to confirm medications. Patient was asked to bring in home medication list or medication bottles. Patient brought in medications with pill organizer. Patient poor historian on home medications. He was certain his last dose of eliquis was Wednesday night at 1999.
--- NOTE | 2024-01-03 08:43 | W.PM.OPSUD ---
Surgery/Procedure H&P Update DATE OF PROCEDURE: January 03, 2024 DATE H&P PERFORMED: 12/30/23 H&P UPDATE INFORMATION: I have reviewed H&P completed within last 30 days, I have examined patient prior to procedure and No changes to prior documentation PREOP DIAGNOSIS: Pacemaker ALEJA PRIMARY INDICATION FOR PROCEDURE: Patient with intermittent atrial fibrillation and symptomatic bradycardia PLANNED PROCEDURE: Operation Date: 01/03/24 08:30 Proposed Procedures p Pacemaker Generator Change - REM/REP DUAL PPM/ GEN CHANGEJIMENEZ PACEMAKER(Not Applicable) - Abdullahi Saldana MD PATIENT REASSESSED PRIOR TO SEDATION, WITH NO CHANGE NOTED: Yes PHYSICAL EXAM: alert, oriented x 3, clear to auscultation bilaterally and regular rate & rhythm AIRWAY EVAL/ANESTHESIA PLAN: normal airway, see other exam findings, ASA III, Local Anesthesia, Risks, benefits & alternatives of sedation and/or procedure discussed and Patient agrees to continue as planned
--- NOTE | 2024-01-03 10:03 | PC.NURSE ---
Pt updated on procedure Pt procedure pushed back to [address] Saldana. Pt updated. Call light in reach. Denies pain.
--- NOTE | 2024-01-03 13:09 | P.OP_ITS ---
Operative Report Date of procedure: January 03, 2024 Surgeon: Abdullahi Saldana MD Procedure: PROCEDURE: PACEMAKER REVISION PREOPERATIVE DIAGNOSIS: Pacemaker elective replacement indication. POSTOPERATIVE DIAGNOSIS: Pacemaker elective replacement indication. ESTIMATED BLOOD LOSS: None COMPLICATIONS: None. BRIEF HISTORY: The patient is 83-year-old white male who had a permanent pacemaker implantation for symptomatic bradycardia/atrial fibrillation. The patient was found to have elective replacement indication, during routine office followup evaluation. For further management of patient's condition for the [symptomatic bradycardia], the patient required a pacemaker revision. Patient required a dual-chamber pacemaker for symptom relief and the need for AV synchrony The procedure was explained to the patient in detail with the risks and benefits. The risks of bleeding, hematoma, vascular injury, infection and other concomitant complications were explained in detail, which the patient understood well and consented to proceed. PROCEDURES PERFORMED: 1. Explantation of the old pacemaker generator. 2. Implantation of the new generator. The patient brought to the Cardiac Magnetic Tape Composer Operator. The left side of the neck and the subclavian area were cleaned and draped in a sterile fashion. 1% Xylocaine was used for local anesthetic agent. A 2 inch long incision was made just below the previous pacemaker scar. By sharp and blunt dissection, the pacemaker pocket was accessed. The old generator was delivered from the pocket. The generator was detached from the lead. The new Medtronic generator was attached to the lead. The pacemaker pocket was copiously irrigated with vancomycin solution. Complete hemostasis was achieved. The lead was positioned behind the generator and the generator was attached to the pectoralis fascia by suturing with 0 Surgilon. Sponge counts were confirmed. The pacemaker pocket was closed in layers. Skin was approximated using 4-0 Vicryl. EXPLANTED DEVICE: Pacemaker Generator: Brand: [employer]. Model number: 2240. Serial number: [id number]. Date of implant: 01/15/2016 IMPLANTED DEVICES: Ventricular Lead: Date of implantation: 01/15/2016 Model number: [id number] TC Serial number: [id number] Make: Aragon Atrial lead Date of implantation: 01/15/2016 Model number: [id number] TC Serial number: [id number] Make: Aragon. Implanted Generator: Date of implantation : 01/03/2024 Brand: [employer] MRI. WHITAKER Model number: [id number] Serial number: [id number] Make: [employer] Stimulation Threshold: The ventricular sensing was greater than 12 mV millivolts. Ventricular lead impedance was 400 ohms and the pacing threshold was 1.5 volts at 0.5 milliseconds. The atrial sensing was 1.0 millivolts(patient was in atrial flutter). Atrial lead impedance was 350 ohms and the pacing threshold was not obtained due to atrial flutter/fibrillation The pacemaker was set for [DDDR] mode with an upper rate of [115] and a lower rate of [60]. Mode switch was turned on A pressure dressing was applied over the pacemaker site. The patient was transferred back to medical floor in stable condition. Sponge counts were correct.
--- NOTE | 2024-01-03 13:33 | PC.NURSE ---
1305 - Pressure dressing in place to left chest. No bleeding or swelling noted at this time. Denies Pain. NAD noted at this time.
[2024-01-03] MEDS: albuterol 2.5 mg/3 mL Neb INHALATION ×2 (15:44→20:00)
[2024-01-03] MEDS: lidocaine 5% Patch 1 PATCH TOPICAL (16:45)
[2024-01-03] MEDS: ceFAZolin 2,000 mg SDV 2000 MG IVP ×2 (16:48→23:02)
[2024-01-03] MEDS: tamsulosin 0.4 mg Capsule PO (16:58)
[2024-01-03] MEDS: atorvastatin 40 mg Tablet PO (16:58)
[2024-01-03] MEDS: amiodarone 200 mg Tablet 100 MG PO (19:33)
[2024-01-03] MEDS: budesonide 0.5 mg/2 mL Neb INHALATION (20:00)
--- NOTE | 2024-01-04 05:33 | ECG_ITS ---
[facility] Test Date: 2024-01-04 Pat Name: Jose Francis Department: Room: 263 Gender: Male Mesh Man: : 1940 Requested By: Abdullahi Saldana Order Number: [id number] Jasmyn MD: Abdullahi Saldana M.D. Measurements Intervals [place] Rate: 81 P: 0 MD: 0 QRS: 116 QRSD: 130 T: -44 QT: 429 QTc: 500 Interpretive Statements ATRIAL FIBRILLATION POSSIBLE RIGHT VENTRICULAR HYPERTROPHY [SOME/ALL OF: PROMINENT R IN V1, LATE TRANSITION, RAD, ARA, SSS] ST DEVIATION AND MODERATE T-WAVE ABNORMALITY, CONSIDER ANTEROLATERAL ISCHEMIA [-0.1+ mV T-WAVE IN V3-V6] ST DEVIATION AND MODERATE T-WAVE ABNORMALITY, CONSIDER INFERIOR ISCHEMIA [-0.1+ mV T-WAVE IN II/aVF] Compared to ECG 12/22/2023 10:06:15 T-wave abnormality now present Possible ischemia now present Intraventricular conduction delay no longer present Electronically Signed On 01-04-2024 23:37:02 CDT by Abdullahi Saldana M.D. [id number]
[2024-01-04] MEDS: FUROsemide 20 mg Tablet PO (06:21)
[2024-01-04] MEDS: levothyroxine 75 mcg Tablet PO (06:22)
[2024-01-04] MEDS: multivitamin therapeutic Tablet 1 TAB PO (06:22)
[2024-01-04] MEDS: isosorbide mononitrate ER 30 mg Tablet PO (06:22)
[2024-01-04] MEDS: fluoxetine 10 mg Capsule PO (06:22)
[2024-01-04 08:00] VITALS: PULSE 76; RESP 18; O2SAT 97
[2024-01-04] MEDS: albuterol 2.5 mg/3 mL Neb INHALATION ×2 (08:44→11:06)
[2024-01-04] MEDS: budesonide 0.5 mg/2 mL Neb INHALATION (08:44)
[2024-01-04 08:48] VITALS: BP 129/84; PULSE 89; RESP 18; TEMP 36.5; O2SAT 92
[2024-01-04] MEDS: metformin 500 mg Tablet PO (08:51)
[2024-01-04] MEDS: amiodarone 200 mg Tablet 100 MG PO (08:51)
[2024-01-04] MEDS: cholecalciferol (vitamin D3) 1,000 unit Tablet 1000 UNIT PO (08:51)
[2024-01-04] MEDS: loratadine 10 mg Tablet PO (08:51)
[2024-01-04] MEDS: ceFAZolin 2,000 mg SDV 2000 MG IVP (08:51)
[2024-01-04] MEDS: ascorbic acid 500 mg Tablet PO (08:51)
[2024-01-04] MEDS: potassium chloride ER 10 mEq Tablet PO (08:52)
--- NOTE | 2024-01-04 09:06 | PC.CHAP ---
Pastoral Care Encounter/Spiritual Assessment Type of Contact [] Declined assistant customer service manager visit [] Patient/Family/Request visit [] Outpatient visit [] Follow-up visit [] Physician referral [] Code/Alert [x] Routine visit [] Staff referral [] Actively dying [] Patient sleeping [] Family support [] [] Out of room [] Palliative care [] [] Receiving care in room [] Pre-surgical visit [] Trauma [] Long length of stay [] ICU visit [] Other: Relational/Emotional Strength [x] Patient feels connected with others/family/visitors/staff [] Distress [] Loneliness/isolation [] Abandonment Spirituality of Patient [x] Person of Leanna [] Attends Advent of their Leanna [x] Believes in Prayer [] Reads Bible or Temple materials [] There are Spiritual issues to be addressed Foundry Technician Interventions [x] Prayer [x] Active listening [] Non-anxious presence [x] Spiritual/emotional support [] Crisis/trauma care [] Spiritual counseling [] Bereavement support [] Provided bereavement packet [] Provided Bible/devotional materials [] Provided toy/stuffed animal, coloring book to patient or family member [] Provided Communion [] Anointing/[place] [] Salvation [x] Completed spiritual assessment [] Other: Impact on Illness or Injury [] Angry [] Fearful [] Anxious [] Often cries [] Exhaustion [] Unable to work [] Unable to attend evangelical [] Unable to walk/stand [] Unable to read [] Unable to drive [] Unable to eat/drink [] Unable to sleep [] Unable to be with family [] Patient intubated [] Other: Summary Time spent with patient 5 min
[2024-01-04 11:08] VITALS: PULSE 103; RESP 18; O2SAT 98
[2024-01-04 11:46] VITALS: BP 100/62; PULSE 76; RESP 19; TEMP 36.5; O2SAT 94
--- NOTE | 2024-01-04 12:14 | P.PN_ITS ---
Subjective 2 Subjective: This patient is admitted to the hospital following the pacemaker revision for IV antibiotics and close monitoring. Patient was having some features of COPD exacerbation. He responded appropriately to the nebulizer treatment. Remained stable otherwise with no fever or chills. No hematoma bleeding from the pacemaker site. Tolerated IV antibiotics well Medications: Medication Review Details: Current Medications Albuterol Sulfate (Albuterol 2.5 Mg/3 Ml Neb) 2.5 mg INHALATION Q4H.RESPIRATORY PRN PRN Reason: Shortness Of Breath Albuterol Sulfate (Albuterol 2.5 Mg/3 Ml Neb) 2.5 mg INHALATION QID.RESPIRATORY [facility] Last Admin: 01/04/24 11:06 Dose: 2.5 mg Amiodarone HCl (Amiodarone 200 Mg Tablet) 100 mg PO BID [facility] Last Admin: 01/04/24 08:51 Dose: 100 mg Ascorbic Acid (Ascorbic Acid 500 Mg Tablet) 500 mg PO DAILY [facility] Last Admin: 01/04/24 08:51 Dose: 500 mg Atorvastatin Calcium (Atorvastatin 40 Mg Tablet) 40 mg PO QPM [facility] Last Admin: 01/03/24 16:58 Dose: 40 mg Bisacodyl (Bisacodyl 5 Mg Tablet) 10 mg PO DAILY PRN PRN Reason: Constipation Budesonide (Budesonide 0.5 Mg/2 Ml Neb) 0.5 mg INHALATION BID.RESPIRATORY [facility] Last Admin: 01/04/24 08:44 Dose: 0.5 mg Diclofenac Sodium (Diclofenac 1% Topical Gel 100 Gm) 4 applic TOPICAL QID PRN PRN Reason: PAIN Fluoxetine HCl (Fluoxetine 10 Mg Capsule) 10 mg PO [facility] Last Admin: 01/04/24 06:22 Dose: 10 mg Furosemide (F[facility]semide 20 Mg Tablet) [facility] [place] Admin: 01/04/24 06:21 Dose: 20 mg Guaifenesin/Dextromethorphan (Guaifenesin-Dextromethorphan Udc 10 Ml) 10 ml PO QID PRN PRN Reason: Congestion Sodium Chloride (Sodium Chloride 0.9%) 1,000 mls @ 75 mls/hr IV .[id number] [facility] Last Admin: 01/03/24 22:55 Dose: Not Given Isosorbide Mononitrate (Isosorbide Mononitrate Er 30 Mg Tablet) [facility] [place] Admin: 01/04/24 06:22 Dose: 30 mg Levothyroxine Sodium (Levothyroxine 75 Mcg Tablet) 75 mcg PO QAM [facility] Last Admin: 01/04/24 06:22 Dose: 75 mcg Lidocaine (Lidocaine 5% Patch) 1 patch TOPICAL [id number] [facility] Last Admin: 01/04/24 08:46 Dose: Not Given Loratadine (Loratadine 10 Mg Tablet) 10 mg PO DAILY [facility] Last Admin: 01/04/24 08:51 Dose: 10 mg Metformin HCl (Metformin 500 Mg Tablet) 500 mg PO DAILY [facility] Last Admin: 01/04/24 08:51 Dose: 500 mg Multivitamins Therapeutic (Multivitamin Therapeutic Tablet) 1 tab PO QAM [facility] Last Admin: 01/04/24 06:22 Dose: 1 tab Ondansetron HCl (Ondansetron 4 Mg Tablet) 4 mg PO Q8H PRN PRN Reason: nausea and vomiting Potassium Chloride (Potassium Chloride Er 10 Meq Tablet) 10 meq PO DAILY [facility] Last Admin: 01/04/24 08:52 Dose: 10 meq Tamsulosin HCl (Tamsulosin 0.4 Mg Capsule) 0.4 mg PO QPM [facility] Last Admin: 01/03/24 16:58 Dose: 0.4 mg Tramadol HCl (Tramadol 50 Mg Tablet) 50 mg PO Q6H PRN PRN Reason: Pain Vitamin D (Cholecalciferol (Vitamin D3) 1,000 Unit Tablet) 1,000 unit PO DAILY [facility] Last Admin: 01/04/24 08:51 Dose: 1,000 unit Vitals/I&O/Wt Last Vital Signs Temp 97.7 F 01/04/24 11:46 Pulse 76 01/04/24 11:46 Resp 19 H 01/04/24 11:46 BP 100/62 01/04/24 11:46 Pulse Ox 94 01/04/24 11:46 O2 Del Method Room Air 01/04/24 11:46 01/03/24 01/04/24 01/04/24 22:59 06:59 14:59 Intake Total 300 / 540 360 / 360 Output Total 700 / 700 525 / 525 Balance 300 / 540 -700 / -160 -165 / -165 Weight last 48 hrs Weight 200 lb Weight 200 lb Physical Exam 2 Narrative: GENERAL: The patient is alert and oriented times three. Not in any acute distress. HEENT: No significant pallor, icterus or lymphadenopathy.Oral cavity: There are no mucous membrane lesions. NECK: Trachea appears to be central. No masses noted. No JVD or thyromegaly appreciated. RESPIRATORY: Chest is symmetrical. No intercostals muscle retraction or any accessory muscle activation. There is no chest wall tenderness. Breath sounds are heard bilaterally. Occasional expiratory wheezing no evidence of any consolidation. BREASTS: Deferred. HEART: The heart sounds are normal. No S3 or S4. No significant murmurs. No pericardial rub ABDOMEN: No vessel pulsations or distention. No tenderness. No organomegaly appreciated. Bowel sounds are normally heard. : Deferred. RECTAL: Deferred. LYMPHATIC: No lymphadenopathy noted in the neck. EXTREMITIES: No edema or cyanosis. No clubbing. MUSCULOSKELETAL: No acute joint deformities or swelling SKIN: There are no significant rashes or ecchymosis NEUROPSYCHIATRIC: The patient is alert and oriented x3. Appears to be in a good mood. No tremors or rigidity noted. Data 01/03/24 07:35 01/03/24 07:35 Other Labs: Laboratory Last Values WBC 5.28 10^3/uL (3.29-11.43) 01/03/24 07:35 RBC 4.36 10^6/uL (3.85-5.65) 01/03/24 07:35 Hgb 13.00 g/dL (11.27-16.99) 01/03/24 07:35 Hct 40.5 % (37-53) 01/03/24 07:35 MCV 92.9 fl (82-101) 01/03/24 07:35 MCH 29.8 pg (27-33) 01/03/24 07:35 MCHC 32.1 g/dL (30-55) 01/03/24 07:35 RDW 16.1 % (12.1-15.1) H 01/03/24 07:35 Plt Count 152 10^3/cmm (157-399) L 01/03/24 07:35 MPV 10.2 fL (7.4-10.4) 01/03/24 07:35 Neut % (Auto) 48.4 % 01/03/24 07:35 Lymph % (Auto) 39.6 % 01/03/24 07:35 [place] % (Auto) 9.1 % 01/03/24 07:35 Eos % (Auto) 1.9 % 01/03/24 07:35 Baso % (Auto) 0.4 % 01/03/24 07:35 Neut # (Auto) 2.56 10^3/uL (1.8-7.7) 01/03/24 07:35 Lymph # (Auto) 2.1 10^3/uL (0.8-4.8) 01/03/24 07:35 [place] # (Auto) 0.5 10^3/uL (0.2-0.9) 01/03/24 07:35 Eos # (Auto) 0.1 10^3/uL (0.0-0.8) 01/03/24 07:35 Baso # (Auto) 0.0 10^3/uL (0.0-0.1) 01/03/24 07:35 Nucleated RBC % (auto) 0 % 01/03/24 07:35 Nucleated RBCs # 0.0 /100WBC 01/03/24 07:35 Sodium 143 mmol/L (136-145) 01/03/24 07:35 Potassium 3.9 mmol/L (3.5-5.1) 01/03/24 07:35 Chloride 105 mmol/L (98-107) 01/03/24 07:35 Carbon Dioxide 24 mmol/L (22-29) 01/03/24 07:35 Anion Gap 17.9 (5-19) 01/03/24 07:35 BUN 18 mg/dL (8-23) 01/03/24 07:35 Creatinine 1.2 mg/dL (0.7-1.2) 01/03/24 07:35 GFR Calculation Not Reportable 01/03/24 07:35 Glucose 104 mg/dL (65-115) 01/03/24 07:35 Calculated Osmolality 298 mOsm/kg (285-295) H 01/03/24 07:35 Calcium 8.7 mg/dL (8.5-10.5) 01/03/24 07:35 A&P Assessment and plan (1) Presence of permanent cardiac pacemaker: Patient went the pacemaker revision yesterday. He is seems to be doing okay with no hematoma bleeding from the pacemaker site. (2) Dyslipidemia: May continue on the current medications (3) Atherosclerosis of coronary artery of [place] heart without angina pectoris: Qualifiers: Coronary Disease-Associated Artery/Lesion type: [place] artery Qualified Code(s): I25.10 - Atherosclerotic heart disease of [place] coronary artery without angina pectoris (4) Intermittent atrial fibrillation: This patient currently has no specific symptoms of atrial fibrillation/flutter. Advised to continue on the current treatment. In the event of developing any unusual palpitation, dizziness or syncopal episodes-advised to contact our office. (5) Benign hypertension: Since the blood pressure is in the normal range, patient may not require any medication changes at this time. Advised to continue on the current measures. Plan Patient was having some respiratory difficulty this morning. He responded appropriately to the nebulizer treatment. Will continue on the current medications. Cephalexin 500 mg p.o. every 6 hours for 5 days. Multivitamin 1 tablet daily for 2 weeks Attestations 2 Medical Necessity Statement*: Patient is being discharged home today. Coding Level of Care Code 56655 Diagnoses Presence of permanent cardiac pacemaker Z95.0 Dyslipidemia E78.5 Atherosclerosis of [place] coronary artery of [place] heart without angina pectoris I25.10 Coronary Disease-Associated Artery/Lesion type: [place] artery Intermittent atrial fibrillation I48.0 Benign hypertension I10
--- NOTE | 2024-01-04 14:27 | PC.NURSE ---
Discharge Note Patient discharged to home via POV accompanied by son. Discharge instructions reviewed with patient and/or unit support representative. Mobile pharmacy medications and/or prescriptions provided. Belongings/home medications returned.
== END 2024-01-04 14:28 | disposition home or self-care (01) ==
LOC: CCL 07:26 → MEDSURG 01-04 11:06
PROVIDERS: PCP Family Medicine; Visit Provider Internal Medicine Cardiovascular Disease
DX: Z45.010 Encounter for checking and testing of cardiac pacemaker pulse generator [battery] (principal); E78.5 Hyperlipidemia, unspecified; I25.10 Atherosclerotic heart disease of native coronary artery without angina pectoris; I48.0 Paroxysmal atrial fibrillation; I10 Essential (primary) hypertension; G47.33 Obstructive sleep apnea (adult) (pediatric); M81.0 Age-related osteoporosis without current pathological fracture
CPT/HCPCS: 33228; 36415; 80048; 85025; 93005; 94640; 96374; 96375; 97165; 99152; 99153; A4216; C1769; C1785; J0690; J2250; J3010; J3370; J7030; J7050; J7613; J7626

== ENCOUNTER → 2024-01-11 14:16 | Outpatient (BNVA) | payer OTHER, SELFPAY | PROVIDERS: PCP Family Medicine; Visit Provider Nurse Practitioner Family | DX: I25.10 Atherosclerotic heart disease of native coronary artery without angina pectoris (principal); I10 Essential (primary) hypertension; Z87.891 Personal history of nicotine dependence | CPT/HCPCS: 99213 ==

== ENCOUNTER 2024-02-03 14:24 | Emergency (ER) | payer OTHER, MEDICARE, BC, SELFPAY ==
[2024-02-03 14:26] VITALS: BP 118/84; PULSE 113; RESP 16; TEMP 36.7; O2SAT 92
--- NOTE | 2024-02-03 14:31 | CTR_ITS ---
PROCEDURE INFORMATION: Exam: CT Head Without Contrast Exam date and time: 02/03/2024 3:13 PM Age: 83 years old Clinical indication: Injury or trauma; Fall; Blunt trauma (contusions or hematomas); Additional info: Fall, head injury TECHNIQUE: Imaging protocol: Computed tomography of the head without contrast. Radiation optimization: All CT scans at this facility use at least one of these dose optimization techniques: automated exposure control; mA and/or kV adjustment per patient size (includes targeted exams where dose is matched to clinical indication); or iterative reconstruction. COMPARISON: CT head wo con* [id number] 04/25/2023 1:08 PM RADIATION DOSE METRICS: Total DLP (mGy-cm): 1228.98 FINDINGS: Brain: No intracranial hemorrhage. There is global parenchymal volume loss. Periventricular white matter hypoattenuation is nonspecific but most likely due to small vessel disease. No evidence of acute territorial infarct or cerebral edema. No mass effect or midline shift. Cerebral ventricles: Prominent ventricles likely secondary to volume loss. Paranasal sinuses: Visualized sinuses are unremarkable. No fluid levels. Mastoid air cells: Visualized mastoid air cells are well aerated. Bones: Unremarkable. No acute fracture. Soft tissues: Unremarkable. CT/CT head wo con* [id number] IMPRESSION: No acute intracranial findings.
[2024-02-03 14:37] VITALS: BP 118/84; PULSE 100; RESP 20; O2SAT 94
--- NOTE | 2024-02-03 14:42 | W.ED.WEAKNES ---
HPI - Weakness General: Chief complaint: Weakness Stated complaint: fall, vertigo, skin lac Time Seen by Provider: 02/03/24 14:29 History of Present Illness: 83-year-old man with history of vertigo who had a vertigo episode today and lost his balance and fell. He has a skin tear on his left proximal forearm. Full range of motion. He does not think he hit his head but he is on Eliquis. No altered mental status. No focal motor deficit. No nausea or vomiting. Bleeding is controlled on skin therapy Review of Systems Narrative: Constitutional symptoms: Negative except as documented in HPI. Skin symptoms: Negative except as documented in HPI. Eye symptoms: Negative except as documented in HPI. ENMT symptoms: Negative except as documented in HPI. Respiratory symptoms: Negative except as documented in HPI. Cardiovascular symptoms: Negative except as documented in HPI. Gastrointestinal symptoms: Negative except as documented in HPI. Genitourinary symptoms: Negative except as documented in HPI. Musculoskeletal symptoms: Negative except as documented in HPI. Neurologic symptoms: Negative except as documented in HPI. Psychiatric symptoms: Negative except as documented in HPI. Endocrine symptoms: Negative except as documented in HPI. PFSH ED PFSH: Medical History Dyslipidemia Presence of permanent cardiac pacemaker ABRAM (obstructive sleep apnea) C7 cervical fracture H/O: GI bleed Atherosclerotic heart disease of [place]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 Anemia GI bleed Hypertension Atrial fibrillation Mitral regurgitation Osteoporosis Anxiety History of pacemaker Surgical History Hx of tonsillectomy H/O hemorrhoidectomy History of hernia surgery Family History Brother CAD (coronary artery disease) Congestive heart failure (CHF) Cancer Sister Lung disease Other Atherosclerotic heart disease of [place]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 Denies family history of Diabetes Clotting disorder Dementia Hyperlipidemia Chronic kidney disease (CKD) Suicide Anesthesia complication Bleeding disorder Hypertension Stroke Social History Smoking and tobacco/nicotine status: never used tobacco/nicotine Alcohol intake: never Substance/Drug Use: never Household members: none Marital status: Physical Exam Narrative: EXAM NARRATIVE: General: Alert, no acute distress. Skin: Warm, dry. Skin tear to left forearm Head: Normocephalic, atraumatic. Neck: Supple, trachea midline. Eye: Extraocular movements are intact. Ears, nose, mouth and throat: mucosa moist. Cardiovascular: Regular, Normal peripheral perfusion. Respiratory: Lungs are clear to auscultation, respirations are non-labored, breath sounds are equal, Symmetrical chest wall expansion. Gastrointestinal: Soft, Nontender, Non distended Musculoskeletal: Normal ROM, no deformity. Neurological: Alert and oriented, No focal neurological deficit observed. Psychiatric: Cooperative, appropriate mood & affect. Course Vital Signs: Vital signs: Vital Signs Temperature 98.1 F 02/03/24 14:26 Pulse Rate 99 02/03/24 15:02 Respiratory Rate 18 02/03/24 15:02 Blood Pressure 96/55 02/03/24 15:02 Pulse Oximetry 92 02/03/24 15:02 Oxygen Delivery Me thod Room Air 02/03/24 15:02 MDM - Weakness Medical Decision Making CT head: No acute intracranial process. no intracranial hemorrhage, no evidence of infarct. no evidence of acute fracture.This was reviewed and interpreted by myself the ER physician. Assessment and plan: Vertigo Skin tear Fall Chronic anticoagulation Dehydration ? Meclizine and a normal saline bolus in the emergency room - Discharged home - Discussed plan with patient. Answered any questions. - Evaluation and treatment of this problem were appropriate in the emergency setting. All radiology interpretation(s) finalized by discharge Discharge Plan Discharge Patient Disposition: Home Clinical Impression: Vertigo, Dehydration, Fall, Skin tear of forearm without complication Condition: Stable Prescriptions: New meclizine 25 mg tablet 25 mg PO QID PRN (Reason: dizziness) Qty: 20 0RF No Action ascorbate calcium (vitamin C) 500 mg tablet 500 mg PO DAILY cholecalciferol (vitamin D3) 25 mcg (1,000 unit) capsule 25 mcg PO DAILY amiodarone 200 mg tablet 100 mg PO BID loratadine 10 mg tablet 10 mg PO DAILY metformin 500 mg tablet 500 mg PO DAILY dextromethorphan-guaifenesin 10-100 mg/5 mL Syrup 10 ml PO QID PRN (Reason: Congestion) magnesium hydroxide [Milk of Magnesia] 400 mg/5 mL Suspension 10 ml PO DAILY lidocaine 5 % Adhesive Patch,Medicated See Rx Instructions .ROUTE .COMPLEX Rx Instructions: APPLY 1 patch topically, leave on most painful area for up to 12 hrs, THEN REMOVE PATCH FOR 12 HOURS fluoxetine 10 mg capsule 10 mg PO QAM polyethylene glycol 3350 [Miralax] 17 gram/dose Powder 17 g PO DAILY PRN (Reason: Constipation) albuterol sulfate 90 mcg/actuation HFA aerosol inhaler 2 puff INHALATION Q4H PRN (Reason: Shortness Of Breath) bisacodyl 5 mg Tablet 10 mg PO DAILY PRN (Reason: Constipation) diclofenac sodium 1 % Gel See Rx Instructions .ROUTE .COMPLEX Rx Instructions: APPLY 4 GRAMS TO AFFECTED AREA(S) 4 TIMES DAILY FOR PAIN. DO NOT EXCEED MORE THAN 16 GRAMS DAILY TO ANY LOWER EXTREMITY JOINT. NOT MORE THAN 8 GRAMS DAILY TO ANY UPPER EXTREMITY JOINT. MAX 32 GRAMS DAILY OVER ALL JOINTS. potassium chloride 20 mEq Tablet Extended Release 10 meq PO DAILY isosorbide mononitrate 30 mg Tablet Extended Release 24 Hr 30 mg PO QAM rosuvastatin 40 mg Tablet 40 mg PO QPM ondansetron 4 mg tablet,disintegrating 4 mg PO Q8H PRN (Reason: nausea and vomiting) Qty: 14 0RF Eliquis 5 mg tablet 2.5 mg PO BID Hold Instructions: Resume on 01/05/24. May restart the Eliquis tomorrow morning multivitamin Tablet 1 tab PO QAM sennosides [Senokot] 8.6 mg Tablet 8.6 mg PO DAILY PRN (Reason: Constipation) levothyroxine 75 mcg Tablet 75 mcg PO QAM tamsulosin 0.4 mg Capsule 0.4 mg PO QPM fluticasone propion-salmeterol [Advair Diskus] 100-50 mcg/dose Blister With Device 1 inh INHALATION BID furosemide [Lasix] 20 mg tablet 20 mg PO QAM tramadol 50 mg tablet 50 mg PO Q6H PRN (Reason: Pain) Discharge Orders: Discharge ED (Routine); Ordered 02/03/24 Ordered By: Nora Infante Referrals: Maggi Aguilar MD [Primary Care Provider] - Discharge Diet: Usual diet Discharge Activity: Increase activity as tolerated Patient Instructions: Dehydration (ED), Vertigo (ED), Fall Prevention for Older Adults (ED) Coding Level of Care Code ED Chief Operator [facility] Fwd Related Data Home Medications Medication Instructions Recorded Confirmed amiodarone 200 mg tablet 100 mg PO BID 11/07/19 01/11/24 ascorbate calcium (vitamin C) 500 500 mg PO DAILY 11/07/19 01/11/24 mg tablet cholecalciferol (vitamin D3) 25 25 mcg PO DAILY 11/07/19 01/11/24 mcg (1,000 unit) capsule loratadine 10 mg tablet 10 mg PO DAILY 10/07/21 01/11/24 tramadol 50 mg tablet 50 mg PO Q6H PRN Pain 01/12/23 01/11/24 albuterol sulfate 90 mcg/actuation 2 puff inhalation Q4H PRN 10/06/23 01/11/24 aerosol inhaler Shortness Of Breath bisacodyl 5 mg tablet 10 mg PO DAILY PRN Constipation 10/06/23 01/11/24 dextromethorphan-guaifenesin 10 10 ml PO QID PRN Congestion 10/06/23 01/11/24 mg-100 mg/5 mL oral syrup diclofenac sodium 1 % topical gel See Rx Instructions .Route .COMPLEX 10/06/23 01/11/24 fluoxetine 10 mg capsule 10 mg PO QAM 10/06/23 01/11/24 isosorbide mononitrate 30 mg 30 mg PO QAM 10/06/23 01/11/24 tablet,extended release 24 hr lidocaine 5 % topical patch See Rx Instructions .Route .COMPLEX 10/06/23 01/11/24 magnesium hydroxide 400 mg/5 mL 10 ml PO DAILY Constipation 10/06/23 01/11/24 oral suspension (Milk of Magnesia) polyethylene glycol 3350 17 17 g PO DAILY PRN Constipation 10/06/23 01/11/24 gram/dose oral powder (Miralax) potassium chloride 20 mEq 10 meq PO DAILY 10/06/23 01/11/24 tablet,extended release rosuvastatin 40 mg tablet 40 mg PO QPM 10/06/23 01/11/24 fluticasone 100 mcg-salmeterol 50 1 inh inhalation BID 12/22/23 01/11/24 mcg/dose blistr powdr for inhalation (Advair Diskus) furosemide 20 mg tablet (Lasix) 20 mg PO QAM 12/22/23 01/11/24 levothyroxine 75 mcg tablet 75 mcg PO QAM 12/22/23 01/11/24 multivitamin 1 tab PO QAM 12/22/23 01/11/24 sennosides 8.6 mg tablet (Senokot) 8.6 mg PO DAILY PRN Constipation 12/22/23 01/11/24 tamsulosin 0.4 mg capsule 0.4 mg PO QPM 12/22/23 01/11/24 apixaban 5 mg tablet (Eliquis) 2.5 mg PO BID 12/30/23 01/11/24 metformin 500 mg tablet 500 mg PO DAILY 12/30/23 01/11/24 Previous Rx's Medication Instructions Recorded ondansetron 4 mg disintegrating 4 mg PO Q8H PRN nausea and 10/06/23 tablet vomiting #14 tabs meclizine 25 mg tablet 25 mg PO QID PRN dizziness #20 tabs 02/03/24 Allergies Allergy/AdvReac Type Severity Reaction Status Date / Time No Known Allergies Allergy Verified 01/11/24 14:43
[2024-02-03 15:02] VITALS: BP 96/55; PULSE 99; RESP 18; O2SAT 92
[2024-02-03] MEDS: tetanus-dipt-pertussis 0.5 mL SDV IM (15:04)
[2024-02-03] MEDS: meclizine 25 mg tablet 50 MG PO (15:04)
[2024-02-03 16:41] VITALS: BP 124/96; PULSE 98; RESP 18; O2SAT 97
[2024-02-03 17:40] VITALS: BP 144/99; PULSE 86; O2SAT 94
== END 2024-02-03 17:41 | disposition home or self-care (01) ==
PROVIDERS: Emergency Provider Emergency Medicine; PCP Family Medicine
DX: R42 Dizziness and giddiness (principal); E86.0 Dehydration; S51.812A Laceration without foreign body of left forearm, initial encounter; W01.0XXA Fall on same level from slipping, tripping and stumbling without subsequent striking against object, initial encounter; E78.5 Hyperlipidemia, unspecified; I25.10 Atherosclerotic heart disease of native coronary artery without angina pectoris; I10 Essential (primary) hypertension; Z95.0 Presence of cardiac pacemaker; Z79.84 Long term (current) use of oral hypoglycemic drugs; Z79.01 Long term (current) use of anticoagulants; Z23 Encounter for immunization
CPT/HCPCS: 70450; 90715; 99283; J8597

== ENCOUNTER 2024-02-04 17:46 | Emergency (ER) | payer OTHER, MEDICARE, BC, SELFPAY ==
[2024-02-04] VITALS (7 sets, daily range): BP systolic 110–131; BP diastolic 70–97; PULSE 89–101; RESP 17–18; TEMP 36.9; O2SAT 92–99; BMI 27.8
--- NOTE | 2024-02-04 18:39 | XRR_ITS ---
PROCEDURE INFORMATION: Exam: XR Chest Exam date and time: 02/04/2024 7:16 PM Age: 83 years old Clinical indication: Other: Syncope; Patient HX: EMS arrival for syncopal episode. History of chf. ; Additional info: Syncope and collapse TECHNIQUE: Imaging protocol: Radiologic exam of the chest. Views: 1 view. COMPARISON: CR XR chest 1V portable [id number] 12/22/2023 8:25 AM FINDINGS: Tubes, catheters and devices: Dual lead implanted cardiac device projects over the left chest. Lungs: No large focal consolidation. Pleural spaces: No large pleural effusion. No distinct pneumothorax. Heart/Mediastinum: Mild cardiomegaly, unchanged. Vasculature: Mild calcific disease of the aorta. Diaphragm: Chronic elevation of the right hemidiaphragm, unchanged. Bones/joints: No acute osseous findings. XR/XR chest 1V portable [id number] IMPRESSION: 1. Mild cardiomegaly, unchanged. 2. Study is otherwise negative for acute findings.
--- NOTE | 2024-02-04 18:39 | CTR_ITS ---
PROCEDURE INFORMATION: Exam: CT Head Without Contrast Exam date and time: 02/04/2024 7:20 PM Age: 83 years old Clinical indication: Syncope and collapse; Patient HX: EMS arrival for syncopal episode. C/O general weakness. TECHNIQUE: Imaging protocol: Computed tomography of the head without contrast. Radiation optimization: All CT scans at this facility use at least one of these dose optimization techniques: automated exposure control; mA and/or kV adjustment per patient size (includes targeted exams where dose is matched to clinical indication); or iterative reconstruction. COMPARISON: CT head wo con* [id number] 02/03/2024 3:13 PM RADIATION DOSE METRICS: Total DLP (mGy-cm): 1166.44 FINDINGS: Brain: No acute intracranial hemorrhage. Moderate cerebral atrophy. Moderate nonspecific periventricular white matter disease. Mild calcifications in the bilateral basal ganglia. Normal differentiation of [place]-white matter. Cerebral ventricles: Stable mild compensatory ventriculomegaly appears unchanged compared to 02/03/2024. This appears stable to minimally worsened compared to 04/25/2023. This is presumed secondary to volume loss. Paranasal sinuses: Visualized paranasal sinuses are clear. Mastoid air cells: Mastoid air cells are clear. Bones: No acute osseous findings. Soft tissues: Visualized superficial soft tissues are within normal limits. Other findings: Intracranial atherosclerosis. CT/CT head wo con* [id number] IMPRESSION: No acute intracranial findings.
--- NOTE | 2024-02-04 18:52 | ED_ITS ---
HPI - Weakness 2 General: Chief complaint: Weakness Stated complaint: weakness/lightheaded Time Seen by Provider: 02/04/24 18:23 History of Present Illness: 83-year-old male presents to the emergen cy department chief complaint of having near syncopal episode just prior to arrival while he was on the commode his son had to help him to the ground patient did not sustain any other additional injuries he was recently seen here for additional dizziness. Patient has apparently 2 valves that are extremely bad in which she is already been seen by cardiology for assessment for possible surgery patient denied most recently having any chest pain or palpitations with his most recent episode of syncope patient has had some darkening of urine which was concerns by family of patient having UTI. The patient denies any recent infections or illnesses or any other associated symptoms. Associated symptoms: Denies chest pain, chills, fever(s), headache(s), nausea or vomiting Review of Systems 2 General: Reports: 10 or more systems reviewed and unremarkable except in HPI and below Const: Denies: fever(s), chills, fatigue or malaise Eyes: Denies: change in vision or blurry vision Card: Denies: chest pain or palpitations Resp: Denies: dyspnea or productive cough GI: Denies: abdominal pain, nausea or vomiting : Denies: flank pain Musc: Denies: extremity pain or extremity swelling Skin/Breast: Denies: rash or pruritus Neuro: Reports: frequent falls and dizziness; Denies: headache(s) Psych: Denies: anxiety or depression Anurag/Lymph: Denies: easy bleeding All/Imm: Denies: urticaria, throat swelling or facial swelling PFSH ED 2 PFSH: Medical History Dyslipidemia Presence of permanent cardiac pacemaker ABRAM (obstructive sleep apnea) C7 cervical fracture H/O: GI bleed Atherosclerotic heart disease of [place]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 Anemia GI bleed Hypertension Atrial fibrillation Mitral regurgitation Osteoporosis Anxiety History of pacemaker Surgical History Hx of tonsillectomy H/O hemorrhoidectomy History of hernia surgery Family History Brother CAD (coronary artery disease) Congestive heart failure (CHF) Cancer Sister Lung disease Other Atherosclerotic heart disease of [place]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 Denies family history of Diabetes Clotting disorder Dementia Hyperlipidemia Chronic kidney disease (CKD) Suicide Anesthesia complication Bleeding disorder Hypertension Stroke Social History Smoking and tobacco/nicotine status: never used tobacco/nicotine Alcohol intake: never Substance/Drug Use: never Household members: none Marital status: Physical Exam 2 Narrative: EXAM NARRATIVE: No focal neurodeficits on exam GCS of 15 NIH is 0 Const: COMMON NORMALS: no acute distress, patient oriented x3 and healthy appearing HENMT: COMMON NORMALS: normocephalic and atraumatic HEAD & SCALP: n ormocephalic and atraumatic Eye: COMMON NORMALS: Equal, round and reactive pupils present and EOMs intact bilaterally PUPIL: Yes Equal, round and reactive pupils present Neck/C-Spine: COMMON NORMALS: full ROM, supple and no JVD Lymph: LYMPHATIC: no lymphadenopathy noted Chest: COMMONS NORMALS: normal inspection of the chest and normal palpation of entire chest wall Resp: COMMON NORMALS: normal respiratory effort, No retractions and clear to auscultation bilaterally EFFORT & INSPECTION: Yes able to speak in complete sentences and Yes symmetric chest movement AUSCULTATION: clear to auscultation bilaterally Cardio: COMMON NORMALS: no JVD, regular rate and regular rhythm RATE: r egular rate RHYTHM: regular rhythm OTHER: Murmurs present GI: COMMON NORMALS: Normal to inspection, nondistended, normoactive bowel sounds present, Soft to palpation and non-tender INSPECTION: Yes normal to inspection PALPATION: Yes Soft to palpation : COMMON NORMALS: Yes no CVA tenderness BLADDER/KIDNEY EXAM: Yes no CVA tenderness Back/Pelvis: COMMON NORMALS: no CVA tenderness Extremity: COMMON NORMALS: normal to inspection and full ROM Neuro: COMMON NORMALS: patient oriented x3, CN's II-XII intact bilaterally, moves all extremities and no focal motor deficits Psych: COMMON NORMALS: mental status grossly normal, Normal thought process present, cooperative and normal affect THOUGHT PROCESS: Normal thought process present Skin: COMMON NORMALS: no rashes or lesions noted GENERAL SKIN EXAM: no rashes or lesions noted Course 2 Vital Signs: Vital signs: Vital Signs Temperature 98.4 F 02/04/24 17:47 Pulse Rate 89 02/04/24 21:47 Respiratory Rate 17 02/04/24 17:47 Blood Pressure 119/97 02/04/24 21:47 Pulse Oximetry 96 02/04/24 21:47 Oxygen Delivery Me thod Room Air 02/04/24 21:47 MDM - Weakness Medical Decision Making Due to patient's symptoms and condition lab and imaging will be obtained IV fluids provided for hydration with will continue to follow. Elevated troponin but negative delta this appears to be chronic in nature patient does have significant valvular heart disease was found to be dehydrated with no other associated findings patient is stable for discharge home advised further follow-up with primary care for patient increase his p.o. intake of oral fluids and was to return the interim if any of his symptoms persist or worse Lab Data 02/04/24 19:01 02/04/24 19:01 Radiology Impressions Chest X-Ray 02/04/24 18:39 IMPRESSION: 1. Mild cardiomegaly, unchanged. 2. Study is otherwise negative for acute findings. Head CT 02/04/24 18:39 IMPRESSION: No acute intracranial findings. Laboratory Results WBC 6.84 10^3/uL (3.29-11.43) 02/04/24 19:01 RBC 4.03 10^6/uL (3.85-5.65) 02/04/24 19:01 Hgb 12.20 g/dL (11.27-16.99) 02/04/24 19:01 Hct 38.0 % (37-53) 02/04/24 19: MCV 94.3 fl (82-101) 02/04/24 19: MCH 30.3 pg (27-33) 02/04/24 19: MCHC 32.1 g/dL (30-55) 02/04/24 19:01 RDW 15.6 % (12.1-15.1) H 02/04/24 19:01 Plt Count 136 10^3/cmm (157-399) L 02/04/24 19: MPV 10.2 fL (7.4-10.4) 02/04/24 19:01 Neut % (Auto) 69.0 % 02/04/24 19: Lymph % (Auto) 18.3 % 02/04/24 19:01 Sharkey % (Auto) 11.1 % 02/04/24 19:01 Eos % (Auto) 0.6 % 02/04/24 19:01 Baso % (Auto) 0.1 % 02/04/24 19:01 Neut # (Auto) 4.72 10^3/uL (1.8-7.7) 02/04/24 19:01 Lymph # (Auto) 1.3 10^3/uL (0.8-4.8) 02/04/24 19:01 Sharkey # (Auto) 0.8 10^3/uL (0.2-0.9) 02/04/24 19:01 Eos # (Auto) 0.0 10^3/uL (0.0-0.8) 02/04/24 19:01 Baso # (Auto) 0.0 10^3/uL (0.0-0.1) 02/04/24 19:01 Nucleated RBC % (auto) 0 % 02/04/24 19:01 Nucleated RBCs # 0.0 /100WBC 02/04/24 19:01 PT 13.90 SECONDS (12.1-14.9) 02/04/24 19:01 INR 1.03 (0.8-1.2) 02/04/24 19:01 APTT 28.6 SECONDS (23.9-36.7) 02/04/24 19:01 Sodium 137 mmol/L (136-145) 02/04/24 19:01 Potassium 4.4 mmol/L (3.5-5.1) 02/04/24 19:01 Chloride 100 mmol/L (98-107) 02/04/24 19:01 Carbon Dioxide 24 mmol/L (22-29) 02/04/24 19:01 Anion Gap 17.4 (5-19) 02/04/24 19:01 BUN 19 mg/dL (8-23) 02/04/24 19:01 Creatinine 1.1 mg/dL (0.7-1.2) 02/04/24 19:01 GFR Calculation Not Reportable 02/04/24 19:01 Glucose 110 mg/dL (65-115) 02/04/24 19:01 Calculated Osmolality 287 mOsm/kg (285-295) 02/04/24 19:01 Lactic Acid 1.5 mmol/L (0.5-2.2) 02/04/24 19:01 Calcium 8.9 mg/dL (8.5-10.5) 02/04/24 19:01 Total Bilirubin 0.6 mg/dL (0.15-1.2) 02/04/24 19:01 AST 20 U/L (0-40) 02/04/24 19:01 ALT 14 U/L (0-41) 02/04/24 19:01 Alkaline Phosphatase 59 U/L (40-130) 02/04/24 19:01 Troponin T Baseline 31 ng/L (0-15) H 02/04/24 19:01 Troponin T 120 Minute 31.78 ng/L (0-15) H 02/04/24 20:45 Delta Troponin T 0.78 ABS# (0-10) 02/04/24:45 C-Reactive Protein 61.4 mg/L (0.0-4.9) H 02/04/24 19:01 NT-Pro-B Natriuret Pep 502 pg/mL (0-450) H 02/04/24 19:01 Total Protein 6.3 g/dL (6.6-8.7) L 02/04/24 19:01 Albumin 3.7 g/dL (3.5-5.2) 02/04/24 19: Globulin 2.6 g/dL (1.3-4.6) 02/04/24 19:01 Urine Color Dark yellow (Yellow) A 02/04/24 21:02 Urine Appearance Clear (CLEAR) 02/04/24 21:02 Urine pH 5.5 (5-7) 02/04/24 21:02 Ur Specific [place] 1.027 (1.005-1.030) 02/04/24 21:02 Urine Protein 1+ (Negative) A 02/04/24 21:02 Urine Glucose (UA) Negative (Normal) 02/04/24 21: Urine Ketones Negative (Negative) 02/04/24 21: Urine Blood Negative (Negative) 02/04/24 21: Urine Nitrate Negative (Negative) 02/04/24 21: Urine Bilirubin Negative (Negative) 02/04/24 21:02 Urine Urobilinogen 1.0 mg/dL (Negative) 02/04/24 21:02 Ur Leukocyte Esterase Trace (Negative) A 02/04/24 21:02 Urine RBC 0-2 /hpf (0-2) 02/04/24 21:02 Urine WBC 0-5 /hpf (0-5) 02/04/24 21:02 Ur Squamous Epith Cells 0-5 /hpf (0-5) 02/04/24 21:02 Amorphous Sediment Not Reportable 02/04/24 21:02 Urine Bacteria None seen /hpf (NONE) 02/04/24 21:02 Hyaline Casts 0.81 /lpf 02/04/24 21:02 XR interpretation done by ED provider, pending radiology final review Discharge Plan Discharge Patient Disposition: Home Clinical Impression: Postural dizziness with near syncope, Acute dehydration, Chronic congestive heart failure, CHF due to valvular disease Condition: Stable Prescriptions: No Action ascorbate calcium (vitamin C) 500 mg tablet 500 mg PO DAILY cholecalciferol (vitamin D3) 25 mcg (1,000 unit) capsule 25 mcg PO DAILY amiodarone 200 mg tablet 100 mg PO BID loratadine 10 mg tablet 10 mg PO DAILY metformin 500 mg tablet 500 mg PO DAILY dextromethorphan-guaifenesin 10-100 mg/5 mL Syrup 10 ml PO QID PRN (Reason: Congestion) magnesium hydroxide [Milk of Magnesia] 400 mg/5 mL Suspension 10 ml PO DAILY lidocaine 5 % Adhesive Patch,Medicated See Rx Instructions .ROUTE .COMPLEX Rx Instructions: APPLY 1 patch topically, leave on most painful area for up to 12 hrs, THEN REMOVE PATCH FOR 12 HOURS fluoxetine 10 mg capsule 10 mg PO QAM polyethylene glycol 3350 [Miralax] 17 gram/dose Powder 17 g PO DAILY PRN (Reason: Constipation) albuterol sulfate 90 mcg/actuation HFA aerosol inhaler 2 puff INHALATION Q4H PRN (Reason: Shortness Of Breath) bisacodyl 5 mg Tablet 10 mg PO DAILY PRN (Reason: Constipation) diclofenac sodium 1 % Gel See Rx Instructions .ROUTE .COMPLEX Rx Instructions: APPLY 4 GRAMS TO AFFECTED AREA(S) 4 TIMES DAILY FOR PAIN. DO NOT EXCEED MORE THAN 16 GRAMS DAILY TO ANY LOWER EXTREMITY JOINT. NOT MORE THAN 8 GRAMS DAILY TO ANY UPPER EXTREMITY JOINT. MAX 32 GRAMS DAILY OVER ALL JOINTS. potassium chloride 20 mEq Tablet Extended Release 10 meq PO DAILY isosorbide mononitrate 30 mg Tablet Extended Release 24 Hr 30 mg PO QAM rosuvastatin 40 mg Tablet 40 mg PO QPM ondansetron 4 mg tablet,disintegrating 4 mg PO Q8H PRN (Reason: nausea and vomiting) Qty: 14 0RF Eliquis 5 mg tablet 2.5 mg PO BID Hold Instructions: Resume on 01/05/24. May restart the Eliquis tomorrow morning multivitamin Tablet 1 tab PO QAM sennosides [Senokot] 8.6 mg Tablet 8.6 mg PO DAILY PRN (Reason: Constipation) levothyroxine 75 mcg Tablet 75 mcg PO QAM tamsulosin 0.4 mg Capsule 0.4 mg PO QPM fluticasone propion-salmeterol [Advair Diskus] 100-50 mcg/dose Blister With Device 1 inh INHALATION BID furosemide [Lasix] 20 mg tablet 20 mg PO QAM tramadol 50 mg tablet 50 mg PO Q6H PRN (Reason: Pain) meclizine 25 mg tablet 25 mg PO QID PRN (Reason: dizziness) Qty: 20 0RF Discharge Orders: Discharge ED (Routine); Ordered 02/04/24 Ordered By: Aayush Jimenes Referrals: Maggi Aguilar MD [Primary Care Provider] - 4-7 days Discharge Diet: Cardiac Discharge Activity: Increase activity as tolerated Patient Instructions: Dehydration - Adult, Heart Failure (DC), Syncope (ED), Syncope (DC) Activity Restrictions/Additional Instructions: Please further follow-up with primary care in 3 to 5 days increase if any of your symptoms persist or worse. Please increase your water consumption as you were found to be dehydrated. Coding Level of Care Code ED Shank Piece Tacker for Chg Fwd Related Data Home Medications Medication Instructions Recorded Confirmed amiodarone 200 mg tablet 100 mg PO BID 11/07/19 01/11/24 ascorbate calcium (vitamin C) 500 500 mg PO DAILY 11/07/19 01/11/24 mg tablet cholecalciferol (vitamin D3) 25 25 mcg PO DAILY 11/07/19 01/11/24 mcg (1,000 unit) capsule loratadine 10 mg tablet 10 mg PO DAILY 10/07/21 01/11/24 tramadol 50 mg tablet 50 mg PO Q6H PRN Pain 01/12/23 01/11/24 albuterol sulfate 90 mcg/actuation 2 puff inhalation Q4H PRN 10/06/23 01/11/24 aerosol inhaler Shortness Of Breath bisacodyl 5 mg tablet 10 mg PO DAILY PRN Constipation 10/06/23 01/11/24 dextromethorphan-guaifenesin 10 10 ml PO QID PRN Congestion 10/06/23 01/11/24 mg-100 mg/5 mL oral syrup diclofenac sodium 1 % topical gel See Rx Instructions .Route .COMPLEX 10/06/23 01/11/24 fluoxetine 10 mg capsule 10 mg PO QAM 10/06/23 01/11/24 isosorbide mononitrate 30 mg 30 mg PO QAM 10/06/23 01/11/24 tablet,extended release 24 hr lidocaine 5 % topical patch See Rx Instructions .Route .COMPLEX 10/06/23 01/11/24 magnesium hydroxide 400 mg/5 mL 10 ml PO DAILY Constipation 10/06/23 01/11/24 oral suspension (Milk of Magnesia) polyethylene glycol 3350 17 17 g PO DAILY PRN Constipation 10/06/23 01/11/24 gram/dose oral powder (Miralax) potassium chloride 20 mEq 10 meq PO DAILY 10/06/23 01/11/24 tablet,extended release rosuvastatin 40 mg tablet 40 mg PO QPM 10/06/23 01/11/24 fluticasone 100 mcg-salmeterol 50 1 inh inhalation BID 12/22/23 01/11/24 mcg/dose blistr powdr for inhalation (Advair Diskus) furosemide 20 mg tablet (Lasix) 20 mg PO QAM 12/22/23 01/11/24 levothyroxine 75 mcg tablet 75 mcg PO QAM 12/22/23 01/11/24 multivitamin 1 tab PO QAM 12/22/23 01/11/24 sennosides 8.6 mg tablet (Senokot) 8.6 mg PO DAILY PRN Constipation 12/22/23 01/11/24 tamsulosin 0.4 mg capsule 0.4 mg PO QPM 12/22/23 01/11/24 apixaban 5 mg tablet (Eliquis) 2.5 mg PO BID 12/30/23 01/11/24 metformin 500 mg tablet 500 mg PO DAILY 12/30/23 01/11/24 Previous Rx's Medication Instructions Recorded ondansetron 4 mg disintegrating 4 mg PO Q8H PRN nausea and 10/06/23 tablet vomiting #14 tabs meclizine 25 mg tablet 25 mg PO QID PRN dizziness #20 tabs 02/03/24 Allergies Allergy/AdvReac Type Severity Reaction Status Date / Time No Known Allergies Allergy Verified 01/11/24 14:43
[2024-02-04] MEDS: sodium chloride 0.9% 500 ML IV (18:57)
[2024-02-04 19:09] LABS: Basophils % 0.1 %; Eosinophils % 0.6 %; Lymphocytes # 1.3 10^3/uL (0.8-4.8); Lymphocytes % 18.3 %; Mean Corpuscular HGB Conc 32.1 g/dL (30-55); Mean Corpuscular Hemoglobin 30.3 pg (27-33); Mean Corpuscular Volume 94.3 fl (82-101); Mean Platelet Volume 10.2 fL (7.4-10.4); Monocytes # 0.8 10^3/uL (0.2-0.9); Monocytes % 11.1 %; Neutrophils # 4.72 10^3/uL (1.8-7.7); Nucleated Red Blood Cells % 0 %; Platelet Count 136 10^3/cmm (157-399); Red Blood Count 4.03 10^6/uL (3.85-5.65); Red Cell Distribution Width 15.6 % (12.1-15.1); White Blood Count 6.84 10^3/uL (3.29-11.43)
[2024-02-04 19:18] LABS: INR 1.03 (0.8-1.2)
[2024-02-04 19:19] LABS: Partial Thromboplastin Time 28.6 SECONDS (23.9-36.7)
[2024-02-04 19:24] LABS: Troponin(5th) Baseline 31 ng/L (0-15)
[2024-02-04 19:25] LABS: Lactic Sepsis W/Reflex 1.5 mmol/L (0.5-2.2)
[2024-02-04 19:57] LABS: Alanine Aminotransferase 14 U/L (0-41); Albumin Level 3.7 g/dL (3.5-5.2); Alkaline Phosphatase 59 U/L (40-130); Anion Gap 17.4 (5-19); Aspartate Amino Transferase 20 U/L (0-40); Blood Urea Nitrogen 19 mg/dL (8-23); C Reactive Protein 61.4 mg/L (0.0-4.9); Calcium 8.9 mg/dL (8.5-10.5); Carbon Dioxide 24 mmol/L (22-29); Chloride 100 mmol/L (98-107); Creatinine Clr Calc Pharmacy 56.5744; Globulin 2.6 g/dL (1.3-4.6); Glucose 110 mg/dL (65-115); Osmolality Calculated 287 mOsm/kg (285-295); Potassium 4.4 mmol/L (3.5-5.1); Sodium 137 mmol/L (136-145); Total Bilirubin 0.6 mg/dL (0.15-1.2); Total Protein 6.3 g/dL (6.6-8.7)
[2024-02-04 20:07] LABS: NT Pro B Type Natriuretic Pept 502 pg/mL (0-450)
--- NOTE | 2024-02-04 20:11 | PC.NURSE ---
this nurse went to round on pt to see if he had urinated in the urinal given to him for a sample. upon entering the room, the son stopped this RN to let me know that he had dumped the urine out of the urine and rinsed it out. this nurse educated the son on the importance of obtaining urine and causing the delay in lab testing.
--- NOTE | 2024-02-04 20:33 | ECG_ITS ---
[facility] Test Date: 2024-02-04 Pat Name: Jose Francis Department: Room: Gender: Male Collections Assistant: : 1940 Requested By: Aayush Jimenes Order Number: [id number] Reading MD: PADMINI ALLISON Measurements Intervals [place] Rate: 97 P: 215 MI: 110 QRS: 123 QRSD: 136 T: -57 QT: 415 QTc: 529 Interpretive Statements SINUS RHYTHM WITH SHORT MI INTERVAL RIGHT AXIS DEVIATION [QRS AXIS > 100] RIGHT BUNDLE BRANCH BLOCK [120+ ms QRS DURATION, UPRIGHT V1, 40+ ms S IN I/aVL/V4/V5/V6] MODERATE T-WAVE ABNORMALITY, CONSIDER LATERAL ISCHEMIA [-0.1+ mV T-WAVE IN I/aVL/V5/V6] Compared to ECG 01/04/2024 05:33:35 there is no change Electronically Signed On 02-05-2024 00:09:34 CDT by PADMINI ALLISON [id number]
[2024-02-04 21:37] LABS: Bilirubin Urine Negative (Negative); Blood Urine Negative (Negative); Glucose Urine UA Negative (Normal); Ketones Urine Negative (Negative); Leukocyte Esterase Urine Trace (Negative); Nitrate Urine Negative (Negative); Protein Urine 1+ (Negative); Specific Gravity, Urine 1.027 (1.005-1.030); Urine Appearance Clear (CLEAR); Urine Color Dark Yellow (Yellow); pH Urine 5.5 (5-7)
[2024-02-04 21:42] LABS: Add Urine Microscopic? YES; Bacteria Urine None Seen /hpf; Hyaline Casts Urine 0.81 /lpf; RBC Urine 0-2 /hpf (0-2); Squamous Epithelial Cell Urine 0-5 /hpf (0-5); WBC Urine 0-5 /hpf (0-5)
[2024-02-04 21:44] LABS: Troponin 5 2HR 31.78 ng/L (0-15); Troponin 5 2HR Delta 0.78 ABS# (0-10)
== END 2024-02-04 22:37 | disposition home or self-care (01) ==
PROVIDERS: Emergency Provider Emergency Medicine; PCP Family Medicine
DX: R42 Dizziness and giddiness (principal); R55 Syncope and collapse; E86.0 Dehydration; I11.0 Hypertensive heart disease with heart failure; I50.9 Heart failure, unspecified; I38 Endocarditis, valve unspecified; Z79.84 Long term (current) use of oral hypoglycemic drugs; Z79.01 Long term (current) use of anticoagulants; E78.5 Hyperlipidemia, unspecified; Z95.0 Presence of cardiac pacemaker; I25.10 Atherosclerotic heart disease of native coronary artery without angina pectoris
CPT/HCPCS: 36415; 70450; 71045; 80053; 81001; 83605; 83880; 84484; 85025; 85610; 85730; 86140; 93005; 99285; J7040

== ENCOUNTER → 2024-04-06 16:09 | Outpatient (BNVA) | payer OTHER, SELFPAY | PROVIDERS: PCP Family Medicine; Visit Provider Internal Medicine Cardiovascular Disease | DX: R07.9 Chest pain, unspecified (principal); I25.10 Atherosclerotic heart disease of native coronary artery without angina pectoris; I11.0 Hypertensive heart disease with heart failure; I50.32 Chronic diastolic (congestive) heart failure; R00.0 Tachycardia, unspecified; Z95.0 Presence of cardiac pacemaker; E78.5 Hyperlipidemia, unspecified; I48.0 Paroxysmal atrial fibrillation; Z87.891 Personal history of nicotine dependence | CPT/HCPCS: 36415; 80048; 83880; 93005; 99215 ==

== ENCOUNTER 2024-04-19 07:44 | Outpatient (CLI) | payer OTHER, SELFPAY ==
[2024-04-19 07:57] VITALS: BMI 27.8
--- NOTE | 2024-04-19 08:02 | NMCV_ITS ---
NM macrina perf SPECT r/s* [id number] Jose Francis Age: 83 Gender: M : 1940 Exam Date: 04/19/2024 09:15 Ordering Phys: Abdullahi Saldana MD ([email or web address]) Technologist: SERA Thibodeaux Exam Location: [facility] Indications: cp STRESS TEST Please see separate stress test report [facility] for full findings IMAGE PROTOCOL Rest/Stress 1 Lexiscan Day Radiopharmaceutical Dose (mCi) Administration Site Administered by Rest: Tc-99m 11 IV SERA Thibodeaux Sestamibi Stress:Tc-99m 32.8 IV SERA De La Cruz Sestamibi Rest: 19-Apr-2024 60 Discovery 630 Stress: 19-Apr-2024 30 Discovery 630 0.4mg Lexiscan. Supine position only as patient was unable to lay prone. SPECT RESULTS Technical Quality: Good Raw Data Analysis: Normal Image Corrections: No attenuation or motion correction applied Summed Stress Score: 10 Summed Rest Score: 5 Summed Difference Score: 6 PERFUSION FINDINGS Moderate area of moderate to severely decreased tracer uptake involving the inferolateral, anterolateral and apical lateral segments. Significant reversibility was noted in this area. The summed stress score was 10 with a difference score of 6 FUNCTIONAL RESULTS (calculated via Gated SPECT) Stress Image LV EF (%): 60 Stress EDV (mL):108 TID: 1 Stress ESV (mL):43 FUNCTIONAL FINDINGS: Segmental wall motion analysis revealing no gross wall motion abnormalities IMPRESSIONS 1. Myocardial perfusion imaging revealing moderate area of moderate to severely decreased tracer uptake involving the inferolateral, anterolateral and apical lateral's regions with significant reversibility suggesting ischemia in the distribution of the left circumflex artery. 2. Normal LV ejection fraction 60%. 3. LV wall motion analysis revealing no gross wall motion abnormalities. 4. Normal LV volume No similar previous studies are available for comparison Dr Abdullahi Saldana MD [facility] (Electronically Signed) Final Date: 19 April 2024 17:56 S
--- NOTE | 2024-04-19 08:02 | ECG_ITS ---
Topic Test Date: 2024-04-19 Pat Name: Jose Francis Department: Room: Gender: Male Paper Reel Operator: : 1940 Requested By: Abdullahi Saldana Order Number: [id number] Jasmyn MD: Abdullahi Saldana M.D. Interpretive Statements Lung unchanged pre/post procedure; Intraprocedure shortess of breath; Symptoms resoled by discharge PROCEDURE: At the baseline, the EKG revealed atrial fibrillation with a controlled radicular response rate. Poor R wave progression. Diffuse nonspecific ST-T changes. Incomplete right bundle branch block pattern. The baseline heart was 63 bpm with a blood pressue of 134/91 mm of Hg Lexiscan was infused over a period of 20 seconds. A total of 0.4 milligrams of Lexiscan was infused. The stress phase was continued for a total of 5 minutes. Heart rate at the end of the stress phase was 82 bpm with a blood pressure 126/85 mm of Hg. The EKG at the peak infusion revealed no significant changes. Sestamibi was injected 20 seconds after the Lexiscan infusion. Heart rate at the end of the recovery phase was 82 bpm with a blood pressure of 125/87 mm of Hg. CONCLUSION: 1. No significant EKG changes with the LexiScan infusion 2. No LexiScan induced chest pain or cardiac arrhythmia 3. Normal blood pressure and heart rate response 4. Sestamibi/sestamibi perfusion scan pending; see separate report. Electronically Signed On 04-19-2024 20:22:15 COSMETICS PRESSER by Abdullahi Saldana M.D. [id number]
[2024-04-19] MEDS: regadenoson 0.4 Mg/5 ml Syringe IVP (10:01)
[2024-04-19 10:31] VITALS: BP 125/84; PULSE 73
== END 2024-04-19 07:45 | disposition home or self-care (01) ==
LOC: CDL 07:45
PROVIDERS: PCP Family Medicine; Visit Provider Internal Medicine Cardiovascular Disease
DX: Z98.61 Coronary angioplasty status (principal); R94.39 Abnormal result of other cardiovascular function study
CPT/HCPCS: 36415; 78452; 93017; 96374; A9500; J2785

== ENCOUNTER 2024-05-18 22:04 | Emergency (ER) | payer OTHER, MEDICARE, SELFPAY ==
[2024-05-18 22:28] VITALS: BP 111/78; PULSE 104; RESP 18; TEMP 36.4; O2SAT 94; BMI 27.8
--- NOTE | 2024-05-18 23:23 | W.ED.EPISTAX ---
HPI - Epistaxis General: Chief complaint: Epistaxis Stated complaint: nose bleed blood thinners Time Seen by Provider: 05/18/24 23:04 History of Present Illness: The patient presents with a chief complaint of a bloody nose that started about an hour ago. The patient reports not having had a bloody nose in years. The bleeding was initially managed by the patient with a cotton ball, which successfully stopped the bleeding. The patient is currently on Eliquis for heart issues, specifically two leaky valves, and has a pacemaker. The patient has an upcoming appointment with Dr. Saldana to discuss recent abnormal stress test results. The patient mentions using a CPAP machine for sleep. Related Data Home Medications Medication Instructions Recorded Confirmed amiodarone 200 mg tablet 100 mg PO BID 11/07/19 04/06/24 ascorbate calcium (vitamin C) 500 500 mg PO DAILY 11/07/19 04/06/24 mg tablet cholecalciferol (vitamin D3) 25 25 mcg PO DAILY 11/07/19 04/06/24 mcg (1,000 unit) capsule loratadine 10 mg tablet 10 mg PO DAILY 10/07/21 04/06/24 tramadol 50 mg tablet 50 mg PO Q6H PRN Pain 01/12/23 04/06/24 albuterol sulfate 90 mcg/actuation 2 puff inhalation Q4H PRN 10/06/23 04/06/24 aerosol inhaler Shortness Of Breath bisacodyl 5 mg tablet 10 mg PO DAILY PRN Constipation 10/06/23 04/06/24 dextromethorphan-guaifenesin 10 10 ml PO QID PRN Congestion 10/06/23 04/06/24 mg-100 mg/5 mL oral syrup diclofenac sodium 1 % topical gel See Rx Instructions .Route .COMPLEX 10/06/23 04/06/24 fluoxetine 10 mg capsule 10 mg PO QAM 10/06/23 04/06/24 isosorbide mononitrate 30 mg 30 mg PO QAM 10/06/23 04/06/24 tablet,extended release 24 hr lidocaine 5 % topical patch See Rx Instructions .Route .COMPLEX 10/06/23 04/06/24 magnesium hydroxide 400 mg/5 mL 10 ml PO DAILY Constipation 10/06/23 04/06/24 oral suspension (Milk of Magnesia) polyethylene glycol 3350 17 17 g PO DAILY PRN Constipation 10/06/23 04/06/24 gram/dose oral powder (Miralax) potassium chloride 20 mEq 10 meq PO DAILY 10/06/23 04/06/24 tablet,extended release rosuvastatin 40 mg tablet 40 mg PO QPM 10/06/23 04/06/24 fluticasone 100 mcg-salmeterol 50 1 inh inhalation BID 12/22/23 04/06/24 mcg/dose blistr powdr for inhalation (Advair Diskus) furosemide 20 mg tablet (Lasix) 20 mg PO QAM 12/22/23 04/06/24 levothyroxine 75 mcg tablet 75 mcg PO QAM 12/22/23 04/06/24 multivitamin 1 tab PO QAM 12/22/23 04/06/24 sennosides 8.6 mg tablet (Senokot) 8.6 mg PO DAILY PRN Constipation 12/22/23 04/06/24 tamsulosin 0.4 mg capsule 0.4 mg PO QPM 12/22/23 04/06/24 apixaban 5 mg tablet (Eliquis) 2.5 mg PO BID 12/30/23 04/06/24 metformin 500 mg tablet 500 mg PO DAILY 12/30/23 04/06/24 Previous Rx's Medication Instructions Recorded ondansetron 4 mg disintegrating 4 mg PO Q8H PRN nausea and 10/06/23 tablet vomiting #14 tabs meclizine 25 mg tablet 25 mg PO QID PRN dizziness #20 tabs 02/03/24 metoprolol tartrate 25 mg tablet 25 mg PO BID 30 days #60 tabs 04/12/24 Allergies Allergy/AdvReac Type Severity Reaction Status Date / Time No Known Allergies Allergy Verified 04/19/24 07:58 [facility] PFSH: Medical History Dyslipidemia Presence of permanent cardiac pacemaker ABRAM (obstructive sleep apnea) C7 cervical fracture H/O: GI bleed Atherosclerotic heart disease of [place]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 Anemia GI bleed Hypertension Atrial fibrillation Mitral regurgitation Osteoporosis Anxiety History of pacemaker Surgical History Hx of tonsillectomy H/O hemorrhoidectomy History of hernia surgery Family History Brother CAD (coronary artery disease) Congestive heart failure (CHF) Cancer Sister Lung disease Other Atherosclerotic heart disease of [place]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 Denies family history of Diabetes Clotting disorder Dementia Hyperlipidemia Chronic kidney disease (CKD) Suicide Anesthesia complication Bleeding disorder Hypertension Stroke Social History Smoking and tobacco/nicotine status: former use of tobacco/nicotine Alcohol intake: never Substance/Drug Use: never Household members: none Marital status: Physical Exam Const: COMMON NORMALS: no acute distress, patient oriented x3, healthy appearing, alert and well nourished HENMT: COMMON NORMALS: normocephalic HEAD & SCALP: normocephalic Eye: COMMON NORMALS: EOMs intact bilaterally Neck/C-Spine: COMMON NORMALS: full ROM and supple Resp: COMMON NORMALS: normal respiratory effort, No retractions and clear to auscultation bilaterally AUSCULTATION: clear to auscultation bilaterally Cardio: COMMON NORMALS: regular rate, regular rhythm, No gallops present (Cardio) and No murmurs present (Cardio) RATE: regular rate RHYTHM: regular rhythm GI: COMMON NORMALS: Soft to palpation and non-tender PALPATION: Yes Soft to palpation Extremity: GENERAL: Yes normal exam except as noted Neuro: COMMON NORMALS: patient oriented x3 SENSORIUM/ORIENTATION: Yes alert Skin: COMMON NORMALS: no rashes or lesions noted GENERAL SKIN EXAM: no rashes or lesions noted Course Vital Signs: Vital signs: Vital Signs Temperature 97.6 F 05/18/24 22:28 Pulse Rate 104 H 05/18/24 22:28 Respiratory Rate 18 05/18/24 22:28 Blood Pressure 111/78 05/18/24 22:28 Pulse Oximetry 94 05/18/24 22:28 Oxygen Delivery Me thod Room Air 05/18/24 22:28 MDM - Epistaxis Medical Decision Making Epistaxis Management in Patient on Anticoagulation: Patient experienced a nosebleed lasting approximately one hour, which ceased with the application of a cotton ball. The patient is currently on Eliquis (apixaban) for cardiac issues, including two leaky valves and a pacemaker. A recent stress test indicated new abnormalities, suggesting the epistaxis may be related to anticoagulation therapy. Physical examination showed dried blood at the back of the throat but no active bleeding. - Continue Eliquis, including the morning dose. - Advise the patient to contact their inner tube tuber machine operator tomorrow to discuss the recent nosebleed and potential adjustments to medication. - Recommend leaving the cotton ball in place overnight to maintain the clot. - Instruct the patient to return to the ER if bleeding resumes. - Ensure follow-up with the inner tube tuber machine operator is scheduled for next week to discuss the abnormal stress test results. No radiology studies performed this visit Discharge Plan Discharge Patient Disposition: Home Clinical Impression: Epistaxis Condition: Stable Prescriptions: No Action ascorbate calcium (vitamin C) 500 mg tablet 500 mg PO DAILY cholecalciferol (vitamin D3) 25 mcg (1,000 unit) capsule 25 mcg PO DAILY amiodarone 200 mg tablet 100 mg PO BID loratadine 10 mg tablet 10 mg PO DAILY metformin 500 mg tablet 500 mg PO DAILY metoprolol tartrate 25 mg tablet 25 mg PO BID 30 Days Qty: 60 5RF dextromethorphan-guaifenesin 10-100 mg/5 mL Syrup 10 ml PO QID PRN (Reason: Congestion) magnesium hydroxide [Milk of Magnesia] 400 mg/5 mL Suspension 10 ml PO DAILY lidocaine 5 % Adhesive Patch,Medicated See Rx Instructions .ROUTE .COMPLEX Rx Instructions: APPLY 1 patch topically, leave on most painful area for up to 12 hrs, THEN REMOVE PATCH FOR 12 HOURS fluoxetine 10 mg capsule 10 mg PO QAM polyethylene glycol 3350 [Miralax] 17 gram/dose Powder 17 g PO DAILY PRN (Reason: Constipation) albuterol sulfate 90 mcg/actuation HFA aerosol inhaler 2 puff INHALATION Q4H PRN (Reason: Shortness Of Breath) bisacodyl 5 mg Tablet 10 mg PO DAILY PRN (Reason: Constipation) diclofenac sodium 1 % Gel See Rx Instructions .ROUTE .COMPLEX Rx Instructions: APPLY 4 GRAMS TO AFFECTED AREA(S) 4 TIMES DAILY FOR PAIN. DO NOT EXCEED MORE THAN 16 GRAMS DAILY TO ANY LOWER EXTREMITY JOINT. NOT MORE THAN 8 GRAMS DAILY TO ANY UPPER EXTREMITY JOINT. MAX 32 GRAMS DAILY OVER ALL JOINTS. potassium chloride 20 mEq Tablet Extended Release 10 meq PO DAILY isosorbide mononitrate 30 mg Tablet Extended Release 24 Hr 30 mg PO QAM rosuvastatin 40 mg Tablet 40 mg PO QPM ondansetron 4 mg tablet,disintegrating 4 mg PO Q8H PRN (Reason: nausea and vomiting) Qty: 14 0RF Eliquis 5 mg tablet 2.5 mg PO BID Hold Instructions: Resume on 01/05/24. May restart the Eliquis tomorrow morning multivitamin Tablet 1 tab PO QAM sennosides [Senokot] 8.6 mg Tablet 8.6 mg PO DAILY PRN (Reason: Constipation) levothyroxine 75 mcg Tablet 75 mcg PO QAM tamsulosin 0.4 mg Capsule 0.4 mg PO QPM fluticasone propion-salmeterol [Advair Diskus] 100-50 mcg/dose Blister With Device 1 inh INHALATION BID furosemide [Lasix] 20 mg tablet 20 mg PO QAM tramadol 50 mg tablet 50 mg PO Q6H PRN (Reason: Pain) meclizine 25 mg tablet 25 mg PO QID PRN (Reason: dizziness) Qty: 20 0RF Discharge Orders: Discharge ED (Routine); Ordered 05/18/24 Ordered By: Sree Rodriges Referrals: Maggi Aguilar MD [Primary Care Provider] - Discharge Diet: Advance as tolerated Discharge Activity: Resume usual activity Patient Instructions: Opioid Safety, Pain Management Activity Restrictions/Additional Instructions: Please return to the emergency department for any new or worsening symptoms. Call the inner tube tuber machine operator tomorrow about continuation of Eliquis. Coding Level of Care Code ED Latent Print Examiner for Rom Posada
[2024-05-18 23:58] VITALS: BP 117/80; PULSE 103; O2SAT 92
== END 2024-05-19 | disposition home or self-care (01) ==
PROVIDERS: Emergency Provider General Practice; PCP Family Medicine
DX: R04.0 Epistaxis (principal); Z79.84 Long term (current) use of oral hypoglycemic drugs; Z87.891 Personal history of nicotine dependence; I25.118 Atherosclerotic heart disease of native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; E78.5 Hyperlipidemia, unspecified; I10 Essential (primary) hypertension
CPT/HCPCS: 99282

== ENCOUNTER 2024-05-19 12:15 | Emergency (ER) | payer OTHER, MEDICARE, SELFPAY ==
[2024-05-19 12:24] VITALS: BP 125/86; PULSE 96; RESP 18; TEMP 36.7; O2SAT 96; BMI 27.8
[2024-05-19 12:26] VITALS: BP 125/86; PULSE 96; RESP 18; TEMP 36.7; O2SAT 96
--- NOTE | 2024-05-19 12:30 | PC.PHAR ---
patient is [facility], sent fax at 1230pm
[2024-05-19 13:08] LABS: Basophils % 0.2 %; Eosinophils # 0.1 10^3/uL (0.0-0.8); Eosinophils % 2.1 %; Hematocrit 38.1 % (37-53); Lymphocytes # 1.5 10^3/uL (0.8-4.8); Lymphocytes % 28.6 %; Mean Corpuscular HGB Conc 31.8 g/dL (30-55); Mean Corpuscular Hemoglobin 30.3 pg (27-33); Mean Corpuscular Volume 95.3 fl (82-101); Mean Platelet Volume 10.1 fL (7.4-10.4); Monocytes # 0.5 10^3/uL (0.2-0.9); Monocytes % 10.3 %; Neutrophils # 3.01 10^3/uL (1.8-7.7); Neutrophils % 58.2 %; Nucleated Red Blood Cells % 0 %; Platelet Count 143 10^3/cmm (157-399); Red Cell Distribution Width 15.9 % (12.1-15.1); White Blood Count 5.17 10^3/uL (3.29-11.43)
--- NOTE | 2024-05-19 13:41 | ED_ITS ---
HPI - Epistaxis 2 General: Chief complaint: Epistaxis Stated complaint: NOSE BLEED Time Seen by Provider: 05/19/24 12:22 History of Present Illness: 83-year-old male presents to the emergen cy department chief complaint of having acute on chronic epistaxis patient is on Eliquis he endorses he has been blowing his nose more frequently over the last couple of days has had increased blood clots and bleeding out of the left nares but running the back of the throat patient reports she was seen here last night which is spontaneously stopped in which she was subsequently released home patient endorses it started after being released home which has been case persistent ever since patient denies any other associated symptoms reports no prior or recent nasal trauma reporting no other associated symptoms. He does endorse that he did put some cotton swabs up both of his naris he denies any other associated symptoms he endorses all restarted approximately 2 hours ago. Associated symptoms: Deny fever(s), headache(s) or vomiting Related Data Home Medications Medication Instructions Recorded Confirmed amiodarone 200 mg tablet 100 mg PO BID 11/07/19 05/19/24 cholecalciferol (vitamin D3) 25 25 mcg PO DAILY 11/07/19 05/19/24 mcg (1,000 unit) capsule loratadine 10 mg tablet 10 mg PO DAILY 10/07/21 05/19/24 tramadol 50 mg tablet 50 mg PO Q6H PRN Pain 01/12/23 05/19/24 albuterol sulfate 90 mcg/actuation 2 puff inhalation Q4H PRN 10/06/23 05/19/24 aerosol inhaler Shortness Of Breath dextromethorphan-guaifenesin 10 10 ml PO QID PRN Congestion 10/06/23 05/19/24 mg-100 mg/5 mL oral syrup diclofenac sodium 1 % topical gel See Rx Instructions .Route .COMPLEX 10/06/23 05/19/24 fluoxetine 10 mg capsule 10 mg PO QAM 10/06/23 05/19/24 isosorbide mononitrate 30 mg 30 mg PO QAM 10/06/23 05/19/24 tablet,extended release 24 hr lidocaine 5 % topical patch See Rx Instructions .Route .COMPLEX 10/06/23 05/19/24 polyethylene glycol 3350 17 17 g PO DAILY PRN Constipation 10/06/23 05/19/24 gram/dose oral powder (Miralax) potassium chloride 20 mEq 10 meq PO DAILY 10/06/23 05/19/24 tablet,extended release rosuvastatin 40 mg tablet 40 mg PO QPM 10/06/23 05/19/24 furosemide 20 mg tablet (Lasix) 20 mg PO QAM 12/22/23 05/19/24 levothyroxine 75 mcg tablet 75 mcg PO QAM 12/22/23 05/19/24 multivitamin 1 tab PO QAM 12/22/23 05/19/24 sennosides 8.6 mg tablet (Senokot) 8.6 mg PO DAILY PRN Constipation 12/22/23 05/19/24 tamsulosin 0.4 mg capsule 0.4 mg PO QPM 12/22/23 05/19/24 apixaban 5 mg tablet (Eliquis) 5 mg PO BID 12/30/23 05/19/24 metformin 500 mg tablet 500 mg PO BID 12/30/23 05/19/24 ferrous sulfate 325 mg (65 mg 325 mg PO DAILY 05/19/24 05/19/24 iron) tablet fluticasone 100 mcg-salmeterol 50 1 inh inhalation BID 05/19/24 05/19/24 mcg/dose blistr powdr for inhalation (Advair Diskus) Previous Rx's Medication Instructions Recorded metoprolol tartrate 25 mg tablet 25 mg PO BID 30 days #60 tabs 04/12/24 cephalexin 500 mg capsule 500 mg PO BID 7 days #14 caps 05/19/24 Allergies Allergy/AdvReac Type Severity Reaction Status Date / Time No Known Allergies Allergy Verified 04/19/24 07:58 Review of Systems 2 General: Reports: 10 or more systems reviewed and unremarkable except in HPI and below Const: Denies: fever(s), chills, fatigue or malaise Eyes: Denies: change in vision or blurry vision ENMT: Reports: epistaxis Card: Denies: chest pain or palpitations Resp: Denies: dyspnea or productive cough GI: Denies: abdominal pain, nausea or vomiting : Denies: flank pain Musc: Denies: extremity pain or extremity swelling Skin/Breast: Denies: rash or pruritus Neuro: Denies: headache(s) Psych: Denies: anxiety or depression Anurag/Lymph: Denies: easy bleeding All/Imm: Denies: urticaria, throat swelling or facial swelling PFSH ED 2 PFSH: Medical History Dyslipidemia Presence of permanent cardiac pacemaker ABRAM (obstructive sleep apnea) C7 cervical fracture H/O: GI bleed Atherosclerotic heart disease of [place]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 Anemia GI bleed Hypertension Atrial fibrillation Mitral regurgitation Osteoporosis Anxiety History of pacemaker Surgical History Hx of tonsillectomy H/O hemorrhoidectomy History of hernia surgery Family History Brother CAD (coronary artery disease) Congestive heart failure (CHF) Cancer Sister Lung disease Other Atherosclerotic heart disease of [place]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 Denies family history of Diabetes Clotting disorder Dementia Hyperlipidemia Chronic kidney disease (CKD) Suicide Anesthesia complication Bleeding disorder Hypertension Stroke Social History Smoking and tobacco/nicotine status: former use of tobacco/nicotine Alcohol intake: never Substance/Drug Use: never Household members: none Marital status: Physical Exam 2 Const: COMMON NORMALS: no acute distress, patient oriented x3 and healthy appearing HENMT: COMMON NORMALS: normocephalic and atraumatic HEAD & SCALP: n ormocephalic and atraumatic OTHER: Active fresh clot located to the anterior plexus noted to the left naris no active bleeding in the right nare is noted with mild old blood noted to the posterior oropharynx Eye: COMMON NORMALS: Equal, round and reactive pupils present and EOMs intact bilaterally PUPIL: Yes Equal, round and reactive pupils present Neck/C-Spine: COMMON NORMALS: full ROM, supple and no JVD Lymph: LYMPHATIC: no lymphadenopathy noted Chest: COMMONS NORMALS: normal inspection of the chest and normal palpation of entire chest wall Resp: COMMON NORMALS: normal respiratory effort, No retractions and clear to auscultation bilaterally EFFORT & INSPECTION: Yes able to speak in complete sentences and Yes symmetric chest movement AUSCULTATION: clear to auscultation bilaterally Cardio: COMMON NORMALS: no JVD, regular rate and regular rhythm RATE: r egular rate RHYTHM: regular rhythm GI: COMMON NORMALS: Normal to inspection, nondistended, normoactive bowel sounds present, Soft to palpation and non-tender INSPECTION: Yes normal to inspection PALPATION: Yes Soft to palpation : COMMON NORMALS: Yes no CVA tenderness BLADDER/KIDNEY EXAM: Yes no CVA tenderness Back/Pelvis: COMMON NORMALS: no CVA tenderness Extremity: COMMON NORMALS: normal to inspection and full ROM Neuro: COMMON NORMALS: patient oriented x3, CN's II-XII intact bilaterally, moves all extremities and no focal motor deficits Psych: COMMON NORMALS: mental status grossly normal, Normal thought process present, cooperative and normal affect THOUGHT PROCESS: Normal thought process present Skin: COMMON NORMALS: no rashes or lesions noted GENERAL SKIN EXAM: no rashes or lesions noted Procedures Epistaxis Control Time Out Performed: Yes Nostril: left Direct Inspection: yes and anterior source identified Cautery Used: none Device Inserted: hemostatic balloon Patient Tolerated Procedure: well Course 2 Vital Signs: Vital signs: Vital Signs Temperature 98.1 F 05/19/24 12:26 Pulse Rate 96 05/19/24 12:26 Respiratory Rate 18 05/19/24 12:26 Blood Pressure 125/86 05/19/24 12:26 Pulse Oximetry 96 05/19/24 12:26 Oxygen Delivery Me thod Room Air 05/19/24 12:26 MDM - Epistaxis Medical Decision Making Patient's continued bleeding hemoglobin hematocrit CBC obtained this came back unremarkable patient underwent nasal pack with no difficulty noted patient will be started on some Keflex for infection prophylaxis advised to return to the ER for the follow-up primary care in 2 to 3 days for packing removal and was to return the interim if any of his symptoms persist or worse. Lab Data 05/19/24 12:56 Laboratory Results WBC 5.17 10^3/uL (3.29-11.43) 05/19/24 12:56 RBC 4.00 10^6/uL (3.85-5.65) 05/19/24 12:56 Hgb 12.10 g/dL (11.27-16.99) 05/19/24 12:56 Hct 38.1 % (37-53) 05/19/24 12:56 MCV 95.3 fl (82-101) 05/19/24 12:56 MCH 30.3 pg (27-33) 05/19/24 12:56 MCHC 31.8 g/dL (30-55) 05/19/24 12:56 RDW 15.9 % (12.1-15.1) H 05/19/24 12:56 Plt Count 143 10^3/cmm (157-399) L 05/19/24 12:56 MPV 10.1 fL (7.4-10.4) 05/19/24 12:56 Neut % (Auto) 58.2 % 05/19/24 12:56 Lymph % (Auto) 28.6 % 05/19/24 12:56 [place] % (Auto) 10.3 % 05/19/24 12:56 Eos % (Auto) 2.1 % 05/19/24 12:56 Baso % (Auto) 0.2 % 05/19/24 12:56 Neut # (Auto) 3.01 10^3/uL (1.8-7.7) 05/19/24 12:56 Lymph # (Auto) 1.5 10^3/uL (0.8-4.8) 05/19/24 12:56 [place] # (Auto) 0.5 10^3/uL (0.2-0.9) 05/19/24 12:56 Eos # (Auto) 0.1 10^3/uL (0.0-0.8) 05/19/24 12:56 Baso # (Auto) 0.0 10^3/uL (0.0-0.1) 05/19/24 12:56 Nucleated RBC % (auto) 0 % 05/19/24 12:56 Nucleated RBCs # 0.0 /100WBC 05/19/24 12:56 No radiology studies performed this visit Discharge Plan Discharge Patient Disposition: Home Clinical Impression: Acute anterior epistaxis Condition: Stable Prescriptions: New cephalexin 500 mg capsule 500 mg PO BID 7 Days Qty: 14 0RF No Action cholecalciferol (vitamin D3) 25 mcg (1,000 unit) capsule 25 mcg PO DAILY amiodarone 200 mg tablet 100 mg PO BID loratadine 10 mg tablet 10 mg PO DAILY metformin 500 mg tablet 500 mg PO BID metoprolol tartrate 25 mg tablet 25 mg PO BID 30 Days Qty: 60 5RF dextromethorphan-guaifenesin 10-100 mg/5 mL Syrup 10 ml PO QID PRN (Reason: Congestion) lidocaine 5 % Adhesive Patch,Medicated See Rx Instructions .ROUTE .COMPLEX Rx Instructions: APPLY 1 patch topically, leave on most painful area for up to 12 hrs, THEN REMOVE PATCH FOR 12 HOURS fluoxetine 10 mg capsule 10 mg PO QAM polyethylene glycol 3350 [Miralax] 17 gram/dose Powder 17 g PO DAILY PRN (Reason: Constipation) albuterol sulfate 90 mcg/actuation HFA aerosol inhaler 2 puff INHALATION Q4H PRN (Reason: Shortness Of Breath) diclofenac sodium 1 % Gel See Rx Instructions .ROUTE .COMPLEX Rx Instructions: APPLY 4 GRAMS TO AFFECTED AREA(S) 4 TIMES DAILY FOR PAIN. DO NOT EXCEED MORE THAN 16 GRAMS DAILY TO ANY LOWER EXTREMITY JOINT. NOT MORE THAN 8 GRAMS DAILY TO ANY UPPER EXTREMITY JOINT. MAX 32 GRAMS DAILY OVER ALL JOINTS. potassium chloride 20 mEq Tablet Extended Release 10 meq PO DAILY isosorbide mononitrate 30 mg Tablet Extended Release 24 Hr 30 mg PO QAM rosuvastatin 40 mg Tablet 40 mg PO QPM Eliquis 5 mg tablet 5 mg PO BID Hold Instructions: Resume on 01/05/24. May restart the Eliquis tomorrow morning multivitamin Tablet 1 tab PO QAM sennosides [Senokot] 8.6 mg Tablet 8.6 mg PO DAILY PRN (Reason: Constipation) levothyroxine 75 mcg Tablet 75 mcg PO QAM tamsulosin 0.4 mg Capsule 0.4 mg PO QPM furosemide [Lasix] 20 mg tablet 20 mg PO QAM ferrous sulfate 325 mg (65 mg iron) Tablet 325 mg PO DAILY fluticasone propion-salmeterol [Advair Diskus] 100-50 mcg/dose Blister With Device 1 inh INHALATION BID tramadol 50 mg tablet 50 mg PO Q6H PRN (Reason: Pain) Discharge Orders: Discharge ED (Routine); Ordered 05/19/24 Ordered By: Aayush Jimenes Referrals: Maggi Aguilar MD [Primary Care Provider] - Discharge Diet: Advance as tolerated Discharge Activity: Increase activity as tolerated Patient Instructions: Nosebleed (ED) Activity Restrictions/Additional Instructions: Please have your nasal packing removed within 2 to 3 days as after that you have increased risk of infection other concerns do not pick your nose or mess with your nose please return the interim if any of your symptoms persist or worse take medications as prescribed for infection prophylaxis. Coding Level of Care Code ED Tinware Lithograph Press Operator for Rom Posada
[2024-05-19 14:17] VITALS: BP 116/82; PULSE 89; O2SAT 100
[2024-05-19] MEDS: cephALEXin 500 mg Capsule PO (14:17)
== END 2024-05-19 15:03 | disposition home or self-care (01) ==
PROVIDERS: Emergency Provider Emergency Medicine; PCP Family Medicine
DX: R04.0 Epistaxis (principal); Z79.84 Long term (current) use of oral hypoglycemic drugs; Z87.891 Personal history of nicotine dependence; Z95.0 Presence of cardiac pacemaker; I25.118 Atherosclerotic heart disease of native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; I10 Essential (primary) hypertension
CPT/HCPCS: 36415; 85025; 99283

== ENCOUNTER → 2024-05-23 14:22 | Outpatient (BNVA) | payer OTHER, MEDICARE, SELFPAY | PROVIDERS: PCP Family Medicine; Visit Provider Internal Medicine Cardiovascular Disease | DX: R94.39 Abnormal result of other cardiovascular function study (principal); I25.10 Atherosclerotic heart disease of native coronary artery without angina pectoris; R06.02 Shortness of breath; Z79.01 Long term (current) use of anticoagulants; I48.91 Unspecified atrial fibrillation; I11.0 Hypertensive heart disease with heart failure; I50.32 Chronic diastolic (congestive) heart failure; Z95.0 Presence of cardiac pacemaker; E78.5 Hyperlipidemia, unspecified; Z87.891 Personal history of nicotine dependence | CPT/HCPCS: 99214 ==

== ENCOUNTER 2024-05-23 16:57 | Emergency (ER) | payer OTHER, MEDICARE, SELFPAY ==
[2024-05-23 17:13] VITALS: BP 124/80; PULSE 100; TEMP 36.4; O2SAT 98
--- NOTE | 2024-05-23 18:02 | W.ED.EPISTAX ---
HPI - Epistaxis General: Chief complaint: Epistaxis Stated complaint: nose plug Time Seen by Provider: 05/23/24 17:52 Source: patient Mode of arrival: ambulatory Limitations: no limitations History of Present Illness: Patient is an 83-year-old male who presents the emergency department for removal of his left nasal packing. Was seen here on 05/19 due to uncontrolled epistaxis posterior, had Rhino Rocket placed and was started on antibiotics. He states [facility] him here to the emergency department. He does not report any complications, specifically no fevers. Vital stable at this time. MD complaint: other (Present for removal of nasal packing) Location: left nostril Associated symptoms: Deny fever(s), headache(s) or vomiting Related Data Home Medications Medication Instructions Recorded Confirmed amiodarone 200 mg tablet 100 mg PO BID 11/07/19 05/19/24 cholecalciferol (vitamin D3) 25 25 mcg PO DAILY 11/07/19 05/19/24 mcg (1,000 unit) capsule loratadine 10 mg tablet 10 mg PO DAILY 10/07/21 05/19/24 tramadol 50 mg tablet 50 mg PO Q6H PRN Pain 01/12/23 05/19/24 albuterol sulfate 90 mcg/actuation 2 puff inhalation Q4H PRN 10/06/23 05/19/24 aerosol inhaler Shortness Of Breath dextromethorphan-guaifenesin 10 10 ml PO QID PRN Congestion 10/06/23 05/19/24 mg-100 mg/5 mL oral syrup diclofenac sodium 1 % topical gel See Rx Instructions .Route .COMPLEX 10/06/23 05/19/24 fluoxetine 10 mg capsule 10 mg PO QAM 10/06/23 05/19/24 isosorbide mononitrate 30 mg 30 mg PO QAM 10/06/23 05/19/24 tablet,extended release 24 hr lidocaine 5 % topical patch See Rx Instructions .Route .COMPLEX 10/06/23 05/19/24 polyethylene glycol 3350 17 17 g PO DAILY PRN Constipation 10/06/23 05/19/24 gram/dose oral powder (Miralax) potassium chloride 20 mEq 10 meq PO DAILY 10/06/23 05/19/24 tablet,extended release rosuvastatin 40 mg tablet 40 mg PO QPM 10/06/23 05/19/24 furosemide 20 mg tablet (Lasix) 20 mg PO QAM 12/22/23 05/19/24 levothyroxine 75 mcg tablet 75 mcg PO QAM 12/22/23 05/19/24 multivitamin 1 tab PO QAM 12/22/23 05/19/24 sennosides 8.6 mg tablet (Senokot) 8.6 mg PO DAILY PRN Constipation 12/22/23 05/19/24 tamsulosin 0.4 mg capsule 0.4 mg PO QPM 12/22/23 05/19/24 apixaban 5 mg tablet (Eliquis) 5 mg PO BID 12/30/23 05/19/24 metformin 500 mg tablet 500 mg PO BID 12/30/23 05/19/24 ferrous sulfate 325 mg (65 mg 325 mg PO DAILY 05/19/24 05/19/24 iron) tablet fluticasone 100 mcg-salmeterol 50 1 inh inhalation BID 05/19/24 05/19/24 mcg/dose blistr powdr for inhalation (Advair Diskus) Previous Rx's Medication Instructions Recorded metoprolol tartrate 25 mg tablet 25 mg PO BID 30 days #60 tabs 04/12/24 cephalexin 500 mg capsule 500 mg PO BID 7 days #14 caps 05/19/24 Allergies Allergy/AdvReac Type Severity Reaction Status Date / Time No Known Allergies Allergy Verified 05/23/24 17:18 Review of Systems General: Reports: 10 or more systems reviewed and unremarkable except in HPI and below Const: Reports: other (Present for removal of nasal packing); Denies: fever(s), chills or fatigue Eyes: Denies: change in vision ENMT: Denies: throat pain, ear or mastoid pain or nasal discharge Card: Denies: chest pain, palpitations, swelling of feet/ankles or lightheadedness Resp: Denies: dyspnea, productive cough or wheezing GI: Denies: abdominal pain, nausea, vomiting, diarrhea or constipation : Denies: flank pain, difficulty urinating, dysuria or urinary frequency Musc: Denies: neck pain, back pain or joint pain Skin/Breast: Denies: rash Neuro: Denies: headache(s), numbness in extremities or weakness in extremities PFSH ED PFSH: Medical History Dyslipidemia Presence of permanent cardiac pacemaker ABRAM (obstructive sleep apnea) C7 cervical fracture H/O: GI bleed 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 Anemia GI bleed Hypertension Atrial fibrillation Mitral regurgitation Osteoporosis Anxiety History of pacemaker Surgical History Hx of tonsillectomy H/O hemorrhoidectomy History of hernia surgery Family History Brother CAD (coronary artery disease) Congestive heart failure (CHF) Cancer Sister Lung disease Other 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 Denies family history of Diabetes Clotting disorder Dementia Hyperlipidemia Chronic kidney disease (CKD) Suicide Anesthesia complication Bleeding disorder Hypertension Stroke Social History Smoking and tobacco/nicotine status: former use of tobacco/nicotine Alcohol intake: never Substance/Drug Use: never Household members: none Marital status: Physical Exam Const: COMMON NORMALS: no acute distress, average body habitus, patient oriented x3, no limitations, healthy appearing, alert and well nourished HENMT: COMMON NORMALS: normocephalic and atraumatic HEAD & SCALP: normocephalic and atraumatic FACE & SINUS: normal facial exam MOUTH: Normal oral and palatal mucosa present, lip normal and tongue normal THROAT: posterior oropharynx normal and other (No evidence of posterior bleeding) OTHER: Presence of nasal packing to left nare, some surrounding dried blood. Eye: COMMON NORMALS: EOMs intact bilaterally and conjunctivae normal CONJUNCTIVA: Yes conjunctivae normal Resp: COMMON NORMALS: normal respiratory effort, No use of accessory muscles and clear to auscultation bilaterally AUSCULTATION: clear to auscultation bilaterally Cardio: COMMON NORMALS: regular rate, regular rhythm, No gallops present (Cardio), No murmurs present (Cardio) and No rub (Cardio) RATE: regular rate RHYTHM: regular rhythm Extremity: COMMON NORMALS: normal to inspection and full ROM Neuro: COMMON NORMALS: patient oriented x3 and moves all extremities SENSORIUM/ORIENTATION: Yes alert Course Vital Signs: Vital signs: Vital Signs Temperature 97.6 F 05/23/24 17:13 Pulse Rate 100 05/23/24 17:13 Blood Pressure 124/80 05/23/24 17:13 Pulse Oximetry 98 05/23/24 17:13 Oxygen Delivery Me thod Room Air 05/23/24 17:13 MDM - Epistaxis Medical Decision Making Patient's nasal packing appeared well with no complication on exam. It was removed successfully, no evidence of bleeding intranasally or on examination of posterior oropharynx. He will continue taking his antibiotics and [facility]. Told him to avoid trauma/itching/other causes of recurrence of bleeding, however if this does occur to return to the emergency department. He agrees and is comfortable with discharge at this time. No radiology studies performed this visit Discharge Plan Discharge Patient Disposition: Home Clinical Impression: Encounter for removal of nasal packing Condition: Stable Prescriptions: No Action cholecalciferol (vitamin D3) 25 mcg (1,000 unit) capsule 25 mcg PO DAILY amiodarone 200 mg tablet 100 mg PO BID loratadine 10 mg tablet 10 mg PO DAILY metformin 500 mg tablet 500 mg PO BID metoprolol tartrate 25 mg tablet 25 mg PO BID 30 Days Qty: 60 5RF dextromethorphan-guaifenesin 10-100 mg/5 mL Syrup 10 ml PO QID PRN (Reason: Congestion) lidocaine 5 % Adhesive Patch,Medicated See Rx Instructions .ROUTE .COMPLEX Rx Instructions: APPLY 1 patch topically, leave on most painful area for up to 12 hrs, THEN REMOVE PATCH FOR 12 HOURS fluoxetine 10 mg capsule 10 mg PO QAM polyethylene glycol 3350 [Miralax] 17 gram/dose Powder 17 g PO DAILY PRN (Reason: Constipation) albuterol sulfate 90 mcg/actuation HFA aerosol inhaler 2 puff INHALATION Q4H PRN (Reason: Shortness Of Breath) diclofenac sodium 1 % Gel See Rx Instructions .ROUTE .COMPLEX Rx Instructions: APPLY 4 GRAMS TO AFFECTED AREA(S) 4 TIMES DAILY FOR PAIN. DO NOT EXCEED MORE THAN 16 GRAMS DAILY TO ANY LOWER EXTREMITY JOINT. NOT MORE THAN 8 GRAMS DAILY TO ANY UPPER EXTREMITY JOINT. MAX 32 GRAMS DAILY OVER ALL JOINTS. potassium chloride 20 mEq Tablet Extended Release 10 meq PO DAILY isosorbide mononitrate 30 mg Tablet Extended Release 24 Hr 30 mg PO QAM rosuvastatin 40 mg Tablet 40 mg PO QPM Eliquis 5 mg tablet 5 mg PO BID Hold Instructions: Resume on 01/05/24. May restart the Eliquis tomorrow morning multivitamin Tablet 1 tab PO QAM sennosides [Senokot] 8.6 mg Tablet 8.6 mg PO DAILY PRN (Reason: Constipation) levothyroxine 75 mcg Tablet 75 mcg PO QAM tamsulosin 0.4 mg Capsule 0.4 mg PO QPM furosemide [Lasix] 20 mg tablet 20 mg PO QAM ferrous sulfate 325 mg (65 mg iron) Tablet 325 mg PO DAILY fluticasone propion-salmeterol [Advair Diskus] 100-50 mcg/dose Blister With Device 1 inh INHALATION BID cephalexin 500 mg capsule 500 mg PO BID 7 Days Qty: 14 0RF tramadol 50 mg tablet 50 mg PO Q6H PRN (Reason: Pain) Discharge Orders: Discharge ED (Routine); Ordered 05/23/24 Ordered By: Adriano Hudson Referrals: Maggi Aguilar MD [Primary Care Provider] - Activity Restrictions/Additional Instructions: [facility] Avoid any picking/scratching/nasal trauma that would cause recurrence of bleeding. Continue taking your antibiotics. Continue taking your Eliquis and other home medications. Return with any recurrence of the bleeding. Coding Level of Care Code ED [employer] Instructor for Rom Posada
[2024-05-23 18:14] VITALS: BP 103/71; PULSE 106; O2SAT 95
== END 2024-05-23 18:16 | disposition home or self-care (01) ==
PROVIDERS: Emergency Provider Physician Assistant; PCP Family Medicine
DX: Z48.01 Encounter for change or removal of surgical wound dressing (principal); Z87.891 Personal history of nicotine dependence; E78.5 Hyperlipidemia, unspecified; I10 Essential (primary) hypertension; Z95.0 Presence of cardiac pacemaker
CPT/HCPCS: 36415; 80048; 85025; 85610; 86850; 86900; 99282

== ENCOUNTER 2024-05-26 10:53 | Observation (INO) | payer OTHER, MEDICARE, SELFPAY ==
[2024-05-26] VITALS (32 sets, daily range): BP systolic 81–123; BP diastolic 53–86; PULSE 60–89; RESP 12–31; TEMP 36.5–36.7; O2SAT 85–97; BMI 27.8; BMI 31.4
--- NOTE | 2024-05-26 07:31 | XACV_ITS ---
Exam Room: 2 Ht: 180 cm Wt: 91 kg BSA: 2.15 m2 Gender: Male : 1940 Any Known Allergies: No known allergies Exam Priority: Routine Procedure(s): Procedure Description: Diagnostic procedure Procedure Description: Miscellaneous Procedure Description: Angio-Seal Procedure Description: Coronary Angiography Les VAN; Diagnostic Cath Status: Elective Diagnostic Findings * The left main is a large-caliber vessel with no significant stenotic lesions. * The left descending artery is a medium caliber vessel which tapers off towards the LV apex. The first diagonal branch is of similar caliber with no significant lesions. It also gives of multiple small diagonal branches which were found to have no significant lesions. * The left circumflex artery is a medium caliber vessel with a 30% extrinsic compression at the mid segment.. No significant stenotic lesions were noted. * The right coronary artery is a medium to large caliber dominant vessel which was found to have tandem lesions of concentric narrowing, with a proximal 40% and distal 30% lesions at the mid segment. No other significant stenotic lesions were noted.. Conclusions 1. This 83-year-old white male with history of hypertension, dyslipidemia, chronic intermittent atrial fibrillation, who presents with complaints of increasing shortness of breath with exertion. He had a Myocardial perfusion imaging which revealed a moderate area of ischemia in the distribution of the left circumflex artery. In view of his ongoing worsening symptoms, in order to further evaluate his coronary status, a cardiac catheterization was recommended. Patient underwent the coronary angiogram today. The findings are as follows. 2. 1. Large left main with no significant lesions.2. Left anterior descending artery has no significant lesions.3. 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 Dominant right coronary artery with mild disease in the midsegment. 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 The femoral arteriotomy site was closed with an Angio-Seal device(Dr. Grimaldo). Diagnostic RX Recommendation: medical therapy and/or counseling Left Ventriculography Findings: * LV gram was not performed because of technical difficulties. Pressures Phase:Rest AO : 100 / 82 ( 88 ) @ 9:57:00 AM 126 / 67 ( 87 ) @ 10:17:00 AM Clinical Evaluation EBL: 5mL-10mL Procedural Details Procedure Consent Obtained. Pre-Procedure Time Out. Identified patient by full name and date of as verbalized by the patient/guarantor. Does the consent match the physician's order: Yes. Accurate & Complete Informed Consent: Yes. Inpatient/Outpatient History & Physical on Chart: Yes. If H&P is completed, is and addenduem needed: No. Visualize and Verify Site with Patient/Guarantor: N/A. Relevant Radiology Images available: Yes. The risks, benefits, and alternatives of sedation and/or procedure were discussed by physician. The patient agrees to continue. Procedure started. [facility] Clinical Fraility Score: 4: Vulnerable. 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 Chest Pain Symptom Assessment: Typical Angina Symptoms. Cardiovascular Instability: No, if yes, Hemodynamic Instability. Correct patient, site and procedure confirmed by cath team. PERRLA. Strong, equal hand test designer bilaterally. Lungs clear x 5 lobes. IV Site on Arrival: 20 gauge in the left anticubital. IV Fluids: 0.9% NaCl at KVO. 0 mL infused prior to quality control lab technician. Pre Procedural Pulses: bilateral dorsalis pedis was 3+. Pre Procedural Pulses: bilateral posterior tibial was 3+. Pre Procedural Pulses: bilateral radial was 3+. Oxygen started at 2liters/min via nasal canula. right groin was prepped with chloroprep then draped in the usual sterile fashion. right radial was prepped with chloroprep then draped in the usual sterile fashion. Physician notified. Patient's family unavailable. Dr. Saldana will call the patients son, Balaji, at the completion of the procedure. Equipment: 6F - Radial. Cardiac Cath Pack. ACIST Manifold Kit Model BT 2000. Heparinized Saline (2 units/mL), 1000 mL bag. Baseline sample Acquired. HR: 115 BPM. Physician arrived. Physician scrubbed in. Immediate Pre-Procedure Time Out. Correct Patient: Yes; Correct Procedure: Yes; Correct Site: Yes; Correct Patient Position: Yes; Correct Supplies: Yes; Dried Flammable Prep: Yes; Blood Products Available: N/A;. Lidocaine 1% infiltrated to the right radial. Arterial access obtained. A 5 [place] Иван catheter in over the exchange J wire. Hand injection performed through the Иван. Right subclavian occluded. Will abort radial approach and move to femoral. A TR Band was successful obtaining hemostatsis at the Right Radial artery insertion site. Lidocaine 1% infiltrated to the right groin. Arterial access obtained with micropuncture set. A 5 [place] JR4 catheter in over the standard J wire. Multiple views taken of right coronary artery. Catheter removed over the standard J wire. Sheath upsized to a 6 Fr. A 5 [place] JL4 catheter in over the standard J wire. Catheter removed over the standard J wire. A 5 [place] JL5 catheter in over the standard J wire. Multiple views taken of left coronary artery. Catheter removed over the standard J wire. A 125cm 6 [place] Straight Pig catheter in over the standard J wire. Standard J wire out, exchange J wire in. Catheter removed over the exchange J wire. Sheath exchanged for a 6 Fr. Short Arrow sheath. A Right femoral angiogram was performed to determine safe placement of closure device. Dr. Grimaldo called to place Angioseal. Dr. Grimaldo here to Angioseal. Dr. Grimaldo scrubbed in. A Angio-Seal VIP ([place]) was successful obtaining hemostatsis at the Right Femoral artery insertion site. Lot # [id number]. Exp. . Angioseal placed without complications. No signs or symptoms of hematoma noted. Sterile dressing applied per usual sterile fashion. right groin was prepped with chloroprep then draped in the usual sterile fashion. Post Procedure: Pulses reassessed and unchanged. PERRLA. Strong, equal hand test designer bilaterally. No VTE prophylaxis required. Medication's Wasted: Nitro = 49.8 mg. Medication's Wasted: Heparin = 4500 units. Medication's Wasted: Other = Versed 1 mg. Medication's Wasted: Other = Fentany 50 mcg. Total IV fluids: 300 mL. Post-op diagnosis: Mild CAD. Complications: none. Estimated blood loss: 5mL-10mL. Responsiveness - Normal response to verbal stimuli; alert and oriented, PERRLA. Airway - Unaffected, no intervention required; spontaneous ventilation. Circulation: W/N/L, pulses unchanged. Nausea/Vomiting: No. right groin was prepped with chloroprep then draped in the usual sterile fashion. Procedure completed. Patient transferred by bed to 1st floor. Vital chart was stopped. Access Site Site: Right Radial artery Sheath Size: 6 Fr Hemostasis Method: TR Band Hemostasis Success: Successful Site: Right Femoral artery Sheath Size: 6 Fr Hemostasis Method: Angio-Seal VIP ([facility]) Hemostasis Success: Successful Procedure Medications Start: 9:20 AM Stop: 9:20 AM Medication: Versed Amount: 1 mg Route: I.V. Start: 9:20 AM Stop: 9:20 AM Medication: Fentanyl Amount: 50 mcg Route: I.V. Start: 9:27 AM Stop: 9:27 AM Medication: Verapamil Amount: 5 mg Route: I.A. Start: 9:28 AM Stop: 9:28 AM Medication: Nitrogylcerin Amount: 200 mcg Route: I.A. Start: 9:35 AM Stop: 9:35 AM Medication: 0.9% Saline Amount: 250 ml Route: I.V. bolus Start: 9:45 AM Stop: 9:45 AM Medication: Heparin Amount: 1500 units Route: I.V. I, the attending physician, have reviewed and verified all procedure medications. Yes, all medications given per verbal order History/Risk Factors Hypertension: No Dyslipidemia: Yes Peripheral Arterial Disease (PAD): No Myocardial Infarction (SC): No Obesity: Yes Renal Disease: No Tobacco Use: Former Prior Interventions PCI: No CABG: No Valve Surgery: No Report Signatures Finalized by Dr Abdullahi Saldana MD [facility] on 05/26/2024 11:46 AM
[2024-05-26] MEDS: aspirin 325 mg Tablet PO (07:44)
[2024-05-26] MEDS: diphenhydrAMINE 50 mg Capsule PO (07:44)
--- NOTE | 2024-05-26 09:21 | W.PM.OPSUD ---
Surgery/Procedure H&P Update DATE OF PROCEDURE: May 26, 2024 DATE H&P PERFORMED: 05/23/24 H&P UPDATE INFORMATION: I have reviewed H&P completed within last 30 days, I have examined patient prior to procedure and No changes to prior documentation PREOP DIAGNOSIS: ASHD PRIMARY INDICATION FOR PROCEDURE: chest pain/ SOB/ Abnormal stress test PLANNED PROCEDURE: Operation Date: 05/26/24 07:00 Proposed Procedures p [facility] w/wo LV & Coros [address](Left) - Abdullahi Saldana MD PATIENT REASSESSED PRIOR TO SEDATION, WITH NO CHANGE NOTED: Yes PHYSICAL EXAM: alert, oriented x 3, clear to auscultation bilaterally and regular rate & rhythm AIRWAY EVAL/ANESTHESIA PLAN: normal airway, see other exam findings, Monitored Anesthesia, Local Anesthesia, Risks, benefits & alternatives of sedation and/or procedure discussed and Patient agrees to continue as planned
[2024-05-26] MEDS: albuterol 2.5 mg/3 mL Neb INHALATION ×2 (11:35→14:59)
--- NOTE | 2024-05-26 11:35 | PC.NURSE ---
received from cardiac clinical laboratory assistant at 1045.report received.pt is alert and awake and oriented x 4.denies pain at present.right wrist with tr band on and inflated.right hand is warm to touch and with brisk capillary refill.no hematoma noted.palpable radial pulse noted distal to tr band.right arterial femoral cath insertion site was closed by angioseal in clinical laboratory assistant.drsg is dry and intact.no hematoma noted.right leg is warm to touch and with brisk capillary refill.palpable dp pulse noted.pt instructed in activity restrictions s/p femoral and radial artery procedures...and instructed to notify staff for any bleeding,pain,numbness,sob..or for any concerns at all.pt verb understanding of instructions
--- NOTE | 2024-05-26 17:08 | PC.NURSE ---
tr band slowly deflated and eventually removed at 1430.no hematoma noted.right hand remains warm to touch and with brisk capillary refill.palpable radial pulse noted.site dressed with 2x2 gauze and secured with biocclusive drsg.pt instructed in activity restrictions s/p tr band removal and instructed to notify staff for any bleeding,pain,sob,numbness or for any concerns at all.pt verb understanding of instructions
--- NOTE | 2024-05-26 17:13 | PC.NURSE ---
pt ambulated to restroom.tolerated well.right groin drsg and right wrist drsg remain dry and intact.no hematoma noted at either site.discharge instructions given and explained.pt verb understanding of instructions.discharged via w/c to exit at this time.son to drive pt home.
== END 2024-05-26 17:15 | disposition home or self-care (01) ==
LOC: CSU 10:54
PROVIDERS: Admitting Provider Internal Medicine Cardiovascular Disease; PCP Family Medicine; Visit Provider Internal Medicine Cardiovascular Disease
DX: I25.118 Atherosclerotic heart disease of native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 (principal); I10 Essential (primary) hypertension; E78.5 Hyperlipidemia, unspecified; I48.20 Chronic atrial fibrillation, unspecified; E66.9 Obesity, unspecified; Z68.31 Body mass index [BMI] 31.0-31.9, adult; Z87.891 Personal history of nicotine dependence; G47.33 Obstructive sleep apnea (adult) (pediatric); M81.0 Age-related osteoporosis without current pathological fracture; Z95.0 Presence of cardiac pacemaker; Z79.01 Long term (current) use of anticoagulants
CPT/HCPCS: 36415; 93454; 94640; 96365; 96374; 99152; 99153; C1760; C1769; C1887; C1894; G0269; G0378; J1644; J2250; J3010; J3490; J7030; J7613; Q0163; Q9967

== ENCOUNTER → 2024-08-31 14:49 | Outpatient (BNVA) | payer OTHER, SELFPAY | PROVIDERS: PCP Family Medicine; Visit Provider Orthopaedic Surgery | DX: Z01.818 Encounter for other preprocedural examination (principal); M54.50 Low back pain, unspecified; M54.9 Dorsalgia, unspecified | CPT/HCPCS: 36415; 72110; 80053; 81001; 85025; 99204 ==

== ENCOUNTER → 2024-09-22 10:01 | Outpatient (BNVA) | payer OTHER, SELFPAY | PROVIDERS: PCP Family Medicine; Visit Provider Family Medicine | DX: Z01.818 Encounter for other preprocedural examination (principal) | CPT/HCPCS: 80048; 85025 ==

== ENCOUNTER 2024-09-28 18:28 | Emergency (ER) | payer OTHER, MEDICARE, SELFPAY ==
[2024-09-28 18:40] VITALS: BP 110/72; PULSE 107; RESP 17; TEMP 36.5; O2SAT 96; BMI 28.5
--- NOTE | 2024-09-28 19:43 | W.ED.NAVMDI ---
HPI - Nausea/Vomiting/Diarrhea General: Chief complaint: Nausea/Vomiting/Diarrhea Stated complaint: N/V/D can't keep anything down Time Seen by Provider: 09/28/24 19:34 History of Present Illness: 84-year-old man with a history of atrial fibrillation and chronic anticoagulation on Eliquis, hypertension, osteoporosis, hyperlipidemia and coronary artery disease who presents emergency room with nausea vomiting and diarrhea for about 3 to 4 days now. He says he had gone off of his Eliquis for about 4 days prior to planned back stimulator procedure but that was canceled so he went back on it. He says that his nausea vomiting diarrhea started about that time. No abdominal pain. No fevers. No altered mental status. No focal motor deficits. Related Data Home Medications ?Medication ?Instructions ?Recorded ?Confirmed amiodarone 200 mg tablet 100 mg PO BID 11/07/19 09/22/24 cholecalciferol (vitamin D3) 25 25 mcg PO DAILY 11/07/19 09/22/24 mcg (1,000 unit) capsule tramadol 50 mg tablet 50 mg PO Q6H PRN Pain 01/12/23 09/22/24 albuterol sulfate 90 mcg/actuation 2 puff inhalation Q4H PRN 10/06/23 09/22/24 aerosol inhaler Shortness Of Breath dextromethorphan-guaifenesin 10 10 ml PO QID PRN Congestion 10/06/23 09/22/24 mg-100 mg/5 mL oral syrup diclofenac sodium 1 % topical gel See Rx Instructions .Route .COMPLEX 10/06/23 09/22/24 fluoxetine 10 mg capsule 10 mg PO QAM 10/06/23 09/22/24 isosorbide mononitrate 30 mg 30 mg PO QAM 10/06/23 09/22/24 tablet,extended release 24 hr lidocaine 5 % topical patch See Rx Instructions .Route .COMPLEX 10/06/23 09/22/24 polyethylene glycol 3350 17 17 g PO DAILY PRN Constipation 10/06/23 09/22/24 gram/dose oral powder (Miralax) potassium chloride 20 mEq 10 meq PO DAILY 10/06/23 09/22/24 tablet,extended release rosuvastatin 40 mg tablet 40 mg PO QPM 10/06/23 09/22/24 furosemide 20 mg tablet (Lasix) 20 mg PO QAM 12/22/23 09/22/24 levothyroxine 75 mcg tablet 75 mcg PO QAM 12/22/23 09/22/24 multivitamin 1 tab PO QAM 12/22/23 09/22/24 tamsulosin 0.4 mg capsule 0.4 mg PO QPM 12/22/23 09/22/24 apixaban 5 mg tablet (Eliquis) 5 mg PO BID 12/30/23 09/22/24 Held on 05/26/24. Instructions: Resume on 05/28/24. 05/27/24 AM metformin 500 mg tablet 500 mg PO BID 12/30/23 09/22/24 ferrous sulfate 325 mg (65 mg 325 mg PO DAILY 05/19/24 09/22/24 iron) tablet fluticasone 100 mcg-salmeterol 50 1 inh inhalation BID 05/19/24 09/22/24 mcg/dose blistr powdr for inhalation (Advair Diskus) Previous Rx's ?Medication ?Instructions ?Recorded metoprolol tartrate 25 mg tablet 25 mg PO BID 30 days #60 tabs 04/12/24 ondansetron 8 mg disintegrating 8 mg PO Q6H #14 tabs 09/28/24 tablet Allergies Allergy/AdvReac Type Severity Reaction Status Date / Time No Known Allergies Allergy Verified 09/22/24 09:45 Review of Systems Narrative: Constitutional symptoms: Negative except as documented in HPI. Skin symptoms: Negative except as documented in HPI. Eye symptoms: Negative except as documented in HPI. ENMT symptoms: Negative except as documented in HPI. Respiratory symptoms: Negative except as documented in HPI. Cardiovascular symptoms: Negative except as documented in HPI. Gastrointestinal symptoms: Negative except as documented in HPI. Genitourinary symptoms: Negative except as documented in HPI. Musculoskeletal symptoms: Negative except as documented in HPI. Neurologic symptoms: Negative except as documented in HPI. Psychiatric symptoms: Negative except as documented in HPI. Endocrine symptoms: Negative except as documented in HPI. PFSH ED PFSH: Medical History Dyslipidemia Presence of permanent cardiac pacemaker ABRAM (obstructive sleep apnea) C7 cervical fracture H/O: GI bleed Atherosclerotic heart disease of [place]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 Anemia GI bleed Hypertension Atrial fibrillation Mitral regurgitation Osteoporosis Anxiety History of pacemaker Surgical History Hx of tonsillectomy H/O hemorrhoidectomy History of hernia surgery Family History Brother CAD (coronary artery disease) Congestive heart failure (CHF) Cancer Sister Lung disease Other Atherosclerotic heart disease of [place]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 Denies family history of Diabetes Clotting disorder Dementia Hyperlipidemia Chronic kidney disease (CKD) Suicide Anesthesia complication Bleeding disorder Hypertension Stroke Social History Smoking and tobacco/nicotine status: never used tobacco/nicotine Alcohol intake: never Substance/Drug Use: never Household members: none Marital status: Physical Exam Narrative: EXAM NARRATIVE: General: Alert, no acute distress. Skin: Warm, dry. Head: Normocephalic, atraumatic. Neck: Supple, trachea midline. Eye: Extraocular movements are intact. Ears, nose, mouth and throat: mucosa moist. Cardiovascular: Regular, Normal peripheral perfusion. Respiratory: Lungs are clear to auscultation, respirations are non-labored, breath sounds are equal, Symmetrical chest wall expansion. Gastrointestinal: Soft, Nontender, Non distended Musculoskeletal: Normal ROM, no deformity. Neurological: Alert and oriented, No focal neurological deficit observed. Psychiatric: Cooperative, appropriate mood & affect. Course Vital Signs: Vital signs: Vital Signs Temperature 97.7 F 09/28/24 18:40 Pulse Rate 90 09/28/24 20:12 Respiratory Rate 16 09/28/24 20:12 Blood Pressure 115/80 09/28/24 20:12 Pulse Oximetry 96 09/28/24 20:12 Oxygen Delivery Me thod Room Air 09/28/24 20:12 MDM - Nausea/Vomiting/Diarrhea Medical Decision Making Medical decision making: Differential diagnosis for this patient with nausea and vomiting including but not limited to and based on the above HPI, review of systems and physical exam: Urinary tract infection. Appendicitis. Cholecystitis. Colitis. small bowel obstruction. crohn's flare. pancreatitis. gastritis. peptic ulcer. cyclic vomiting. Viral illness. Influenza. COVID. Orders placed to evaluate differential diagnosis based on the above differential, HPI and physical exam Lab Review: Laboratory results were reviewed and interpreted by myself the emergency room physician. No leukocytosis. No anemia. Mild renal insufficiency. This is slightly elevated over the last 2 measurements which were 1.4 and 1.5. No urinary tract infection but his urine is a bit concentrated indicating dehydration. I reviewed the patient's medical record. Reexamination: Patient remained stable. No increased work of breathing. No altered mental status. No focal motor deficits. Assessment and plan: Gastroenteritis Dehydration ? IV Zofran and IV fluids. - Discharged home - Discussed plan with patient. Answered any questions. - Evaluation and treatment of this problem were appropriate in the emergency setting. Lab Data 09/28/24 19:45 09/28/24 19:45 Laboratory Results WBC 4.68 10^3/uL (3.29-11.43) 09/28/24 19:45 RBC 4.18 10^6/uL (3.85-5.65) 09/28/24 19:45 Hgb 13.20 g/dL (11.27-16.99) 09/28/24 19:45 Hct 41.2 % (37-53) 09/28/24 19:45 MCV 98.6 fl (82-101) 09/28/24 19:45 MCH 31.6 pg (27-33) 09/28/24 19:45 MCHC 32.0 g/dL (30-55) 09/28/24 19:45 RDW 15.9 % (12.1-15.1) H 09/28/24 19:45 Plt Count 175 10^3/cmm (157-399) 09/28/24 19:45 MPV 10.5 fL (7.4-10.4) H 09/28/24 19:45 Neut % (Auto) 54.1 % 09/28/24 19:45 Lymph % (Auto) 34.6 % 09/28/24 19:45 [place] % (Auto) 10.3 % 09/28/24 19:45 Eos % (Auto) 0.4 % 09/28/24 19:45 Baso % (Auto) 0.2 % 09/28/24 19:45 Neut # (Auto) 2.53 10^3/uL (1.8-7.7) 09/28/24 19:45 Lymph # (Auto) 1.6 10^3/uL (0.8-4.8) 09/28/24 19:45 [place] # (Auto) 0.5 10^3/uL (0.2-0.9) 09/28/24 19:45 Eos # (Auto) 0.0 10^3/uL (0.0-0.8) 09/28/24 19:45 Baso # (Auto) 0.0 10^3/uL (0.0-0.1) 09/28/24 19:45 Nucleated RBC % (auto) 0 % 09/28/24 19:45 Nucleated RBCs # 0.0 /100WBC 09/28/24 19:45 Sodium 137 mmol/L (136-145) 09/28/24 19:45 Potassium 4.4 mmol/L (3.5-5.1) 09/28/24 19:45 Chloride 102 mmol/L (98-107) 09/28/24 19:45 Carbon Dioxide 20 mmol/L (22-29) L 09/28/24 19:45 Anion Gap 19.4 (5-19) H 09/28/24 19:45 BUN 15 mg/dL (8-23) 09/28/24 19:45 Creatinine 1.6 mg/dL (0.7-1.2) H 09/28/24 19:45 GFR Calculation Not Reportable 09/28/24 19:45 Glucose 113 mg/dL (65-115) 09/28/24 19:45 Calculated Osmolality 286 mOsm/kg (285-295) 09/28/24 19:45 Lactic Acid 2.2 mmol/L (0.5-2.2) 09/28/24 19:45 Calcium 9.0 mg/dL (8.5-10.5) 09/28/24 19:45 Total Bilirubin 0.5 mg/dL (0.15-1.2) 09/28/24 19:45 AST 57 U/L (0-40) H 09/28/24 19:45 ALT 43 U/L (0-41) H 09/28/24 19:45 Alkaline Phosphatase 58 U/L (40-130) 09/28/24 19:45 C-Reactive Protein 3.0 mg/L (0.0-4.9) 09/28/24 19:45 Total Protein 6.5 g/dL (6.6-8.7) L 09/28/24 19:45 Albumin 3.9 g/dL (3.5-5.2) 09/28/24 19:45 Globulin 2.6 g/dL (1.3-4.6) 09/28/24 19:45 Lipase 17 U/L (13-60) 09/28/24 19:45 Urine Color Yellow (Yellow) 09/28/24 20:25 Urine Appearance Cloudy (CLEAR) A 09/28/24 20: Urine pH 6.0 (5-7) 09/28/24: Ur Specific [place] 1.020 (1.005-1.030) 09/28/24 20: Urine Protein 1+ (Negative) A 09/28/24 Urine Glucose (UA) Negative (Normal) 09/28/24 Urine Ketones Trace (Negative) 09/28/24: Urine Blood Negative (Negative) 09/28/24: Urine Nitrate Negative (Negative) 09/28/24 Urine Bilirubin Negative (Negative) 09/28/24 Urine Urobilinogen 1.0 mg/dL (Negative) 09/28/24 20:25 Ur Leukocyte Esterase Negative (Negative) 09/28/24 20:25 Urine RBC 0-2 /hpf (0-2) 09/28/24 20:25 Urine WBC 0-5 /hpf (0-5) 09/28/24 20:25 Ur Squamous Epith Cells 6-10 /hpf (0-5) 09/28/24 20: Amorphous Sediment Not Reportable 09/28/24: Urine Bacteria None seen /hpf (NONE) 09/28/24: Hyaline Casts 48.80 /lpf 09/28/24 20:25 Coarse Granular Casts 5-10 /lpf H 09/28/24 20:25 Influenza A (PCR) Negative (Negative) 09/28/24 20:25 Influenza Type B (PCR) Negative (Negative) 09/28/24 20:25 RSV (PCR) Negative (Negative) 09/28/24 20:25 SARS-CoV-2 (PCR) Negative (Negative) 09/28/24 20:25 No radiology studies performed this visit Discharge Plan Discharge Patient Disposition: Home Clinical Impression: Gastroenteritis, Dehydration Condition: Stable Prescriptions: New ondansetron 8 mg tablet,disintegrating 8 mg PO Q6H Qty: 14 0RF Rx Instructions: Take 1/2-1 tab every 6 hours as needed for nausea and vomiting No Action cholecalciferol (vitamin D3) 25 mcg (1,000 unit) capsule 25 mcg PO DAILY amiodarone 200 mg tablet 100 mg PO BID metformin 500 mg tablet 500 mg PO BID metoprolol tartrate 25 mg tablet 25 mg PO BID 30 Days Qty: 60 5RF dextromethorphan-guaifenesin 10-100 mg/5 mL Syrup 10 ml PO QID PRN (Reason: Congestion) lidocaine 5 % Adhesive Patch,Medicated See Rx Instructions .ROUTE .COMPLEX Rx Instructions: APPLY 1 patch topically, leave on most painful area for up to 12 hrs, THEN REMOVE PATCH FOR 12 HOURS fluoxetine 10 mg capsule 10 mg PO QAM polyethylene glycol 3350 [Miralax] 17 gram/dose Powder 17 g PO DAILY PRN (Reason: Constipation) albuterol sulfate 90 mcg/actuation HFA aerosol inhaler 2 puff INHALATION Q4H PRN (Reason: Shortness Of Breath) diclofenac sodium 1 % Gel See Rx Instructions .ROUTE .COMPLEX Rx Instructions: APPLY 4 GRAMS TO AFFECTED AREA(S) 4 TIMES DAILY FOR PAIN. DO NOT EXCEED MORE THAN 16 GRAMS DAILY TO ANY LOWER EXTREMITY JOINT. NOT MORE THAN 8 GRAMS DAILY TO ANY UPPER EXTREMITY JOINT. MAX 32 GRAMS DAILY OVER ALL JOINTS. potassium chloride 20 mEq Tablet Extended Release 10 meq PO DAILY isosorbide mononitrate 30 mg Tablet Extended Release 24 Hr 30 mg PO QAM rosuvastatin 40 mg Tablet 40 mg PO QPM Eliquis 5 mg tablet 5 mg PO BID Rx Instructions: hold till after surgery multivitamin Tablet 1 tab PO QAM levothyroxine 75 mcg Tablet 75 mcg PO QAM tamsulosin 0.4 mg Capsule 0.4 mg PO QPM furosemide [Lasix] 20 mg tablet 20 mg PO QAM ferrous sulfate 325 mg (65 mg iron) Tablet 325 mg PO DAILY fluticasone propion-salmeterol [Advair Diskus] 100-50 mcg/dose Blister With Device 1 inh INHALATION BID tramadol 50 mg tablet 50 mg PO Q6H PRN (Reason: Pain) Discharge Orders: Discharge ED (Routine); Ordered 09/28/24 Ordered By: Nora Infante Referrals: Maggi Aguilar MD [Primary Care Provider, Family Practice] Discharge Diet: Advance as tolerated Discharge Activity: Increase activity as tolerated Patient Instructions: Gastroenteritis (ED), Acute Nausea and Vomiting (ED), Opioid Safety, Pain Management Activity Restrictions/Additional Instructions: Thank you for choosing [facility] for your healthcare needs today. You have been screened and evaluated and felt safe for discharge. Health conditions do change or evolve sometimes and as such it is important that you follow up with your Primary Doctor to be re checked, 3-5 days is a general good time frame for follow up. You are always welcome to return to the ED for re assessment if your symptoms are worsening or you have new concerns Print Language: Portuguese Coding Level of Care Code ED Robotics Technician for Rom Posada
--- NOTE | 2024-09-28 19:44 | ECG_ITS ---
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1940 Requested By: Nora Blackmon Order Number: [id number] Jasmyn MD: PADMINI ALLISON Measurements Intervals [place] Rate: 100 P: 112 MI: 254 QRS: 141 QRSD: 137 T: -76 QT: 388 QTc: 501 Interpretive Statements SINUS TACHYCARDIA WITH FIRST DEGREE AV BLOCK RIGHT AXIS DEVIATION [QRS AXIS > 100] RIGHT BUNDLE BRANCH BLOCK [120+ ms QRS DURATION, UPRIGHT V1, 40+ ms S IN I/aVL/V4/V5/V6] ST DEVIATION AND MODERATE T-WAVE ABNORMALITY, CONSIDER LATERAL ISCHEMIA [-0.1+ mV T-WAVE IN I/aVL/V5/V6] ST DEVIATION AND MODERATE T-WAVE ABNORMALITY, CONSIDER INFERIOR ISCHEMIA [-0.1+ mV T-WAVE IN II/aVF] Compared to ECG 04/06/2024 16:18:17 First degree AV block now present T-wave abnormality now present Possible ischemia now present Electronically Signed On 09-28-2024 23:26:24 CDT by PADMINI ALLISON [email or web address]
[2024-09-28 19:56] LABS: Basophils % 0.2 %; Eosinophils % 0.4 %; Hematocrit 41.2 % (37-53); Lymphocytes # 1.6 10^3/uL (0.8-4.8); Lymphocytes % 34.6 %; Mean Corpuscular Hemoglobin 31.6 pg (27-33); Mean Corpuscular Volume 98.6 fl (82-101); Mean Platelet Volume 10.5 fL (7.4-10.4); Monocytes # 0.5 10^3/uL (0.2-0.9); Monocytes % 10.3 %; Neutrophils # 2.53 10^3/uL (1.8-7.7); Neutrophils % 54.1 %; Nucleated Red Blood Cells % 0 %; Platelet Count 175 10^3/cmm (157-399); Red Blood Count 4.18 10^6/uL (3.85-5.65); Red Cell Distribution Width 15.9 % (12.1-15.1); White Blood Count 4.68 10^3/uL (3.29-11.43)
[2024-09-28 20:12] VITALS: BP 115/80; PULSE 90; RESP 16; O2SAT 96
[2024-09-28 20:13] LABS: Lactic Sepsis W/Reflex 2.2 mmol/L (0.5-2.2)
[2024-09-28 20:14] LABS: Alanine Aminotransferase 43 U/L (0-41); Albumin Level 3.9 g/dL (3.5-5.2); Alkaline Phosphatase 58 U/L (40-130); Anion Gap 19.4 (5-19); Aspartate Amino Transferase 57 U/L (0-40); Blood Urea Nitrogen 15 mg/dL (8-23); Carbon Dioxide 20 mmol/L (22-29); Chloride 102 mmol/L (98-107); Globulin 2.6 g/dL (1.3-4.6); Glucose 113 mg/dL (65-115); Lipase 17 U/L (13-60); Osmolality Calculated 286 mOsm/kg (285-295); Potassium 4.4 mmol/L (3.5-5.1); Sodium 137 mmol/L (136-145); Total Bilirubin 0.5 mg/dL (0.15-1.2); Total Protein 6.5 g/dL (6.6-8.7)
[2024-09-28] MEDS: sodium chloride 0.9% 1,000 ML 999 ML IV (20:19)
[2024-09-28 20:36] LABS: Bilirubin Urine Negative (Negative); Blood Urine Negative (Negative); Glucose Urine UA Negative (Normal); Ketones Urine Trace (Negative); Leukocyte Esterase Urine Negative (Negative); Nitrate Urine Negative (Negative); Protein Urine 1+ (Negative); Urine Appearance Cloudy (CLEAR); Urine Color Yellow (Yellow)
[2024-09-28 20:42] LABS: Bacteria Urine None Seen /hpf; RBC Urine 0-2 /hpf (0-2); WBC Urine 0-5 /hpf (0-5)
[2024-09-28 21:02] LABS: Add Urine Culture? No; UA Slide Review UA Slide Review Perf
[2024-09-28 21:12] LABS: Influenza A NEGATIVE (Negative); Influenza B NEGATIVE (Negative); Respiratory Syncytial Virus Ce NEGATIVE (Negative); SARS-CoV-2 PCR NEGATIVE (Negative)
[2024-09-28 21:41] LABS: Reflex Lactate Order REFLEX LACTIC ORDERD
[2024-09-28 22:48] VITALS: BP 126/90; PULSE 90; RESP 16; O2SAT 95
== END 2024-09-28 22:49 | disposition home or self-care (01) ==
PROVIDERS: Emergency Provider Emergency Medicine; PCP Family Medicine
DX: K52.9 Noninfective gastroenteritis and colitis, unspecified (principal); E86.0 Dehydration; Z79.84 Long term (current) use of oral hypoglycemic drugs; Z79.01 Long term (current) use of anticoagulants; Z11.52 Encounter for screening for COVID-19; E78.5 Hyperlipidemia, unspecified; I10 Essential (primary) hypertension; I25.118 Atherosclerotic heart disease of native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
CPT/HCPCS: 36415; 80053; 81001; 83605; 83690; 85025; 86140; 87040; 87637; 93005; 99284; J7030

== ENCOUNTER 2024-10-18 09:09 | Day surgery (SDC) | payer OTHER, SELFPAY ==
[2024-10-18] VITALS (11 sets, daily range): BP systolic 117–146; BP diastolic 76–98; PULSE 60–93; RESP 14–20; TEMP 36.2–37.2; O2SAT 92–98; BMI 30.7
[2024-10-18 10:10] LABS: Glucose Point of Care 98 mg/dL (70-110)
--- NOTE | 2024-10-18 10:22 | ANES.PREANE2 ---
Pre-Anesthetic Assessment Height/Weight: Height 5 ft 11 in Weight 220 lb Temp Pulse Resp BP Pulse Ox O2 Del Method 97.8 F 60 20 H 123/85 98 Room Air 10/18/24 09:44 10/18/24 09:44 10/18/24 09:44 10/18/24 09:44 10/18/24 09:44 10/18/24 10:10 Preop Diagnosis: Lumbar stenosis with neurogenic claudication Operation Date: 10/18/24 10:35 Proposed Procedures p Implantation of Neurostimulator Paddle(Not Applicable) - Arian Ramos DO s Insertion Neurostimulator Pulse Generato(Not Applicable) - Arian Ramos DO Was Beta Micheal taken within 24 hours: Yes Was Clonidine taken within 24 hours: N/A Last intake: Intake Last Liquid Date 10/17/24 Last Liquid Time 19:00 Last Solid Date 10/17/24 Last Solid Time 18:00 Social No alcohol and No tobacco Exam alert, oriented x 3, clear to auscultation bilaterally and regular rate & rhythm Airway Submandibular: within normal limits Cervical ROM: within normal limits Mallampati: Class II Dentition: full Comments: Comments: few missing teeth,denies any loose Anesthetic Plan ASA status: 3 Other: No prior issues with anesthesia NPO since yesterday evening History of ABRAM CAD history, patient has a pacemaker Patient recently had a [employer] procedure with a stent placed in the subclavian artery A-fib Hypertension on metoprolol and amiodarone Myocardial perfusion scan in 2023 showing EF of 60% Labs reviewed acceptable for procedure today Plan for general anesthesia Medications/Allergies Home Medications ?Medication ?Instructions ?Recorded ?Confirmed ?Last Taken ?Type amiodarone 200 mg tablet 100 mg PO BID 11/07/19 10/17/24 10/18/24 History cholecalciferol (vitamin D3) 25 25 mcg PO DAILY 11/07/19 10/17/24 10/17/24 History mcg (1,000 unit) capsule tramadol 50 mg tablet 50 mg PO Q6H PRN Pain 01/12/23 10/17/24 09/21/24 History albuterol sulfate 90 mcg/actuation 2 puff inhalation Q4H PRN 10/06/23 10/17/24 10/16/24 History aerosol inhaler Shortness Of Breath dextromethorphan-guaifenesin 10 10 ml PO QID PRN Congestion 10/06/23 10/17/24 10/16/24 History mg-100 mg/5 mL oral syrup diclofenac sodium 1 % topical gel 4 g topical DIRECTED 10/06/23 10/17/24 10/15/24 History fluoxetine 10 mg capsule 10 mg PO QAM 10/06/23 10/17/24 10/17/24 History isosorbide mononitrate 30 mg 30 mg PO QAM 10/06/23 10/17/24 10/18/24 History tablet,extended release 24 hr lidocaine 5 % topical patch 1 patch transdermal PRN PRN Pain 10/06/23 10/17/24 01/02/24 History polyethylene glycol 3350 17 17 g PO DAILY PRN Constipation 10/06/23 10/17/24 09/21/24 History gram/dose oral powder (Miralax) potassium chloride 20 mEq 10 meq PO DAILY 10/06/23 10/17/24 10/17/24 History tablet,extended release rosuvastatin 40 mg tablet 40 mg PO QPM 10/06/23 10/17/24 10/16/24 History furosemide 20 mg tablet (Lasix) 20 mg PO QAM 12/22/23 10/17/24 10/17/24 History levothyroxine 75 mcg tablet 75 mcg PO QAM 12/22/23 10/17/24 10/17/24 History multivitamin 1 tab PO QAM 12/22/23 10/17/24 10/17/24 History tamsulosin 0.4 mg capsule 0.4 mg PO QPM 12/22/23 10/17/24 10/16/24 History apixaban 5 mg tablet (Eliquis) 5 mg PO BID 12/30/23 10/17/24 10/15/24 History Held on 05/26/24. Instructions: Resume on 05/28/24. 05/27/24 AM metformin 500 mg tablet 500 mg PO BID 12/30/23 10/17/24 10/17/24 History metoprolol tartrate 25 mg tablet 25 mg PO BID 30 days #60 tabs 04/12/24 10/17/24 10/18/24 Rx ferrous sulfate 325 mg (65 mg 325 mg PO DAILY 01/03/25 06/03/25 06/03/25 History iron) tablet fluticasone 100 mcg-salmeterol 50 1 inh inhalation BID 05/19/24 10/17/24 10/17/24 History mcg/dose blistr powdr for inhalation (Advair Diskus) ondansetron 8 mg disintegrating 8 mg PO Q6H #14 tabs 09/28/24 10/17/24 Unknown Rx tablet gabapentin 100 mg tablet 100 mg PO TID 10/17/24 10/17/24 10/17/24 History Allergies Allergy/AdvReac Type Severity Reaction Status Date / Time No Known Allergies Allergy Verified 09/22/24 09:45 [facility] Anesthesia Medical History Dyslipidemia Presence of permanent cardiac pacemaker ABRAM (obstructive sleep apnea) C7 cervical fracture H/O: GI bleed Atherosclerotic heart disease of [place]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 Anemia GI bleed Hypertension Atrial fibrillation Mitral regurgitation Osteoporosis Anxiety History of pacemaker Surgical History Hx of tonsillectomy H/O hemorrhoidectomy History of hernia surgery Family History Brother CAD (coronary artery disease) Congestive heart failure (CHF) Cancer Sister Lung disease Other Atherosclerotic heart disease of [place]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 Denies family history of Diabetes Clotting disorder Dementia Hyperlipidemia Chronic kidney disease (CKD) Suicide Anesthesia complication Bleeding disorder Hypertension Stroke Social History Smoking and tobacco/nicotine status: never used tobacco/nicotine Alcohol intake: never Substance/Drug Use: never Household members: none Marital status: Data Anesthesia Cardiac Studies: Echocardiogram 04/26/23 Echocardiogram Ultrasound 12/04/20 Sestamibi Stress Test (Cardiology) 04/19/24
[2024-10-18] MEDS: sodium chloride 0.9% 1,000 ML 30 ML IV (10:24)
--- NOTE | 2024-10-18 10:33 | W.PM.OPSFHP ---
Same Day Surgery H&P Indication for Procedure/HPI DATE OF PROCEDURE: October 18, 2024 CHIEF COMPLAINT/INDICATIONFOR SURGICAL PROCEDURE: Back and leg pain PREOP DIAGNOSIS: Lumbar stenosis with neurogenic claudication PLANNED PROCEDURE: Operation Date: 10/18/24 10:35 Proposed Procedures p Implantation of Neurostimulator Paddle(Not Applicable) - Arian Ramos, DO s Insertion Neurostimulator Pulse Generato(Not Applicable) - Arian Ramos, DO Medications/Allergies* Home Medications ?Medication ?Instructions ?Recorded ?Confirmed ?Type amiodarone 200 mg tablet 100 mg PO BID 11/07/19 10/17/24 History cholecalciferol (vitamin D3) 25 25 mcg PO DAILY 11/07/19 10/17/24 History mcg (1,000 unit) capsule tramadol 50 mg tablet 50 mg PO Q6H PRN Pain 01/12/23 10/17/24 History albuterol sulfate 90 mcg/actuation 2 puff inhalation Q4H PRN 10/06/23 10/17/24 History aerosol inhaler Shortness Of Breath dextromethorphan-guaifenesin 10 10 ml PO QID PRN Congestion 10/06/23 10/17/24 History mg-100 mg/5 mL oral syrup diclofenac sodium 1 % topical gel 4 g topical DIRECTED 10/06/23 10/17/24 History fluoxetine 10 mg capsule 10 mg PO QAM 10/06/23 10/17/24 History isosorbide mononitrate 30 mg 30 mg PO QAM 10/06/23 10/17/24 History tablet,extended release 24 hr lidocaine 5 % topical patch 1 patch transdermal PRN PRN Pain 10/06/23 10/17/24 History polyethylene glycol 3350 17 17 g PO DAILY PRN Constipation 10/06/23 10/17/24 History gram/dose oral powder (Miralax) potassium chloride 20 mEq 10 meq PO DAILY 10/06/23 10/17/24 History tablet,extended release rosuvastatin 40 mg tablet 40 mg PO QPM 10/06/23 10/17/24 History furosemide 20 mg tablet (Lasix) 20 mg PO QAM 12/22/23 10/17/24 History levothyroxine 75 mcg tablet 75 mcg PO QAM 12/22/23 10/17/24 History multivitamin 1 tab PO QAM 12/22/23 10/17/24 History tamsulosin 0.4 mg capsule 0.4 mg PO QPM 12/22/23 10/17/24 History apixaban 5 mg tablet (Eliquis) 5 mg PO BID 12/30/23 10/17/24 History Held on 05/26/24. Instructions: Resume on 05/28/24. 05/27/24 AM metformin 500 mg tablet 500 mg PO BID 12/30/23 10/17/24 History ferrous sulfate 325 mg (65 mg 325 mg PO DAILY 05/19/24 10/17/24 History iron) tablet fluticasone 100 mcg-salmeterol 50 1 inh inhalation BID 05/19/24 10/17/24 History mcg/dose blistr powdr for inhalation (Advair Diskus) gabapentin 100 mg tablet 100 mg PO TID 10/17/24 10/17/24 History Allergies/Adverse Reactions Allergy/AdvReac Type Severity Reaction Status Date / Time No Known Allergies Allergy Verified 09/22/24 09:45 Current Medications: Generic Name Dose Route Start Last Admin Trade Name Freq PRN Reason Stop Dose Admin Sodium Chloride 1,000 mls @ 30 mls/hr 10/18/24 09:30 10/18/24 10:24 Sodium Chloride 0.9% IV 10/19/24 09:29 30 mls/hr .Q24H IVIS Administration Pertinent History/Comorbid Conditions* Medical History (Updated 10/06/24 @ 00:00 by RENETTA Negron) Dyslipidemia Presence of permanent cardiac pacemaker ABRAM (obstructive sleep apnea) C7 cervical fracture H/O: GI bleed Atherosclerotic heart disease of [place]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 Anemia GI bleed Hypertension Atrial fibrillation Mitral regurgitation Osteoporosis Anxiety History of pacemaker Surgical History (Updated 11/07/19 @ 15:58 by Abdullahi Saldana MD) Hx of tonsillectomy H/O hemorrhoidectomy History of hernia surgery Family History (Updated 02/04/23 @ 19:45 by Abdullahi Saldana MD) CAD (coronary artery disease) Brother Congestive heart failure (CHF) Brother Atherosclerotic heart disease of [place]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 Lung disease Sister Cancer Brother Denies family history of Diabetes Clotting disorder Dementia Hyperlipidemia Chronic kidney disease (CKD) Suicide Anesthesia complication Bleeding disorder Hypertension Stroke Social History Smoking and tobacco/nicotine status: never used tobacco/nicotine Alcohol intake: never Substance/Drug Use: never Household members: none Marital status: Pertinent Exam Findings alert and oriented x 3 Recommendations Surgery/Procedure today Coding Level of Care Code Acute Code for Chg Fwd
[2024-10-18] MEDS: ceFAZolin 2,000 mg SDV 2000 MG IVP (10:46)
--- NOTE | 2024-10-18 11:20 | XR_ITS ---
WS: [id number] XR thoracic spine 2V [id number] REASON FOR EXAM: INTRAOP THORACIC SURGERY FINDINGS: Placement of dorsal column stimulator. The stimulator leads enter the spinal canal at T10-T11. The tip of the stimulator lies in the midline at the T9 level. XR/XR thoracic spine 2V [id number] IMPRESSION: Dorsal column stimulator placement as above.
[2024-10-18] MEDS: lidocaine-epi 1% 20 mL INJ 10 ML INJECTION (11:50)
[2024-10-18] MEDS: VANCOMYCIN ADD-Vantage 1,000 MG VIAL 1000 MG XX (11:50)
--- NOTE | 2024-10-18 12:50 | PM.OP ---
Operative Report Date of procedure: October 18, 2024 Pre-op diagnosis: Lumbar stenosis with neurogenic claudication Post-op diagnosis: same Procedure done: 1. Neurostimulator paddle placement 2. Neurostimulator generator placement Surgeon: Arian Ramos DO Estimated blood loss (mL): 25 Procedure: 1. Neurostimulator paddle placement 2. Neurostimulator generator placement Patient brought the operative suite after anesthesia was placed in the prone position. All areas appear well-padded. Patient's primary muscle fashion. Skin incision made over the thoracic spine. The T10-11 level. Subperiosteal dissection was made down to the lamina TPs bilaterally. Retractors were placed. This confirmed with C-arm guidance. Rongeur was used to take down the interspinous ligament. Partial laminectomy was performed along with the medial aspect facetectomy. Ligamentum flavum was taken up in the dura was exposed. Hockey-stick paddle trial was passed. Followed by the placement of the neurostimulator paddle. This was confirmed to be all across 9 vertebral body and half of the 8 vertebral body. Once this was confirmed then the wires were sutured in the spinous process of T11. Extension was brought to the battery. Skin incision was made and a pocket was made for the battery on the right side. The tunneler was passed from the battery into the area where the neurostimulator was. The wires were then passed from the laminectomy site to the battery site. The wires were then connected into the battery found to be completely charged. Wounds were then all irrigated. Vancomycin powder was placed and wounds were closed in a layered fashion with 0 Vicryl 2-0 Vicryl Monocryl suture. Sterile dressings were applied and patient transferred to the PACU in stable condition.
--- NOTE | 2024-10-18 13:05 | ANE.PACU2 ---
Inpatient post-anesthesia follow up: Airway intact: Yes Vital signs: Temperature 97.4 F Pulse Rate 60 Respiratory Rate 16 Blood Pressure 117/76 Pulse Oximetry 95 Oxygen Delivery Me thod Nasal Cannula Oxygen Flow Rate 2 Fraction of Inspir ed Oxygen Hydration adequate: Yes Nausea and vomiting: No Pain level: 1 Mental status: Baseline
--- NOTE | 2024-10-18 13:58 | SUR.PHASEII ---
ROM AND SENSATION OF BOTH FEET.
== END 2024-10-18 14:30 | disposition home or self-care (01) ==
PROVIDERS: PCP Family Medicine; Visit Provider Orthopaedic Surgery
PROC: (CPT 63655; principal; 2024-10-18 10:15)
PROC: (CPT 63685; 2024-10-18 10:15)
DX: M48.062 Spinal stenosis, lumbar region with neurogenic claudication (principal); E78.5 Hyperlipidemia, unspecified; G47.33 Obstructive sleep apnea (adult) (pediatric); Z95.0 Presence of cardiac pacemaker; I10 Essential (primary) hypertension
CPT/HCPCS: 63685; 63655; 36416; 72070; 76000; 82962; C1778; C1820; J0330; J0690; J1100; J2371; J2405; J2704; J2710; J3010; J3370; J3490; J7030; J9999; P9045

== ENCOUNTER 2024-10-23 10:15 | Emergency (ER) | payer OTHER, MEDICARE, SELFPAY ==
[2024-10-23] VITALS (96 sets, daily range): BP systolic 120–159; BP diastolic 47–91; PULSE 63–101; RESP 14–28; TEMP 36.6; O2SAT 88–99
--- NOTE | 2024-10-23 10:22 | XR_ITS ---
WS: [id number] PORTABLE CHEST HISTORY: weakness COMPARISON: 02/04/2024 LEFT subclavian pacer. Dorsal column stimulator electrodes over the midthoracic spine. Lung volumes are decreased. Stable mild elevation RIGHT hemidiaphragm. No mass. No pleural effusion or pneumothorax. Cardiac size: Mildly enlarged cardiac silhouette. 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 By imaging there has been no increase in the mediastinal widening since 09/06/2023. No osseous abnormality seen. XR/XR chest 1V portable [id number] IMPRESSION: 1. Mild elevation of the RIGHT hemidiaphragm. 2. Widened mediastinum. 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 No increase in media stinal widening by radiograph.
--- NOTE | 2024-10-23 10:22 | ECG_ITS ---
[employer] Locate Test Date: 2024-10-23 Pat Name: Jose Francis Department: Room: Gender: Male [employer]: : [id number] Requested By: Kane Edmond Order Number: [id number] Jasmyn MD: Abdullahi Saldana M.D. Measurements Intervals [place] Rate: 73 P: 0 OR: 0 QRS: 101 QRSD: 126 T: -56 QT: 431 QTc: 477 Interpretive Statements appears to be in normal sinus rhythm RIGHT AXIS DEVIATION [QRS AXIS > 100] POSSIBLE RIGHT VENTRICULAR CONDUCTION DELAY [RSR (QR) IN V1/V2] ST DEVIATION AND MODERATE T-WAVE ABNORMALITY, CONSIDER ANTEROLATERAL ISCHEMIA [-0.1+ mV T-WAVE IN V3-V6] ST DEVIATION AND MODERATE T-WAVE ABNORMALITY, CONSIDER INFERIOR ISCHEMIA [-0.1+ mV T-WAVE IN II/aVF] Compared to ECG 09/28/2024 19:56:23 Sinus tachycardia no longer present. First degree AV block no longer present Right bundle-branch block no longer present T-wave abnormality still present Possible ischemia still present Electronically Signed On 10-25-2024 22:10:33 CDT by Abdullahi Saldana M.D. [email or web address]
--- NOTE | 2024-10-23 10:27 | W.ED.BACK ---
Documented by User: Kane Edmond MD 10/23/24 10:29 HPI - Back Pain/Injury General: Chief Complaint: Back Pain/Injury Stated Complaint: back pain Time Seen by Provider: 10/23/24 10:16 Source: patient and EMS Mode of arrival: EMS Limitations: no limitations History of Present Illness: 84-year-old male had surgery last week he had a spine stimulator placed. Per EMS patient's had decreased oral intake generalized weakness and unable to get out of bed since has been back home. He states that he was laying in his own urine he complains of back pain currently no known fevers no cough no vomiting. Associated symptoms: Reports fatigue; Deny abdominal pain, chills, fever(s), nausea or vomiting Related Data Home Medications ?Medication ?Instructions ?Recorded ?Confirmed amiodarone 200 mg tablet 100 mg PO BID 11/07/19 10/17/24 cholecalciferol (vitamin D3) 25 25 mcg PO DAILY 11/07/19 10/17/24 mcg (1,000 unit) capsule Held on 10/18/24. Instructions: Resume on 10/20/24. albuterol sulfate 90 mcg/actuation 2 puff inhalation Q4H PRN 10/06/23 10/17/24 aerosol inhaler Shortness Of Breath dextromethorphan-guaifenesin 10 10 ml PO QID PRN Congestion 10/06/23 10/17/24 mg-100 mg/5 mL oral syrup diclofenac sodium 1 % topical gel 4 g topical DIRECTED 10/06/23 10/17/24 fluoxetine 10 mg capsule 10 mg PO QAM 10/06/23 10/17/24 isosorbide mononitrate 30 mg 30 mg PO QAM 10/06/23 10/17/24 tablet,extended release 24 hr lidocaine 5 % topical patch 1 patch transdermal PRN PRN Pain 10/06/23 10/17/24 polyethylene glycol 3350 17 17 g PO DAILY PRN Constipation 10/06/23 10/17/24 gram/dose oral powder (Miralax) potassium chloride 20 mEq 10 meq PO DAILY 10/06/23 10/17/24 tablet,extended release rosuvastatin 40 mg tablet 40 mg PO QPM 10/06/23 10/17/24 furosemide 20 mg tablet (Lasix) 20 mg PO QAM 12/22/23 10/17/24 levothyroxine 75 mcg tablet 75 mcg PO QAM 12/22/23 10/17/24 multivitamin 1 tab PO QAM 12/22/23 10/17/24 tamsulosin 0.4 mg capsule 0.4 mg PO QPM 12/22/23 10/17/24 apixaban 5 mg tablet (Eliquis) 5 mg PO BID 12/30/23 10/17/24 Held on 10/18/24. Instructions: Resume on 10/20/24. metformin 500 mg tablet 500 mg PO BID 12/30/23 10/17/24 ferrous sulfate 325 mg (65 mg 325 mg PO DAILY 05/19/24 10/17/24 iron) tablet fluticasone 100 mcg-salmeterol 50 1 inh inhalation BID 05/19/24 10/17/24 mcg/dose blistr powdr for inhalation (Advair Diskus) gabapentin 100 mg tablet 100 mg PO TID 10/17/24 10/17/24 Previous Rx's ?Medication ?Instructions ?Recorded metoprolol tartrate 25 mg tablet 25 mg PO BID 30 days #60 tabs 04/12/24 ondansetron 8 mg disintegrating 8 mg PO Q6H #14 tabs 09/28/24 tablet hydrocodone 5 mg-acetaminophen 325 1 - 2 tab PO .Q4-6H #40 tabs 10/18/24 mg tablet Allergies Allergy/AdvReac Type Severity Reaction Status Date / Time No Known Allergies Allergy Verified 09/22/24 09:45 Review of Systems Const: Reports: fatigue and malaise; Denies: fever(s), chills, body aches or change in appetite ENMT: Denies: throat pain or dental pain Card: Denies: chest pain Resp: Denies: dyspnea GI: Denies: abdominal pain, nausea, vomiting or diarrhea Musc: Reports: back pain; Denies: neck pain Skin/Breast: Denies: rash Neuro: Denies: headache(s) PFSH ED PFSH: Medical History Dyslipidemia Presence of permanent cardiac pacemaker ABRAM (obstructive sleep apnea) C7 cervical fracture H/O: GI bleed Atherosclerotic heart disease of [place]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 Anemia GI bleed Hypertension Atrial fibrillation Mitral regurgitation Osteoporosis Anxiety History of pacemaker Surgical History Hx of tonsillectomy H/O hemorrhoidectomy History of hernia surgery Family History Brother CAD (coronary artery disease) Congestive heart failure (CHF) Cancer Sister Lung disease Other Atherosclerotic heart disease of [place]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 Denies family history of Diabetes Clotting disorder Dementia Hyperlipidemia Chronic kidney disease (CKD) Suicide Anesthesia complication Bleeding disorder Hypertension Stroke Social History Smoking and tobacco/nicotine status: never used tobacco/nicotine Alcohol intake: never Substance/Drug Use: never Household members: none Marital status: Physical Exam Const: COMMON NORMALS: patient oriented x3 HENMT: COMMON NORMALS: normocephalic and atraumatic HEAD & SCALP: normocephalic and atraumatic Eye: COMMON NORMALS: conjunctivae normal CONJUNCTIVA: Yes conjunctivae normal Neck/C-Spine: COMMON NORMALS: full ROM and supple Chest: COMMONS NORMALS: normal inspection of the chest Resp: COMMON NORMALS: normal respiratory effort, No retractions, No use of accessory muscles and clear to auscultation bilaterally AUSCULTATION: clear to auscultation bilaterally Cardio: COMMON NORMALS: regular rate, regular rhythm and No murmurs present (Cardio) RATE: regular rate RHYTHM: regular rhythm GI: COMMON NORMALS: Normal to inspection, nondistended, normoactive bowel sounds present, non-tender and no masses Back/Pelvis: OTHER: incisions to back are c/d/i Extremity: COMMON NORMALS: normal to inspection and full ROM Neuro: COMMON NORMALS: patient oriented x3, moves all extremities and no focal motor deficits Psych: COMMON NORMALS: mental status grossly normal, Normal thought process present and cooperative THOUGHT PROCESS: Normal thought process present Skin: COMMON NORMALS: no rashes or lesions noted and no wounds GENERAL SKIN EXAM: no rashes or lesions noted Course Vital Signs: Vital signs: Vital Signs Temperature 97.8 F 10/23/24 10:17 Pulse Rate 78 10/23/24 19:10 Respiratory Rate 22 H 10/23/24 19:10 Blood Pressure 141/70 10/23/24 19:10 Pulse Oximetry 89 L 10/23/24 19:10 Oxygen Delivery Me thod Room Air 10/23/24 10:45 MDM - Back Pain/Injury Labs 10/23/24 10:30 10/23/24 10:56 Radiology Impressions Chest X-Ray 10/23/24 10:22 IMPRESSION: 1. Mild elevation of the RIGHT hemidiaphragm. 2. Widened mediastinum. 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 No increase in mediastinal widening by radiograph. Abdomen/Pelvis CT 10/23/24 13:37 IMPRESSION: 1. Bilateral perinephric stranding and hydroureteronephrosis. New finding since 05/11/2023. Variable layering density in the LEFT renal pelvis. Ureters are dilated to the pelvic brim where there is marked perinephric stranding and loss of the normal ureteral contour. RIGHT ureter measures up to 1.7 cm. No intraluminal calcified stones are identified. With the variable density in the renal pelves suspicious there may be ureteral blood clots. Correlate with coagulation status. Bilateral ureteral neoplasms causing the obstruction cannot be completely excluded but thought less likely. 2. Miranda distended urinary bladder. Changes in the kidneys and ureters may be related to reflux disease and infection. 3. 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 The appendix is dilated. Similar to 05/11/2023. 4. Chronic pancreatitis. 5. Miranda distended urinary bladder. Notified Shakir Lira DO at 10/23/2024 3:16 PM. Laboratory Results WBC 6.86 10^3/uL (3.29-11.43) 10/23/24 10:30 RBC 4.02 10^6/uL (3.85-5.65) 10/23/24 10:30 Hgb 12.90 g/dL (11.27-16.99) 10/23/24 10:30 Hct 39.5 % (37-53) 10/23/24 10:30 MCV 98.3 fl (82-101) 10/23/24 10:30 MCH 32.1 pg (27-33) 10/23/24 10:30 MCHC 32.7 g/dL (30-55) 10/23/24 10:30 RDW 15.8 % (12.1-15.1) H 10/23/24 10:30 Plt Count 158 10^3/cmm (157-399) 10/23/24 10:30 MPV 10.2 fL (7.4-10.4) 10/23/24 10:30 Neut % (Auto) 72.3 % 10/23/24 10:30 Lymph % (Auto) 17.1 % 10/23/24 10:30 [place] % (Auto) 9.9 % 10/23/24 10:30 Eos % (Auto) 0.3 % 10/23/24 10:30 Baso % (Auto) 0.1 % 10/23/24 10:30 Neut # (Auto) 4.96 10^3/uL (1.8-7.7) 10/23/24 10:30 Lymph # (Auto) 1.2 10^3/uL (0.8-4.8) 10/23/24 10:30 [place] # (Auto) 0.7 10^3/uL (0.2-0.9) 10/23/24 10:30 Eos # (Auto) 0.0 10^3/uL (0.0-0.8) 10/23/24 10:30 Baso # (Auto) 0.0 10^3/uL (0.0-0.1) 10/23/24 10:30 Nucleated RBC % (auto) 0 % 10/23/24 10:30 Nucleated RBCs # 0.0 /100WBC 10/23/24 10:30 Sodium 131 mmol/L (136-145) L 10/23/24 10:56 Potassium 4.2 mmol/L (3.5-5.1) 10/23/24 10:56 Chloride 98 mmol/L (98-107) 10/23/24 10:56 Carbon Dioxide 23 mmol/L (22-29) 10/23/24 10:56 Anion Gap 14.2 (5-19) 10/23/24 10:56 BUN 32 mg/dL (8-23) H 10/23/24 10:56 Creatinine 1.9 mg/dL (0.7-1.2) H 10/23/24 10:56 GFR Calculation Not Reportable 10/23/24 10:56 Glucose 116 mg/dL (65-115) H 10/23/24 10:56 Calculated Osmolality 280 mOsm/kg (285-295) L 10/23/24 10:56 Calcium 8.9 mg/dL (8.5-10.5) 10/23/24 10:56 Urine Color Red (Yellow) A 10/23/24 12:08 Urine Appearance Cloudy (CLEAR) A 10/23/24 12:08 Urine pH (5-7) 10/23/24 12:08 Ur Specific [place] Not Reportable 10/23/24 12:08 Urine Protein Not Reportable 10/23/24 12:08 Urine Glucose (UA) Not Reportable 10/23/24 12:08 Urine Ketones Not Reportable 10/23/24 12:08 Urine Blood Not Reportable 10/23/24 12:08 Urine Nitrate Not Reportable 10/23/24 12:08 Urine Bilirubin Not Reportable 10/23/24 12:08 Urine Urobilinogen Not Reportable 10/23/24 12:08 Ur Leukocyte Esterase Not Reportable 10/23/24 12:08 Urine RBC Too numerous to cnt /hpf (0-2) H 10/23/24 12:08 Urine WBC 0-4 /hpf (0-5) H 10/23/24 12:08 Ur Squamous Epith Cells 0-4 /hpf (0-5) H 10/23/24 12:08 Amorphous Sediment Trace /hpf 10/23/24 12:08 Urine Bacteria Trace /hpf (NONE) 10/23/24 12:08 Urine Mucus None /hpf 10/23/24 12:08 Discharge Plan Discharge Patient Disposition: Xfer Short-Term Hosp Clinical Impression: Hydroureter, Lumbar radiculopathy, Hematuria, ANGELITA (acute kidney injury) Condition: Stable Discharge Orders: Discharge ED (Routine); Ordered 10/23/24 Ordered By: Shakir Lira Referrals: Maggi Aguilar MD [Primary Care Provider, Family Practice] Discharge Diet: Usual diet Discharge Activity: Limit activity as instructed Patient Instructions: Opioid Safety, Pain Management Print Language: Marshallese Coding Level of Care Code ED Gis Database Administrator for Chg Fwd Documented by User: Shakir Lira DO 10/23/24 21:21 HPI - Back Pain/Injury General: Chief Complaint: Back Pain/Injury Stated Complaint: back pain Time Seen by Provider: 10/23/24 10:16 Related Data Home Medications ?Medication ?Instructions ?Recorded ?Confirmed amiodarone 200 mg tablet 100 mg PO BID 11/07/19 10/17/24 cholecalciferol (vitamin D3) 25 25 mcg PO DAILY 11/07/19 10/17/24 mcg (1,000 unit) capsule Held on 10/18/24. Instructions: Resume on 10/20/24. albuterol sulfate 90 mcg/actuation 2 puff inhalation Q4H PRN 10/06/23 10/17/24 aerosol inhaler Shortness Of Breath dextromethorphan-guaifenesin 10 10 ml PO QID PRN Congestion 10/06/23 10/17/24 mg-100 mg/5 mL oral syrup diclofenac sodium 1 % topical gel 4 g topical DIRECTED 10/06/23 10/17/24 fluoxetine 10 mg capsule 10 mg PO QAM 10/06/23 10/17/24 isosorbide mononitrate 30 mg 30 mg PO QAM 10/06/23 10/17/24 tablet,extended release 24 hr lidocaine 5 % topical patch 1 patch transdermal PRN PRN Pain 10/06/23 10/17/24 polyethylene glycol 3350 17 17 g PO DAILY PRN Constipation 10/06/23 10/17/24 gram/dose oral powder (Miralax) potassium chloride 20 mEq 10 meq PO DAILY 10/06/23 10/17/24 tablet,extended release rosuvastatin 40 mg tablet 40 mg PO QPM 10/06/23 10/17/24 furosemide 20 mg tablet (Lasix) 20 mg PO QAM 12/22/23 10/17/24 levothyroxine 75 mcg tablet 75 mcg PO QAM 12/22/23 10/17/24 multivitamin 1 tab PO QAM 12/22/23 10/17/24 tamsulosin 0.4 mg capsule 0.4 mg PO QPM 12/22/23 10/17/24 apixaban 5 mg tablet (Eliquis) 5 mg PO BID 12/30/23 10/17/24 Held on 10/18/24. Instructions: Resume on 10/20/24. metformin 500 mg tablet 500 mg PO BID 12/30/23 10/17/24 ferrous sulfate 325 mg (65 mg 325 mg PO DAILY 05/19/24 10/17/24 iron) tablet fluticasone 100 mcg-salmeterol 50 1 inh inhalation BID 05/19/24 10/17/24 mcg/dose blistr powdr for inhalation (Advair Diskus) gabapentin 100 mg tablet 100 mg PO TID 10/17/24 10/17/24 Previous Rx's ?Medication ?Instructions ?Recorded metoprolol tartrate 25 mg tablet 25 mg PO BID 30 days #60 tabs 04/12/24 ondansetron 8 mg disintegrating 8 mg PO Q6H #14 tabs 09/28/24 tablet hydrocodone 5 mg-acetaminophen 325 1 - 2 tab PO .Q4-6H #40 tabs 10/18/24 mg tablet Allergies Allergy/AdvReac Type Severity Reaction Status Date / Time No Known Allergies Allergy Verified 09/22/24 09:45 PFS ED PFSH: Medical History Dyslipidemia Presence of permanent cardiac pacemaker ABRAM (obstructive sleep apnea) C7 cervical fracture H/O: GI bleed Atherosclerotic heart disease of [place]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 Anemia GI bleed Hypertension Atrial fibrillation Mitral regurgitation Osteoporosis Anxiety History of pacemaker Surgical History Hx of tonsillectomy H/O hemorrhoidectomy History of hernia surgery Family History Brother CAD (coronary artery disease) Congestive heart failure (CHF) Cancer Sister Lung disease Other Atherosclerotic heart disease of [place]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 Denies family history of Diabetes Clotting disorder Dementia Hyperlipidemia Chronic kidney disease (CKD) Suicide Anesthesia complication Bleeding disorder Hypertension Stroke Social History Smoking and tobacco/nicotine status: never used tobacco/nicotine Alcohol intake: never Substance/Drug Use: never Household members: none Marital status: Course Vital Signs: Vital signs: Vital Signs Temperature 97.8 F 10/23/24 10:17 Pulse Rate 78 10/23/24 19:10 Respiratory Rate 22 H 10/23/24 19:10 Blood Pressure 141/70 10/23/24 19:10 Pulse Oximetry 89 L 10/23/24 19:10 Oxygen Delivery Me thod Room Air 10/23/24 10:45 MDM - Back Pain/Injury Medical Decision Making Patient noted to have hematuria. CT done patient has hydroureter there appears to be clot in the distal ureter and in the bladder. Is causing obstruction mild acute kidney injury. Started antibiotics we irrigated his bladder and will transfer to urology in [place] discussed with family. Medical Records I reviewed the patient's medical records. Labs I reviewed the patient's lab results. 10/23/24 10:30 10/23/24 10:56 Radiology Impressions Chest X-Ray 10/23/24 10:22 IMPRESSION: 1. Mild elevation of the RIGHT hemidiaphragm. 2. Widened mediastinum. 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 No increase in mediastinal widening by radiograph. Abdomen/Pelvis CT 10/23/24 13:37 IMPRESSION: 1. Bilateral perinephric stranding and hydroureteronephrosis. New finding since 05/11/2023. Variable layering density in the LEFT renal pelvis. Ureters are dilated to the pelvic brim where there is marked perinephric stranding and loss of the normal ureteral contour. RIGHT ureter measures up to 1.7 cm. No intraluminal calcified stones are identified. With the variable density in the renal pelves suspicious there may be ureteral blood clots. Correlate with coagulation status. Bilateral ureteral neoplasms causing the obstruction cannot be completely excluded but thought less likely. 2. Miranda distended urinary bladder. Changes in the kidneys and ureters may be related to reflux disease and infection. 3. 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 The appendix is dilated. Similar to 05/11/2023. 4. Chronic pancreatitis. 5. Miranda distended urinary bladder. Notified Shakir Lira DO at 10/23/2024 3:16 PM. Laboratory Results WBC 6.86 10^3/uL (3.29-11.43) 10/23/24 10:30 RBC 4.02 10^6/uL (3.85-5.65) 10/23/24 10:30 Hgb 12.90 g/dL (11.27-16.99) 10/23/24 10:30 Hct 39.5 % (37-53) 10/23/24 10:30 MCV 98.3 fl (82-101) 10/23/24 10:30 MCH 32.1 pg (27-33) 10/23/24 10:30 MCHC 32.7 g/dL (30-55) 10/23/24 10:30 RDW 15.8 % (12.1-15.1) H 10/23/24 10:30 Plt Count 158 10^3/cmm (157-399) 10/23/24 10:30 MPV 10.2 fL (7.4-10.4) 10/23/24 10:30 Neut % (Auto) 72.3 % 10/23/24 10:30 Lymph % (Auto) 17.1 % 10/23/24 10:30 [place] % (Auto) 9.9 % 10/23/24 10:30 Eos % (Auto) 0.3 % 10/23/24 10:30 Baso % (Auto) 0.1 % 10/23/24 10:30 Neut # (Auto) 4.96 10^3/uL (1.8-7.7) 10/23/24 10:30 Lymph # (Auto) 1.2 10^3/uL (0.8-4.8) 10/23/24 10:30 [place] # (Auto) 0.7 10^3/uL (0.2-0.9) 10/23/24 10:30 Eos # (Auto) 0.0 10^3/uL (0.0-0.8) 10/23/24 10:30 Baso # (Auto) 0.0 10^3/uL (0.0-0.1) 10/23/24 10:30 Nucleated RBC % (auto) 0 % 10/23/24 10:30 Nucleated RBCs # 0.0 /100WBC 10/23/24 10:30 Sodium 131 mmol/L (136-145) L 10/23/24 10:56 Potassium 4.2 mmol/L (3.5-5.1) 10/23/24 10:56 Chloride 98 mmol/L (98-107) 10/23/24 10:56 Carbon Dioxide 23 mmol/L (22-29) 10/23/24 10:56 Anion Gap 14.2 (5-19) 10/23/24 10:56 BUN 32 mg/dL (8-23) H 10/23/24 10:56 Creatinine 1.9 mg/dL (0.7-1.2) H 10/23/24 10:56 GFR Calculation Not Reportable 10/23/24 10:56 Glucose 116 mg/dL (65-115) H 10/23/24 10:56 Calculated Osmolality 280 mOsm/kg (285-295) L 10/23/24 10:56 Calcium 8.9 mg/dL (8.5-10.5) 10/23/24 10:56 Urine Color Red (Yellow) A 10/23/24 12:08 Urine Appearance Cloudy (CLEAR) A 10/23/24 12:08 Urine pH (5-7) 10/23/24 12:08 Ur Specific [place] Not Reportable 10/23/24 12:08 Urine Protein Not Reportable 10/23/24 12:08 Urine Glucose (UA) Not Reportable 10/23/24 12:08 Urine Ketones Not Reportable 10/23/24 12:08 Urine Blood Not Reportable 10/23/24 12:08 Urine Nitrate Not Reportable 10/23/24 12:08 Urine Bilirubin Not Reportable 10/23/24 12:08 Urine Urobilinogen Not Reportable 10/23/24 12:08 Ur Leukocyte Esterase Not Reportable 10/23/24 12:08 Urine RBC Too numerous to cnt /hpf (0-2) H 10/23/24 12:08 Urine WBC 0-4 /hpf (0-5) H 10/23/24 12:08 Ur Squamous Epith Cells 0-4 /hpf (0-5) H 10/23/24 12:08 Amorphous Sediment Trace /hpf 10/23/24 12:08 Urine Bacteria Trace /hpf (NONE) 10/23/24 12:08 Urine Mucus None /hpf 10/23/24 12:08 All radiology interpretation(s) finalized by discharge Discharge Plan Discharge Patient Disposition: Xfer Short-Term Hosp Clinical Impression: Hydroureter, Lumbar radiculopathy, Hematuria, ANGELITA (acute kidney injury) Condition: Stable Discharge Orders: Discharge ED (Routine); Ordered 10/23/24 Ordered By: Shakir Lira Referrals: Maggi Aguilar MD [Primary Care Provider, [facility]] Discharge Diet: Usual diet Discharge Activity: Limit activity as instructed Patient Instructions: Opioid Safety, Pain Management Print Language: Marshallese Coding Level of Care Code ED Gis Database Administrator for Rom Posada
[2024-10-23 10:39] LABS: Basophils % 0.1 %; Eosinophils % 0.3 %; Hematocrit 39.5 % (37-53); Lymphocytes # 1.2 10^3/uL (0.8-4.8); Lymphocytes % 17.1 %; Mean Corpuscular HGB Conc 32.7 g/dL (30-55); Mean Corpuscular Hemoglobin 32.1 pg (27-33); Mean Corpuscular Volume 98.3 fl (82-101); Mean Platelet Volume 10.2 fL (7.4-10.4); Monocytes # 0.7 10^3/uL (0.2-0.9); Monocytes % 9.9 %; Neutrophils # 4.96 10^3/uL (1.8-7.7); Neutrophils % 72.3 %; Nucleated Red Blood Cells % 0 %; Platelet Count 158 10^3/cmm (157-399); Red Blood Count 4.02 10^6/uL (3.85-5.65); Red Cell Distribution Width 15.8 % (12.1-15.1); White Blood Count 6.86 10^3/uL (3.29-11.43)
[2024-10-23] MEDS: sodium chloride 0.9% 1,000 ML 999 ML IV (10:42)
[2024-10-23 11:25] LABS: Anion Gap 14.2 (5-19); Blood Urea Nitrogen 32 mg/dL (8-23); Calcium 8.9 mg/dL (8.5-10.5); Carbon Dioxide 23 mmol/L (22-29); Chloride 98 mmol/L (98-107); Creatinine Clr Calc Pharmacy 34.4499; Glucose 116 mg/dL (65-115); Osmolality Calculated 280 mOsm/kg (285-295); Potassium 4.2 mmol/L (3.5-5.1); Sodium 131 mmol/L (136-145)
--- NOTE | 2024-10-23 12:24 | PC.SOCIAL ---
CM notified by ER that patient is wanting a SNF. [facility] and found that patient isnt service connected and he wont have 3 midnights to use his Medicare. SHAY discussed [facility] in [place] wtih patient he is agreeable to go. Explained to patient that I will send his information to [facility] and it will be a couple days before he could go there. He is agreeable. Information faxed to [facility] at this time
[2024-10-23 13:00] LABS: Add Urine Microscopic? YES; Urine Appearance Cloudy (CLEAR); Urine Color Red (Yellow)
[2024-10-23 13:03] LABS: Amorphous Sediment Urine TRACE /hpf; Bacteria Urine TRACE /hpf; RBC Urine TOO NUMEROUS TO CNT /hpf (0-2); Squamous Epithelial Cell Urine 0-4 /hpf (0-5); WBC Urine 0-4 /hpf (0-5)
[2024-10-23 13:04] LABS: Add Urine Culture? Yes
--- NOTE | 2024-10-23 13:37 | CT_ITS ---
WS: [id number] CT ABDOMEN AND PELVIS NONCONTRAST HISTORY: Hematuria TECHNIQUE: Imaging performed through the abdomen and pelvis. Coronal and sagittal reformats are submitted. All CT scans at [facility] use at least one of these dose optimization techniques: automated exposure control; mA and/or kV adjustment per patient size (includes targeted exams where dose is matched to clinical indication); or iterative reconstruction. DLP: 1051.67 mGy.cm COMPARISON: 05/11/2023 Lower thorax: Mild dependent changes at the lung bases. Heart is moderately enlarged. Cardiac pacer wires are noted. No hiatal hernia. Liver: Normal size liver. No mass or bile duct dilatation. Gallbladder: Normal gallbladder. No pericholecystic fluid or cholelithiasis. No gallbladder wall thickening. Pancreas: Atrophic pancreas with extensive calcifications throughout the pancreas. Spleen: Normal. Adrenal glands: Normal. No mass. Right kidney: Mildly enlarged RIGHT kidney with perinephric stranding. Mild dilatation of the renal pelvis. Slight variable increased density in the lower pole calyx. The RIGHT ureter is dilated. There is marked dilatation of the distal RIGHT ureter up to 1.7 cm. Loss of the normal contour and appearance of the ureter with periureteral soft tissue stranding. No stone is identified. Distally the ureter becomes more normal caliber. New finding involving the ureter as compared to 05/11/2023. Left kidney: Perinephric stranding with mild dilatation of the renal pelvis. Mild dilatation of the ureter with loss of the normal contour of the ureter. There is a layering density within the proximal ureter and extrarenal pelvis. Beyond the pelvic brim the ureter returns to normal caliber. Aorta: Mild atherosclerosis abdominal aorta with no aneurysm. No free fluid, intraperitoneal air or significant lymphadenopathy. GI tract: Nondistended stomach. No small bowel obstruction. Calcified mass noted in the RIGHT lower quadrant measures 3.1 x 2.6 cm. This may be within the base of the appendix consistent with a mucocele. This was also noted on the prior study of 05/11/2023 without increase in size. The appendix is dilated. No periappendiceal stranding. Abdominal wall: Negative. No hernia. Pelvis: Urinary bladder is overly distended measuring up to 15.8 cm in length. Prostate is mildly heterogeneous. Large LEFT pelvic lipoma. Osseous structures: Increase in lumbar lordosis. Vacuum disc phenomenon at all levels in the lumbar spine. Compression fractures at T12, L2 and L3. Osteopenia. Degenerative changes at the hip joints. Dorsal column stimulator wires enter the subarachnoid space in the lower thoracic region. CT/CT kidney stone [id number] IMPRESSION: 1. Bilateral perinephric stranding and hydroureteronephrosis. New finding sinc e 05/11/2023. Variable layering density in the LEFT renal pelvis. Ureters are d ilated to the pelvic brim where there is marked perinephric stranding and loss of the normal ureteral contour. RIGHT ureter measures up to 1.7 cm. No intralum inal calcified stones are identified. With the variable density in the renal pe lves suspicious there may be ureteral blood clots. Correlate with coagulation s tatus. Bilateral ureteral neoplasms causing the obstruction cannot be completel y excluded but thought less likely. 2. [place] [employer] distended urinary bladder. Changes in the kidneys and ureters may be related to reflux disease and infection. 3. 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 The appe ndix is dilated. Similar to 05/11/2023. 4. Chronic pancreatitis. 5. [place] distended urinary bladder. Notified Shakir Lira DO at 10/23/2024 3:16 PM.
== END 2024-10-23 20:28 | disposition short-term general hospital (02) ==
PROVIDERS: Emergency Medicine; Emergency Provider Family Medicine; PCP Family Medicine
DX: N13.4 Hydroureter (principal); M54.16 Radiculopathy, lumbar region; R31.9 Hematuria, unspecified; N17.9 Acute kidney failure, unspecified; E78.5 Hyperlipidemia, unspecified; G47.33 Obstructive sleep apnea (adult) (pediatric); I25.10 Atherosclerotic heart disease of native coronary artery without angina pectoris; I10 Essential (primary) hypertension; I48.91 Unspecified atrial fibrillation; Z95.0 Presence of cardiac pacemaker; Z79.899 Other long term (current) drug therapy; Z79.01 Long term (current) use of anticoagulants; Z79.84 Long term (current) use of oral hypoglycemic drugs; Z79.890 Hormone replacement therapy
CPT/HCPCS: 36415; 51702; 51798; 71045; 74176; 80048; 81001; 85025; 87077; 87086; 87186; 93005; 96360; 99285; J7030

== ENCOUNTER → 2024-11-14 14:07 | Outpatient (BNVA) | payer OTHER, SELFPAY | PROVIDERS: PCP Family Medicine; Visit Provider Orthopaedic Surgery | DX: Z48.89 Encounter for other specified surgical aftercare (principal); Z98.890 Other specified postprocedural states | CPT/HCPCS: 99024 ==

== ENCOUNTER 2024-12-14 00:33 | Inpatient (IN) | payer OTHER, SELFPAY ==
[2024-12-14] VITALS (29 sets, daily range): BP systolic 82–119; BP diastolic 47–74; PULSE 18–63; RESP 16–34; TEMP 36.2–36.8; O2SAT 90–98; BMI 27.8
--- NOTE | 2024-12-14 02:29 | W.ED.MALEGU ---
HPI - Male Genitourinary General: Chief complaint: Urogenital-Male Stated complaint: Blood in catheter Time Seen by Provider: 12/14/24 02:28 History of Present Illness: 84-year-old man with a history of urinary retention who is had a Hernandez catheter in for the last month and a half, chronic anticoagulation on Eliquis, coronary artery disease, hypertension, atrial fibrillation and anxiety who presents to the emergency room with bleeding in his Hernandez catheter. He had this replaced yesterday by home health nurse from the [place]. He then noticed today that there was bleeding. He has some mild pelvic pain. No nausea or vomiting. No altered mental status. Related Data Home Medications ?Medication ?Instructions ?Recorded ?Confirmed amiodarone 200 mg tablet 100 mg PO BID 11/07/19 11/14/24 cholecalciferol (vitamin D3) 25 25 mcg PO DAILY 11/07/19 11/14/24 mcg (1,000 unit) capsule Held on 10/18/24. Instructions: Resume on 10/20/24. albuterol sulfate 90 mcg/actuation 2 puff inhalation Q4H PRN 10/06/23 11/14/24 aerosol inhaler Shortness Of Breath dextromethorphan-guaifenesin 10 10 ml PO QID PRN Congestion 10/06/23 11/14/24 mg-100 mg/5 mL oral syrup diclofenac sodium 1 % topical gel 4 g topical DIRECTED 10/06/23 11/14/24 fluoxetine 10 mg capsule 10 mg PO QAM 10/06/23 11/14/24 isosorbide mononitrate 30 mg 30 mg PO QAM 10/06/23 11/14/24 tablet,extended release 24 hr lidocaine 5 % topical patch 1 patch transdermal PRN PRN Pain 10/06/23 11/14/24 polyethylene glycol 3350 17 17 g PO DAILY PRN Constipation 10/06/23 11/14/24 gram/dose oral powder (Miralax) potassium chloride 20 mEq 10 meq PO DAILY 10/06/23 11/14/24 tablet,extended release rosuvastatin 40 mg tablet 40 mg PO QPM 10/06/23 11/14/24 furosemide 20 mg tablet (Lasix) 20 mg PO QAM 12/22/23 11/14/24 levothyroxine 75 mcg tablet 75 mcg PO QAM 12/22/23 11/14/24 multivitamin 1 tab PO QAM 12/22/23 11/14/24 tamsulosin 0.4 mg capsule 0.4 mg PO QPM 12/22/23 11/14/24 apixaban 5 mg tablet (Eliquis) 5 mg PO BID 12/30/23 11/14/24 Held on 10/18/24. Instructions: Resume on 10/20/24. metformin 500 mg tablet 500 mg PO BID 12/30/23 11/14/24 ferrous sulfate 325 mg (65 mg 325 mg PO DAILY 05/19/24 11/14/24 iron) tablet fluticasone 100 mcg-salmeterol 50 1 inh inhalation BID 05/19/24 11/14/24 mcg/dose blistr powdr for inhalation (Advair Diskus) gabapentin 100 mg tablet 100 mg PO TID 10/17/24 11/14/24 Previous Rx's ?Medication ?Instructions ?Recorded metoprolol tartrate 25 mg tablet 25 mg PO BID 30 days #60 tabs 04/12/24 ondansetron 8 mg disintegrating 8 mg PO Q6H #14 tabs 09/28/24 tablet hydrocodone 5 mg-acetaminophen 325 1 - 2 tab PO .Q4-6H #40 tabs 10/18/24 mg tablet Allergies Allergy/AdvReac Type Severity Reaction Status Date / Time No Known Allergies Allergy Verified 12/14/24 00:36 Review of Systems Narrative: Constitutional symptoms: Negative except as documented in HPI. Skin symptoms: Negative except as documented in HPI. Eye symptoms: Negative except as documented in HPI. ENMT symptoms: Negative except as documented in HPI. Respiratory symptoms: Negative except as documented in HPI. Cardiovascular symptoms: Negative except as documented in HPI. Gastrointestinal symptoms: Negative except as documented in HPI. Genitourinary symptoms: Negative except as documented in HPI. Musculoskeletal symptoms: Negative except as documented in HPI. Neurologic symptoms: Negative except as documented in HPI. Psychiatric symptoms: Negative except as documented in HPI. Endocrine symptoms: Negative except as documented in HPI. PFS ED PFSH: Medical History (Updated 12/14/24 @ 05:16 by Nora Infante MD) Dyslipidemia Presence of permanent cardiac pacemaker ABRAM (obstructive sleep apnea) C7 cervical fracture H/O: GI bleed Atherosclerotic heart disease of [place]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 Anemia GI bleed Hypertension Atrial fibrillation Mitral regurgitation Osteoporosis Anxiety History of pacemaker Surgical History Hx of tonsillectomy H/O hemorrhoidectomy History of hernia surgery Family History Brother CAD (coronary artery disease) Congestive heart failure (CHF) Cancer Sister Lung disease Other Atherosclerotic heart disease of [place]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 Denies family history of Diabetes Clotting disorder Dementia Hyperlipidemia Chronic kidney disease (CKD) Suicide Anesthesia complication Bleeding disorder Hypertension Stroke Social History Smoking and tobacco/nicotine status: never used tobacco/nicotine Alcohol intake: never Substance/Drug Use: never Household members: none Marital status: Physical Exam Narrative: EXAM NARRATIVE: General: Alert, no acute distress. Skin: Warm, dry. Head: Normocephalic, atraumatic. Neck: Supple, trachea midline. Eye: Extraocular movements are intact. Ears, nose, mouth and throat: Tacky oral mucosa Cardiovascular: Regular, Normal peripheral perfusion. Respiratory: Lungs are clear to auscultation, respirations are non-labored, breath sounds are equal, Symmetrical chest wall expansion. Gastrointestinal: Soft, some mild suprapubic tenderness, Non distended. Musculoskeletal: Normal ROM, no deformity. Neurological: Alert and oriented, No focal neurological deficit observed. Psychiatric: Cooperative, appropriate mood & affect. Course Vital Signs: Vital signs: Vital Signs Temperature 98.2 F 12/14/24 00:34 Pulse Rate 61 12/14/24 04:00 Respiratory Rate 20 H 12/14/24 02:43 Blood Pressure 99/63 12/14/24 04:00 Pulse Oximetry 97 12/14/24 04:00 Oxygen Delivery Me thod Room Air 12/14/24 02:52 MDM - Male Medical Decision Making Medical decision making: Differential diagnosis for complaint of hematuria including but not limited to and based on the above HPI, review of systems and physical exam: UTI / hemorrhagic cystitis, pyelonephritis, kidney stones, bladder cancer Orders placed to evaluate differential diagnosis based on the above differential, HPI and physical exam Lab Review: Laboratory results were reviewed and interpreted by myself the emergency room physician. No leukocytosis and no anemia. Patient has some worsening renal function over the last several months. Urinalysis shows 100 whites 100 reds, leukocyte Estrace positive and nitrate positive. I reviewed the patient's medical record. Reexamination: Patient has continued to have soft blood pressure. Given 1 L of fluid and pressure came up briefly but is coming back down. Nursing discovered that Hernandez catheter was not fully advanced and was in the urethra. When they advanced it and reinflated the cuff he started draining clear urine instead of blood. Consultation: I spoke with Dr. Johnson's on-call for the hospitalist service who agrees to admission. Assessment and plan: Hernandez catheter problem Possible sepsis Hypotension Urinary tract infection ?Urinary tract infection and hypotension. No lactic acidosis. No leukocytosis but for now treating the patient has a septic. -2.5 L normal saline bolus. Fluid volumes based on ideal body weight. -Broad-spectrum antibiotics were administered. -Sepsis quality measures. -Lactic acid with a reflex was ordered. -Blood cultures were ordered. -I discussed the patient with the hospitalist on-call who is admitting the patient. - Discussed findings and plan with patient. Answered any questions. - All laboratory values were reviewed and interpreted personally by myself, the ER physician - All imaging was reviewed and interpreted personally by myself, the ER physician. - Evaluation and treatment of this problem were appropriate in the emergency setting Lab Data 12/14/24 02:44 12/14/24 02:44 Laboratory Results WBC 8.35 10^3/uL (3.29-11.43) 12/14/24 02:44 RBC 3.72 10^6/uL (3.85-5.65) L 12/14/24 02:44 Hgb 11.70 g/dL (11.27-16.99) 12/14/24 02:44 Hct 36.3 % (37-53) L 12/14/24 02:44 MCV 97.6 fl (82-101) 12/14/24 02:44 MCH 31.5 pg (27-33) 12/14/24 02:44 MCHC 32.2 g/dL (30-55) 12/14/24 02:44 RDW 15.5 % (12.1-15.1) H 12/14/24 02:44 Plt Count 169 10^3/cmm (157-399) 12/14/24 02:44 MPV 10.1 fL (7.4-10.4) 12/14/24 02:44 Neut % (Auto) 66.5 % 12/14/24 02:44 Lymph % (Auto) 23.7 % 12/14/24 02:44 [place] % (Auto) 7.5 % 12/14/24 02:44 Eos % (Auto) 1.7 % 12/14/24 02:44 Baso % (Auto) 0.2 % 12/14/24 02:44 Neut # (Auto) 5.55 10^3/uL (1.8-7.7) 12/14/24 02:44 Lymph # (Auto) 2.0 10^3/uL (0.8-4.8) 12/14/24 02:44 [place] # (Auto) 0.6 10^3/uL (0.2-0.9) 12/14/24 02:44 Eos # (Auto) 0.1 10^3/uL (0.0-0.8) 12/14/24 02:44 Baso # (Auto) 0.0 10^3/uL (0.0-0.1) 12/14/24 02:44 Nucleated RBC % (auto) 0 % 12/14/24 02:44 Nucleated RBCs # 0.0 /100WBC 12/14/24 02:44 PT 16.70 SECONDS (12.1-14.9) H 12/14/24 02:44 INR 1.27 (0.8-1.2) H 12/14/24 02:44 APTT 29.3 SECONDS (23.9-36.7) 12/14/24 02:44 Sodium 138 mmol/L (136-145) 12/14/24 02:44 Potassium 4.4 mmol/L (3.5-5.1) 12/14/24 02:44 Chloride 101 mmol/L (98-107) 12/14/24 02:44 Carbon Dioxide 24 mmol/L (22-29) 12/14/24 02:44 Anion Gap 17.4 (5-19) 12/14/24 02:44 BUN 24 mg/dL (8-23) H 12/14/24 02:44 Creatinine 1.5 mg/dL (0.7-1.2) H 12/14/24 02:44 GFR Calculation Not Reportable 12/14/24 02:44 Glucose 113 mg/dL (65-115) 12/14/24 02:44 Calculated Osmolality 291 mOsm/kg (285-295) 12/14/24 02:44 Lactic Acid 1.9 mmol/L (0.5-2.2) 12/14/24 02:44 Calcium 9.0 mg/dL (8.5-10.5) 12/14/24 02:44 Total Bilirubin 0.6 mg/dL (0.15-1.2) 12/14/24 02:44 AST 27 U/L (0-40) 12/14/24 02:44 ALT 22 U/L (0-41) 12/14/24 02:44 Alkaline Phosphatase 76 U/L (40-130) 12/14/24 02:44 Total Protein 6.9 g/dL (6.6-8.7) 12/14/24 02:44 Albumin 3.6 g/dL (3.5-5.2) 12/14/24 02:44 Globulin 3.3 g/dL (1.3-4.6) 12/14/24 02:44 Urine Color Dark yellow (Yellow) A 12/14/24 04:17 Urine Appearance Turbid (CLEAR) A 12/14/24 04:17 Urine pH 5.5 (5-7) 12/14/24 04:17 Ur Specific [place] 1.025 (1.005-1.030) 12/14/24 04:17 Urine Protein 2+ (Negative) A 12/14/24 04:17 Urine Glucose (UA) Negative (Normal) 12/14/24 04:17 Urine Ketones Trace (Negative) 12/14/24 04:17 Urine Blood 3+ (Negative) A 12/14/24 04:17 Urine Nitrate Positive (Negative) A 12/14/24 04:17 Urine Bilirubin Negative (Negative) 12/14/24 04:17 Urine Urobilinogen 1.0 mg/dL (Negative) 12/14/24 04:17 Ur Leukocyte Esterase 3+ (Negative) A 12/14/24 04:17 Urine RBC >100 /hpf (0-2) H 12/14/24 04:17 Urine WBC >100 /hpf (0-5) H 12/14/24 04:17 Ur Squamous Epith Cells 6-10 /hpf (0-5) 12/14/24 04:17 Amorphous Sediment Not Reportable 12/14/24 04:17 Urine Bacteria 4+ /hpf (NONE) H 12/14/24 04:17 Hyaline Casts 15.74 /lpf 12/14/24 04:17 No radiology studies performed this visit Discharge Plan Discharge Patient Disposition: Admitted As Inpatient Clinical Impression: Urinary tract infection, Complication, blocked Hernandez catheter, Hypotension Condition: Stable Coding Level of Care Code ED Internal Affairs Investigator for Rom Posada
[2024-12-14] MEDS: cefepime 2,000 mg SDV 2000 MG IVP (02:46)
[2024-12-14 02:52] LABS: Hematocrit 36.3 % (37-53); Hemoglobin 11.70 g/dL (11.27-16.99); Mean Corpuscular HGB Conc 32.2 g/dL (30-55); Mean Corpuscular Hemoglobin 31.5 pg (27-33); Mean Corpuscular Volume 97.6 fl (82-101); Nucleated Red Blood Cells % 0 %; Platelet Count 169 10^3/cmm (157-399); Red Blood Count 3.72 10^6/uL (3.85-5.65); White Blood Count 8.35 10^3/uL (3.29-11.43)
[2024-12-14 03:05] LABS: INR 1.27 (0.8-1.2); Prothrombin Time 16.70 SECONDS (12.1-14.9)
[2024-12-14 03:06] LABS: Partial Thromboplastin Time 29.3 SECONDS (23.9-36.7)
[2024-12-14 03:10] LABS: Alanine Aminotransferase 22 U/L (0-41); Albumin Level 3.6 g/dL (3.5-5.2); Alkaline Phosphatase 76 U/L (40-130); Anion Gap 17.4 (5-19); Aspartate Amino Transferase 27 U/L (0-40); Blood Urea Nitrogen 24 mg/dL (8-23); Calcium 9.0 mg/dL (8.5-10.5); Carbon Dioxide 24 mmol/L (22-29); Chloride 101 mmol/L (98-107); Creatinine Clr Calc Pharmacy 40.7336; Globulin 3.3 g/dL (1.3-4.6); Glucose 113 mg/dL (65-115); Osmolality Calculated 291 mOsm/kg (285-295); Potassium 4.4 mmol/L (3.5-5.1); Sodium 138 mmol/L (136-145); Total Protein 6.9 g/dL (6.6-8.7)
[2024-12-14 03:11] LABS: Lactic Sepsis W/Reflex 1.9 mmol/L (0.5-2.2)
[2024-12-14 04:24] LABS: Glucose Urine UA Negative (Normal); Nitrate Urine Positive (Negative); Specific Gravity, Urine 1.025 (1.005-1.030)
[2024-12-14 04:50] LABS: UA Slide Review UA Slide Review Perf
--- NOTE | 2024-12-14 05:55 | PM.HP ---
Providers/Chief Complaint Admitting Physician: mariluz Johnson DO seen after midnight Primary Care Provider: Maggi Aguilar MD Chief Complaint: Blood in catheter History of Present Illness Jose Francis is a 84 year old male with a chronic indwelling Hernandez catheter and with visiting nurses that change and do Hernandez cath care. Visiting nurses had come and try to care for the catheter and inflated the balloon that it is in the urethra and cause trauma. There was blood and for this reason patient came to the emergency room for care at the emergency room the Hernandez was bloody was flushed balloon deflated and was pushed into the bladder and Hernandez catheter was then noted to be clear. With this there are no emergent need for urology as I discussed with Dr. Bonner of the emergency room he felt the patient is cured in this regard. Urinalysis with significant for greater than 100 white cells. However the blood pressure stayed persistently in the 90s. Patient had received a liter and receiving another second liter of normal saline. Would like to place the patient in ICU for caution in case the hemodynamics goes down. Patient had been empirically covered with antibiotics with cefepime in the ED I will continue with ceftriaxone 1 for apparent urinary tract infection. Review of Systems Narrative: This 10 review upon 10 organ system review with noted to be remarkable for system with urinary tract trauma now cleared of gross hematuria, will be going to the stepdown unit because of soft blood pressure Medications/Allergies Home Medications ?Medication ?Instructions ?Recorded ?Confirmed ?Last Taken ?Type amiodarone 200 mg tablet 100 mg PO BID 11/07/19 11/14/24 10/18/24 History cholecalciferol (vitamin D3) 25 25 mcg PO DAILY 11/07/19 11/14/24 10/17/24 History mcg (1,000 unit) capsule Held on 10/18/24. Instructions: Resume on 10/20/24. albuterol sulfate 90 mcg/actuation 2 puff inhalation Q4H PRN 10/06/23 11/14/24 10/16/24 History aerosol inhaler Shortness Of Breath dextromethorphan-guaifenesin 10 10 ml PO QID PRN Congestion 10/06/23 11/14/24 10/16/24 History mg-100 mg/5 mL oral syrup diclofenac sodium 1 % topical gel 4 g topical DIRECTED 10/06/23 11/14/24 10/15/24 History fluoxetine 10 mg capsule 10 mg PO QAM 10/06/23 11/14/24 10/17/24 History isosorbide mononitrate 30 mg 30 mg PO QAM 10/06/23 11/14/24 10/18/24 History tablet,extended release 24 hr lidocaine 5 % topical patch 1 patch transdermal PRN PRN Pain 10/06/23 11/14/24 01/02/24 History polyethylene glycol 3350 17 17 g PO DAILY PRN Constipation 10/06/23 11/14/24 09/21/24 History gram/dose oral powder (Miralax) potassium chloride 20 mEq 10 meq PO DAILY 10/06/23 11/14/24 10/17/24 History tablet,extended release rosuvastatin 40 mg tablet 40 mg PO QPM 10/06/23 11/14/24 10/16/24 History furosemide 20 mg tablet (Lasix) 20 mg PO QAM 12/22/23 11/14/24 10/17/24 History levothyroxine 75 mcg tablet 75 mcg PO QAM 12/22/23 11/14/24 10/17/24 History multivitamin 1 tab PO QAM 12/22/23 11/14/24 10/17/24 History tamsulosin 0.4 mg capsule 0.4 mg PO QPM 12/22/23 11/14/24 10/16/24 History apixaban 5 mg tablet (Eliquis) 5 mg PO BID 12/30/23 11/14/24 10/15/24 History Held on 10/18/24. Instructions: Resume on 10/20/24. metformin 500 mg tablet 500 mg PO BID 12/30/23 11/14/24 10/17/24 History metoprolol tartrate 25 mg tablet 25 mg PO BID 30 days #60 tabs 04/12/24 11/14/24 10/18/24 Rx ferrous sulfate 325 mg (65 mg 325 mg PO DAILY 05/19/24 11/14/24 10/17/24 History iron) tablet fluticasone 100 mcg-salmeterol 50 1 inh inhalation BID 05/19/24 11/14/24 10/17/24 History mcg/dose blistr powdr for inhalation (Advair Diskus) ondansetron 8 mg disintegrating 8 mg PO Q6H #14 tabs 09/28/24 11/14/24 Unknown Rx tablet gabapentin 100 mg tablet 100 mg PO TID 10/17/24 11/14/24 10/17/24 History hydrocodone 5 mg-acetaminophen 325 1 - 2 tab PO .Q4-6H #40 tabs 10/18/24 11/14/24 Unknown Rx mg tablet Allergies Allergy/AdvReac Type Severity Reaction Status Date / Time No Known Allergies Allergy Verified 12/14/24 00:36 PFSH Acute PFSH: Medical History (Updated 12/14/24 @ 06:06 by Mariluz Johnson MD) Dyslipidemia Presence of permanent cardiac pacemaker ABRAM (obstructive sleep apnea) C7 cervical fracture H/O: GI bleed Atherosclerotic heart disease of [place]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 Anemia GI bleed Hypertension Atrial fibrillation Mitral regurgitation Osteoporosis Anxiety History of pacemaker Surgical History Hx of tonsillectomy H/O hemorrhoidectomy History of hernia surgery Family History Brother CAD (coronary artery disease) Congestive heart failure (CHF) Cancer Sister Lung disease Other Atherosclerotic heart disease of [place]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 Denies family history of Diabetes Clotting disorder Dementia Hyperlipidemia Chronic kidney disease (CKD) Suicide Anesthesia complication Bleeding disorder Hypertension Stroke Social History Smoking and tobacco/nicotine status: never used tobacco/nicotine Alcohol intake: never Substance/Drug Use: never Household members: none Marital status: Vitals/I&O/Wt Last Vital Signs Temp 98.2 F 12/14/24 00:34 Pulse 61 12/14/24 04:00 Resp 20 H 12/14/24 02:43 BP 99/63 12/14/24 04:00 Pulse Ox 97 12/14/24 04:00 O2 Del Method Room Air 12/14/24 02:52 12/13/24 12/13/24 12/14/24 14:59 22:59 06:59 Intake Total 0 / 0 Balance 0 / 0 Weight last 48 hrs Weight 90.718 kg Physical Exam Narrative: Patient seen and evaluated relaxed. Patient is very dehydrated very poor skin toggle HEENT normocephalic atraumatic neck neck is supple cardiovascular heart rate is regular lungs are pretty much clear abdomen soft nontender nondistended unremarkable and free of gross hematuria patient has Hernandez catheter. Extremities are intact no edema has good pulses neurology has no focality lab studies lab studies reviewed and noted. Data 12/14/24 02:44 12/14/24 02:44 Micro: Microbiology 12/14/24 02:44 Blood Culture - Preliminary Blood SPECIMEN COLLECTED 12/14/24 02:45 Blood Culture - Preliminary Blood SPECIMEN COLLECTED A&P Assessment and plan 1. Hypotension: Hypotension resolving patient might be okay to go to stepdown unit 2. Urinary tract infection: Urinary tract infection had been now on antibiotics for empiric coverage patient is on ceftriaxone and had received cefepime from the emergency room earlier today. Follow cultures and optimize accordingly 3. Acute renal failure: Patient has acute renal failure with a creatinine of 1.5 patient also does have CHF must be cautious on IV fluid. Encourage oral hydration. 4. Dehydration: Patient did receive a liter of fluid from the emergency room continue to monitor and optimize keep patient euvolemic 5. ANGELITA (acute kidney injury): Continue to monitor continue with lab studies and optimize accordingly Plan: GI and DVT prophylaxis in place PDMP PDMP Reviewed: Not Reviewed Attestations Medical Necessity Statement*: Hernandez trauma with soft blood pressure and UTI this of at least 2 midnights for optimization of care patient Coding Level of Care Code Acute Code for Chg Fwd Diagnoses Hypotension I95.9 Urinary tract infection N39.0 Acute renal failure N17.9 Dehydration E86.0 ANGELITA (acute kidney injury) N17.9
--- NOTE | 2024-12-14 07:44 | PC.PHAR ---
[facility] 12/14/24 7:45am
[2024-12-14 08:30] LABS: Alanine Aminotransferase 18 U/L (0-41); Albumin Level 3.1 g/dL (3.5-5.2); Alkaline Phosphatase 61 U/L (40-130); Anion Gap 13.4 (5-19); Aspartate Amino Transferase 21 U/L (0-40); Blood Urea Nitrogen 24 mg/dL (8-23); Calcium 8.0 mg/dL (8.5-10.5); Carbon Dioxide 24 mmol/L (22-29); Chloride 108 mmol/L (98-107); Creatinine Clr Calc Pharmacy 43.6431; Globulin 2.5 g/dL (1.3-4.6); Glucose 95 mg/dL (65-115); Osmolality Calculated 296 mOsm/kg (285-295); Potassium 4.4 mmol/L (3.5-5.1); Sodium 141 mmol/L (136-145); Total Protein 5.6 g/dL (6.6-8.7)
--- NOTE | 2024-12-14 08:45 | CT_ITS ---
WS: [id number] CT ABDOMEN PELVIS TECHNIQUE: Noncontrast CT of the abdomen and pelvis with coronal and sagittal reformatted images. CLINICAL INFORMATION: chronic murrell, urethral injury, ANGELITA COMPARISON: CT 10/23/2024 DLP: 929.[address] scans at [facility] use at least one of these dose optimization techniques: automated exposure control; mA and/or kV adjustment per patient size (includes targeted exams where dose is matched to clinical indication); or iterative reconstruction. FINDINGS: No hydronephrosis in either kidney. No obstructing renal or ureteral calculi. Murrell catheter. Bladder is decompressed with diffuse wall thickening. Small amount of air due to recent catheter placement. Mild induration about the bladder suspicious for cystitis. Small amount of air in the bladder wall and bladder diverticulum likely related to Murrell catheter. Prostate measures 4.1 cm. Cardiomegaly. Trace pericardial fluid or thickening. Subsegmental atelectasis in the lung bases. Normal noncontrast liver. Gallbladder is contracted. Normal GE junction. Air-fluid level in the stomach. Changes of chronic pancreatitis with pancreatic calcifications. Normal caliber abdominal aorta. Mild aortic calcification. Fat-containing umbilical hernia. Sigmoid diverticulosis. No evidence of acute diverticulitis. Stable calcified mass in the cecum at the base of the appendix suspicious for mucocele unchanged. CT/CT abdomen pelvis con [id number] IMPRESSION: 1. No hydronephrosis in either kidney. 2. Murrell catheter. Bladder is decompressed with diffuse thickening which can b e seen with cystitis. Mild induration about the bladder. Correlation for UTI. 3. Sigmoid constipation. Sigmoid diverticulosis. No evidence of acute divertic ulitis. 4. Previously described calcified mass at the base of the appendix in the cecu m is unchanged suspicious for mucocele 5. Pancreatic calcifications compatible with chronic pancreatitis.
[2024-12-14] MEDS: cefTRIAXone 2,000 mg SDV 2000 MG IVP (08:57)
--- NOTE | 2024-12-14 15:09 | P.MISC_ITS ---
Miscellaneous Note Note: Seen today. Patient resting up in bed. No further hematuria noted. CT abdomen pelvis pending at this time. Continue to hold Eliquis and heparin for DVT prophylaxis Continue SCDs Continue on cefepime 1 g every 12 hours to cover for Pseudomonas. He has had Pseudomonas in urine culture in the past which was resistant to imipenem. Restart iron, vitamin C, gabapentin, levothyroxine, as needed MiraLAX, multivitamin Continue to hold home antihypertensives secondary to low blood pressures on arri christian.
[2024-12-14] MEDS: cefepime 1,000 mg SDV 1000 MG IVP (15:59)
[2024-12-14] MEDS: polyethylene glycol 3350 Pkt 17 gm PO (18:03)
--- NOTE | 2024-12-14 22:40 | PC.NURSE ---
Contacted physician to see if patient was suitable to transfer to [facility], physician was agreeable and stated that she was going to place the order. Report was then called to [facility] nurse Gudino around an hour later. Patient was then moved before transfer orders were placed.
[2024-12-15] VITALS (8 sets, daily range): BP systolic 99–151; BP diastolic 60–75; PULSE 58–81; RESP 16–21; TEMP 36.4–36.9; O2SAT 89–97
--- OUTSIDE RECORDS SUMMARY | 2024-12-15 03:15 | XMS_ITS | Clinical Summary ---
Author Organization [facility] Address [address] [place] [address] Phone Care Team Providers Care Cardiac Cath Technician Name Role Phone Unavailable Primary Care Provider Unavailabl e Allergies No known active allergies Medications isosorbide mononitrate (IMDUR) 30 mg Extended Release 24 hour tablet Take 30 mg by mouth daily in the morning. Active polyethylene glycol 3350 (MIRALAX) 17 gram/dose Powder Take 17 Grams by mouth 1 time daily as needed for Constipation. Dissolve in 8 ounces of fluid and drink entire liquid Active potassium CHLORIDE (KLOR-CON M10) 10 mEq Extended Release tablet Take 10 mEq by mouth daily. Active rosuvastatin (CRESTOR) 40 mg tablet Take 40 mg by mouth daily at bedtime. Active furosemide (LASIX) 20 mg tablet Take 20 mg by mouth daily in the morning. Active levothyroxine 75 mcg tablet Take 75 mcg by mouth daily in the morning. Active multivitamin (DAILY-DIANNE) tablet Take 1 Tablet by mouth daily. Active tamsulosin (FLOMAX) 0.4 mg capsule Take 0.4 mg by mouth daily at bedtime. Active apixaban (Eliquis) 5 mg tablet Take 5 mg by mouth 2 times daily. Active metFORMIN (GLUCOPHAGE) 500 mg tablet Take 500 mg by mouth 2 times daily with meals. Active ferrous sulfate 325 mg (65 mg iron) tablet Take 325 mg by mouth daily. Active FLUTICASONE PROPION-SALMETER OL INHALATION Take 100 mcg by inhalation 2 times daily. Fluticasone 100mcg- salmeterol 50 mcg Active gabapentin (NEURONTIN) 100 mg capsule Take 100 mg by mouth 3 times daily. Active FLUoxetine (PROzac) 10 mg capsule Take 10 mg by mouth daily. Active docusate sodium (COLACE) 100 mg capsule Take 1 Capsule (100 mg) by mouth 2 times daily. Active miconazole nitrate (REMEDY-AF,ZEASO RB-AF) 2 % Powder Apply to affected area 2 times daily. Active phenazopyridine 100 mg tablet Take 1 Tablet (100 mg) by mouth 3 times daily after meals. Active Active Problems Problem Noted Date Diagnosed Date Physical debility 10/27/2024 Acute blood loss anemia 10/27/2024 Hyperlipidemia 10/24/2024 Atrial fibrillation 10/24/2024 Benign prostatic hyperplasia 10/24/2024 Chronic obstructive pulmonary disease 10/24/2024 Diabetic peripheral neuropathy 10/24/2024 Hypothyroidism 10/24/2024 Bilateral hydronephrosis 10/24/2024 Type 2 diabetes mellitus wit hout complication, without long-term current use of insulin 10/24/2024 Chronic anticoagulation 10/24/2024 Resolved Problems Problem Noted Date Diagnosed Date Resolved Date Gross hematuria 10/24/2024 10/30/2024 Advanced care planning/counseling discussion 10/24/2024 ANGELITA (acute kidney injury) 10/24/2024 Encounters Date Type Department Care Team Description 11/29/2024 External Device Data STL ABSTRACTION Provider, Abstract 11/29/2024 External Device Data STL ABSTRACTION Provider, Abstract 11/09/2024 Telephone [facility] Urology [address] [place] [phone] Aby Rodriges [facility] Hospital Follow Up 11/01/2024 External Device Data STL ABSTRACTION Provider, Abstract 10/31/2024 External Device Data STL ABSTRACTION Provider, Abstract 10/31/2024 External Device Data STL ABSTRACTION Provider, Abstract 10/30/2024 - 10/30/2024 11:59 PM CDT Hospital Encounter [facility] Emergency Medical Services [address] [facility] [place] [address] [place] [phone] Waleska Osorio MD Ambulance, [facility] Discharge Disposition: Intermediate Care Facility 10/24/2024 4:18 PM CDT Anesthesia Event [facility] Operating Room [address] [place] [phone] Jose Felix MD 10/24/2024 3:49 PM CDT - 10/24/2024 5:21 PM CDT Surgery [facility] Operating Room [address] [place] [phone] John Randhawa MD CYSTOURETHROSCOPY EVACUATION CLOT(S) 10/23/2024 10:16 PM CDT - 10/30/2024 12:16 AM CDT Hospital Encounter [facility] 3A Surgical [address] [place] [phone] Chava Sterling MD Patel, Taksh, MD Bajor, Jamar Heart, Waleska Suero MD Gross hematuria Discharge Disposition: Alf Fac(SNF) with Medicare Certification in Anticipation of Skilled Care 10/23/2024 Travel from Last 3 Months Family History Medical History Relation Name Comments Cancer - Other Brother Coronary Artery Disease Brother Heart Failure Brother lung disease Sister Relation Name Status Comments Brother Sister Social History Tobacco Use Types Packs/Day Years Used Date Smoking Tobacco: Former Cigarettes Q uit: 1961 Tobacco Cessation:Counseling Given: No Alcohol Use Standard Drinks/Week Comments Not Currently 0 (1 standard drink = 0.6 oz pur e alcohol) Sex and Gender Information Value Date Recorded Sex Assigned at Not on file Legal Sex Male 4:23 PM CDT Gender Identity Not on file Sexual Orientation Not on file Last Filed Vital Signs Vital Sign Reading Time Taken Comments Blood Pressure 133/89 10/30/2024 3:00 PM CDT Pulse 71 10/30/2024 3:00 PM CDT Temperature 37 C (98.6 F) 10/30/2024 3:00 PM CDT Respiratory Rate 16 10/30/2024 3:00 PM CDT Oxygen Saturation 96% 10/30/2024 3:00 PM CDT Inhaled Oxygen Concentration - - Weight - - Height 180.3 cm (5' 11 ) 10/23/2024 10:39 PM CDT Body Mass Index - - Plan of Treatment Health Maintenance Due Date Last Done Comments DIABETES ANNUAL FOOT EXAM 1958 DIABETES ANNUAL RETINAL EXAM 1958 DIABETES MICROALBUMIN ANNUAL SCREEN 1956 LDL CHOLESTEROL ANNUAL 1956 RSV VACCINE (60+ or ) (1 - 1-dose 75+ series) 2013 COVID-19 Vaccine (2 - 2023-2 5 season) 2024 08/08/2020 INFLUENZA VACCINE (#1) 2024 , 04/29/2022, 04/24/2020, Additional history exists DIABETES HBA1C Q 6 MONTHS 05/23/2025 11/20/2024 DTAP/TDAP/TD VACCINES (7 - T d or Tdap) 02/02/2034 02/03/2024, 04/29/2022, 07/22/2021, Additional history exists PNEUMOCOCCAL VACCINE 50+ YEARS Completed 1 06/25/2019, 03/15/2015, 10/11/2014 ZOSTER VACCINE Completed 04/24/2020, 04/16, 09/29/2012, Additional history exists Procedures Procedure Name Priority Date/Time Associated Diagnosis Comments TELEMETRY REPORT 11/07/2024 3:25 AM CDT TELEMETRY REPORT 10/31/2024 2:58 PM CDT POC GLUCOSE Routine 10/30/2024 8:11 PM CDT POC GLUCOSE Routine 10/30/2024 5:44 PM CDT POC GLUCOSE Routine 10/30/2024 11:53 AM CDT POC GLUCOSE Routine 10/30/2024 7:51 AM CDT CBC WITH DIFFERENTIAL Routine 10/30/2024 4:46 AM CDT BASIC METABOLIC PANEL Routine 10/30/2024 4:46 AM CDT POC GLUCOSE Routine 10/29/2024 9:05 PM CDT POC GLUCOSE Routine 10/29/2024 5:25 PM CDT POC GLUCOSE Routine 10/29/2024 12:12 PM CDT POC GLUCOSE Routine 10/29/2024 7:53 AM CDT POC GLUCOSE Routine 10/28/2024 8:26 PM CDT POC GLUCOSE Routine 10/28/2024 5:30 PM CDT POC GLUCOSE Routine 10/28/2024 12:01 PM CDT POC GLUCOSE Routine 10/28/2024 8:18 AM CDT POC GLUCOSE Routine 10/27/2024 8:33 PM CDT POC GLUCOSE Routine 10/27/2024 4:09 PM CDT POC GLUCOSE Routine 10/27/2024 11:33 AM CDT POC GLUCOSE Routine 10/27/2024 8:31 AM CDT BASIC METABOLIC PANEL Routine 10/27/2024 3:40 AM CDT CBC WITH DIFFERENTIAL Routine 10/27/2024 3:40 AM CDT POC GLUCOSE Routine 10/26/2024 9:03 PM CDT POC GLUCOSE Routine 10/26/2024 4:36 PM CDT POC GLUCOSE Routine 10/26/2024 11:15 AM CDT BASIC METABOLIC PANEL Routine 10/26/2024 8:19 AM CDT CBC WITH DIFFERENTIAL Routine 10/26/2024 8:19 AM CDT POC GLUCOSE Routine 10/26/2024 7:53 AM CDT POC GLUCOSE Routine 10/25/2024 9:10 PM CDT POC GLUCOSE Routine 10/25/2024 5:39 PM CDT POC GLUCOSE Routine 10/25/2024 12:24 PM CDT POC GLUCOSE Routine 10/25/2024 9:33 AM CDT COMPREHENSIVE METABOLIC PANEL Routine 10/25/2024 8:05 AM CDT MAGNESIUM LEVEL Routine 10/25/2024 8:05 AM CDT CBC WITH DIFFERENTIAL Routine 10/25/2024 4:14 AM CDT POC GLUCOSE Routine 10/24/2024 9:12 PM CDT PATHOLOGY Pathology 10/24/2024 5:36 PM CDT POC GLUCOSE Routine 10/24/2024 5:35 PM CDT RT ASSESS AND TREAT Routine 10/24/2024 4 :09 PM CDT TRANSURETHRAL RESECTION OF PROSTATE 10/24/2024 3:49 PM CDT VT CYSTO W/IRRIG & EVAC MULTPLE OBSTRUCTING CLOTS 10/24/2024 3:49 PM CDT BASIC METABOLIC PANEL Routine 10/24/2024 1:38 PM CDT CBC WITH DIFFERENTIAL Routine 10/24/2024 1:38 PM CDT POC GLUCOSE Routine 10/24/2024 8:19 AM CDT POC GLUCOSE Routine 10/24/2024 3:37 AM CDT BASIC METABOLIC PANEL Routine 10/23/2024 11:13 PM CDT PROTIME-INR Routine 10/23/2024 11:13 PM CDT CBC WITH DIFFERENTIAL Routine 10/23/2024 11:13 PM CDT from Last 3 Months Results * TELEMETRY REPORT (11/07/2024 3:25 AM CDT) Only the most recent of2 resultswithin the time period is included. Provider Scanning ECG ORDERABLES Final Result * (ABNORMAL) POC GLUCOSE (10/30/2024 8:11 PM CDT) Only the most recent of28 resultswithin the time period is included. Pathologist [facility] GLUCOSE POC 123(H) 74 - 99 mg/dL 10/30/2024 8:11 PM CDT [facility] SPECIMEN SOURCE, GLUCOSE POC Capillary 10/30/2024 8:11 PM CDT [facility] Blood, whole 10/30/2024 8:11 PM CDT 10/30/2024 8:24 PM CDT Waleska Osorio MD POINT OF CARE TESTING Final Res ult [facility] CLIA # [id number] [facility] [id number] * (ABNORMAL) CBC WITH DIFFERENTIAL (10/30/2024 4:46 AM CDT) Only the most recent of6 resultswithin the time period is included. Pathologist [facility] WBC 9.8 4.8 - 10.8 K/uL 10/30/2024 4:56 AM CDT [facility] RBC 3.91(L) 4.60 - 6.20 M/uL 10/30/2024 4:56 AM CDT [facility] HEMOGLOBIN 12.4(L) 14.0 - 18.0 g/dL 10/30/2024 4:56 AM CDT [facility] HEMATOCRIT 38.2(L) 41.0 - 53.0 % 10/30/2024 4:56 AM CDT [facility] MCV 97.7 84.0 - 103.0 fL 10/30/2024 4:56 AM [facility] MCH 31.7 27.0 - 34.0 pg 10/30/2024 4:56 AM [facility] MCHC 32.5 30.0 - 35.0 g/dL 10/30/2024 4:56 AM [facility] PLATELETS 260 140 - 440 K/uL 10/30/2024 4:56 AM [facility] MPV 9.6 8.9 - 12.8 fL 10/30/2024 4:56 AM [facility] RDW 15.2(H) 11.0 - 14.5 % 10/30/2024 4:56 AM [facility] RDW-STDEV 55.2(H) 37.0 - 54.0 fL 10/30/2024 4:56 AM [facility] NEUTROPHILS 66 42 - 75 % 10/30/2024 4:56 AM [facility] LYMPHOCYTES 24 24 - 44 % 10/30/2024 4:56 AM [facility] MONOCYTES 7 2 - 10 % 10/30/2024 4:56 AM [facility] EOSINOPHILS 1 0 - 7 % 10/30/2024 4:56 AM [facility] BASOPHILS 0 0 - 1 % 10/30/2024 4:56 AM [facility] IMMATURE GRANULOCYTES 2 0 - 2 % 10/30/2024 4:56 AM [facility] NEUTROPHIL ABSOLUTE 6.41 2.00 - 8.00 K/uL 10/30/2024 4:56 AM [facility] LYMPHOCYTE ABSOLUTE 2.37 1.20 - 4.00 K/uL 10/30/2024 4:56 AM [facility] MONOCYTE ABSOLUTE 0.70(H) 0.10 - 0.60 K/uL 10/30/2024 4:56 AM [facility] EOSINOPHIL ABSOLUTE 0.06 0.00 - 0.70 K/uL 10/30/2024 4:56 AM CDT [facility] BASOPHILS ABSOLUTE 0.03 0.00 - 0.20 K/uL 10/30/2024 4:56 AM CDT [facility] IMMATURE GRANULOCYTES ABSOLUTE 0.21(H) 0.00 - 0.10 K/uL 10/30/2024 4:56 AM CDT [facility] SMEAR REVIEWED: NA - Not Applicable 10/30/2024 4:56 AM CDT [facility] Blood Venipuncture / Unknown 10/30/2024 4:46 AM CDT 10/30/2024 4:50 AM CDT us Waleska Osorio MD HEMATOLOGY ORDERABLES Final Res ult [facility] # [id number] [address] [place] [id number] * (ABNORMAL) BASIC METABOLIC PANEL (10/30/2024 4:46 AM CDT) Only the most recent of5 resultswithin the time period is included. SODIUM 138 136 - 145 mmol/L 10/30/2024 5:25 AM T [facility] POTASSIUM 3.8 3.5 - 5.1 mmol/L 10/30/2024 5:25 AM T [facility] CHLORIDE 103 98 - 107 mmol/L 10/30/2024 5:25 AM T [facility] CO2 25 22 - 29 mmol/L 10/30/2024 5:25 AM T [facility] CALCIUM 8.5(L) 8.8 - 10.2 mg/dL 10/30/2024 5:25 AM T [facility] BUN 23 8 - 23 mg/dL 10/30/2024 5:25 AM CDT [facility] CREATININE 1.12 0.67 - 1.17 mg/dL 10/30/2024 5:25 AM T [facility] Comment:The GFR result is no t clinically significant on patients <18 or >70 years of age. GLUCOSE 99 74 - 99 mg/dL 10/30/2024 5:25 AM CDT [facility] GFR >60 mL/min/1.7 3 sq meter 10/30/2024 5:25 AM CDT [facility] Comment:eGFR calculated with 2020 CKD-EPI equation. Vegetarian diet, extremely high or low muscle mass, and may affect results. Cystatin C with Glomerular Filtration Rate is a suitable alternative for these patients. ANION GAP 10 9 - 20 mmol/L 10/30/2024 5:25 AM CDT [facility] Blood Venipuncture / Unknown 10/30/2024 4:46 AM CDT 10/30/2024 4:51 AM CDT Waleska Osorio MD CHEMISTRY ORDERABLES Final Resu lt Performing Organization Address City/[facility]/ZIP Co de Phone Number [facility] CLIA # [id number] [address] [address] * MAGNESIUM LEVEL (10/25/2024 8:05 AM CDT) MAGNESIUM 2.0 1.6 - 2.4 mg/dL 10/25/2024 9:40 AM CDT [facility] Blood Venipuncture / Unknown 10/25/2024 8:05 AM CDT 10/25/2024 9:06 AM CDT us John Randhawa MD CHEMISTRY ORDERABLES Final Result Performing Organization Address City/[facility]/ZIP Co de Phone Number [facility] CLIA # [id number] [id number] [place] [address] * (ABNORMAL) COMPREHENSIVE METABOLIC PANEL (10/25/2024 8:05 AM CDT) SODIUM 138 136 - 145 mmol/L 10/25/2024 9:40 AM [facility] POTASSIUM 4.1 3.5 - 5.1 mmol/L 10/25/2024 9:40 AM [facility] Comment:Slightly hemolyzed. Result may be falsely elevated. CHLORIDE 101 98 - 107 mmol/L 10/25/2024 9:40 AM [facility] CO2 24 22 - 29 mmol/L 10/25/2024 9:40 AM [facility] CALCIUM 8.6(L) 8.8 - 10.2 mg/dL 10/25/2024 9:40 AM [facility] BUN 27(H) 8 - 23 mg/dL 10/25/2024 9:40 AM [facility] CREATININE 1.42(H) 0.67 - 1.17 mg/dL 10/25/2024 9:40 AM [facility] Comment:The GFR result is no t clinically significant on patients <18 or >70 years of age. GLUCOSE 143(H) 74 - 99 mg/dL 10/25/2024 9:40 AM [facility] TOTAL PROTEIN 6.2(L) 6.4 - 8.3 g/dL 10/25/2024 9:40 AM [facility] ALBUMIN 2.7(L) 3.5 - 5.2 g/dL 10/25/2024 9:40 AM [facility] BILIRUBIN TOTAL 0.7 0.0 - 1.0 mg/dL 10/25/2024 9:40 AM [facility] ALKALINE PHOSPHATASE 61 40 - 129 U/L 10/25/2024 9:40 AM [facility] AST 71(H) 10 - 50 U/L 10/25/2024 9:40 AM [facility] Comment:Hemolysis present. R esult may be falsely elevated. ALT 23 <=50 U/L 10/25/2024 9:40 AM [facility] GFR 48 mL/min/1. 73 sq meter 10/25/2024 9:40 AM CDT [facility] Comment:eGFR calculated with 2020 CKD-EPI equation. Vegetarian diet, extremely high or low muscle mass, and may affect results. Cystatin C with Glomerular Filtration Rate is a suitable alternative for these patients. ANION GAP 13 9 - 20 mmol/L 10/25/2024 9:40 AM CDT [facility] Blood Venipuncture / Unknown 10/25/2024 8:05 AM CDT 10/25/2024 9:06 AM CDT us John Randhawa MD CHEMISTRY ORDERABLES Final Result [facility] CLIA # [id number] [facility] [address] * PATHOLOGY (10/24/2024 5:36 PM CDT) CASE REPORT Surgical Pathology Report Case: [id number] Authorizing Provider: John Randhawa, Collected: 10/24/2024 05:36 PM Ordering Location: [facility] Received: 10/25/2024 06:25 AM Post Anesthesia Care Unit Pathologist: Tyrell Bronson MD Specimen: Prostate, chips 1:48 PM CDT [facility] FINAL DIAGNOSIS A. Prostate, transurethral resection - urothelial mucosa, fibromuscular stroma, and acute inflammation. Tyrell Bronson MD [id number] 1:48 PM CDT [facility] at 1348 CDT GROSS DESCRIPTION A. Received in a container of formalin labeled [place] -prostate chips are multiple dillard-pink to dark-red and hemorrhagic soft tissue fragments, 2.5 x 0.7 x 0.3 cm in aggregate. The specimen is submitted entirely in A1. Meme Cox 1:48 PM CDT [facility] OPERATIVE PROCEDURE 1: CYSTOURETHROSCOPY EVACUATION CLOT(S) 2: TRANSURETHRAL RESECTION OF PROSTATE 5 1:48 PM CDT [facility] CLINICAL INFORMATION PROSTATE CHIPS 5 1:48 PM CDT [facility] COMMENT The [employer] voice-activated dictation system may have been used in the creation of this report. Inherent to this system is the possibility of errors in syntax, grammar, punctuation, or other areas that could impact interpretation. If there are interpretive questions about the report, please contact the performing pathologist. Unless gross only is specified in the diagnosis, the microscopic examination substantiates the above cited diagnosis. The performance characteristics of all immunohistochemical stains cited in this report (if any) were determined by the Diagnostic Immunohistochemistry Laboratory of [facility] in compliance with CLIA'88 regulations. Some of these tests rely on the use of analyte specific reagents and are subject to specific labeling requirements by the FDA. All controls show appropriate reactivity. This testing was developed by the Diagnostic Immunohistochemistry Laboratory of [facility]. It has not been cleared or approved by the FDA. The FDA has determined that such clearance or approval is not necessary. 5 1:48 PM CDT [facility] Tissue ENTIRE PROSTATE / Unknown Collection / Unknown 10/24/2024 5:36 PM CDT 10/25/2024 6:25 AM CDT Comment:PROSTATE CHIPS [email or web address] 1 us John Randhawa MD PATHOLOGY/CYTOLOGY O RDERABLES Final Result [facility] CLIA # [id number] [address] [place] [address] [place] [address] * (ABNORMAL) PROTIME-INR (10/23/2024 11:13 PM CDT) PROTIME 18.1(H) 12.7 - 14.9 Seconds 10/23/2024 11:34 PM CDT [facility] INR 1.4(H) 0.8 - 1.2 10/23/2024 11:34 PM CDT [facility] spigit [facility] Blood Venipuncture / Unknown 10/23/2024 11:13 PM CDT 10/23/2024 11:18 PM CDT Narrative [facility] - 10/23/2024 11:34 PM CDT Expected Values for INR: DVT/PE Goal INR 2.5; range 2.0 - 3.0 Valve Replacement Tissue Goal INR 2.5; range 2.0 - 3.0 Valve Replacement Mechanical Goal INR 3.0; range 2.5 - 3.5 POST-DE Goal INR 2.5; range 2.0 - 3.0 or Goal INR 3.0; range 2.5 - 3.5 Atrial Fibrillation Goal INR 2.5; range 2.0 - 3.0 Ischemic Stroke Goal INR 2.5; range 2.0 - 3.0 us Pamela Sanchez MD HEMATOLOGY ORDERABLES Final Resu lt [facility] spigit [facility] CLIA # [id number] [address] [address] [place] [address] from Last 3 Months Insurance MEDICARE PART A AND B * Guarantor: JESUS GoffC) Account Type Relation to Patient Date of Phone Billing Address Corporate Other DEFAULT ADDRESS [address] [employer] Advance Directives For more information, please contact: [phone] * NO CPR (In Event of Cardiopulmonary Arrest) (Latest Code Status on File) Date Activated Date Inactivated Comments 10/24/2024 2:54 AM 10/31/2024 2:28 AM Question Answer Comments Mechanical Ventilation (for respiratory distress) - Invasive (i.e. intubation): No Mechanical Ventilation (for respiratory distress) - Non-Invasive (i.e. BiPAP, CPAP): Yes * Full Code Date Activated Date Inactivated Comments 10/23/2024 10:32 PM 10/24/2024 2:54 AM
[2024-12-15] MEDS: cefepime 1,000 mg SDV 1000 MG IVP ×2 (04:02→16:22)
[2024-12-15 05:41] LABS: Hematocrit 31.7 % (37-53); Hemoglobin 10.00 g/dL (11.27-16.99); Mean Corpuscular HGB Conc 31.5 g/dL (30-55); Mean Corpuscular Hemoglobin 31.9 pg (27-33); Mean Corpuscular Volume 101.3 fl (82-101); Nucleated Red Blood Cells % 0 %; Platelet Count 130 10^3/cmm (157-399); Red Blood Count 3.13 10^6/uL (3.85-5.65); White Blood Count 4.83 10^3/uL (3.29-11.43)
[2024-12-15 06:04] LABS: Alanine Aminotransferase 15 U/L (0-41); Albumin Level 2.6 g/dL (3.5-5.2); Alkaline Phosphatase 55 U/L (40-130); Anion Gap 15.8 (5-19); Aspartate Amino Transferase 20 U/L (0-40); Blood Urea Nitrogen 18 mg/dL (8-23); Calcium 7.6 mg/dL (8.5-10.5); Carbon Dioxide 20 mmol/L (22-29); Chloride 107 mmol/L (98-107); Creatinine Clr Calc Pharmacy 52.9015; Globulin 2.5 g/dL (1.3-4.6); Glucose 93 mg/dL (65-115); Magnesium 1.8 mg/dL (1.7-2.3); Osmolality Calculated 290 mOsm/kg (285-295); Potassium 3.8 mmol/L (3.5-5.1); Sodium 139 mmol/L (136-145); Total Protein 5.1 g/dL (6.6-8.7)
[2024-12-15] MEDS: ferrous sulfate EC 325 mg Tablet PO (09:12)
--- NOTE | 2024-12-15 12:32 | P.PN_ITS ---
Subjective 2 Subjective: Seen this morning. He feels better Urine culture shows gram-negative rods. Awaiting sensitivities. Hematuria has resolved. Hernandez draining clear yellow urine. Vitals/I&O/Wt Last Vital Signs Temp 97.6 F 12/15/24 11:05 Pulse 81 12/15/24 11:05 Resp 18 12/15/24 11:05 BP 104/71 12/15/24 11:05 Pulse Ox 92 12/15/24 11:05 O2 Del Method Room Air 12/15/24 11:05 O2 Flow Rate 1.5 12/14/24 13:39 FiO2 21 12/14/24 22:26 12/14/24 12/15/24 12/15/24 22:59 06:59 14:59 Intake Total 1803 / 3303 1158.75 / 1158.75 Output Total 750 / 750 300 / 1050 Balance 1053 / 2553 -300 / 2253 1158.75 / 1158.75 Weight last 48 hrs Weight 98.656 kg Weight 104.78 kg Weight 90.718 kg Physical Exam 2 Narrative: General: Laying in bed appearing comfortable at this time. Alert and oriented. HEENT: Normocephalic, atraumatic, EOMI, breathing room air. Cardio: Regular rate rhythm, normal S1-S2, Respiratory: Clear to auscultation bilaterally. No wheezes no rhonchi GI: Abdomen soft, nontender, bowel sounds + Extremities: No edema bilateral lower extremities Hernandez draining clear yellow urine Data 12/15/24 05:06 12/15/24 05:06 Micro: Microbiology 12/14/24 04:17 Urine Culture - Preliminary Urine,Clean Catch Gram Negative Rods 12/14/24 02:44 Blood Culture - Preliminary Blood NEGATIVE TO DATE 12/14/24 02:45 Blood Culture - Preliminary Blood NEGATIVE TO DATE A&P Assessment and plan 1. Hypotension: Hypotension resolving patient might be okay to go to stepdown unit 2. Urinary tract infection: Urinary tract infection had been now on antibiotics for empiric coverage patient is on ceftriaxone and had received cefepime from the emergency room earlier today. Follow cultures and optimize accordingly 3. Acute renal failure: Patient has acute renal failure with a creatinine of 1.5 patient also does have CHF must be cautious on IV fluid. Encourage oral hydration. 4. Dehydration: Patient did receive a liter of fluid from the emergency room continue to monitor and optimize keep patient euvolemic 5. ANGELITA (acute kidney injury): Continue to monitor continue with lab studies and optimize accordingly Plan: GI and DVT prophylaxis in place 12/15/2024 Patient's initial hypotension on arrival has resolved. He has a history of CHF. We will stop IV fluids today. Creatinine has normalized. Urine culture positive for gram-negative meagan sensitivities are pending. He has had Pseudomonas resistant to imipenem in the past. We will await urine culture before deciding on discharging patient. Hematuria has resolved. Hernandez draining clear yellow urine. Hemoglobin 10.0 this morning Platelet count 130. Once urine culture results with sensitivities we will consider discharge home. Check PT PDMP PDMP Reviewed: Not Reviewed Attestations 2 Medical Necessity Statement*: Hernandez trauma with soft blood pressure and UTI this of at least 2 midnights for optimization of care patient Diagnoses Hypotension I95.9 Urinary tract infection N39.0 Acute renal failure N17.9 Dehydration E86.0 ANGELITA (acute kidney injury) N17.9
--- NOTE | 2024-12-15 13:09 | PC.SOCIAL ---
IMM UPDATED IMM dated and initialed, copy given to patient and copy placed in chart.
[2024-12-16 00:51] VITALS: BP 107/69; PULSE 60; RESP 17; TEMP 37.2; O2SAT 93
[2024-12-16 04:18] LABS: Hematocrit 30.7 % (37-53); Hemoglobin 9.60 g/dL (11.27-16.99); Mean Corpuscular HGB Conc 31.3 g/dL (30-55); Mean Corpuscular Hemoglobin 30.7 pg (27-33); Mean Corpuscular Volume 98.1 fl (82-101); Nucleated Red Blood Cells % 0 %; Platelet Count 118 10^3/cmm (157-399); Red Blood Count 3.13 10^6/uL (3.85-5.65); White Blood Count 5.08 10^3/uL (3.29-11.43)
[2024-12-16 04:37] LABS: Alanine Aminotransferase 19 U/L (0-41); Albumin Level 2.8 g/dL (3.5-5.2); Alkaline Phosphatase 59 U/L (40-130); Anion Gap 14.2 (5-19); Aspartate Amino Transferase 31 U/L (0-40); Blood Urea Nitrogen 13 mg/dL (8-23); Calcium 8.0 mg/dL (8.5-10.5); Carbon Dioxide 23 mmol/L (22-29); Chloride 110 mmol/L (98-107); Creatinine Clr Calc Pharmacy 57.7107; Globulin 2.3 g/dL (1.3-4.6); Glucose 106 mg/dL (65-115); Magnesium 1.9 mg/dL (1.7-2.3); Osmolality Calculated 297 mOsm/kg (285-295); Potassium 4.2 mmol/L (3.5-5.1); Sodium 143 mmol/L (136-145); Total Protein 5.1 g/dL (6.6-8.7)
[2024-12-16] MEDS: cefepime 1,000 mg SDV 1000 MG IVP ×2 (05:01→15:26)
[2024-12-16 05:43] VITALS: BP 109/65; PULSE 60; RESP 19; TEMP 36.8
[2024-12-16 07:45] VITALS: BP 113/66; PULSE 64; RESP 15; TEMP 36.7; O2SAT 93
[2024-12-16] MEDS: ferrous sulfate EC 325 mg Tablet PO (09:29)
[2024-12-16 11:07] VITALS: BP 117/76; PULSE 61; RESP 14; TEMP 36.8; O2SAT 95
[2024-12-16 16:00] VITALS: BP 126/80; PULSE 76; RESP 15; TEMP 36.8; O2SAT 96
--- NOTE | 2024-12-16 16:32 | P.DS_ITS ---
Discharge Providers Date of Admission: 12/14/24 05:13 Date of Discharge: December 16, 2024 Attending Provider at Admission: Lydia Johnson MD Attending Provider at Discharge: Gris Foy MD Primary Care Provider: Maggi Aguilar MD Diagnoses at Discharge Discharge Diagnosis 1. Hypotension: 2. Urinary tract infection: 3. Acute renal failure: 4. 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 This was resolved in the ER. Discussed with patient's son over the phone who stated that his indwelling Hernandez has been placed recently within the last few weeks. He has had a neurostimulator generator placement on recently. He has been experiencing urinary retention therefore Hernandez was placed. He has not seen urology yet. I did discuss with son that we will be holding his Eliquis due to hematuria and he should follow-up with urology as an outpatient. Creatinine also normalized. Urine culture positive for gram-negative rods. Once we reviewed urine culture at time of discharge patient was discharged home in stable condition. Creatinine stable at time of discharge. CT abdomen pelvis did not show any obstruction. He did have evidence of hematuria therefore his Eliquis was held. we will refer to urology at [place]. Hematuria did clear at time of discharge. Hemoglobin is stable. Patient discharged on Levaquin. Physical Exam Narrative: General: Laying in bed appearing comfortable at this time. Alert and oriented. HEENT: Normocephalic, atraumatic, EOMI, breathing room air. Cardio: Regular rate rhythm, normal S1-S2, Respiratory: Clear to auscultation bilaterally. No wheezes no rhonchi GI: Abdomen soft, nontender, bowel sounds + Extremities: No edema bilateral lower extremities Discharge Data Studies Completed and Pending Completed Studies During Hospitalization Category Date Time Status CT abdomen pelvis wo con [id number] Stat Cat Scan 12/14/24 08:45 Completed Pending at discharge Category Date Time Status Blood Culture Stat Lab 12/14/24 02:44 Results Complete Blood Count w/Auto AM LABS Lab 12/17/24 04:00 Ordered Comprehensive Metabolic Panel AM LABS Lab 12/17/24 04:00 Ordered Magnesium AM LABS Lab 12/17/24 04:00 Ordered Phosphorus AM LABS Lab 12/17/24 04:00 Ordered Radiology Impressions Abdomen/Pelvis CT 12/14/24 08:45 IMPRESSION: 1. No hydronephrosis in either kidney. 2. Hernandez catheter. Bladder is decompressed with diffuse thickening which can be seen with cystitis. Mild induration about the bladder. Correlation for UTI. 3. Sigmoid constipation. Sigmoid diverticulosis. No evidence of acute diverticulitis. 4. Previously described calcified mass at the base of the appendix in the cecum is unchanged suspicious for mucocele 5. Pancreatic calcifications compatible with chronic pancreatitis. Laboratory Results WBC 5.08 10^3/uL (3.29-11.43) 12/16/24 03:58 RBC 3.13 10^6/uL (3.85-5.65) L 12/16/24 03:58 Hgb 9.60 g/dL (11.27-16.99) L 12/16/24 03:58 Hct 30.7 % (37-53) L 12/16/24 03:58 MCV 98.1 fl (82-101) 12/16/24 03:58 MCH 30.7 pg (27-33) 12/16/24 03:58 MCHC 31.3 g/dL (30-55) 12/16/24 03:58 RDW 15.3 % (12.1-15.1) H 12/16/24 03:58 Plt Count 118 10^3/cmm (157-399) L 12/16/24 03:58 MPV 10.5 fL (7.4-10.4) H 12/16/24 03:58 Neut % (Auto) 56.1 % 12/16/24 03:58 Lymph % (Auto) 30.9 % 12/16/24 03:58 [place] % (Auto) 9.6 % 12/16/24 03:58 Eos % (Auto) 2.8 % 12/16/24 03:58 Baso % (Auto) 0.4 % 12/16/24 03:58 Neut # (Auto) 2.85 10^3/uL (1.8-7.7) 12/16/24 03:58 Lymph # (Auto) 1.6 10^3/uL (0.8-4.8) 12/16/24 03:58 [place] # (Auto) 0.5 10^3/uL (0.2-0.9) 12/16/24 03:58 Eos # (Auto) 0.1 10^3/uL (0.0-0.8) 12/16/24 03:58 Baso # (Auto) 0.0 10^3/uL (0.0-0.1) 12/16/24 03:58 Nucleated RBC % (auto) 0 % 12/16/24 03:58 Nucleated RBCs # 0.0 /100WBC 12/16/24 03:58 PT 16.70 SECONDS (12.1-14.9) H 12/14/24 02:44 INR 1.27 (0.8-1.2) H 12/14/24 02:44 APTT 29.3 SECONDS (23.9-36.7) 12/14/24 02:44 Sodium 143 mmol/L (136-145) 12/16/24 03:58 Potassium 4.2 mmol/L (3.5-5.1) 12/16/24 03:58 Chloride 110 mmol/L (98-107) H 12/16/24 03:58 Carbon Dioxide 23 mmol/L (22-29) 12/16/24 03:58 Anion Gap 14.2 (5-19) 12/16/24 03:58 BUN 13 mg/dL (8-23) 12/16/24 03:58 Creatinine 1.1 mg/dL (0.7-1.2) 12/16/24 03:58 GFR Calculation Not Reportable 12/16/24 03:58 Glucose 106 mg/dL (65-115) 12/16/24 03:58 Calculated Osmolality 297 mOsm/kg (285-295) H 12/16/24 03:58 Lactic Acid 1.9 mmol/L (0.5-2.2) 12/14/24 02:44 Calcium 8.0 mg/dL (8.5-10.5) L 12/16/24 03:58 Phosphorus 3.1 mg/dL (2.5-4.5) 12/16/24 03:58 Magnesium 1.9 mg/dL (1.7-2.3) 12/16/24 03:58 Total Bilirubin 0.3 mg/dL (0.15-1.2) 12/16/24 03:58 AST 31 U/L (0-40) 12/16/24 03:58 ALT 19 U/L (0-41) 12/16/24 03:58 Alkaline Phosphatase 59 U/L (40-130) 12/16/24 03:58 Total Protein 5.1 g/dL (6.6-8.7) L 12/16/24 03:58 Albumin 2.8 g/dL (3.5-5.2) L 12/16/24 03:58 Globulin 2.3 g/dL (1.3-4.6) 12/16/24 03:58 Urine Color Dark yellow (Yellow) A 12/14/24 04:17 Urine Appearance Turbid (CLEAR) A 12/14/24 04:17 Urine pH 5.5 (5-7) 12/14/24 04:17 Ur Specific [place] 1.025 (1.005-1.030) 12/14/24 04:17 Urine Protein 2+ (Negative) A 12/14/24 04:17 Urine Glucose (UA) Negative (Normal) 12/14/24 04:17 Urine Ketones Trace (Negative) 12/14/24 04:17 Urine Blood 3+ (Negative) A 12/14/24 04:17 Urine Nitrate Positive (Negative) A 12/14/24 04:17 Urine Bilirubin Negative (Negative) 12/14/24 04:17 Urine Urobilinogen 1.0 mg/dL (Negative) 12/14/24 04:17 Ur Leukocyte Esterase 3+ (Negative) A 12/14/24 04:17 Urine RBC >100 /hpf (0-2) H 12/14/24 04:17 Urine WBC >100 /hpf (0-5) H 12/14/24 04:17 Ur Squamous Epith Cells 6-10 /hpf (0-5) 12/14/24 04:17 Amorphous Sediment Not Reportable 12/14/24 04:17 Urine Bacteria 4+ /hpf (NONE) H 12/14/24 04:17 Hyaline Casts 15.74 /lpf 12/14/24 04:17 Vitals Last Vital Signs Temp 98.3 F 12/16/24 11:07 Pulse 61 12/16/24 11:07 Resp 14 12/16/24 11:07 BP 117/76 12/16/24 11:07 Pulse Ox 95 12/16/24 11:07 O2 Del Method Room Air 12/16/24 11:07 O2 Flow Rate 1.5 12/14/24 13:39 FiO2 21 12/15/24 21:00 Discharge Plan Discharge Patient Disposition: Home Health Service Condition: Stable Prescriptions: Continued cholecalciferol (vitamin D3) 25 mcg (1,000 unit) capsule 25 mcg PO DAILY dextromethorphan-guaifenesin 10-100 mg/5 mL Syrup 10 ml PO QID PRN (Reason: Congestion) lidocaine 5 % Adhesive Patch,Medicated 1 patch transdermal PRN PRN (Reason: Pain) Rx Instructions: APPLY 1 patch topically, leave on most painful area for up to 12 hrs, THEN REMOVE PATCH FOR 12 HOURS fluoxetine 10 mg capsule 10 mg PO QAM polyethylene glycol 3350 [Miralax] 17 gram/dose Powder 17 g PO DAILY PRN (Reason: Constipation) albuterol sulfate 90 mcg/actuation HFA aerosol inhaler 2 puff INHALATION Q4H PRN (Reason: Shortness Of Breath) diclofenac sodium 1 % Gel See Rx Instructions .ROUTE .COMPLEX Rx Instructions: APPLY 4 GRAMS TO AFFECTED AREA(S) 4 TIMES DAILY FOR PAIN. DO NOT EXCEED MORE THAN 16 GRAMS DAILY TO ANY LOWER EXTREMITY JOINT. NOT MORE THAN 8 GRAMS DAILY TO ANY UPPER EXTREMITY JOINT. MAX 32 GRAMS DAILY OVER ALL JOINTS. isosorbide mononitrate 30 mg Tablet Extended Release 24 Hr 15 mg PO QAM rosuvastatin 40 mg Tablet 40 mg PO QPM multivitamin Tablet 1 tab PO QAM levothyroxine 75 mcg Tablet 75 mcg PO QAM ferrous sulfate 325 mg (65 mg iron) Tablet 325 mg PO DAILY fluticasone propion-salmeterol [Advair Diskus] 100-50 mcg/dose Blister With Device 1 inh INHALATION BID gabapentin 100 mg Tablet 100 mg PO TID tramadol 50 mg Tablet 50 mg PO Q6H PRN (Reason: Pain) famotidine 20 mg Tablet 20 mg PO BID ascorbic acid (vitamin C) [Vitamin C] 500 mg Tablet 500 mg PO DAILY metformin 1,000 mg Tablet 500 mg PO BID ondansetron 4 mg Tablet,Disintegrating 4 mg PO BID PRN (Reason: Nausea And Vomiting) bisacodyl 5 mg Tablet 10 mg PO DAILY PRN (Reason: Constipation) Glucerna Liquid 1 ea PO BID Changed metoprolol tartrate 25 mg tablet 12.5 mg PO BID 30 Days Qty: 30 5RF furosemide [Lasix] 20 mg tablet 20 mg PO QAM PRN (Reason: Edema) Qty: 30 0RF Rx Instructions: take once daily only when weight gain > 3lbs in 1 day or > 5 lbs in 3 days. potassium chloride 20 mEq Tablet Extended Release 10 meq PO DAILY PRN (Reason: Edema) Qty: 30 0RF Rx Instructions: take half a tablet only the day you take lasix. tamsulosin 0.4 mg Capsule 0.4 mg PO QPM Qty: 20 0RF Held Eliquis 5 mg tablet 5 mg PO BID Hold Instructions: Resume on 05/28/24. 05/27/24 AM lisinopril 2.5 mg Tablet 2.5 mg PO DAILY Hold Instructions: see pcp Discontinued hydrocodone-acetaminophen 5-325 mg tablet 1 - 2 tab PO .Q4-6H PRN (Reason: Pain) No Action prednisone 20 mg tablet 20 mg PO DAILY doxycycline hyclate 100 mg tablet 100 mg PO BID 7 Days Qty: 14 0RF Discharge Order = DC NOW: Discharge Order (Routine); Ordered 12/16/24 Ordered By: Gris Foy Other Ambulatory Orders: Basic Metabolic Panel (Routine) Timeframe: 3 Days Facility: [facility] - Location: Lab - Main Lab Ordered By: Gris Foy Complete Blood Count w/Auto (Routine) Timeframe: 3 Days Location: Determined by Patient Ordered By: Gris Foy Referrals: [facility] [Outside] Maggi Aguilar MD [Primary Care Provider, Family Practice] - 1-3 days Referral Note: We will call Wednesday morning to set up appointment and then contact you with date and time. Dhaval Espinosa [Referring, Urology] - 4-7 days Referral Note: We will call Wednesday morning to set up appointment and then co ntact you with date and time. Ramírez Fournier M.D [Physician, Cardiology] - 1-3 days Referral Note: We will call Wednesday morning to set up appointment and then contact you with date and time. Discharge Diet: Cardiac Discharge Activity: Resume usual activity Patient Instructions: Levofloxacin (By mouth) (Levaquin, Levaquin Leva-gayla), Hernandez Catheter Care, Urinary Tract Infection in Men (GEN), Opioid Safety, Patient Portal & Herman Instructions Discharge Attestations Time Spent in Discharge Care*: greater than 30 min Quality Metrics Clinical Quality Measures [ No reported AMI, CVA or VTE this stay] Coding Level of Care Code Acute Code for Chg Fwd Diagnoses Hypotension I95.9 Urinary tract infection N39.0 Acute renal failure N17.9 Dehydration E86.0 ANGELITA (acute kidney injury) N17.9
[2024-12-16 17:15] VITALS: BP 126/80; PULSE 76; RESP 15; TEMP 36.8; O2SAT 96
--- NOTE | 2024-12-16 17:24 | PC.NURSE ---
Went over medications three times upon discharge of patient. The patient still did not understand but Balaji Francis the son lives with the patient and stated he understands the changes. Patient had new medications, changed medications and hold medications. Son repeated the hold and change medications back to this nurse. Explained to patient the hospital will call and make follow up appointments and will call the patient to give appointment dates on Wednesday. Patient was also given orders to have labs done on 12-19-2024. This nurse showed the patient where the date and time was on the lab orders. Patient and son verbalized understanding. Patient was wheeled out by son with wheel chair.
== END 2024-12-16 17:18 | disposition home health service (06) | DRG 699 ==
LOC: ER 06:46 → CSU 13:09 → MEDSURG 22:06
PROVIDERS: Admitting Provider Internal Medicine; Emergency Provider Emergency Medicine; PCP Family Medicine; Visit Provider Internal Medicine
DX: T83.511A Infection and inflammatory reaction due to indwelling urethral catheter, initial encounter (principal); N17.9 Acute kidney failure, unspecified; N39.0 Urinary tract infection, site not specified; T83.098A Other mechanical complication of other urinary catheter, initial encounter; I95.9 Hypotension, unspecified; R33.9 Retention of urine, unspecified; E86.0 Dehydration; G47.33 Obstructive sleep apnea (adult) (pediatric); E78.5 Hyperlipidemia, unspecified; I11.0 Hypertensive heart disease with heart failure; I50.9 Heart failure, unspecified; Y73.8 Miscellaneous gastroenterology and urology devices associated with adverse incidents, not elsewhere classified; Z96.82 Presence of neurostimulator; Z95.0 Presence of cardiac pacemaker; Z79.01 Long term (current) use of anticoagulants
CPT/HCPCS: 36415; 74176; 80053; 81001; 83605; 83735; 84100; 85025; 85610; 85730; 87040; 87077; 87086; 87186; 94660; 96361; 96374; 96375; 97110; 97116; 97162; 99285; J0692; J0696; J7030; J7040; J9999

== ENCOUNTER → 2024-12-21 13:17 | Outpatient (BNVA) | payer OTHER, SELFPAY | PROVIDERS: PCP Family Medicine; Visit Provider Nurse Practitioner Family | DX: I11.0 Hypertensive heart disease with heart failure (principal); I50.32 Chronic diastolic (congestive) heart failure; I25.10 Atherosclerotic heart disease of native coronary artery without angina pectoris; I48.0 Paroxysmal atrial fibrillation; Z79.01 Long term (current) use of anticoagulants; R94.39 Abnormal result of other cardiovascular function study; E78.5 Hyperlipidemia, unspecified; Z91.81 History of falling; N39.0 Urinary tract infection, site not specified; Z95.0 Presence of cardiac pacemaker; Z87.891 Personal history of nicotine dependence; I10 Essential (primary) hypertension | CPT/HCPCS: 36415; 80053; 85025; 99213 ==

== ENCOUNTER 2024-12-24 09:05 | Emergency (ER) | payer OTHER, MEDICARE, SELFPAY ==
--- OUTSIDE RECORDS SUMMARY | 2024-11-16 03:00 | XMS_ITS ---
Author Organization [facility] Address [address] [place] [address] Care Team Providers Care Full Stack Net Developer Name Role Phone John Singh Primary Care Provider [phone] Allergies No Known Allergies REASON FOR VISIT disch, CIME: Care Home Discharge Medications Medication SIG (Take, Route, Frequency, Duration) Notes Start Date End Date Status Apixaban 5 MG Tablet as directed Orally Active FLUoxetine HCl 10 MG Tablet 1 tablet Orally Once a day A ctive Furosemide 20 MG Tablet 1 tablet Orally Once a day Active Encounters Encounter Location Date Provider Diagnosis [facility] [address] [place] [address] 11/16/2024 John Singh Benign prostatic hyperplasia without lower urinary tract symptoms N40.0 ; Bilateral hydronephrosis N13.30 ; Obstructive and reflux uropathy, unspecified N13.9 ; COPD without exacerbation J44.9 ; Type 2 diabetes mellitus without complications E11.9 and Diabetic peripheral neuropathy E11.42 Assessments Encounter Date Diagnosis (ICD Code) Assessment Notes Treatment Notes Treatment Clinical Notes Section Notes 11/16/2024 Benign prostatic hyperplasia without lower urinary tract symptoms (ICD-10 - N40.0) 11/16/2024 Bilateral hydronephrosis (ICD-10 - N13.30) Medications reviewed, orders signed and documented with nursing staff. Vitals taken and recorded at [facility]. Pt approved for discharge. 11/16/2024 Obstructive and reflux uropathy, unspecified (ICD-10 - N13.9) 11/16/2024 COPD without exacerbation (ICD-10 - J44.9) 11/16/2024 Type 2 diabetes mellitus without complications (ICD-10 - E11.9) 11/16/2024 Diabetic peripheral neuropathy (ICD-10 - E11.42) Plan Of Treatment Treatment Notes Assessment Notes Bilateral hydronephrosis Medications rev iewed, orders signed and documented with nursing staff. Vitals taken and recorded at [facility]. Pt approved for discharge. Next Appt Details Follow Up: 4 Weeks, Reason: History and Physical Notes * HPI (History of Present Illness) Category Sub-Category Detail Notes Category Not es : The patient is seen in the usp today for discharge from [facility]. Staff reports pt is stable for transport. The review of systems and exam are unchanged from previous. Patient denies pain and is comfortable. All orders, prescriptions, home care assessments and DME are completed. Will follow up with patient in office as appropriate. Examination Category Sub-Category Detail Notes Category Not es General Examination GENERAL APPEARANCE: in no ac [place] distress. Vital signs as documented. NECK/THYROID: no JVD HEART: notable for regular rhythym, normal sounds and absence of murmurs, rubs or gallops. LUNGS: Lungs clear ABDOMEN: unremarkable, no org anomegaly , no masses, or abdominal aortic enlargement. SKIN: warm and dry, withou t overt rashes. Progress Notes * Jose FRANCISDOB:1940 ( 84 yo M)Acc No.[id number]:11/16/2024 Patient: Jose Tony Provider: Sariah Singh MD :1940 A ge:84 Y S ex:Male Date:11/16/2024 Address:[address] [place] [address] Subjective: * Chief Complaints: * D ischCIME: Care Home Discharge * HPI: * :: The patient is seen in the usp today for discharge from [facility]. Staff reports pt is stable for transport. The review of systems and exam are unchanged from previous. Patient denies pain and is comfortable. All orders, prescriptions, home care assessments and DME are completed. Will follow up with patient in office as appropriate. * Medical History: Accelerated hypertension Diabetes mellitus Medical History Verified * Medications: T akingFurosemide 20 MG Tablet 1 tablet Orally Once a day FLUoxetine HCl 10 MG Tablet 1 tablet Orally Once a day Apixaban 5 MG Tablet as directed Orally Medication List reviewed and reconciled with the patientTaking Furosemide 20 MG Tablet 1 tablet Orally Once a day Taking FLUoxetine HCl 10 MG Tablet 1 tablet Orally Once a day Taking Apixaban 5 MG Tablet as directed Orally Medication List reviewed and reconciled with the patient * Allergies: N .K.Brandon.JudyyesAllergies Verified. Objective: * Examination: G eneral Examination: GENERAL APPEARANCE: i n no acute distress. Vital signs as documented.. NECK/THYROID: n o JVD. SKIN: w arm and dry, without overt rashes.. HEART: n otable for regular rhythym, normal sounds and absence of murmurs, rubs or gallops. LUNGS: L ungs clear. ABDOMEN: u nremarkable, no organomegaly , no masses, or abdominal aortic enlargement.. Assessment: * Assessment: 1. B ilateral hydronephrosis - N13.30 (Primary) 2 . B enign prostatic hyperplasia without lower urinary tract symptoms - N40.0 3 . O bstructive and reflux uropathy, unspecified - N13.9 4 . C OPD without exacerbation - J44.9 5. T ype 2 diabetes mellitus without complications - E11.9 6 . D iabetic peripheral neuropathy - E11.42 Plan: * Treatment: * Procedure Codes: 9 9315 LTC Facility, Discharge under 30 min * Follow Up: 4 Weeks Billing Information: * Procedure Codes: 84303 LTC Facility, Discharge under 30 min. * Electronic signature of Юлия Singh MD on 12/24/2024 at 09:13 AM CDT Sign off status: Pending * Provider: Sariah Singh MD Date: 11/16/2024 Generated for Joanne tello/Shana/Ginoitting on: 12/24/2024 09:13 AM CDT
--- NOTE | 2024-12-24 09:11 | XRR_ITS ---
PROCEDURE INFORMATION: Exam: XR Chest Exam date and time: 12/24/2024 10:23 AM Age: 84 years old Clinical indication: Cough; Prior surgery; Surgery date: 6+ months; Surgery type: Pacemaker, spinal stimulator TECHNIQUE: Imaging protocol: Radiologic exam of the chest. Views: 1 view. COMPARISON: CR XR chest 1V portable [id number] 10/23/2024 10:29 AM FINDINGS: Tubes, catheters and devices: Left anterior chest wall dual-chamber pacemaker. Neurostimulator present overlying the lower thoracic spine. Lungs: No focal lung consolidations. Pleural spaces: Unremarkable. No pleural effusion. No pneumothorax. Heart/Mediastinum: Unremarkable. No cardiomegaly. 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 XR/XR chest 1V portable [id number] IMPRESSION: No focal lung consolidations.
[2024-12-24 09:12] VITALS: BP 125/77; PULSE 74; RESP 16; TEMP 36.6; O2SAT 90; BMI 27.8
--- OUTSIDE RECORDS SUMMARY | 2024-12-24 09:13 | XMS_ITS | Patient Health Record ---
Author Organization [facility] Address [address] [place] [address] Care Team Providers Care Industry Consultant Name Role Phone John Singh Primary Care Provider [phone] Allergies No Known Allergies Reason For Referral No Information Medications Medication SIG (Take, Route, Frequency, Duration) Notes Start Date End Date Status Apixaban 5 MG Tablet as directed Orally Active FLUoxetine HCl 10 MG Tablet 1 tablet Orally Once a day A ctive Furosemide 20 MG Tablet 1 tablet Orally Once a day Active Problems Problem Type SNOMED Code ICD Code Onset Dates Problem Status W/U Status Risk Notes Problem Type II diabetes mellitus without complication (563551048) Type 2 diabetes mellitus without complications (E11.9) Active confirmed Problem Urinary tract obstruction (3272851) Obstructive and reflux uropathy, 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) Active confirmed Problem Benign prostatic hypertrophy without outflow obstruction (463135054) Benign prostatic hyperplasia without lower urinary tract symptoms (N40.0) Active confirmed Problem Diabetic peripheral neuropathy (196135398) Diabetic peripheral neuropathy (E11.42) Active confirmed Problem Essential hypertension (44057779) Accelerated hypertension (I10) Active confirmed Problem Chronic obstructive lung disease (07023429) COPD without exacerbation (J44.9) Active confirmed Encounters Encounter Location Date Provider Diagnosis [facility] [address] [facility] [address] [place] [address] 11/16/2024 John Singh Benign prostatic hyperplasia without lower urinary tract symptoms N40.0 ; Bilateral hydronephrosis N13.30 ; Obstructive and reflux uropathy, unspecified N13.9 ; COPD without exacerbation J44.9 ; Type 2 diabetes mellitus without complications E11.9 and Diabetic peripheral neuropathy E11.42 [facility] [address] [facility] [address] [place] [address] 10/31/2024 John Singh Bilateral hydronephrosis N13.30 ; Benign prostatic hyperplasia without lower urinary tract symptoms N40.0 ; Obstructive and reflux uropathy, unspecified N13.9 ; COPD without exacerbation J44.9 ; Type 2 diabetes mellitus without complications E11.9 and Diabetic peripheral neuropathy E11.42 [facility] [address] [facility] [address] [place] [address] 11/29/2024 John Singh [facility] [address] [facility] [address] [place] [address] 11/22/2024 John Singh Assessments Encounter Date Diagnosis (ICD Code) Assessment Notes Treatment Notes Treatment Clinical Notes Section Notes 10/31/2024 Bilateral hydronephrosis (ICD-10 - N13.30) 10/31/2024 Benign prostatic hyperplasia without lower urinary tract symptoms (ICD-10 - N40.0) 11/16/2024 Benign prostatic hyperplasia without lower urinary tract symptoms (ICD-10 - N40.0) 11/16/2024 Bilateral hydronephrosis (ICD-10 - N13.30) Medications reviewed, orders signed and documented with nursing staff. Vitals taken and recorded at [facility]. Pt approved for discharge. 10/31/2024 Obstructive and reflux uropathy, unspecified (ICD-10 - N13.9) 10/31/2024 COPD without exacerbation (ICD-10 - J44.9) 11/16/2024 Obstructive and reflux uropathy, unspecified (ICD-10 - N13.9) 11/16/2024 COPD without exacerbation (ICD-10 - J44.9) 10/31/2024 Type 2 diabetes mellitus without complications (ICD-10 - E11.9) 10/31/2024 Diabetic peripheral neuropathy (ICD-10 - E11.42) 11/16/2024 Type 2 diabetes mellitus without complications (ICD-10 - E11.9) 11/16/2024 Diabetic peripheral neuropathy (ICD-10 - E11.42) 10/31/2024 Other Medications reviewed, orders signed and documented with nursing staff. Vitals taken and recorded at [facility]. Plan Of Treatment No Information Insurance Providers Payer Name Payer Address Payer Phone Subscriber Number Group Number Insured Name Patient Relationship to Insured Coverage Start Date Coverage End Date [place] [address] [address] [place] [phone] [id number] Jose Francis Self - patient is the insured Medical (General) History Medical History History ICD Code Accelerated hypertension I10 Diabetes mellitus E11.9
--- OUTSIDE RECORDS SUMMARY | 2024-12-24 09:13 | XMS_ITS | Patient Health Record ---
Author Organization [facility] [employer] [employer] Address [address] [place], [place] [id number] Care Team Providers Care Telecom Assistant Name Role Phone [facility] Primary Care Provider Beata vailable Kenneth NEGRON, Ranulfo Unavailable [phone] DC, Shoup Unavailable Unavailable Judy Velez Unavailable [phone] Allergies No Known Allergies Results Component Value Reference Range Notes Urine tox screen / MS if ind icated Reviewed date:12/27/2023 04:47:46 PM Interpretation:Consistent Performing Lab: Notes/Report: Consistent Reason For Referral Reason Pre spinal cord stim ulator trial psychological evaluation Diagnosis 1 Spinal stenosis, lum bar region without neurogenic claudication (M48.061) Referral [facility] Referring Provider First Name Ranulfo Referring Provider Last Name Kenneth Referring Provider Speciality Pain Manag ement Referred Provider Mili Stover Referred Provider Specialty Psychologist General Notes Caroline Gomes 02/2024 07:20:25 AM > RFS FOR SCS PREPARED FOR [facility] AN Allison M 02/29/2024 02:44:18 PM >RFS EMAILED TO [facility] YOUNG Allison M 03/16/2024 02:33:41 PM >REFAXED RFS TO [facility] YOUNG Allison M 03/16/2024 04:04:14 PM >OKAY TO SEND REF TO [facility] SCOTT Brenda 03/27/2024 07:39:03 AM > referral faxedCampos Brenda 05/22/2024 03:21:34 PM > spoke with Clare at Dr. Stover's office - patient forgot paperwork on his initial evaluation, so Dr Stover was only able to do a portion of evaluation. Waiting on patient to return the remainder of paperwork to complete., Caroline Gomes 06/12/2024 05:07:01 PM >Email from Clare at Dr. Stover's office Before his appointment, I mailed his intake paperwork to him, but when he came to his appointment, he didn't bring it back. I explained he would have to get it to us for Dr. Stover to complete her report. He still hasn't gotten it to me. I have called a couple of times and left messages. I'm not sure what else to do. What are your thoughts? , Caroline Gomes 06/12/2024 05:07:30 PM > Emailed Clare back and told her to mail him a letter with a deadline., Caroline Gomes 07/13/2024 01:26:41 PM > Patient called and stated that he got the information back to Dr. Cotto office. We should get the report soon., Vidhi Gasca 2024 11:28:21 AM > Received psych eval today 07/17/24 Referral Priority Routine Reason SCS PROCESS Diagnosis 1 Spinal stenosis, lum bar region without neurogenic claudication (M48.061) Referring Provider First Name Kalpana Cau shayan Referring Provider Last Name DC Referred Organization [facility] Referred Provider Ranulfo Cooper Referred Address [address] [place] [phone], Referred Provider Specialty Pain Managem ent Referral Priority Routine Reason Evaluation for possi ble placement of SCS / IPG system Diagnosis 1 Spinal stenosis, lum bar region without neurogenic claudication (M48.061) Referral Organization [facility] Referring Provider First Name Ranulfo Referring Provider Last Name Kenneth Referring Provider Speciality Pain Manag ement Referred Provider Arian Ramos Referred Provider Specialty Orthopedic S urgery General Notes Caroline Gomes 12/2024 02:49:04 PM > [facility] FAXED[facility] Brenda 08/24/2024 07:39:22 AM > referral faxedCampos Brenda 10/04/2024 11:02:17 AM > patient was seen by Dr. Ramos on 08/31/24 Referral Priority Routine Referral Appointment Date 08/31/2024 Medications Medication SIG (Take, Route, Frequency, Duration) Notes Start Date End Date Status amiodarone 200 mg 1/2 tab(s) orally on ce a day Active lidocaine topical 5% 1 patch applied topically once a day Active albuterol 90 mcg/inh 2 puff(s) inhaled e very 6 hours Active levothyroxine 75 mcg (0.075 mg) 1 tab(s) orally once a day; Duration: 30 day(s) Active traMADol 50 mg 1 tab orally Q6H prn pain Active cholecalciferol 25 mcg 1 tab(s) orally o nce a day; Duration: 30 day(s) Active metFORMIN 1000 mg 1/2 tab orally 2 nader es a day Active apixaban 5 mg as directed orally 2 times a day; Duration: 30 day(s) Active loratadine 10 mg 1 tab(s) orally once a day Active furosemide 20 mg 1 tab(s) orally once a day; Duration: 30 day(s) Active rosuvastatin 40 mg 1 tab(s) orally once a day; Duration: 30 day(s) Active fluticasone-salmeterol 100 mcg-50 mcg 1 INH inhaled 2 times a day; Duration: 30 day(s) Active potassium chloride 20 mEq 1/2 tab(s) ora lly once a day Active isosorbide mononitrate 30 mg 1 tab(s) or ally once a day (in the morning); Duration: 30 day(s) Active tamsulosin 0.4 mg 1 cap(s) orally once a day; Duration: 30 day(s) Active Iron 100 Plus Vitamin B Complex with C, Folic Acid and Iron 1 tab(s) orally once a day Active Senokot 8.6 mg 1 tab(s) orally once a day (at bedtime) Active polyethylene glycol 3350 - as directed o rally once a day Active diclofenac topical 1% as directed applie d topically 4 times a day Active multivitamin Active dextromethorphan-guaifenesin Active Metoprolol Tartrate 25 mg 1 tab(s) orall y 2 times a day Active FLUoxetine 10 mg 1 cap(s) orally once a day; Duration: 30 day(s) Active Social History Tobacco Use: Social History Observation Description Date Details (start date - stop date) Former Smoker NA - NA Tobacco use: Question Answer Notes : former smoker When did you stop smoking? 1964 AUDIT-C (Standard) Question Answer Notes Did you have a drink contain ing alcohol in the past year? Yes How often did you have a dri nk containing alcohol in the past year? Daily or almost daily (4 points) How many drinks did you have on a typical day when you were drinking in the past year? 1 or 2 drinks (0 point) How often did you have six o r more drinks on one occasion in the past year? Never (0 point) Points 4 Interpretation Positive Problems Problem Type SNOMED Code ICD Code Onset Dates Problem Status W/U Status Risk Notes Problem Solitary sacroiliitis (391797361) Sacroiliitis, not elsewhere classified (M46.1) Active confirmed Problem Low back pain (029578802) Low back pain (M54.5) Active confirmed Problem Lumbosacral spondylosis without myelopathy (62436654) Spondylosis without myelopathy or radiculopathy, lumbar region (M47.816) Active confirmed Problem High risk drug monitoring status (014385170) long-term (current) use of opiate analgesic (Z79.891) Active confirmed Problem Anxiety disorder (437089915) Other specified anxiety disorders (F41.8) Active confirmed 6 lumbar - appearing vertebrae have been appreciated via fluoroscopy. For For [employer] and [employer] procedural nomenclature purposes the inferior - most has been designated as L5 for block / RFA purposes Problem Obstructive sleep apnea syndrome (64935865) Obstructive sleep apnea (adult) (pediatric) (G47.33) Active confirmed Problem Central sleep apnoea syndrome (38028996) Central sleep apnea in conditions classified elsewhere (G47.37) Active confirmed Problem Chronic pain syndrome (793199747) Chronic pain syndrome (G89.4) Active confirmed Problem Spinal stenosis of lumbar region (74960367) Spinal stenosis, lumbar region (M48.06) Active confirmed Problem Disorder of lumbar disc (914426431) Other intervertebral disc disorders, 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) Active confirmed Problem Long-term current use of drug therapy (580931969) Other custodial (current) drug therapy (Z79.899) Active confirmed Problem Spinal stenosis of lumbar region (71566333) Spinal stenosis, lumbar region without neurogenic claudication (M48.061) Active confirmed Problem Muscle pain (86434993) Myalgia, other site (M79.18) Active confirmed Problem Low back pain (finding) (683280694) Vertebrogenic low back pain (M54.51) Active confirmed 6 lumbar - appearing vertebrae have been appreciated via fluoroscopy Vital Signs Temperature 94.6 degrees Fahrenheit 08/16/2024 Danielle ent reported weight due to fall risk Blood pressure diastolic 67 mm Hg 08/16/2024 Pat ient reported weight due to fall risk Oximetry 95 % 08/16/2024 Patient reporte d weight due to fall risk Height 71 in 08/16/2024 Patient reporte d weight due to fall risk Blood pressure systolic 100 mm Hg 08/16/2024 Danielle ent reported weight due to fall risk Weight 214 lbs 08/16/2024 Patient reporte d weight due to fall risk BMI 29.84 kg/m2 08/16/2024 Patient reporte d weight due to fall risk Encounters Encounter Location Date Provider Diagnosis [facility] [address] [id number] 12/27/2023 Judy Quezada Sacroiliitis, not elsewhere classified M46.1 ; Vertebrogenic low back pain M54.51 ; Spondylosis without myelopathy or radiculopathy, lumbar region M47.816 ; Spinal stenosis, lumbar region without neurogenic claudication M48.061 ; Myalgia, other site M79.18 ; Obstructive sleep apnea (adult) (pediatric) G47.33 ; Central sleep apnea in conditions classified elsewhere G47.37 and keysmith (current) use of opiate analgesic Z79.891 [facility] [address] [id number] 01/11/2024 Ranulfo Cooper Spinal stenosis, lumbar region without neurogenic claudication M48.061 ; Vertebrogenic low back pain M54.51 and keysmith (current) use of opiate analgesic Z79.891 [facility] [address] [id number] 02/22/2024 Ranulfo Cooper Spinal stenosis, lumbar region without neurogenic claudication M48.061 ; Vertebrogenic low back pain M54.51 and long-term (current) use of opiate analgesic Z79.891 [facility] [address] [place], [place] [id number] 08/01/2024 Ranulfo Cooper Spinal stenosis, lumbar region without neurogenic claudication M48.061 ; Other specified anxiety disorders F41.8 ; Vertebrogenic low back pain M54.51 and long-term (current) use of opiate analgesic Z79.891 [facility] [address] [place] [id number] 08/14/2024 Ranulfo Cooper Spinal stenosis, lumbar region without neurogenic claudication M48.061 ; Other specified anxiety disorders F41.8 and Vertebrogenic low back pain M54.51 [facility] [address] [place], [place] [id number] 08/16/2024 Ranulfo Cooper Spinal stenosis, lumbar region without neurogenic claudication M48.061 ; Vertebrogenic low back pain M54.51 and long-term (current) use of opiate analgesic Z79.891 [facility], [facility] [address] [place], [place] [id number] 08/07/2024 Ranulfo Cooper [facility] [address] [place] [id number] 08/24/2024 Ranulfo Cooper Assessments Encounter Date Diagnosis (ICD Code) Assessment Notes Treatment Notes Treatment Clinical Notes Section Notes 12/27/2023 Sacroiliitis, not elsewhere classified (ICD-10 - M46.1) 2020 sacral RFA procedure with history of good benefit as per prior follow up telephone encounter. Patient was lost to follow up after that. 12/27/2023 Vertebrogenic low back pain (ICD-10 - M54.51) Consider additional treatment options pending evaluation by Dr. Cooper. 01/11/2024 Spinal stenosis, lumbar region without neurogenic claudication (ICD-10 - M48.061) Verbal and writen information regarding SCS trial (and possible permanent SCS system placement) given patient on 01/11/24. Patient instucted to investigate the technology and schedule an office visit for follow up questions. Would need to obtain cardiology approval for a 6 day cessation of Eliquis in order to proceed with a SCS trial. 02/22/2024 Spinal stenosis, lumbar region without neurogenic claudication (ICD-10 - M48.061) Verbal and written information regarding SCS trial (and possible permanent SCS system placement) given patient on 01/11/24. Patient was instructed to investigate the technology and schedule an office visit for follow up questions. Patient stated on 02/22/24 that he reviewed the information. Questions answered on 02/22/24 visit. Patient desires SCS trial: patient stated that he would want good lower back pain relief and bilateral foot neuropathy pain relief. Will need to obtain cardiology approval for a 6 day cessation of Eliquis in order to proceed with a SCS trial (patient stated that he has stopped his Eliquis for 5-6 days for prior pacemaker implantation). Request for 6 days of Eliquis cessation faxed to Dr. Saldana on 02/21/24 in anticipation of possible trial request by patient. Plan psychological evaluation prior to procedure as required by insurer. 08/14/2024 Other specified anxiety disorders (ICD-10 - F41.8) Plan monitored anesthesia care. 08/14/2024 Spinal stenosis, lumbar region without neurogenic claudication (ICD-10 - M48.061) Plan SCS trial. Risks, benefits, and alternatives previously reviewed with patient. Questions answered to the patient's reported satisfaction. Patient states that Eliquis has been stopped since this past Wednesday. Patient instructed to continue to stop Eliquis until one day after the lead removal on . 08/01/2024 Other specified anxiety disorders (ICD-10 - F41.8) 6 lumbar - appearing vertebrae have been appreciated via fluoroscopy. For For [employer] and [employer] procedural nomenclature purposes the inferior - most has been designated as L5 for block / RFA purposes Plan monitored anesthesia care. 08/01/2024 Spinal stenosis, lumbar region without neurogenic claudication (ICD-10 - M48.061) Verbal and written information regarding SCS trial (and possible permanent SCS system placement) given patient on 01/11/24. Patient was instructed to investigate the technology and schedule an office visit for follow-up questions. Patient stated on 02/22/24 that he reviewed the information. Questions answered on that 02/22/24 visit. Patient desired SCS trial: patient stated that he would want good lower back pain relief and bilateral foot neuropathy pain relief. Cardiology recommendations for Eliquis received as noted, below. Psychological evaluation completed by patient, reviewed. No contra-indications to a SCS trial noted. Patient stated understanding that the proposed treatment would not be expected to help his neck pain, described as significant by patient. Plan SCS trial. Risks, benefits, and alternatives reviewed with patient. Questions answered to the patient's reported satisfaction. Preparation for procedure reviewed with patient; printed instructions declined. Risks of anticoagulation in regard to SCS trial reviewed in great detail with patient as noted, below. Patient verbalized understanding to stop Eliquis 2 days before the SCS trial, 3 days during the trial, and 1 day after the trial / lead removal. 08/16/2024 Spinal stenosis, lumbar region without neurogenic claudication (ICD-10 - M48.061) 6 lumbar vertebrae have been apprecited via fluoroscopy with T12 noted as the inferior most vertebrae with rib-bearing structures. Verbal and written information regarding SCS trial (and possible permanent SCS system placement) given patient on 01/11/24. Patient was instructed to investigate the technology and schedule an office visit for follow-up questions. Patient stated on 02/22/24 that he reviewed the information. Questions answered on that 02/22/24 visit. Patient desired SCS trial: patient stated that he would want good lower back pain relief and bilateral foot neuropathy pain relief. Cardiology recommendations for Eliquis cessation were received, see below. Psychological evaluation completed by patient, reviewed: no contra-indications to a SCS trial noted. Patient stated understanding that the proposed treatment would not be expected to help his neck pain, described as significant by patient. SCS trial completed with great benefit appreciated by patient. Plan surgical referral for evaluation for possible SCS system, with IPG, placement. Referral options discussed with patient: patient elects to be evaluated by the local spine surgeon, Dr. Ramos. Discussed with patient to inform this facility if he has any problems related to the SCS trial. Follow-up call on 08/17/24 to ensure patient has resumed his blood thinner revealed that patient restarted the medication on 08/17/24. 08/16/2024 Vertebrogenic low back pain (ICD-10 - M54.51) 6 lumbar - appearing vertebrae have been appreciated via fluoroscopy Chronic axial lumbosacral spine pain and distal lower extremity neuropathy pain. Patient has stated that he is not interested in a neurosurgical referral for possible laminectomy surgery. 08/01/2024 Vertebrogenic low back pain (ICD-10 - M54.51) Chronic axial lumbosacral spine pain and distal lower extremity neuropathy pain. Patient has stated that he is not interested in a neurosurgical referral for possible laminectomy surgery. 08/14/2024 Vertebrogenic low back pain (ICD-10 - M54.51) Chronic axial lumbar spine pain and distal lower extremity neuropathy pain. Patient has stated that he is not interested in a neurosurgical referral for possible laminectomy surgery. 08/16/2024 keysmith (current) use of opiate analgesic (ICD-10 - Z79.891) Patient has been given copies of the Treatment Agreement and Cannabis Policy (signed by patient on 10/12/23). 2022 opioid (OUD) risk tool score = 0. This places the patient in the low risk category. Patient has stated that he gets tramadol via primary care. Patient has stated that he does not desire any prescriptive therapy via this facility. 02/22/2024 Vertebrogenic low back pain (ICD-10 - M54.51) Chronic axial lumbosacral spine pain. Patient has stated that he is not interested in a neurosurgical referral for possible laminectomy surgery. 01/11/2024 Vertebrogenic low back pain (ICD-10 - M54.51) Chronic axial lumbosacral spine pain. Do not anticipate offering patient an LESI as it is not indicated for axial low back pain. Prior medial branch blocks with history of no diagnostic efficacy. Patient stated that he is not interested in a neurosurgical referral for possible laminectomy surgery. 02/22/2024 keysmith (current) use of opiate analgesic (ICD-10 - Z79.891) Patient has been given copies of the Treatment Agreement and Cannabis Policy (signed by patient on 10/12/23). 2022 opioid (OUD) risk tool score = 0. This places the patient in the low risk category. Patient has stated that he rarely takes his tramadol and that he only takes it when absolutely needed. Patient has stated that he does not desire any prescriptive therapy via this facility. 01/11/2024 long-term (current) use of opiate analgesic (ICD-10 - Z79.891) Patient was given copies of the Treatment Agreement and Cannabis Policy signed by patient on 10/12/23. 2022 opioid (OUD) risk tool score = 0. This places the patient in the low risk category. Patient states that he rarely takes his tramadol and that he only takes when absolutely needed. He said he hasn't had a dose in three weeks as of 01/11/24. Patient stated that he does not desire any prescriptive therapy via this facility. 12/27/2023 Spondylosis without myelopathy or radiculopathy, lumbar region (ICD-10 - M47.816) History of right lumbar RFA in 2019 with efficacy reported by patient. Repeat blocks in 2020 with no diagnostic efficacy reported. 12/27/2023 Spinal stenosis, lumbar region without neurogenic claudication (ICD-10 - M48.061) History of L5-S1 ESIs in 2019 and 2019 with mixed efficacy appreciated by patient. 08/01/2024 long-term (current) use of opiate analgesic (ICD-10 - Z79.891) Patient has been given copies of the Treatment Agreement and Cannabis Policy (signed by patient on 10/12/23). 2022 opioid (OUD) risk tool score = 0. This places the patient in the low risk category. Patient has stated that he gets tramadol via primary care. Patient has stated that he does not desire any prescriptive therapy via this facility. 12/27/2023 Myalgia, other site (ICD-10 - M79.18) History of TPIs in 2020 with no benefit reported by patient. 12/27/2023 Obstructive sleep apnea (adult) (pediatric) (ICD-10 - G47.33) Continue consistent nightly use of CPAP device. 12/27/2023 Central sleep apnea in conditions classified elsewhere (ICD-10 - G47.37) As above. 12/27/2023 long-term (current) use of opiate analgesic (ICD-10 - Z79.891) Patient was given copies of the Treatment Agreement and Cannabis Policy signed by patient on 10/12/23. 2022 opioid (OUD) risk tool score = 0. This places the patient in the low risk category. Plan urine toxicology screen today in anticipation of possibly starting opioid therapy at future visit as well as to assess for any prescribed, unprescribed, and / or illicit controlled substance(s). 08/16/2024 Other 08/14/2024 Other Start cefazolin (per weight based guidelines) IV prior to procedure. Dose administration completed prior to procedure. 12/27/2023 Other Continue above medication as [facility] Case reviewed, treatment plan approved, and visit note edited by Dr. Cooper. 01/11/2024 Other Plan Of Treatment No Information Insurance Providers Payer Name Payer Address Payer Phone Subscriber Number Group Number Insured Name Patient Relationship to Insured Coverage Start Date Coverage End Date [employer] [address] [place] [id number] Jose Francis Self - patient is the insured Medical (General) History Medical History History ICD Code Chronic pain Low back pain Lumbar spondylosis, disc dis ease and spinal stenosis (6 lumbar - appearing vertebrae have been appreciated via fluoroscopy) History of L1 - L2 transverse process fr actures Sacroiliitis Bilateral foot pain due to neuropathy Neck pain Right knee pain (history of efficacious intra - articular steroid injections) Dysrhythmia (history of pacemaker insert ion) Acute duodenal ulcer with hemorrhage Acute gastritis Age related physical debility Benign prostatic hyperplasia Cardiac dysrhythmias COPD Depression and anxiety Gout Hyperlipidemia Polyosteoarthritis Cardiac pacemaker Thoracic aortic aneurysm Type 2 diabetes mellitus Atrial fibrillation Vitamin D deficiency GERD Hyponatremia Hypothyroidism Vertigo Sleep apnea, complex (obstru ctive and central sleep apnea), history of positive airway pressure device usage with efficacy appreciated by patient (as of 08/01/24) Surgical History Surgery Date(Month/Year) Tonsillectomy Cataract surgery, 06/2015 Hernia repair, 09/2015 Pacemaker implantation, 12/2015 Heart catherization, 12/2016 Repair of left thumb, perfor med at [facility] in [place], [place], 04/2017 Left eye surgery, performed by Dr. Hadley , 07/2017 Heart catherization, perform ed at [facility] in [place], [place] by Dr. Arsenio Hayes, 11/2018 Colonoscopy, internal bleeding, performe d at [facility], 2022 Replacement of pacemaker, performed at [facility], 2023 Cardiac angiogram 05/2024 Hospitalization History Reason Date(Month/Year) ER visit for dehydration, 01/2024 Orthostasis, weakness and fall, treated at [facility], 04/2023 Cardiac testing, 2015
--- OUTSIDE RECORDS SUMMARY | 2024-12-24 09:13 | XMS_ITS | Clinical Summary ---
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 Name Role Phone Unavailable Primary Care Provider [...] Data STL ABSTRACTION Provider, Abstract 11/09/2024 Telephone [facility] Urology [address] [place] [phone] Aby Rodriges [facility] Hospital Follow Up 11/01/2024 External Device Data STL ABSTRACTION Provider, Abstract 10/31/2024 External Device Data STL ABSTRACTION Provider, Abstract 10/31/2024 External Device Data STL ABSTRACTION Provider, Abstract 10/30/2024 - 10/30/2024 11:59 PM CDT Hospital Encounter [facility] Emergency Medical Services [place] [address] [facility] [address] [place] [phone] Waleska Osorio MD Ambulance, [facility] Discharge Disposition: Intermediate Care Facility 10/24/2024 4:18 PM CDT Anesthesia Event [facility] Operating Room [address] [place] [phone] Jose Felix MD 10/24/2024 3:49 PM CDT - 10/24/2024 5:21 PM CDT Surgery [facility] Operating Room [address] [place] [phone] John Randhawa MD CYSTOURETHROSCOPY EVACUATION CLOT(S) 10/23/2024 10:16 PM CDT - 10/30/2024 12:16 AM CDT Hospital Encounter [facility] 3A Surgical [address] [place] [phone] Chava Sterling MD Patel, Taksh, MD Bajor, Jamar Heart, Waleska Suero MD Gross hematuria Discharge Disposition: Halfway Fac(SNF) with Medicare Certification in Anticipation of [...] RESECTION OF PROSTATE 10/24/2024 3:49 PM CDT [place] CYSTO W/IRRIG & EVAC MULTPLE OBSTRUCTING CLOTS [...] resultswithin the time period is included. Pathologist [facility] GLUCOSE POC 123(H) 74 - 99 mg/dL 10/30/2024 8:11 PM CDT [facility] SPECIMEN SOURCE, GLUCOSE POC Capillary 10/30/2024 8:11 PM CDT [facility] Blood, whole 10/30/2024 8:11 PM CDT 10/30/2024 8:24 PM CDT Waleska Osorio MD POINT OF CARE TESTING Final Res ult [facility] CLIA # [id number] [facility] [id number] * (ABNORMAL) CBC WITH DIFFERENTIAL (10/30/2024 4:46 AM CDT) Only the most recent of6 resultswithin the time period is included. Pathologist [facility] WBC 9.8 4.8 - 10.8 K/uL 10/30/2024 4:56 AM CDT [facility] RBC 3.91(L) 4.60 - 6.20 M/uL 10/30/2024 4:56 AM CDT [facility] HEMOGLOBIN 12.4(L) 14.0 - 18.0 g/dL 10/30/2024 4:56 AM CDT [facility] HEMATOCRIT 38.2(L) 41.0 - 53.0 % 10/30/2024 4:56 AM CDT [facility] MCV 97.7 84.0 - 103.0 fL 10/30/2024 4:56 AM [facility] MCH 31.7 27.0 - 34.0 pg 10/30/2024 4:56 AM [facility] MCHC 32.5 30.0 - 35.0 g/dL 10/30/2024 4:56 AM [facility] PLATELETS 260 140 - 440 K/uL 10/30/2024 4:56 AM [facility] MPV 9.6 8.9 - 12.8 fL 10/30/2024 4:56 AM [facility] RDW 15.2(H) 11.0 - 14.5 % 10/30/2024 4:56 AM [facility] RDW-STDEV 55.2(H) 37.0 - 54.0 fL 10/30/2024 4:56 AM [facility] NEUTROPHILS 66 42 - 75 % 10/30/2024 4:56 AM [facility] LYMPHOCYTES 24 24 - 44 % 10/30/2024 4:56 AM [facility] MONOCYTES 7 2 - 10 % 10/30/2024 4:56 AM [facility] EOSINOPHILS 1 0 - 7 % 10/30/2024 4:56 AM [facility] BASOPHILS 0 0 - 1 % 10/30/2024 4:56 AM [facility] IMMATURE GRANULOCYTES 2 0 - 2 % 10/30/2024 4:56 AM [facility] NEUTROPHIL ABSOLUTE 6.41 2.00 - 8.00 K/uL 10/30/2024 4:56 AM [facility] LYMPHOCYTE ABSOLUTE 2.37 1.20 - 4.00 K/uL 10/30/2024 4:56 AM [facility] MONOCYTE ABSOLUTE 0.70(H) 0.10 - 0.60 K/uL 10/30/2024 4:56 AM [facility] EOSINOPHIL ABSOLUTE 0.06 0.00 - 0.70 K/uL 10/30/2024 4:56 AM CDT [facility] BASOPHILS ABSOLUTE 0.03 0.00 - 0.20 K/uL 10/30/2024 4:56 AM CDT [facility] IMMATURE GRANULOCYTES ABSOLUTE 0.21(H) 0.00 - 0.10 K/uL 10/30/2024 4:56 AM CDT [facility] SMEAR REVIEWED: NA - Not Applicable 10/30/2024 4:56 AM CDT [facility] Blood Venipuncture / Unknown 10/30/2024 4:46 AM CDT 10/30/2024 4:50 AM CDT us Waleska Osorio MD HEMATOLOGY ORDERABLES Final Res ult [facility] # [id number] [address] [place] [id number] * (ABNORMAL) BASIC METABOLIC PANEL (10/30/2024 4:46 AM CDT) Only the most recent of5 resultswithin the time period is included. SODIUM 138 136 - 145 mmol/L 10/30/2024 5:25 AM T [facility] POTASSIUM 3.8 3.5 - 5.1 mmol/L 10/30/2024 5:25 AM T [facility] CHLORIDE 103 98 - 107 mmol/L 10/30/2024 5:25 AM T [facility] CO2 25 22 - 29 mmol/L 10/30/2024 5:25 AM T [facility] CALCIUM 8.5(L) 8.8 - 10.2 mg/dL 10/30/2024 5:25 AM T [facility] BUN 23 8 - 23 mg/dL 10/30/2024 5:25 AM CDT [facility] CREATININE 1.12 0.67 - 1.17 mg/dL 10/30/2024 5:25 AM T [facility] Comment:The GFR result is no t clinically significant on patients <18 or >70 years of age. GLUCOSE 99 74 - 99 mg/dL 10/30/2024 5:25 AM CDT [facility] GFR >60 mL/min/1.7 3 sq meter 10/30/2024 5:25 AM CDT [facility] Comment:eGFR calculated with 2020 CKD-EPI equation. Vegetarian diet, extremely high or low muscle mass, and may affect results. Cystatin C with Glomerular Filtration Rate is a suitable alternative for these patients. ANION GAP 10 9 - 20 mmol/L 10/30/2024 5:25 AM CDT [facility] Blood Venipuncture / Unknown 10/30/2024 4:46 AM CDT 10/30/2024 4:51 AM CDT Waleska Osorio MD CHEMISTRY ORDERABLES Final Resu lt Performing Organization Address City/[facility]/ZIP Co de Phone Number [facility] CLIA # [id number] [address] [address] * MAGNESIUM LEVEL (10/25/2024 8:05 AM CDT) MAGNESIUM 2.0 1.6 - 2.4 mg/dL 10/25/2024 9:40 AM CDT [facility] Blood Venipuncture / Unknown 10/25/2024 8:05 AM CDT 10/25/2024 9:06 AM CDT us John Randhawa MD CHEMISTRY ORDERABLES Final Result Performing Organization Address City/[facility]/ZIP Co de Phone Number [facility] CLIA # [id number] [address] [place] [address] * (ABNORMAL) COMPREHENSIVE METABOLIC PANEL (10/25/2024 8:05 AM CDT) SODIUM 138 136 - 145 mmol/L 10/25/2024 9:40 AM [facility] POTASSIUM 4.1 3.5 - 5.1 mmol/L 10/25/2024 9:40 AM [facility] Comment:Slightly hemolyzed. Result may be falsely elevated. CHLORIDE 101 98 - 107 mmol/L 10/25/2024 9:40 AM [facility] CO2 24 22 - 29 mmol/L 10/25/2024 9:40 AM [facility] CALCIUM 8.6(L) 8.8 - 10.2 mg/dL 10/25/2024 9:40 AM [facility] BUN 27(H) 8 - 23 mg/dL 10/25/2024 9:40 AM [facility] CREATININE 1.42(H) 0.67 - 1.17 mg/dL 10/25/2024 9:40 AM [facility] Comment:The GFR result is no t clinically significant on patients <18 or >70 years of age. GLUCOSE 143(H) 74 - 99 mg/dL 10/25/2024 9:40 AM [facility] TOTAL PROTEIN 6.2(L) 6.4 - 8.3 g/dL 10/25/2024 9:40 AM [facility] ALBUMIN 2.7(L) 3.5 - 5.2 g/dL 10/25/2024 9:40 AM [facility] BILIRUBIN TOTAL 0.7 0.0 - 1.0 mg/dL 10/25/2024 9:40 AM [facility] ALKALINE PHOSPHATASE 61 40 - 129 U/L 10/25/2024 9:40 AM [facility] AST 71(H) 10 - 50 U/L 10/25/2024 9:40 AM [facility] Comment:Hemolysis present. R esult may be falsely elevated. ALT 23 <=50 U/L 10/25/2024 9:40 AM [facility] GFR 48 mL/min/1. 73 sq meter 10/25/2024 9:40 AM CDT [facility] Comment:eGFR calculated with 2020 CKD-EPI equation. Vegetarian diet, extremely high or low muscle mass, and may affect results. Cystatin C with Glomerular Filtration Rate is a suitable alternative for these patients. ANION GAP 13 9 - 20 mmol/L 10/25/2024 9:40 AM CDT [facility] Blood Venipuncture / Unknown 10/25/2024 8:05 AM CDT 10/25/2024 9:06 AM CDT us John Randhawa MD CHEMISTRY ORDERABLES Final Result [facility] CLIA # [id number] [facility] [address] * PATHOLOGY (10/24/2024 5:36 PM CDT) CASE REPORT Surgical Pathology Report Case: [id number] Authorizing Provider: John Randhawa, Collected: 10/24/2024 05:36 PM Ordering Location: [facility] Received: 10/25/2024 06:25 AM Post Anesthesia Care Unit Pathologist: Tyrell Bronson MD Specimen: Prostate, chips 1:48 PM CDT [facility] FINAL DIAGNOSIS A. Prostate, transurethral resection - urothelial mucosa, fibromuscular stroma, and acute inflammation. Tyrell Bronson MD [id number] 1:48 PM CDT [facility] at 1348 CDT GROSS DESCRIPTION A. Received in a container of formalin labeled [place] -prostate chips are multiple dillard-pink to dark-red and hemorrhagic soft tissue fragments, 2.5 x 0.7 x 0.3 cm in aggregate. The specimen is submitted entirely in A1. Meme Cox 1:48 PM CDT [facility] OPERATIVE PROCEDURE 1: CYSTOURETHROSCOPY EVACUATION CLOT(S) 2: TRANSURETHRAL RESECTION OF PROSTATE 5 1:48 PM CDT [facility] CLINICAL INFORMATION PROSTATE CHIPS 5 1:48 PM CDT [facility] COMMENT The Run3D voice-activated dictation system may have been used [...] determined by the Diagnostic Immunohist[facility] of [facility] in compliance with CLIA'88 regulations. Some of these tests rely on the use of analyte specific reagents and are subject to specific labeling requirements by the FDA. All controls show appropriate reactivity. This testing was developed by the Diagnostic [facility]ohist[facility] Laboratory of [facility]. It has not been cleared or approved by the FDA. The FDA has determined that such clearance or approval is not necessary. 5 1:48 PM CDT [facility] Tissue ENTIRE PROSTATE / Unknown Collection / Unknown 10/24/2024 5:36 PM CDT 10/25/2024 6:25 AM CDT Comment:PROSTATE CHIPS Jnorrel1 1 us John Randhawa MD PATHOLOGY/CYTOLOGY O RDERABLES Final Result [facility] CLIA # [id number] [address] [place] [address] [place] [address] * (ABNORMAL) PROTIME-INR (10/23/2024 11:13 PM CDT) PROTIME 18.1(H) 12.7 - 14.9 Seconds 10/23/2024 11:34 PM CDT [facility] INR 1.4(H) 0.8 - 1.2 10/23/2024 11:34 PM CDT [facility] Blood Venipuncture / Unknown 10/23/2024 11:13 PM CDT 10/23/2024 11:18 PM CDT Narrative [facility] - 10/23/2024 11:34 PM CDT Expected Values for INR: DVT/PE Goal INR 2.5; range 2.0 - 3.0 Valve Replacement Tissue Goal INR 2.5; range 2.0 - 3.0 Valve Replacement Mechanical Goal INR 3.0; range 2.5 - 3.5 POST-[place] Goal INR 2.5; range 2.0 - 3.0 or Goal INR 3.0; range 2.5 - 3.5 Atrial Fibrillation Goal INR 2.5; range 2.0 - 3.0 Ischemic Stroke Goal INR 2.5; range 2.0 - 3.0 us Pamela Sanchez MD HEMATOLOGY ORDERABLES Final Resu lt [facility] CLIA # [id number] [address] [address] [place] [address] from Last 3 Months Insurance MEDICARE PART A AND B * Guarantor: JESUS GoffC) Account Type Relation to Patient Date of Phone Billing Address Corporate Other DEFAULT ADDRESS [address] [employer] Advance Directives For more information, please contact: [phone] * NO CPR (In Event of Cardiopulmonary [...]
--- NOTE | 2024-12-24 09:23 | W.ED.URI ---
HPI - URI/Sore Throat General: Chief Complaint: Upper Respiratory Infection Stated Complaint: persistent cough Time Seen by Provider: 12/24/24 09:10 Source: patient Mode of arrival: ambulatory Limitations: no limitations History of Present Illness: 84-year-old male who states he has had cough congestion over the last 5 to 6 days states he has been coughing up a lot of green sputum had some shortness of breath as well denies any chest pain he denies any fever no sick contacts he recently was admitted here with a urinary tract infection. Associated symptoms: Deny abdominal pain, chills, chest pain, diarrhea, fever(s), headache(s), nausea or vomiting Related Data Home Medications ?Medication ?Instructions ?Recorded ?Confirmed cholecalciferol (vitamin D3) 25 25 mcg PO DAILY 11/07/19 12/24/24 mcg (1,000 unit) capsule albuterol sulfate 90 mcg/actuation 2 puff inhalation Q4H PRN 10/06/23 12/24/24 aerosol inhaler Shortness Of Breath dextromethorphan-guaifenesin 10 10 ml PO QID PRN Congestion 10/06/23 12/24/24 mg-100 mg/5 mL oral syrup diclofenac sodium 1 % topical gel See Rx Instructions .Route .COMPLEX 10/06/23 12/24/24 fluoxetine 10 mg capsule 10 mg PO QAM 10/06/23 12/24/24 isosorbide mononitrate 30 mg 15 mg PO QAM 10/06/23 12/24/24 tablet,extended release 24 hr lidocaine 5 % topical patch 1 patch transdermal PRN PRN Pain 10/06/23 12/24/24 polyethylene glycol 3350 17 17 g PO DAILY PRN Constipation 10/06/23 12/24/24 gram/dose oral powder (Miralax) rosuvastatin 40 mg tablet 40 mg PO QPM 10/06/23 12/24/24 levothyroxine 75 mcg tablet 75 mcg PO QAM 12/22/23 12/24/24 multivitamin 1 tab PO QAM 12/22/23 12/24/24 apixaban 5 mg tablet (Eliquis) 5 mg PO BID 12/30/23 12/24/24 Held on 12/16/24. Instructions: see pcp ferrous sulfate 325 mg (65 mg 325 mg PO DAILY 05/19/24 12/24/24 iron) tablet fluticasone 100 mcg-salmeterol 50 1 inh inhalation BID 05/19/24 12/24/24 mcg/dose blistr powdr for inhalation (Advair Diskus) gabapentin 100 mg tablet 100 mg PO TID 10/17/24 12/24/24 ascorbic acid (vitamin C) 500 mg 500 mg PO DAILY 12/14/24 12/24/24 tablet (Vitamin C) bisacodyl 5 mg tablet 10 mg PO DAILY PRN Constipation 12/14/24 12/24/24 famotidine 20 mg tablet 20 mg PO BID 12/14/24 12/24/24 lisinopril 2.5 mg tablet 2.5 mg PO DAILY 12/14/24 12/24/24 Held on 12/16/24. Instructions: see pcp metformin 1,000 mg tablet 500 mg PO BID 12/14/24 12/24/24 nut.tx.gluc.intol,lac-free,soy 1 ea PO BID 12/14/24 12/24/24 (Glucerna oral liquid) ondansetron 4 mg disintegrating 4 mg PO BID PRN Nausea And Vomiting 12/14/24 12/24/24 tablet tramadol 50 mg tablet 50 mg PO Q6H PRN Pain 12/14/24 12/24/24 prednisone 20 mg tablet 20 mg PO DAILY x5days 12/24/24 12/24/24 Previous Rx's ?Medication ?Instructions ?Recorded furosemide 20 mg tablet (Lasix) 20 mg PO QAM PRN Edema #30 tabs 12/16/24 metoprolol tartrate 25 mg tablet 12.5 mg (1/2 x 25 mg) PO BID 30 12/16/24 days #30 tabs potassium chloride 20 mEq 10 meq (1/2 x 20 mEq) PO DAILY PRN 12/16/24 tablet,extended release Edema #30 tabs tamsulosin 0.4 mg capsule 0.4 mg PO QPM #20 caps 12/16/24 doxycycline hyclate 100 mg tablet 100 mg PO BID 7 days #14 tabs 12/24/24 Allergies Allergy/AdvReac Type Severity Reaction Status Date / Time No Known Allergies Allergy Verified 12/24/24 09:09 Review of Systems Const: Denies: fever(s), chills, body aches or change in appetite ENMT: Denies: throat pain or dental pain Card: Denies: chest pain Resp: Reports: productive cough GI: Denies: abdominal pain, nausea, vomiting or diarrhea : Denies: dysuria Musc: Denies: neck pain or back pain Skin/Breast: Denies: rash Neuro: Denies: headache(s) Psych: Denies: depression Anurag/Lymph: Denies: easy bruising All/Imm: Denies: urticaria PFSH ED PFSH: Medical History (Updated 12/24/24 @ 10:45 by Kane Edmond MD) Dyslipidemia Presence of permanent cardiac pacemaker ABRAM (obstructive sleep apnea) C7 cervical fracture H/O: GI bleed Atherosclerotic heart disease of [place]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 Anemia GI bleed Hypertension Atrial fibrillation Mitral regurgitation Osteoporosis Anxiety History of pacemaker Surgical History Hx of tonsillectomy H/O hemorrhoidectomy History of hernia surgery Family History Brother CAD (coronary artery disease) Congestive heart failure (CHF) Cancer Sister Lung disease Other Atherosclerotic heart disease of [place]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 Denies family history of Diabetes Clotting disorder Dementia Hyperlipidemia Chronic kidney disease (CKD) Suicide Anesthesia complication Bleeding disorder Hypertension Stroke Social History Smoking and tobacco/nicotine status: former use of tobacco/nicotine Alcohol intake: never Substance/Drug Use: never Household members: none Marital status: Physical Exam Const: COMMON NORMALS: no acute distress, patient oriented x3 and healthy appearing HENMT: COMMON NORMALS: normocephalic and atraumatic HEAD & SCALP: normocephalic and atraumatic Eye: COMMON NORMALS: conjunctivae normal CONJUNCTIVA: Yes conjunctivae normal Neck/C-Spine: COMMON NORMALS: full ROM and supple Chest: COMMONS NORMALS: normal inspection of the chest Resp: COMMON NORMALS: No retractions and No use of accessory muscles AUSCULTATION: wheezes Cardio: COMMON NORMALS: regular rate, regular rhythm and No murmurs present (Cardio) RATE: regular rate RHYTHM: regular rhythm GI: COMMON NORMALS: Normal to inspection, nondistended, normoactive bowel sounds present, Soft to palpation, non-tender and no masses PALPATION: Yes Soft to palpation Extremity: COMMON NORMALS: normal to inspection and full ROM Neuro: COMMON NORMALS: patient oriented x3, moves all extremities and no focal motor deficits Psych: COMMON NORMALS: mental status grossly normal, Normal thought process present and cooperative THOUGHT PROCESS: Normal thought process present Skin: COMMON NORMALS: no rashes or lesions noted and no wounds GENERAL SKIN EXAM: no rashes or lesions noted Course Vital Signs: Vital signs: Vital Signs Temperature 97.9 F 12/24/24 09:12 Pulse Rate 64 12/24/24 10:07 Respiratory Rate 20 H 12/24/24 09:53 Blood Pressure 125/77 12/24/24 09:12 Pulse Oximetry 92 12/24/24 09:53 Oxygen Delivery Me thod Room Air 12/24/24 09:53 MDM - URI/Sore Throat Medical Decision Making Patient presents here with cough congestion likely a mild pneumonia we will start him on doxycycline he is already on steroids his oxygen has been well-appearing here blood work is normal he stable for discharge follow-up with PCP return if worsening. Medical Records I reviewed the patient's medical records. Lab Data I reviewed the patient's lab results. 12/24/24 09:36 12/24/24 09:36 Radiology Impressions Chest X-Ray 12/24/24 09:11 IMPRESSION: No focal lung consolidations. Laboratory Results WBC 6.55 10^3/uL (3.29-11.43) 12/24/24 09:36 RBC 3.33 10^6/uL (3.85-5.65) L 12/24/24 09:36 Hgb 10.20 g/dL (11.27-16.99) L 12/24/24 09:36 Hct 31.9 % (37-53) L 12/24/24 09:36 MCV 95.8 fl (82-101) 12/24/24 09:36 MCH 30.6 pg (27-33) 12/24/24 09:36 MCHC 32.0 g/dL (30-55) 12/24/24 09:36 RDW 15.4 % (12.1-15.1) H 12/24/24 09:36 Plt Count 159 10^3/cmm (157-399) 12/24/24 09:36 MPV 10.2 fL (7.4-10.4) 12/24/24 09:36 Neut % (Auto) 77.0 % 12/24/24 09:36 Lymph % (Auto) 16.2 % 12/24/24 09:36 [place] % (Auto) 5.8 % 12/24/24 09:36 Eos % (Auto) 0.2 % 12/24/24 09:36 Baso % (Auto) 0.2 % 12/24/24 09:36 Neut # (Auto) 5.05 10^3/uL (1.8-7.7) 12/24/24 09:36 Lymph # (Auto) 1.1 10^3/uL (0.8-4.8) 12/24/24 09:36 [place] # (Auto) 0.4 10^3/uL (0.2-0.9) 12/24/24 09:36 Eos # (Auto) 0.0 10^3/uL (0.0-0.8) 12/24/24 09:36 Baso # (Auto) 0.0 10^3/uL (0.0-0.1) 12/24/24 09:36 Nucleated RBC % (auto) 0 % 12/24/24 09:36 Nucleated RBCs # 0.0 /100WBC 12/24/24 09:36 Sodium 131 mmol/L (136-145) L 12/24/24 09:36 Potassium 3.7 mmol/L (3.5-5.1) 12/24/24 09:36 Chloride 98 mmol/L (98-107) 12/24/24 09:36 Carbon Dioxide 24 mmol/L (22-29) 12/24/24 09:36 Anion Gap 12.7 (5-19) 12/24/24 09:36 BUN 20 mg/dL (8-23) 12/24/24 09:36 Creatinine 1.2 mg/dL (0.7-1.2) 12/24/24 09:36 GFR Calculation Not Reportable 12/24/24 09:36 Glucose 116 mg/dL (65-115) H 12/24/24 09:36 Calculated Osmolality 276 mOsm/kg (285-295) L 12/24/24 09:36 Calcium 8.7 mg/dL (8.5-10.5) 12/24/24 09:36 Total Bilirubin 0.5 mg/dL (0.15-1.2) 12/24/24 09:36 AST 38 U/L (0-40) 12/24/24 09:36 ALT 32 U/L (0-41) 12/24/24 09:36 Alkaline Phosphatase 66 U/L (40-130) 12/24/24 09:36 NT-Pro-B Natriuret Pep 1604 pg/mL (0-450) H 12/24/24 09:36 Total Protein 6.1 g/dL (6.6-8.7) L 12/24/24 09:36 Albumin 3.2 g/dL (3.5-5.2) L 12/24/24 09:36 Globulin 2.9 g/dL (1.3-4.6) 12/24/24 09:36 All radiology interpretation(s) finalized by discharge Discharge Plan Discharge Patient Disposition: Home Clinical Impression: Pneumonia Condition: Stable Prescriptions: New doxycycline hyclate 100 mg tablet 100 mg PO BID 7 Days Qty: 14 0RF No Action cholecalciferol (vitamin D3) 25 mcg (1,000 unit) capsule 25 mcg PO DAILY dextromethorphan-guaifenesin 10-100 mg/5 mL Syrup 10 ml PO QID PRN (Reason: Congestion) lidocaine 5 % Adhesive Patch,Medicated 1 patch transdermal PRN PRN (Reason: Pain) Rx Instructions: APPLY 1 patch topically, leave on most painful area for up to 12 hrs, THEN REMOVE PATCH FOR 12 HOURS fluoxetine 10 mg capsule 10 mg PO QAM polyethylene glycol 3350 [Miralax] 17 gram/dose Powder 17 g PO DAILY PRN (Reason: Constipation) albuterol sulfate 90 mcg/actuation HFA aerosol inhaler 2 puff INHALATION Q4H PRN (Reason: Shortness Of Breath) diclofenac sodium 1 % Gel See Rx Instructions .ROUTE .COMPLEX Rx Instructions: APPLY 4 GRAMS TO AFFECTED AREA(S) 4 TIMES DAILY FOR PAIN. DO NOT EXCEED MORE THAN 16 GRAMS DAILY TO ANY LOWER EXTREMITY JOINT. NOT MORE THAN 8 GRAMS DAILY TO ANY UPPER EXTREMITY JOINT. MAX 32 GRAMS DAILY OVER ALL JOINTS. isosorbide mononitrate 30 mg Tablet Extended Release 24 Hr 15 mg PO QAM rosuvastatin 40 mg Tablet 40 mg PO QPM Eliquis 5 mg tablet 5 mg PO BID multivitamin Tablet 1 tab PO QAM levothyroxine 75 mcg Tablet 75 mcg PO QAM ferrous sulfate 325 mg (65 mg iron) Tablet 325 mg PO DAILY fluticasone propion-salmeterol [Advair Diskus] 100-50 mcg/dose Blister With Device 1 inh INHALATION BID gabapentin 100 mg Tablet 100 mg PO TID tramadol 50 mg Tablet 50 mg PO Q6H PRN (Reason: Pain) famotidine 20 mg Tablet 20 mg PO BID ascorbic acid (vitamin C) [Vitamin C] 500 mg Tablet 500 mg PO DAILY metformin 1,000 mg Tablet 500 mg PO BID ondansetron 4 mg Tablet,Disintegrating 4 mg PO BID PRN (Reason: Nausea And Vomiting) lisinopril 2.5 mg Tablet 2.5 mg PO DAILY bisacodyl 5 mg Tablet 10 mg PO DAILY PRN (Reason: Constipation) Glucerna Liquid 1 ea PO BID metoprolol tartrate 25 mg tablet 12.5 mg PO BID 30 Days Qty: 30 5RF furosemide [Lasix] 20 mg tablet 20 mg PO QAM PRN (Reason: Edema) Qty: 30 0RF Rx Instructions: take once daily only when weight gain > 3lbs in 1 day or > 5 lbs in 3 days. potassium chloride 20 mEq Tablet Extended Release 10 meq PO DAILY PRN (Reason: Edema) Qty: 30 0RF Rx Instructions: take half a tablet only the day you take lasix. tamsulosin 0.4 mg Capsule 0.4 mg PO QPM Qty: 20 0RF prednisone 20 mg tablet 20 mg PO DAILY Discharge Orders: Discharge ED (Routine); Ordered 12/24/24 Ordered By: Kane Edmond Referrals: Maggi Aguilar MD [Primary Care Provider, Family Practice] - 4-7 days Discharge Diet: Advance as tolerated Discharge Activity: Resume usual activity Patient Instructions: Pneumonia (ED) Print Language: Romanian Coding Level of Care Code ED Business Performance Advisor for Rom Posada
[2024-12-24 09:46] LABS: Hematocrit 31.9 % (37-53); Hemoglobin 10.20 g/dL (11.27-16.99); Mean Corpuscular HGB Conc 32.0 g/dL (30-55); Mean Corpuscular Hemoglobin 30.6 pg (27-33); Mean Corpuscular Volume 95.8 fl (82-101); Nucleated Red Blood Cells % 0 %; Platelet Count 159 10^3/cmm (157-399); Red Blood Count 3.33 10^6/uL (3.85-5.65); White Blood Count 6.55 10^3/uL (3.29-11.43)
[2024-12-24 09:53] VITALS: PULSE 60; RESP 20; O2SAT 92
[2024-12-24 10:07] VITALS: PULSE 64
[2024-12-24 10:08] LABS: Alanine Aminotransferase 32 U/L (0-41); Albumin Level 3.2 g/dL (3.5-5.2); Alkaline Phosphatase 66 U/L (40-130); Anion Gap 12.7 (5-19); Aspartate Amino Transferase 38 U/L (0-40); Blood Urea Nitrogen 20 mg/dL (8-23); Calcium 8.7 mg/dL (8.5-10.5); Carbon Dioxide 24 mmol/L (22-29); Chloride 98 mmol/L (98-107); Creatinine Clr Calc Pharmacy 50.9170; Globulin 2.9 g/dL (1.3-4.6); Glucose 116 mg/dL (65-115); NT Pro B Type Natriuretic Pept 1604 pg/mL (0-450); Osmolality Calculated 276 mOsm/kg (285-295); Potassium 3.7 mmol/L (3.5-5.1); Sodium 131 mmol/L (136-145); Total Protein 6.1 g/dL (6.6-8.7)
--- NOTE | 2024-12-24 10:41 | PC.PHAR ---
Pt [facility] and lives with his son. [place] home health nurse comes weekly to help set up pill reminder.
[2024-12-24 11:50] VITALS: BP 99/64; PULSE 73; O2SAT 92
== END 2024-12-24 11:50 | disposition home or self-care (01) ==
PROVIDERS: Emergency Provider Emergency Medicine; PCP Family Medicine
DX: J18.9 Pneumonia, unspecified organism (principal); E78.5 Hyperlipidemia, unspecified; G47.33 Obstructive sleep apnea (adult) (pediatric); I25.10 Atherosclerotic heart disease of native coronary artery without angina pectoris; I10 Essential (primary) hypertension; I48.91 Unspecified atrial fibrillation; M81.0 Age-related osteoporosis without current pathological fracture; Z79.899 Other long term (current) drug therapy; Z79.890 Hormone replacement therapy; Z79.01 Long term (current) use of anticoagulants; Z79.84 Long term (current) use of oral hypoglycemic drugs; Z95.0 Presence of cardiac pacemaker; Z87.891 Personal history of nicotine dependence
CPT/HCPCS: 36415; 71045; 80053; 83880; 85025; 94640; 96374; 99284; J1100; J7613; J9999

== ENCOUNTER → 2025-02-27 14:34 | Outpatient (BNVA) | payer OTHER, SELFPAY | PROVIDERS: PCP Family Medicine; Visit Provider Internal Medicine | DX: G47.33 Obstructive sleep apnea (adult) (pediatric) (principal); Z99.89 Dependence on other enabling machines and devices; I48.91 Unspecified atrial fibrillation; Z79.01 Long term (current) use of anticoagulants; I51.89 Other ill-defined heart diseases; R94.2 Abnormal results of pulmonary function studies; Z95.0 Presence of cardiac pacemaker; Z87.891 Personal history of nicotine dependence; T78.40XA Allergy, unspecified, initial encounter; X58.XXXA Exposure to other specified factors, initial encounter; J44.9 Chronic obstructive pulmonary disease, unspecified; I10 Essential (primary) hypertension; R00.2 Palpitations | CPT/HCPCS: 36415; 85025; 86003; 99214; Q3014 ==

== ENCOUNTER 2025-03-19 06:57 | Outpatient (CLI) | payer OTHER, SELFPAY | END 2025-03-19 06:58 | disposition home or self-care (01) | PROVIDERS: PCP Family Medicine; Visit Provider Internal Medicine | DX: J44.9 Chronic obstructive pulmonary disease, unspecified (principal); R94.2 Abnormal results of pulmonary function studies | CPT/HCPCS: 94010; 94726; 94729 ==

== ENCOUNTER → 2025-04-05 13:48 | Outpatient (BNVA) | payer OTHER, SELFPAY | PROVIDERS: PCP Family Medicine; Visit Provider Internal Medicine | DX: G47.33 Obstructive sleep apnea (adult) (pediatric) (principal); Z99.89 Dependence on other enabling machines and devices; R94.2 Abnormal results of pulmonary function studies; I48.91 Unspecified atrial fibrillation; Z79.01 Long term (current) use of anticoagulants; I51.89 Other ill-defined heart diseases; J30.1 Allergic rhinitis due to pollen; R06.00 Dyspnea, unspecified; R06.02 Shortness of breath; Z95.0 Presence of cardiac pacemaker; Z87.891 Personal history of nicotine dependence | CPT/HCPCS: 99214; Q3014 ==

== ENCOUNTER → 2025-04-16 10:04 | Outpatient (BNVA) | payer OTHER, SELFPAY | PROVIDERS: PCP Family Medicine; Visit Provider Internal Medicine Cardiovascular Disease | DX: I25.10 Atherosclerotic heart disease of native coronary artery without angina pectoris (principal); I11.0 Hypertensive heart disease with heart failure; I50.32 Chronic diastolic (congestive) heart failure; I48.0 Paroxysmal atrial fibrillation; Z79.01 Long term (current) use of anticoagulants; E78.5 Hyperlipidemia, unspecified; Z95.0 Presence of cardiac pacemaker; Z87.891 Personal history of nicotine dependence; R06.02 Shortness of breath | CPT/HCPCS: 36415; 80048; 83880; 99214 ==